=== PATIENT | female | born 1965 | race Hispanic/Latino ===

== ENCOUNTER 2020-01-23 04:39 | Emergency (ER) | payer OTHER ==
[~2020-01-23] VITALS: Ht 152.4 cm; Wt 68.0 kg
[2020-01-23] MEDS ORDERED: PANTOPRAZOLE 40 MG 10ML VIAL IV STA (04:44)
[2020-01-23] MEDS ORDERED: MORPHINE SULFATE 2 MG/ML SYR 1ML IV STA (04:44)
[2020-01-23] MEDS ORDERED: ONDANSETRON HCL INJ 2MG/ML 2ML 2 MG/ML VIAL IV STA (04:44)
[2020-01-23 04:54] LABS: BASOPHILS # (AUTO) 0.1 (0.0-0.1); BASOPHILS % 1.1 % (0.0-1.0); EOSINOPHILS # (AUTO) 0.4 (0.0-0.4); EOSINOPHILS % 6.3 % (0.0-6.0); HEMATOCRIT 40.6 % (34.2-44.1); HEMOGLOBIN 12.9 g/dL (12.0-16.0); LYMPHOCYTES # (AUTO) 3.1 (1.0-3.2); LYMPHOCYTES % 48.1 % (18.0-39.1); MEAN CORPUSCULAR HEMOGLOBIN 30.9 pg (28-32); MEAN CORPUSCULAR HGB CONC 31.8 g/dL (31-35); MEAN CORPUSCULAR VOLUME 97.1 fL (81-99); MONOCYTES # (AUTO) 0.3 (0.2-0.8); NEUTROPHILS # (AUTO) 2.5 (2.1-6.9); NEUTROPHILS % 39.3 % (38.7-80.0); PLATELET COUNT 191 x10e3/uL (140-360); RED BLOOD COUNT 4.18 x10e6/uL (3.6-5.1); RED CELL DISTRIBUTION WIDTH 13.3 % (11.7-14.4)
[2020-01-23 05:10] LABS: ALANINE AMINOTRANSFERASE 119 IU/L (0-55); ALBUMIN 3.7 g/dL (3.5-5.0); ALBUMIN/GLOBULIN RATIO 1.2 (0.8-2.0); ALKALINE PHOSPHATASE 79 IU/L (40-150); ANION GAP 11.8 mmol/L (8-16); BLOOD UREA NITROGEN 15 mg/dL (7-26); BUN/CREATININE RATIO 17 (6-25); CALCIUM 9.1 mg/dL (8.4-10.2); CARBON DIOXIDE 25 mmol/L (22-29); CHLORIDE 107 mmol/L (98-107); CREATINE KINASE 47 IU/L (29-168); CREATININE, SERUM 0.87 mg/dL (0.57-1.11); EST GLOMERULAR FILTRATION RATE > 60 ML/MIN (60-); GLUCOSE 145 mg/dL (74-118); POTASSIUM 3.8 mmol/L (3.5-5.1); SODIUM 140 mmol/L (136-145)
[2020-01-23 05:11] LABS: AMYLASE 104 U/L (25-125); LIPASE 88 U/L (8-78)
--- NOTE | 2020-01-23 05:15 | Emergency Department Note ---
History of Present Illnes History of Present Illness Chief Complaint: Abdominal Complaints History of Present Illness This is a 54 year old female for the past five months patient has been having abd pain and nausea, states tonight pain is worsening, abd pain is generalized, pain comes and goes, has h/o hiatal hernia . 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 Arrival Mode: [facility] Onset (how long ago): month(s) (5) Location: upper abd Quality: pain Radiation: Reports other (chest) Severity: severe Onset quality: gradual Duration (how long): month(s) (5) Timing of current episode: intermittent Progression: worsening Chronicity: recurrent Context: Denies recent illness, Denies recent surgery Relieving factors: none Exacerbating factors: eating Associated symptoms: Reports chest pain Treatments prior to arrival: none (DIEGO VARELA MD) Past Medical/Family History Physician Review I have reviewed the patient's past medical and family history. Any updates have been documented here. (DIEGO VARELA MD) Past Medical History Recent Fever: No Clinical Suspicion of Infectio: No New/Unexplained Change in Ment: No Other Medical History: HIGH CHOLESTEROL Other Surgery: C SECTION. (DIEGO VARELA MD) Social History Smoking Cessation: Never Smoker Alcohol Use: None Any Illegal Drug Use: No Physically hurt or threatened: No (DIEGO VARELA MD) Family History Family history of heart diseas: No Other family history htn (DIEGO VARELA MD) Review of Systems Review of Systems Constitutional: Reports no symptoms EENTM: Reports no symptoms Cardiovascular: Reports no symptoms Respiratory: Reports no symptoms Gastrointestinal: Reports as per HPI Genitourinary: Reports no symptoms Musculoskeletal: Reports no symptoms Integumentary: Reports no symptoms Neurological: Reports no symptoms Psychological: Reports no symptoms Endocrine: Reports no symptoms Hematological/Lymphatic: Reports no symptoms (DIEGO VARELA MD) Physical Exam Related Data Allergies: Coded Allergies: No Known Allergies (Unverified , 02/23/17) Triage Vital Signs Vital Signs Date Time Temp Pulse Resp B/P (MAP) Pulse Ox O2 Delivery O2 Flow Rate FiO2 01/23/20 04:43 97.6 69 20 129/79 98 Room Air Vital signs reviewed: Yes (DIEGO VARELA MD) Physical Exam CONSTITUTIONAL Constitutional: Present well-developed, Present well-nourished, Present dis tressed (mild) HENT HENT: Present normocephalic, Present atraumatic, Present oropharynx clear/moist, Present nose normal HENT L/R: Present left ext ear normal, Present right ext ear normal EYES Eyes: Reports PERRL, Reports conjunctivae normal NECK Neck: Present ROM normal PULMONARY Pulmonary: Present effort normal, Present breath sounds normal CARDIOVASCULAR Cardiovascular: Present regular rhythm, Present heart sounds normal, Present capillary refill normal, Present normal rate GASTROINTESTINAL Abdominal: Present soft, Present bowel sounds normal, Present tender (epigastric region) GENITOURINARY Genitourinary: Present exam deferred SKIN Skin: Present warm, Present dry MUSCULOSKELETAL Musculoskeletal: Present ROM normal NEUROLOGICAL Neurological: Present alert, Present oriented x 3, Present no gross motor or sensory deficits PSYCHOLOGICAL Psychological: Present mood/affect normal, Present judgement normal (DIEGO VARELA MD) Results Laboratory Result Diagram: 01/23/20 0445 Laboratory Laboratory Tests Test 01/23/20 05:25 01/23/20 04:45 Urine Color Yellow (YELLOW) Urine Clarity Hazy (CLEAR) Urine pH 5.5 (5 - 7) Urine Specific [place] >=1.030 (1.010-1.025) Urine Protein Negative (NEGATIVE) Urine Glucose (UA) Negative (NEGATIVE) Urine Ketones Negative (NEGATIVE) Urine Blood Negative (NEGATIVE) Urine Nitrite Negative (NEGATIVE) Urine Bilirubin Negative (NEGATIVE) Urine Urobilinogen 0.2 mg/dL (0.2 - 1) Urine Leukocyte Esterase Moderate (NEGATIVE) Urine RBC 0-5 /HPF (0-5) Urine WBC 11-20 /HPF (0-5) Urine Epithelial Cells Moderate /LPF (NONE) Urine Bacteria Many /HPF (NONE) White Blood Count 6.40 x10e3/uL (4.8-10.8) Red Blood Count 4.18 x10e6/uL (3.6-5.1) Hemoglobin 12.9 g/dL (12.0-16.0) Hematocrit 40.6 % (34.2-44.1) Mean Corpuscular Volume 97.1 fL (81-99) Mean Corpuscular Hemoglobin 30.9 pg (28-32) Mean Corpuscular Hemoglobin Concent 31.8 g/dL (31-35) Red Cell Distribution Width 13.3 % (11.7-14.4) Platelet Count 191 x10e3/uL (140-360) Neutrophils (%) (Auto) 39.3 % (38.7-80.0) Lymphocytes (%) (Auto) 48.1 % (18.0-39.1) Monocytes (%) (Auto) 5.0 % (4.4-11.3) Eosinophils (%) (Auto) 6.3 % (0.0-6.0) Basophils (%) (Auto) 1.1 % (0.0-1.0) Neutrophils # (Auto) 2.5 (2.1-6.9) Lymphocytes # (Auto) 3.1 (1.0-3.2) Monocytes # (Auto) 0.3 (0.2-0.8) Eosinophils # (Auto) 0.4 (0.0-0.4) Basophils # (Auto) 0.1 (0.0-0.1) Absolute Immature Granulocyte (auto 0.01 x10e3/uL (0-0.1) Sodium Level 140 mmol/L (136-145) Potassium Level 3.8 mmol/L (3.5-5.1) Chloride Level 107 mmol/L (98-107) Carbon Dioxide Level 25 mmol/L (22-29) Anion Gap 11.8 mmol/L (8-16) Blood Urea Nitrogen 15 mg/dL (7-26) Creatinine 0.87 mg/dL (0.57-1.11) Estimat Glomerular Filtration Rate > 60 ML/MIN (60-) BUN/Creatinine Ratio 17 (6-25) Glucose Level 145 mg/dL (74-118) Calcium Level 9.1 mg/dL (8.4-10.2) Total Bilirubin 0.4 mg/dL (0.2-1.2) Aspartate Amino Transf (AST/SGOT) 126 IU/L (5-34) Alanine Aminotransferase (ALT/SGPT) 119 IU/L (0-55) Alkaline Phosphatase 79 IU/L (40-150) Creatine Kinase 47 IU/L (29-168) Creatine Kinase MB 0.20 ng/mL (0-5.0) Troponin I < 0.001 ng/mL (0-0.300) Total Protein 6.9 g/dL (6.5-8.1) Albumin 3.7 g/dL (3.5-5.0) Globulin 3.2 g/dL (2.3-3.5) Albumin/Globulin Ratio 1.2 (0.8-2.0) Amylase Level 104 U/L (25-125) Lipase 88 U/L (8-78) Laboratory Tests Test 01/23/20 04:45 White Blood Count 6.40 x10e3/uL (4.8-10.8) Red Blood Count 4.18 x10e6/uL (3.6-5.1) Hemoglobin 12.9 g/dL (12.0-16.0) Hematocrit 40.6 % (34.2-44.1) Mean Corpuscular Volume 97.1 fL (81-99) Mean Corpuscular Hemoglobin 30.9 pg (28-32) Mean Corpuscular Hemoglobin Concent 31.8 g/dL (31-35) Red Cell Distribution Width 13.3 % (11.7-14.4) Platelet Count 191 x10e3/uL (140-360) Neutrophils (%) (Auto) 39.3 % (38.7-80.0) Lymphocytes (%) (Auto) 48.1 % (18.0-39.1) Monocytes (%) (Auto) 5.0 % (4.4-11.3) Eosinophils (%) (Auto) 6.3 % (0.0-6.0) Basophils (%) (Auto) 1.1 % (0.0-1.0) Neutrophils # (Auto) 2.5 (2.1-6.9) Lymphocytes # (Auto) 3.1 (1.0-3.2) Monocytes # (Auto) 0.3 (0.2-0.8) Eosinophils # (Auto) 0.4 (0.0-0.4) Basophils # (Auto) 0.1 (0.0-0.1) Absolute Immature Granulocyte (auto 0.01 x10e3/uL (0-0.1) Lab results reviewed: Yes (DIEGO VARELA MD) Lab results reviewed: Yes (CHRISS GARCIA MD) Imaging Imaging results reviewed: Yes Impressions CT ABD/PELVIS NORMAL, NO ACUTE FINDINGS (CHRISS GARCIA MD) Procedures 12 Lead ECG Interpretation ECG Interpretation : ECG: ECG 1 P[employer]: Interpreted by ED physician Date: Jan 23, 2020 Time: 04:50 Rhythm: sinus rhythm Rate: normal BPM: 66 QRS axis: normal ST segments normal: Yes T waves normal: Yes Other findings: no other findings Clinical Impression: normal ECG (DIEGO VARELA MD) Assessment & Plan Medical Decision Making [facility] pt with upper abd pain radiating to chest cbc, cmp, ekg, cardiac enzyme, ct abd/pelvis, amylase, lipase ordered to eval for rule out myocardial infarction, pancreatitis, gallstones, incarcerated hiatal hernia, electrolyte abnormality, elevated lft's morphine 2mg iv ordered protonix 40 mg iv ordered zofran 4 mg iv ordered [address] GARCIA CT ABD/PELVIS PENDING (DIEGO VARELA MD) [facility] PT S&E, PAIN IMPROVED, NO ABD TENDERNESS, RESULTS OF LABS, UA, CT D/W PATIENT AND PLAN TO DC WITH BOOM JOHNSON, SHE UNDERSTANDS AND IS IN AGREEMENT, WILL F/U WITH PCP AND DR SANCHEZ HER GI MD (CHRISS GARCIA MD) Assessment & Plan Final Impression: (1) Abdominal pain (DIEGO VARELA MD) Final Impression: (1) Abdominal pain (2) Elevated LFTs (CHRISS GARCIA MD) Depart Disposition: HOME, SELF-CARE Last Vital Signs Date Time Temp Pulse Resp B/P (MAP) Pulse Ox O2 Delivery O2 Flow Rate FiO2 01/23/20 04:43 97.6 69 20 129/79 98 Room Air (DIEGO VARELA MD) Medications in the ED Morphine Sulfate 2 mg NOW STAT IV ; Start 01/23/20 at 04:44; Stop 01/23/20 at 04:45 Ondansetron HCl 4 mg NOW STAT IV ; Start 01/23/20 at 04:44; Stop 01/23/20 at 04:45 Pantoprazole Sodium 40 mg NOW STAT IV ; Start 01/23/20 at 04:44; Stop 01/23/20 at 04:45 (DIEGO VARELA MD) DIEGO VARELA MD Jan 23, 2020 05:15 CHRISS GARCIA MD Jan 23, 2020 09:15
[2020-01-23] MEDS ORDERED: BENZOCAINE/TETRACAINE/BUTAMBEN AERO SPRAY 56 GM CAN ONE (05:37)
[2020-01-23 05:38] LABS: BILIRUBIN,URINE NEGATIVE (NEGATIVE); CLARITY,URINE HAZY (CLEAR); COLOR,URINE YELLOW (YELLOW); KETONES,URINE NEGATIVE (NEGATIVE); LEUKOCYTE ESTERASE ,URINE MODERATE (NEGATIVE); NITRITE,URINE NEGATIVE (NEGATIVE); PROTEIN,URINE DIPSTICK NEGATIVE (NEGATIVE); URINE UROBILINOGEN 0.2 mg/dL (0.2 - 1)
[2020-01-23 05:42] LABS: BACTERIA,URINE MANY /HPF; EPITHELIAL CELLS,URINE MODERATE /LPF; RBC,URINE 0-5 /HPF (0-5)
--- OUTSIDE RECORDS SUMMARY | 2020-01-23 06:08 | XMS REPORT | Continuity of Care Document ---
Author Author [facility] t Organization [facility] Address 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 Name Role Phone Gorge GARCIA Attphys Unavailable Payers Payer Name Policy Type Policy Number Effective Date Expiration Date S ource Problems Condition Name Condition Details Condition Category Status Onset Date Resolution Date Last Treatment Date Treating Clinician Comments Source Mixed anxiety and depressive disorder Mixed Anxiety and Depr essive Disorder Problem Active 2019-12-24 00:00:00 [facility] Hiatal hernia Hiatal Hernia Problem Active 2019-12-20 00:00:00 [facility] Vitamin D deficiency Vitamin D Deficiency Problem Active 00:00:00 [facility] ice Mixed hyperlipidemia [facility] Pred[facility] Prediabetes Problem Active 2019-08-24 00:00:00 [facility] Major depressive disorder Major Depressive Disorder Problem Ac tive 2016-10-30 00:00:00 [facility] Gastroesophageal reflux disease Gastroesophageal Reflux Disease Pro blem Active 2016-10-30 00:00:00 [facility] Hypertensive disorder Hypertensive Disorder Problem Active 201 12-18-05 00:00:00 [facility] Allergies, Adverse Reactions, Alerts Allergy Name Allergy Type Status Severity Reaction(s) Onset Date Inacti ve Date Treating Clinician Comments Source No Known Allergies DA Active U 2019-09-17 00:00:00 [facility] No Known Allergies DA Active U 2013-11-17 00:00:00 [facility] House Dust Allergy to substance Active Mild Cough [facility] Social History Smoking Status Start Date Stop Date Source Never Smoker [facility] Medications Ordered Medication Name Filled Medication Name Start Date Stop Da te Current Medication? Ordering Clinician Indication Dosage Frequency Signature (SIG) Comments Components Source atorvastatin 20 mg tablet Take 1 tablet every day by o ral route for 90 days. atorvastatin 20 mg tablet Take 1 tablet every day by oral route for 90 days. No 1 Q1D atorvastatin 2 0 mg tablet Take 1 tablet every day by oral route for 90 days. [facility] ice baclofen 10 mg tablet Take 1 tablet twice a day by ora l route for 10 days. baclofen 10 mg tablet Take 1 tablet twice a day by oral route for 10 days. No baclofen 10 mg tablet Take 1 tablet twice a day by oral route for 10 days. [facility] ice loratadine 10 mg tablet Take 1 tablet every day by ora l route for 90 days. loratadine 10 mg tablet Take 1 tablet every day by oral route for 90 days. No 1 Q1D loratadine 10 m g tablet Take 1 tablet every day by oral route for 90 days. [facility] ice mometasone 50 mcg/actuation nasal spray Ryan 1 spray twice a day by intranasal route for 90 days. mometasone 50 mcg/actuation nasal spray Ryan 1 spray twice a day by intranasal route for 90 days. No mometasone 50 mcg/actuation nasal spray Ryan 1 spray twice a day by intranasal route for 90 days. [facility] montelukast 10 mg tablet Take 1 tablet e very day by oral route in the evening for 90 days. take after 4 pm daily montelukast 10 mg tablet Take 1 tablet e very day by oral route in the evening for 90 days. take after 4 pm daily No 1 Q1D montelukast 10 mg tablet Heri e 1 tablet every day by oral route in the evening for 90 days. take after 4 pm daily [facility] mupirocin 2 % topical ointment APPLY A S MALL AMOUNT TO THE AFFECTED AREA BY TOPICAL ROUTE 2 TIMES PER DAY x 7 days mupirocin 2 % topical ointment APPLY A SMALL AMOUNT TO THE AFFECTED AREA BY TOPICAL ROUTE 2 TIMES PER DAY x 7 days No mupirocin 2 % t opical ointment APPLY A SMALL AMOUNT TO THE AFFECTED AREA BY TOPICAL ROUTE 2 TIMES PER DAY x 7 days [facility] omeprazole 40 mg capsule,delayed release Take 1 capsule every day by oral route in the morning for 90 days. omeprazole 40 mg capsule,delayed release Take 1 capsule every day by oral route in the morning for 90 days. No omeprazole 40 mg capsule,delayed release Take 1 capsule every day by oral route in the morning for 90 days. [facility] ProAir HFA 90 mcg/actuation aerosol inha ler Inhale 2 puffs every 6-8 hours by inhalation route as needed for 10 days. ProAir HFA 90 mcg/actuation aerosol inhaler Inhale 2 puffs every 6-8 hours by inhalation route as needed for 10 days. No 2puff(s) Q7H ProAir HFA 90 m cg/actuation aerosol inhaler Inhale 2 puffs every 6-8 hours by inhalation route as needed for 10 days. [facility] sertraline 50 mg tablet Take 1 tablet ev mayda day by oral route as needed for 90 days. sertraline 50 mg tablet Take 1 tablet ev mayda day by oral route as needed for 90 days. No sertraline 50 mg tablet Take 1 tablet every day by oral route as needed for 90 days. [facility] Vitamin D3 50 mcg (2,000 unit) capsule T matt 1 capsule by oral route after meals for 90 days. Vitamin D3 50 mcg (2,000 unit) capsule T matt 1 capsule by oral route after meals for 90 days. No 1capsule(s) Vitamin D3 50 mcg (2,000 unit) capsule Take 1 capsule by oral route after meals for 90 days. [facility] Immunizations Ordered Immunization Name Filled Immunization Name Date Status Comments Source Tdap Tdap 2019-08-14 15:36:00 Completed [facility] zoster recombinant zoster recombinant 2019-08-14 15:36:00 Completed [facility] influenza, recombinant, quadrIvalent,injectable, prese rvative free influenza, recombinant, quadrIvalent,injectable, preservative free 2019-06-22 16:36:00 Completed [facility] influenza, unspecified formulation influenza, unspecified fo rmulation 2015-04-27 00:00:00 Completed [facility] ice influenza, unspecified formulation influenza, unspecified fo rmulation 2014-03-10 00:00:00 Completed [facility] ice Vital Signs Vital Name Observation Time Observation Value Comments Source BP Diastolic 2020-01-11 00:00:00 74 mm[Hg] [facility] Height 2020-01-11 00:00:00 61 [in_i] [facility] BMI (Body Mass Index) 2020-01-11 00:00:00 24.6 kg/m2 [facility] BP Systolic 2020-01-11 00:00:00 122 mm[Hg] [facility] Body Weight 2020-01-11 00:00:00 130.2 [lb_av] [facility] Height 2020-01-06 00:00:00 61 [in_i] [facility] BP Diastolic 2019-12-24 00:00:00 74 mm[Hg] [facility] Height 2019-12-24 00:00:00 61 [in_i] [facility] BMI (Body Mass Index) 2019-12-24 00:00:00 24.6 kg/m2 [facility] BP Systolic 2019-12-24 00:00:00 106 mm[Hg] [facility] Body Weight 2019-12-24 00:00:00 130.2 [lb_av] [facility] BP Diastolic 2019-11-18 00:00:00 82 mm[Hg] [facility] Height 2019-11-18 00:00:00 61 [in_i] [facility] BMI (Body Mass Index) 2019-11-18 00:00:00 26 kg/m2 [facility] BP Systolic 2019-11-18 00:00:00 114 mm[Hg] [facility] Body Weight 2019-11-18 00:00:00 137.8 [lb_av] [facility] Height 2019-10-26 00:00:00 61 [in_i] [facility] Height 2019-09-14 00:00:00 61 [in_i] [facility] BMI (Body Mass Index) 2019-09-14 00:00:00 30 kg/m2 [facility] Body Weight 2019-09-14 00:00:00 159 [lb_av] [facility] BP Diastolic 2019-09-11 00:00:00 84 mm[Hg] [facility] Height 2019-09-11 00:00:00 61 [in_i] [facility] BMI (Body Mass Index) 2019-09-11 00:00:00 30.2 kg/m2 [facility] BP Systolic 2019-09-11 00:00:00 144 mm[Hg] [facility] Body Weight 2019-09-11 00:00:00 160 [lb_av] [facility] BP Diastolic 2019-08-24 00:00:00 84 mm[Hg] [facility] Height 2019-08-24 00:00:00 61 [in_i] [facility] BMI (Body Mass Index) 2019-08-24 00:00:00 31.2 kg/m2 [facility] BP Systolic 2019-08-24 00:00:00 130 mm[Hg] [facility] Body Weight 2019-08-24 00:00:00 165 [lb_av] [facility] BP Diastolic 2019-08-14 00:00:00 82 mm[Hg] [facility] Height 2019-08-14 00:00:00 61 [in_i] [facility] BMI (Body Mass Index) 2019-08-14 00:00:00 31 kg/m2 [facility] BP Systolic 2019-08-14 00:00:00 114 mm[Hg] [facility] Body Weight 2019-08-14 00:00:00 164 [lb_av] [facility] BP Diastolic 2019-07-22 00:00:00 80 mm[Hg] [facility] Height 2019-07-22 00:00:00 61 [in_i] [facility] BMI (Body Mass Index) 2019-07-22 00:00:00 31.4 kg/m2 [facility] BP Systolic 2019-07-22 00:00:00 128 mm[Hg] [facility] Body Weight 2019-07-22 00:00:00 166 [lb_av] [facility] BP Diastolic 2019-06-22 00:00:00 86 mm[Hg] [facility] Height 2019-06-22 00:00:00 61 [in_i] [facility] BMI (Body Mass Index) 2019-06-22 00:00:00 31 kg/m2 [facility] BP Systolic 2019-06-22 00:00:00 130 mm[Hg] [facility] Body Weight 2019-06-22 00:00:00 164 [lb_av] [facility] BP Diastolic 2019-01-28 00:00:00 84 mm[Hg] [facility] Height 2019-01-28 00:00:00 61 [in_i] [facility] BMI (Body Mass Index) 2019-01-28 00:00:00 30.1 kg/m2 [facility] BP Systolic 2019-01-28 00:00:00 124 mm[Hg] [facility] Body Weight 2019-01-28 00:00:00 159.4 [lb_av] [facility] BP Diastolic 2019-01-09 00:00:00 86 mm[Hg] [facility] Height 2019-01-09 00:00:00 61 [in_i] [facility] BMI (Body Mass Index) 2019-01-09 00:00:00 30.3 kg/m2 [facility] BP Systolic 2019-01-09 00:00:00 130 mm[Hg] [facility] Body Weight 2019-01-09 00:00:00 160.4 [lb_av] [facility] BP Diastolic 2018-12-17 00:00:00 88 mm[Hg] [facility] Height 2018-12-17 00:00:00 61 [in_i] [facility] BMI (Body Mass Index) 2018-12-17 00:00:00 30.2 kg/m2 [facility] BP Systolic 2018-12-17 00:00:00 126 mm[Hg] [facility] Body Weight 2018-12-17 00:00:00 160 [lb_av] [facility] Procedures Procedure Date / Time Performed Performing Clinician Sourc e Egd 2019-11-13 00:00:00 [facility] electrocardiogram 2019-09-11 [facility], bilateral 2019-07-22 00:00:00 [facility] Colonoscopy 2016-10-17 00:00:00 [facility] Other 1999-06-17 00:00:00 [facility] Delivery 1999-06-17 00:00:00 [facility] Planned Activity Planned Date Details Comments Source Future Appointment 2020-04-13 00:00:00 Eugenio Rosas, [address]; [address], [place] [address] [facility] Encounters Start Date/Time End Date/Time Encounter Type Admission Type Attendi [facility] Care Department Encounter ID Source 2020-01-11 00:00:00 2020-01-11 00:00:00 Eugenio reddy MD: [address], [address], [place] [address], Ph. [facility] [id number] [facility] 2020-01-06 00:00:00 2020-01-06 00:00:00 Eugenio reddy MD: [address], [address], [place] [address], Ph. [facility] [id number] [facility] 2019-12-24 00:00:00 2019-12-24 00:00:00 Eugenio reddy MD: [address], [address], [place] [address], Ph. [facility] [id number] [facility] 2019-11-18 00:00:00 2019-11-18 00:00:00 Eugenio reddy MD: [address], [address], [place] [address], Ph. [facility] [id number] [facility] 2019-10-26 00:00:00 2019-10-26 00:00:00 Eugenio reddy MD: [address], [address], [place] [address], Ph. [facility] [id number] [facility] 2019-09-29 00:00:00 2019-09-29 00:00:00 Eugenio reddy MD: [address], [address], [place] [address], Ph. [facility] - [facility] [id number] [facility] 2019-09-22 00:00:00 2019-09-22 00:00:00 Eugenio reddy MD: [address], [address], [place] [address], Ph. [facility] [id number] [facility] 2019-09-14 00:00:00 2019-09-14 00:00:00 Eugenio reddy MD: [address], [address], [place] [address], Ph. [facility] [id number] [facility] 2019-09-11 00:00:00 2019-09-11 00:00:00 Eugenio reddy MD: [address], [address], [place] [address], Ph. [facility] [id number] [facility] 2019-08-24 00:00:00 2019-08-24 00:00:00 Eugenio rdedy MD: [address], [address], [place] [address], Ph. [facility] [id number] [facility] 2019-08-14 00:00:00 2019-08-14 00:00:00 Eugenio reddy MD: [address], [address], [place] [address], Ph. [facility] [id number] [facility] 2019-07-22 00:00:00 2019-07-22 00:00:00 Eugenio reddy MD: [address], [address], [place] [address], Ph. [facility] [id number] [facility] 2019-06-22 00:00:00 2019-06-22 00:00:00 Eugenio reddy MD: [address] [facility], [place] [address], Ph. [facility] - [facility]Zee [id number] [facility] 2019-01-28 00:00:00 2019-01-28 00:00:00 Joseph martin MD: [address] [place] [address], Ph. [facility] [id number] [facility] 2019-01-09 00:00:00 2019-01-09 00:00:00 Joseph martin MD: [address] [place] [address], Ph. [facility] [id number] [facility] 2018-12-17 00:00:00 2018-12-17 00:00:00 Joseph martin MD: [address] [place] [address], Ph. [facility] [id number] [facility] Results Test Description Test Time Test Comments Results Result Comments Source BASIC METABOLIC PANEL 2019-12-04 23:16:00 Test Item SODIUM (test code = NA) 141 mmol/L 136-145 N POTASSIUM (test code = K) 4.0 mmol/L 3.5-5.1 N CHLORIDE (test code = CL) 107.0 mmol/L 98-107 N CARBON DIOXIDE (test code = CO2) 26.0 mmol/L 21-32 N ANION GAP (test code = GAP) 12.0 10-20 N GLUCOSE (test code = GLU) 93 mg/dL 74-106 N BLOOD UREA NITROGEN (test code = BUN) 9 mg/dL 7-18 N GLOMERULAR FILTRATION RATE (test code = GFR) > 60 mL/min >=60 Estimated GFR by using Modified MDRD formula.Chronic kidney disease is defined as either kidney damageor GFR <60 mL/min/1.73 m2 for >3 months. CREATININE (test code = CREAT) 0.70 mg/dL 0.55-1.02 N Note change in reference range due to change in reagent. BUN/CREATININE RATIO (test code = BUN/CREA) 13.7 10-20 N CALCIUM (test code = CA) 9.3 mg/dL 8.5-10.1 N [id number] 23:16:00* Test Item Value Reference Range Interpretation Comments TROPONIN-I (test code = TROPI) <0.015 ng/mL 0-0.045 N BASIC METABOLIC [id number] 23:09:00* Test Item Value Reference Range Interpretation Comments SODIUM (test code = NA) 141 mmol/L 136-145 N POTASSIUM (test code = K) 4.0 mmol/L 3.5-5.1 N CHLORIDE (test code = CL) 107.0 mmol/L 98-107 N CARBON DIOXIDE (test code = CO2) mmol/L 21-32 ANION GAP (test code = GAP) 10-20 GLUCOSE (test code = GLU) mg/dL 74-106 BLOOD UREA NITROGEN (test code = BUN) mg/dL 7-18 GLOMERULAR FILTRATION RATE (test code = GFR) mL/min >=60 CREATININE (test code = CREAT) mg/dL 0.55-1.02 BUN/CREATININE RATIO (test code = BUN/CREA) 10-20 CALCIUM (test code = CA) 9.3 mg/dL 8.5-10.1 N [id number] 23:09:00* Test Item Value Reference Range Interpretation Comments TROPONIN-I (test code = TROPI) ng/mL 0-0.045 BASIC METABOLIC [id number] 23:06:00* Test Item Value Reference Range Interpretation Comments SODIUM (test code = NA) 141 mmol/L 136-145 N POTASSIUM (test code = K) 4.0 mmol/L 3.5-5.1 N CHLORIDE (test code = CL) 107.0 mmol/L 98-107 N CARBON DIOXIDE (test code = CO2) mmol/L 21-32 ANION GAP (test code = GAP) 10-20 GLUCOSE (test code = GLU) mg/dL 74-106 BLOOD UREA NITROGEN (test code = BUN) mg/dL 7-18 GLOMERULAR FILTRATION RATE (test code = GFR) mL/min >=60 CREATININE (test code = CREAT) mg/dL 0.55-1.02 BUN/CREATININE RATIO (test code = BUN/CREA) 10-20 CALCIUM (test code = CA) mg/dL 8.5-10.1 [id number] 23:06:00* Test Item Value Reference Range Interpretation Comments TROPONIN-I (test code = TROPI) ng/mL 0-0.045 CBC W/O [id number] 22:59:00* Test Item Value Reference Range Interpretation Comments WHITE BLOOD CELL (test code = WBC) K/mm3 4.5-12.5 RED BLOOD CELL (test code = RBC) mill/mm3 3.7-5.2 HEMOGLOBIN (test code = HGB) 13.9 gram/dL 11.5-15.5 N HEMATOCRIT (test code = HCT) 42.1 % 36.0-46.0 N MEAN CELL VOLUME (test code = MCV) fL 80-98 MEAN CELL HGB (test code = MCH) picogram 27.0-33.0 MEAN CELL HGB CONCETRATION (test code = MCHC) gram/dL 33.0-36. 0 RED CELL DISTRIBUTION WIDTH (test code = RDW) % 11.6-16. 2 PLATELET COUNT (test code = PLT) K/mm3 150-450 MEAN PLATELET VOLUME (test code = MPV) fL 6.7-11.0 CBC W/O [id number] 22:59:00* Test Item Value Reference Range Interpretation Comments WHITE BLOOD CELL (test code = WBC) 6.5 K/mm3 4.5-12.5 N RED BLOOD CELL (test code = RBC) 4.38 mill/mm3 3.7-5.2 N HEMOGLOBIN (test code = HGB) 13.9 gram/dL 11.5-15.5 N HEMATOCRIT (test code = HCT) 42.1 % 36.0-46.0 N MEAN CELL VOLUME (test code = MCV) 96.1 fL 80-98 N MEAN CELL HGB (test code = MCH) 31.7 picogram 27.0-33.0 N MEAN CELL HGB CONCETRATION (test code = MCHC) 33.0 gram/dL 33.0-36. 0 N RED CELL DISTRIBUTION WIDTH (test code = RDW) 13.6 % 11.6-16. 2 N PLATELET COUNT (test code = PLT) 208 K/mm3 150-450 N MEAN PLATELET VOLUME (test code = MPV) 11.7 fL 6.7-11.0 H - XR CHEST 1 [id number] 21:28:00 FAX: Skip Hidalgo MD [phone] [place]: St: REG Name: MARYLU GOMES [facility] : [birth year] 62 Age/S: 54/F [address] [facility] Unit #: [id number] Loc: [place] [address] Phys: Skip Hidalgo MD Acct: [id number] Dis Date: Status: REG ER PHONE #: [phone] Exam Date: 12/04/20192111 FAX #: [phone] Reason: CHEST PAIN EXAMS: CPT CODE: [id number] XR CHEST 1 V 23444 EXAM: Chest x-ray, one view; INFORMATION: Chest pain and sore throat; IMPRESSION: 1. No evidence of active cardiopulmonary disease. 2. No change c ompared with previous studies from September 17, 2019 and October 22, 2018; 4 mm c alcified granuloma in the right lung base. Location code: [facility] at 2127 Reported and signed by: Kenn Maurer M.D. CC: Danica Hidalgo MD Technologist: DUARTE FARIAS Trnscrd Date/Time/By: 12/04/2019 (2127) : By: Tien Orig Print D/T: S: 12/04/2019 (2131) PAGE 1 Signed Report Urinalysis complete [facility] Culture panel - [id number] 00:00:00* Test Item Value Reference Range Interpretation Comments color (test code = color) yellow yellow appearance (test code = appearance) turbid clear A specific gravity (test code = specific gravity) 1.028 1.001- 1.035 pH (test code = pH) < or = 5.0 5.0-8.0 glucose (test code = glucose) negative negative bilirubin (test code = bilirubin) negative negative ketones (test code = ketones) negative negative occult blood (test code = occult blood) trace negative A protein (test code = protein) 1+ negative A nitrite (test code = nitrite) negative negative leukocyte esterase (test code = leukocyte esterase) 2+ ne gative A WBC (test code = WBC) 10-20 < or = 5 A RBC (test code = RBC) 0-2 < or = 2 squamous epithelial cells (test code = squamous epithelial c ells) > or = 60 < or = 5 A bacteria (test code = bacteria) moderate none seen A calcium oxalate crystals (test code = calcium oxalate crystals) few none or few hyaline cast (test code = hyaline cast) 0-1 none seen A note (test code = note) reflexive urine culture (test code = reflexive urine c ulture) culture indicated - results to follow [facility] U[facility] by [id number] 00:00:00* Test Item Value Reference Range Interpretation Comments culture, urine, routine (test code = culture, urine, routine) see katie schaeffer [facility] Culture panel - Urine 2019-11-20 00:00:00* Test Item Value Reference Range Interpretation Comments color (test code = color) yellow yellow appearance (test code = appearance) turbid clear A specific gravity (test code = specific gravity) 1.028 1.001- 1.035 pH (test code = pH) < or = 5.0 5.0-8.0 glucose (test code = glucose) negative negative bilirubin (test code = bilirubin) negative negative ketones (test code = ketones) negative negative occult blood (test code = occult blood) trace negative A protein (test code = protein) 1+ negative A nitrite (test code = nitrite) negative negative leukocyte esterase (test code = leukocyte esterase) 2+ ne gative A WBC (test code = WBC) 10-20 < or = 5 A RBC (test code = RBC) 0-2 < or = 2 squamous epithelial cells (test code = squamous epithelial c ells) > or = 60 < or = 5 A bacteria (test code = bacteria) moderate none seen A calcium oxalate crystals (test code = calcium oxalate crystals) few none or few hyaline cast (test code = hyaline cast) 0-1 none seen A note (test code = note) reflexive urine culture (test code = reflexive urine c ulture) culture indicated - results to follow [facility] Urine by [id number] 00:00:00* Test Item Value Reference Range Interpretation Comments culture, urine, routine (test code = culture, urine, routine) see n ote [facility] Culture panel - Urine 2019-11-20 00:00:00* Test Item Value Reference Range Interpretation Comments color (test code = color) yellow yellow appearance (test code = appearance) turbid clear A specific gravity (test code = specific gravity) 1.028 1.001- 1.035 pH (test code = pH) < or = 5.0 5.0-8.0 glucose (test code = glucose) negative negative bilirubin (test code = bilirubin) negative negative ketones (test code = ketones) negative negative occult blood (test code = occult blood) trace negative A protein (test code = protein) 1+ negative A nitrite (test code = nitrite) negative negative leukocyte esterase (test code = leukocyte esterase) 2+ ne gative A WBC (test code = WBC) 10-20 < or = 5 A RBC (test code = RBC) 0-2 < or = 2 squamous epithelial cells (test code = squamous epithelial c ells) > or = 60 < or = 5 A bacteria (test code = bacteria) moderate none seen A calcium oxalate crystals (test code = calcium oxalate crystals) few none or few hyaline cast (test code = hyaline cast) 0-1 none seen A note (test code = note) reflexive urine culture (test code = reflexive urine c ulture) culture indicated - results to follow [facility] Urine by [id number] 00:00:00* Test Item Value Reference Range Interpretation Comments culture, urine, routine (test code = culture, urine, routine) see n e [facility] [Units/volume] in Serum or [id number] 00:00:00* Test Item Value Reference Range Interpretation Comments TSH (test code = TSH) 4.379 uIU/mL 0.350-4.940 [facility] [Units/volume] in Serum or [id number] 00:00:00* Test Item Value Reference Range Interpretation Comments TSH (test code = TSH) 4.379 uIU/mL 0.350-4.940 [facility] [Units/volume] in Serum or [id number] 00:00:00* Test Item Value Reference Range Interpretation Comments TSH (test code = TSH) 4.379 uIU/mL 0.350-4.940 [facility] - [id number] 00:00:00 * Test Item Value Reference Range Interpretation Comments WBC (test code = WBC) 4.71 x10*3/?L 3.98-10.04 RBC (test code = RBC) 4.74 10*12/L 3.93-5.22 hemoglobin (test code = hemoglobin) 14.70 g/dL 11.20-15.70 hematocrit (test code = hematocrit) 45.3 % 34.1-44.9 H MCV (test code = MCV) 95.6 fL 80.0-100.0 MCH (test code = MCH) 31.0 pg 25.6-32.2 MCHC (test code = MCHC) 32.5 g/dL 32.2-35.5 RDW-SD (test code = RDW-SD) 47.5 fL 36.4-46.3 H platelet count (test code = platelet count) 213.0 k/uL 182.0-369. 0 MPV (test code = MPV) 12.7 fL 7.5-11.5 H neut% (test code = neut%) 48.0 % 34.0-71.1 lymph% (test code = lymph%) 38.2 % 19.3-51.7 mon% (test code = mon%) 6.8 % 4.7-12.5 eos% (test code = eos%) 5.9 % 0.7-5.8 H baso% (test code = baso%) 1.1 % 0.1-1.2 neut# (test code = neut#) 2.3 x10*3/?L 1.6-6.1 lymph# (test code = lymph#) 1.8 x10*3/?L 1.2-3.7 mon# (test code = mon#) 0.3 x10*3/?L 0.2-0.9 eos# (test code = eos#) 0.28 x10*3/?L 0.04-0.36 baso# (test code = baso#) 0.05 x10*3/?L 0.01-0.08 [facility] 1999 [facility] - Serum or Plasma 2019-11-18 00:00:00* Test Item Value Reference Range Interpretation Comments ALT (test code = ALT) 41 U/L 0-55 AST (test code = AST) 20 U/L 5-34 BUN (test code = BUN) 14.9 mg/dL 9.8-25.0 alk phos (test code = alk phos) 71 unit/L 40-150 glucose (test code = glucose) 87 mg/dL 70-99 albumin (test code = albumin) 4.2 g/dL 3.4-5.1 creatinine (test code = creatinine) 0.81 mg/dL 0.57-1.11 eGFR non- (test code = eGFR non-) > 60 total bilirubin (test code = total bilirubin) 0.5 mg/dL 0.2-1.2 eGFR - (test code = eGFR - ) >60 sodium (test code = sodium) 140 mEq/L 135-145 potassium (test code = potassium) 4.4 mEq/L 3.5-5.3 chloride (test code = chloride) 105 mmol/L 98-110 total protein (test code = total protein) 7.3 g/dL 6.1-8.2 calcium (test code = calcium) 9.7 mg/dL 8.6-10.4 CO2 (test code = CO2) 25.2 mmol/L 20.0-32.0 anion gap (test code = anion gap) 10 calc [facility] 1995 panel - Serum or [id number] 00:00:00* Test Item Value Reference Range Interpretation Comments HDL (test code = HDL) 50 mg/dL triglyceride (test code = triglyceride) 115 mg/dL <150 VLDL (calculated) (test code = VLDL (calculated)) 23 mg/dL cholesterol/HDL ratio (test code = cholesterol/HDL ratio) 4.3 mg/dL non-HDL cholesterol (calculated) (test code = non-HDL cholesterol (calculated)) 167 mg/dL <160 H cholesterol (test code = cholesterol) 217 mg/dL <200 H Cholesterol in LDL [Mass/volume] in Serum or Plasma (t est code = 2089-1) 144 mg/dL <130 H [facility] HospitalHemoglobin A1c/Hemoglobin.total in [id number] 00:00:00* Test Item Value Reference Range Interpretation Comments Hemoglobin A1c/Hemoglobin.total in Blood (test code = 4548-4) 6.1 % 1.0-5.7 H average blood glucose (calculated) (test code = average blood glucose (calculated)) 128 mg/dL [facility] Auto Differential panel - [id number] 00:00:00 * Test Item Value Reference Range Interpretation Comments WBC (test code = WBC) 4.71 x10*3/?L 3.98-10.04 RBC (test code = RBC) 4.74 10*12/L 3.93-5.22 hemoglobin (test code = hemoglobin) 14.70 g/dL 11.20-15.70 hematocrit (test code = hematocrit) 45.3 % 34.1-44.9 H MCV (test code = MCV) 95.6 fL 80.0-100.0 MCH (test code = MCH) 31.0 pg 25.6-32.2 MCHC (test code = MCHC) 32.5 g/dL 32.2-35.5 RDW-SD (test code = RDW-SD) 47.5 fL 36.4-46.3 H platelet count (test code = platelet count) 213.0 k/uL 182.0-369. 0 MPV (test code = MPV) 12.7 fL 7.5-11.5 H neut% (test code = neut%) 48.0 % 34.0-71.1 lymph% (test code = lymph%) 38.2 % 19.3-51.7 mon% (test code = mon%) 6.8 % 4.7-12.5 eos% (test code = eos%) 5.9 % 0.7-5.8 H baso% (test code = baso%) 1.1 % 0.1-1.2 neut# (test code = neut#) 2.3 x10*3/?L 1.6-6.1 lymph# (test code = lymph#) 1.8 x10*3/?L 1.2-3.7 mon# (test code = mon#) 0.3 x10*3/?L 0.2-0.9 eos# (test code = eos#) 0.28 x10*3/?L 0.04-0.36 baso# (test code = baso#) 0.05 x10*3/?L 0.01-0.08 [facility] 2000 [facility] - Serum or Plasma 2019-11-18 00:00:00* Test Item Value Reference Range Interpretation Comments ALT (test code = ALT) 41 U/L 0-55 AST (test code = AST) 20 U/L 5-34 BUN (test code = BUN) 14.9 mg/dL 9.8-25.0 alk phos (test code = alk phos) 71 unit/L 40-150 glucose (test code = glucose) 87 mg/dL 70-99 albumin (test code = albumin) 4.2 g/dL 3.4-5.1 creatinine (test code = creatinine) 0.81 mg/dL 0.57-1.11 eGFR non- (test code = eGFR non-) > 60 total bilirubin (test code = total bilirubin) 0.5 mg/dL 0.2-1.2 eGFR - (test code = eGFR - ) >60 sodium (test code = sodium) 140 mEq/L 135-145 potassium (test code = potassium) 4.4 mEq/L 3.5-5.3 chloride (test code = chloride) 105 mmol/L 98-110 total protein (test code = total protein) 7.3 g/dL 6.1-8.2 calcium (test code = calcium) 9.7 mg/dL 8.6-10.4 CO2 (test code = CO2) 25.2 mmol/L 20.0-32.0 anion gap (test code = anion gap) 10 calc [facility]Lip[facility] 1996 panel - Serum or [id number] 00:00:00* Test Item Value Reference Range Interpretation Comments HDL (test code = HDL) 50 mg/dL triglyceride (test code = triglyceride) 115 mg/dL <150 VLDL (calculated) (test code = VLDL (calculated)) 23 mg/dL cholesterol/HDL ratio (test code = cholesterol/HDL ratio) 4.3 mg/dL non-HDL cholesterol (calculated) (test code = non-HDL cholesterol (calculated)) 167 mg/dL <160 H cholesterol (test code = cholesterol) 217 mg/dL <200 H Cholesterol in LDL [Mass/volume] in Serum or Plasma (t est code = 2089-1) 144 mg/dL <130 H [facility] HospitalHemoglobin A1c/Hemoglobin.total in [id number] 00:00:00* Test Item Value Reference Range Interpretation Comments Hemoglobin A1c/Hemoglobin.total in Blood (test code = 4548-4) 6.1 % 1.0-5.7 H average blood glucose (calculated) (test code = average blood glucose (calculated)) 128 mg/dL [facility] W Auto Differential panel - [id number] 00:00:00 * Test Item Value Reference Range Interpretation Comments WBC (test code = WBC) 4.71 x10*3/?L 3.98-10.04 RBC (test code = RBC) 4.74 10*12/L 3.93-5.22 hemoglobin (test code = hemoglobin) 14.70 g/dL 11.20-15.70 hematocrit (test code = hematocrit) 45.3 % 34.1-44.9 H MCV (test code = MCV) 95.6 fL 80.0-100.0 MCH (test code = MCH) 31.0 pg 25.6-32.2 MCHC (test code = MCHC) 32.5 g/dL 32.2-35.5 RDW-SD (test code = RDW-SD) 47.5 fL 36.4-46.3 H platelet count (test code = platelet count) 213.0 k/uL 182.0-369. 0 MPV (test code = MPV) 12.7 fL 7.5-11.5 H neut% (test code = neut%) 48.0 % 34.0-71.1 lymph% (test code = lymph%) 38.2 % 19.3-51.7 mon% (test code = mon%) 6.8 % 4.7-12.5 eos% (test code = eos%) 5.9 % 0.7-5.8 H baso% (test code = baso%) 1.1 % 0.1-1.2 neut# (test code = neut#) 2.3 x10*3/?L 1.6-6.1 lymph# (test code = lymph#) 1.8 x10*3/?L 1.2-3.7 mon# (test code = mon#) 0.3 x10*3/?L 0.2-0.9 eos# (test code = eos#) 0.28 x10*3/?L 0.04-0.36 baso# (test code = baso#) 0.05 x10*3/?L 0.01-0.08 [facility] 2000 [facility] - Serum or Plasma 2019-11-18 00:00:00* Test Item Value Reference Range Interpretation Comments ALT (test code = ALT) 41 U/L 0-55 AST (test code = AST) 20 U/L 5-34 BUN (test code = BUN) 14.9 mg/dL 9.8-25.0 alk phos (test code = alk phos) 71 unit/L 40-150 glucose (test code = glucose) 87 mg/dL 70-99 albumin (test code = albumin) 4.2 g/dL 3.4-5.1 creatinine (test code = creatinine) 0.81 mg/dL 0.57-1.11 eGFR non- (test code = eGFR non-) > 60 total bilirubin (test code = total bilirubin) 0.5 mg/dL 0.2-1.2 eGFR - (test code = eGFR - ) >60 sodium (test code = sodium) 140 mEq/L 135-145 potassium (test code = potassium) 4.4 mEq/L 3.5-5.3 chloride (test code = chloride) 105 mmol/L 98-110 total protein (test code = total protein) 7.3 g/dL 6.1-8.2 calcium (test code = calcium) 9.7 mg/dL 8.6-10.4 CO2 (test code = CO2) 25.2 mmol/L 20.0-32.0 anion gap (test code = anion gap) 10 calc [facility]Lip[facility] 1996 panel - Serum or [id number] 00:00:00* Test Item Value Reference Range Interpretation Comments HDL (test code = HDL) 50 mg/dL triglyceride (test code = triglyceride) 115 mg/dL <150 VLDL (calculated) (test code = VLDL (calculated)) 23 mg/dL cholesterol/HDL ratio (test code = cholesterol/HDL ratio) 4.3 mg/dL non-HDL cholesterol (calculated) (test code = non-HDL cholesterol (calculated)) 167 mg/dL <160 H cholesterol (test code = cholesterol) 217 mg/dL <200 H Cholesterol in LDL [Mass/volume] in Serum or Plasma (t est code = 2089-1) 144 mg/dL <130 H [facility] HospitalHemoglobin A1c/Hemoglobin.total in [id number] 00:00:00* Test Item Value Reference Range Interpretation Comments Hemoglobin A1c/Hemoglobin.total in Blood (test code = 4548-4) 6.1 % 1.0-5.7 H average blood glucose (calculated) (test code = average blood glucose (calculated)) 128 mg/dL [facility] [id number] 00:55:00* Test Item Value Reference Range Interpretation Comments STREPTOCOCCUS DYSGALACTIAE (test code = STREPGC) NEGATIVE FOR G/C N EGATIVE STREPA MOLECULAR (test code = STREPAMOL) NEGATIVE FOR GRP A NEGATIV E [id number] 18:17:00* Test Item Value Reference Range Interpretation Comments D-DIMER (test code = DDIMER) 483.00 ng/mLFEU 0-500 N Clinical Cut-off value for D-Dimer is 500 ng/mL FEU. Comment: The [employer] D-Dimer assay is intended for use asan aid in the diagnosis of venous thromboembolism (VTE)[deep vein thrombosis (DVT) or pulmonary embolism (PE)].The measurement of D-Dimer should not be used as an aid inthe diagnosis of VTE, in patient with: -Therapeutic dose anticoagulant therapy for >24 hours -Fibrinolytic therapy within previous 7 days -Trauma or surgery within previous 4 weeks -Disseminated malignancies -Aortic aneurysm -Sepsis, severe infections, pneumonia, severe skin infections -Liver cirrhosis - FIRST SPECIMEN WAS CLOTTED.V.LAB.GA 09/17/19 1641B-TYPE NATRIURETIC PEPTIDE 2019-09-17 17:32:00* Test Item Value Reference Range Interpretation Comments B-TYPE NATRIURETIC PEPTIDE (test code = BNP) 2.37 pgram/mL 0-100 N BASIC METABOLIC [id number] 16:58:00* Test Item Value Reference Range Interpretation Comments SODIUM (test code = NA) 139 mmol/L 136-145 N POTASSIUM (test code = K) 3.5 mmol/L 3.5-5.1 N CHLORIDE (test code = CL) 107.0 mmol/L 98-107 N CARBON DIOXIDE (test code = CO2) 24.0 mmol/L 21-32 N ANION GAP (test code = GAP) 11.5 10-20 N GLUCOSE (test code = GLU) 108 mg/dL 74-106 H BLOOD UREA NITROGEN (test code = BUN) 16 mg/dL 7-18 N GLOMERULAR FILTRATION RATE (test code = GFR) > 60 mL/min >=60 Estimated GFR by using Modified MDRD formula.Chronic kidney disease is defined as either kidney damageor GFR <60 mL/min/1.73 m2 for >3 months. CREATININE (test code = CREAT) 0.90 mg/dL 0.55-1.02 N Note change in reference range due to change in reagent. BUN/CREATININE RATIO (test code = BUN/CREA) 17.8 10-20 N CALCIUM (test code = CA) 8.8 mg/dL 8.5-10.1 N [id number] 16:58:00* Test Item Value Reference Range Interpretation Comments TROPONIN-I (test code = TROPI) <0.015 ng/mL 0-0.045 N BASIC METABOLIC [id number] 16:49:00* Test Item Value Reference Range Interpretation Comments SODIUM (test code = NA) 139 mmol/L 136-145 N POTASSIUM (test code = K) 3.5 mmol/L 3.5-5.1 N CHLORIDE (test code = CL) 107.0 mmol/L 98-107 N CARBON DIOXIDE (test code = CO2) mmol/L 21-32 ANION GAP (test code = GAP) 10-20 GLUCOSE (test code = GLU) mg/dL 74-106 BLOOD UREA NITROGEN (test code = BUN) mg/dL 7-18 GLOMERULAR FILTRATION RATE (test code = GFR) mL/min >=60 CREATININE (test code = CREAT) mg/dL 0.55-1.02 BUN/CREATININE RATIO (test code = BUN/CREA) 10-20 CALCIUM (test code = CA) mg/dL 8.5-10.1 [id number] 16:49:00* Test Item Value Reference Range Interpretation Comments TROPONIN-I (test code = TROPI) ng/mL 0-0.045 CBC W/O [id number] 16:44:00* Test Item Value Reference Range Interpretation Comments WHITE BLOOD CELL (test code = WBC) 9.0 K/mm3 4.5-12.5 N RED BLOOD CELL (test code = RBC) 4.76 mill/mm3 3.7-5.2 N HEMOGLOBIN (test code = HGB) 14.9 gram/dL 11.5-15.5 N HEMATOCRIT (test code = HCT) 44.7 % 36.0-46.0 N MEAN CELL VOLUME (test code = MCV) 93.9 fL 80-98 N MEAN CELL HGB (test code = MCH) 31.3 picogram 27.0-33.0 N MEAN CELL HGB CONCETRATION (test code = MCHC) 33.3 gram/dL 33.0-36. 0 N RED CELL DISTRIBUTION WIDTH (test code = RDW) 12.2 % 11.6-16. 2 N PLATELET COUNT (test code = PLT) 209 K/mm3 150-450 N MEAN PLATELET VOLUME (test code = MPV) 11.4 fL 6.7-11.0 H - XR CHEST 1 [id number] 16:01:00 FAX: Rogelio Mckeon MD [phone] [place]: [address]: PRE Name: MARYLU GOMES [facility] : [birth year] 62 Age/S: 54/F Mirna Millard Unit #: [id number] Loc: [place] [address] Phys: Rogelio Mckeon MD Acct: [id number] Dis Date: Status: PRE ER PHONE #: [phone] Exam Date: 09/17/2019 1545 FAX #: [phone] Reason: Shortness of Breath EXAMS: CPT CODE: [id number] XR CHEST 1 V 78431 REASON FOR EXAM: Shortness of Breath Exam Order Date: 09/17/2019 3:33 PM Ordering M.D.: Rogelio Mckeon MD PROCEDURE: - XR CHEST 1 V COMPARISON: Chest x-ray October 22, 2018 FINDINGS: The lungs ar e clear other than a calcified granuloma in the right lung base. There is no pleural effusion or pneumothorax. Pulmonary vascularity is within norm al limits. Cardiomediastinal silhouette is normal in size for tech nique. The mediastinal contours are within normal limits. Mu sculoskeletal structures are within normal limits. The visualized upper abdomen is within normal limits. IMPRESSION: No acute cardiopulmonary process. Location: [facility] at 1601 Reported and signed by: Julius Blas MD CC: Rogelio Mckeon MD Technologist: SOTERO FERNANDO, RT(R); DUARTE FARIAS Trnhird Date/Time/By: 09/17/2019 (2867) : By: Bri.RR 31 Orig Print D/T: S: 09/17/2019 (4014) PAGE 1 Signed Report EKG study 2019-09-11 22:34:00Rate & RhythmQrsPR IntervalQRS DurationQT IntervalVillage Family PracticeEKG [id number] 22:34:00Rate & RhythmQrsPR IntervalQRS DurationQT IntervalVillage Family PracticeEKG [id number] 22:34:00Rate & RhythmQrsPR IntervalQRS DurationQT IntervalVillage Family PracticeThyrotropin [Units/volume] in Serum or [id number] 00:00:00* Test Item Value Reference Range Interpretation Comments TSH (test code = TSH) 3.95 mIU/L [facility] HospitalPpreidbm44-Tyvsvskmzaehho D [Mass/volume] in Serum or Plasma 2019-08-18 00:00:00* Test Item Value Reference Range Interpretation Comments vitamin D,25-oh,total,ia (test code = vitamin D,25-oh,total,ia) 16 NG/mL 30-100 L [facility] HospitalThyrotropin [Units/volume] in Serum or [id number] 00:00:00* Test Item Value Reference Range Interpretation Comments TSH (test code = TSH) 3.95 mIU/L [facility] HospitalXivgztmx22-Astdedbeftmqoi D [Mass/volume] in Serum or Plasma 2019-08-18 00:00:00* Test Item Value Reference Range Interpretation Comments vitamin D,25-oh,total,ia (test code = vitamin D,25-oh,total,ia) 16 NG/mL 30-100 L [facility]Comprehensive [facility] 2000 panel - Serum or Plasma 2019-08-17 00:00:00* Test Item Value Reference Range Interpretation Comments ALT (test code = ALT) 41 U/L 0-55 AST (test code = AST) 23 U/L 5-34 BUN (test code = BUN) 15.9 mg/dL 9.8-25.0 alk phos (test code = alk phos) 75 unit/L 40-150 glucose (test code = glucose) 91 mg/dL 70-99 albumin (test code = albumin) 4.0 g/dL 3.4-5.1 creatinine (test code = creatinine) 0.84 mg/dL 0.57-1.11 eGFR non- (test code = eGFR non-) > 60 total bilirubin (test code = total bilirubin) 0.3 mg/dL 0.2-1.2 eGFR - (test code = eGFR - ) >60 sodium (test code = sodium) 139 mEq/L 135-145 potassium (test code = potassium) 4.6 mEq/L 3.5-5.3 chloride (test code = chloride) 108 mmol/L 98-110 total protein (test code = total protein) 7.3 g/dL 6.1-8.2 calcium (test code = calcium) 9.0 mg/dL 8.6-10.4 CO2 (test code = CO2) 24.9 mmol/L 20.0-32.0 anion gap (test code = anion gap) 6 calc [facility] HospitalLipid 1995 panel - Serum or [id number] 00:00:00* Test Item Value Reference Range Interpretation Comments HDL (test code = HDL) 50 mg/dL triglyceride (test code = triglyceride) 159 mg/dL <150 H VLDL (calculated) (test code = VLDL (calculated)) 32 mg/dL cholesterol/HDL ratio (test code = cholesterol/HDL ratio) 4.3 mg/dL non-HDL cholesterol (calculated) (test code = non-HDL cholesterol (calculated)) 166 mg/dL <160 H cholesterol (test code = cholesterol) 216 mg/dL <200 H Cholesterol in LDL [Mass/volume] in Serum or Plasma (t est code = 2089-1) 134 mg/dL <130 H [facility] HospitalHemoglobin A1c/Hemoglobin.total in [id number] 00:00:00* Test Item Value Reference Range Interpretation Comments Hemoglobin A1c/Hemoglobin.total in Blood (test code = 4548-4) 6.2 % 1.0-5.7 H average blood glucose (calculated) (test code = average blood glucose (calculated)) 131 mg/dL [facility]Com[facility] 2000 panel - Serum or Plasma 2019-08-17 00:00:00* Test Item Value Reference Range Interpretation Comments ALT (test code = ALT) 41 U/L 0-55 AST (test code = AST) 23 U/L 5-34 BUN (test code = BUN) 15.9 mg/dL 9.8-25.0 alk phos (test code = alk phos) 75 unit/L 40-150 glucose (test code = glucose) 91 mg/dL 70-99 albumin (test code = albumin) 4.0 g/dL 3.4-5.1 creatinine (test code = creatinine) 0.84 mg/dL 0.57-1.11 eGFR non- (test code = eGFR non-) > 60 total bilirubin (test code = total bilirubin) 0.3 mg/dL 0.2-1.2 eGFR - (test code = eGFR - ) >60 sodium (test code = sodium) 139 mEq/L 135-145 potassium (test code = potassium) 4.6 mEq/L 3.5-5.3 chloride (test code = chloride) 108 mmol/L 98-110 total protein (test code = total protein) 7.3 g/dL 6.1-8.2 calcium (test code = calcium) 9.0 mg/dL 8.6-10.4 CO2 (test code = CO2) 24.9 mmol/L 20.0-32.0 anion gap (test code = anion gap) 6 calc [facility] HospitalLip[facility] 1996 panel - Serum or [id number] 00:00:00* Test Item Value Reference Range Interpretation Comments HDL (test code = HDL) 50 mg/dL triglyceride (test code = triglyceride) 159 mg/dL <150 H VLDL (calculated) (test code = VLDL (calculated)) 32 mg/dL cholesterol/HDL ratio (test code = cholesterol/HDL ratio) 4.3 mg/dL non-HDL cholesterol (calculated) (test code = non-HDL cholesterol (calculated)) 166 mg/dL <160 H cholesterol (test code = cholesterol) 216 mg/dL <200 H Cholesterol in LDL [Mass/volume] in Serum or Plasma (t est code = 2089-1) 134 mg/dL <130 H [facility] HospitalHemoglobin A1c/Hemoglobin.total in [id number] 00:00:00* Test Item Value Reference Range Interpretation Comments Hemoglobin A1c/Hemoglobin.total in Blood (test code = 4548-4) 6.2 % 1.0-5.7 H average blood glucose (calculated) (test code = average blood glucose (calculated)) 131 mg/dL [facility] HospitalHepatitis C virus RNA [Units/volume] (viral load) in Serum or Plasma by Probe and target amplification [id number] 00:00:00* Test Item Value Reference Range Interpretation Comments hepatitis C antibody (test code = hepatitis C antibody) non- reactive non-reactive signal to cut-off (test code = signal to cut-off) 0.01 <1.0 0 [facility] W Auto Differential panel - [id number] 00:00:00 * Test Item Value Reference Range Interpretation Comments white blood cell count (test code = white blood cell count) 7.2 thousand/uL 3.8-10.8 red blood cell count (test code = red blood cell count) 4.60 million/uL 3.80-5.10 hemoglobin (test code = hemoglobin) 14.7 g/dL 11.7-15.5 hematocrit (test code = hematocrit) 41.8 % 35.0-45.0 MCV (test code = MCV) 90.9 fL 80.0-100.0 MCH (test code = MCH) 32.0 pg 27.0-33.0 MCHC (test code = MCHC) 35.2 g/dL 32.0-36.0 RDW (test code = RDW) 12.4 % 11.0-15.0 platelet count (test code = platelet count) 229 thousand/uL 140-400 MPV (test code = MPV) 11.7 fL 7.5-12.5 absolute neutrophils (test code = absolute neutrophils) 3665 kimber ls/uL 8739-7455 absolute lymphocytes (test code = absolute lymphocytes) 2434 kimber ls/uL 850-3900 absolute monocytes (test code = absolute monocytes) 554 cells/uL 20 0-950 absolute eosinophils (test code = absolute eosinophils) 454 cells/u L 15-500 absolute basophils (test code = absolute basophils) 94 cells/uL 0- 200 neutrophils (test code = neutrophils) 50.9 % lymphocytes (test code = lymphocytes) 33.8 % monocytes (test code = monocytes) 7.7 % eosinophils (test code = eosinophils) 6.3 % basophils (test code = basophils) 1.3 % [facility] HospitalHepatitis C virus RNA [Units/volume] (viral load) in Serum or Plasma by Probe and target amplification [id number] 00:00:00* Test Item Value Reference Range Interpretation Comments hepatitis C antibody (test code = hepatitis C antibody) non- reactive non-reactive signal to cut-off (test code = signal to cut-off) 0.01 <1.0 0 [facility] W Auto Differential panel - [id number] 00:00:00 * Test Item Value Reference Range Interpretation Comments white blood cell count (test code = white blood cell count) 7.2 thousand/uL 3.8-10.8 red blood cell count (test code = red blood cell count) 4.60 million/uL 3.80-5.10 hemoglobin (test code = hemoglobin) 14.7 g/dL 11.7-15.5 hematocrit (test code = hematocrit) 41.8 % 35.0-45.0 MCV (test code = MCV) 90.9 fL 80.0-100.0 MCH (test code = MCH) 32.0 pg 27.0-33.0 MCHC (test code = MCHC) 35.2 g/dL 32.0-36.0 RDW (test code = RDW) 12.4 % 11.0-15.0 platelet count (test code = platelet count) 229 thousand/uL 140-400 MPV (test code = MPV) 11.7 fL 7.5-12.5 absolute neutrophils (test code = absolute neutrophils) 3665 kimber ls/uL 1439-9987 absolute lymphocytes (test code = absolute lymphocytes) 2434 kimber ls/uL 850-3900 absolute monocytes (test code = absolute monocytes) 554 cells/uL 20 0-950 absolute eosinophils (test code = absolute eosinophils) 454 cells/u L 15-500 absolute basophils (test code = absolute basophils) 94 cells/uL 0- 200 neutrophils (test code = neutrophils) 50.9 % lymphocytes (test code = lymphocytes) 33.8 % monocytes (test code = monocytes) 7.7 % eosinophils (test code = eosinophils) 6.3 % basophils (test code = basophils) 1.3 % [facility] HospitalBacteria identified in Urine by [id number] 04:21:00* Test Item Value Reference Range Interpretation Comments culture, urine, routine (test code = culture, urine, routine) see n luis miguele A [facility] HospitalB-TYPE NATRIURETIC [id number] 19:18:00* Test Item Value Reference Range Interpretation Comments B-TYPE NATRIURETIC PEPTIDE (test code = BNP) 12.64 pgram/mL 0-100 N BASIC METABOLIC [id number] 18:26:00* Test Item Value Reference Range Interpretation Comments SODIUM (test code = NA) 138 mmol/L 136-145 N POTASSIUM (test code = K) 3.9 mmol/L 3.5-5.1 N CHLORIDE (test code = CL) 106.0 mmol/L 98-107 N CARBON DIOXIDE (test code = CO2) 26.0 mmol/L 21-32 N ANION GAP (test code = GAP) 9.9 10-20 L GLUCOSE (test code = GLU) 105 mg/dL 74-106 N BLOOD UREA NITROGEN (test code = BUN) 19 mg/dL 7-18 H GLOMERULAR FILTRATION RATE (test code = GFR) > 60 mL/min >=60 Estimated GFR by using Modified MDRD formula.Chronic kidney disease is defined as either kidney damageor GFR <60 mL/min/1.73 m2 for >3 months. CREATININE (test code = CREAT) 0.80 mg/dL 0.55-1.02 N Note change in reference range due to change in reagent. BUN/CREATININE RATIO (test code = BUN/CREA) 23.8 10-20 H CALCIUM (test code = CA) 8.4 mg/dL 8.5-10.1 L [id number] 18:26:00* Test Item Value Reference Range Interpretation Comments TROPONIN-I (test code = TROPI) <0.015 ng/mL 0-0.045 N BASIC METABOLIC [id number] 18:13:00* Test Item Value Reference Range Interpretation Comments SODIUM (test code = NA) 138 mmol/L 136-145 N POTASSIUM (test code = K) 3.9 mmol/L 3.5-5.1 N CHLORIDE (test code = CL) 106.0 mmol/L 98-107 N CARBON DIOXIDE (test code = CO2) mmol/L 21-32 ANION GAP (test code = GAP) 10-20 GLUCOSE (test code = GLU) mg/dL 74-106 BLOOD UREA NITROGEN (test code = BUN) mg/dL 7-18 GLOMERULAR FILTRATION RATE (test code = GFR) mL/min >=60 CREATININE (test code = CREAT) mg/dL 0.55-1.02 BUN/CREATININE RATIO (test code = BUN/CREA) 10-20 CALCIUM (test code = CA) mg/dL 8.5-10.1 [id number] 18:13:00* Test Item Value Reference Range Interpretation Comments TROPONIN-I (test code = TROPI) ng/mL 0-0.045 TROPONIN I [id number] 18:05:00* Test Item Value Reference Range Interpretation Comments TROPONIN I RAPID (test code = TROPIRAP) 0.05 ng/mL <0.08 Please Note New Reference Range 0.00-0.079 ng/mL - Negative>or= 0.08 ng/mL - Positive The use of serial sampling and testing protocol is arecommended practice.An elevated troponin level alone is often not sufficient fordiagnosis of myocardial infarction. Troponin results obtained by different assays may vary.Evaluation of the extent of myocardial damage based onincrease of troponin would be valid only if similarmethodology is used. CBC W/O [id number] 18:03:00* Test Item Value Reference Range Interpretation Comments WHITE BLOOD CELL (test code = WBC) 6.0 K/mm3 4.5-12.5 N RED BLOOD CELL (test code = RBC) 4.42 mill/mm3 3.7-5.2 N HEMOGLOBIN (test code = HGB) 13.7 gram/dL 11.5-15.5 N HEMATOCRIT (test code = HCT) 42.6 % 36.0-46.0 N MEAN CELL VOLUME (test code = MCV) 96.4 fL 80-98 N MEAN CELL HGB (test code = MCH) 31.0 picogram 27.0-33.0 N MEAN CELL HGB CONCETRATION (test code = MCHC) 32.2 gram/dL 33.0-36. 0 L RED CELL DISTRIBUTION WIDTH (test code = RDW) 12.1 % 11.6-16. 2 N PLATELET COUNT (test code = PLT) 194 K/mm3 150-450 N MEAN PLATELET VOLUME (test code = MPV) 10.8 fL 6.7-11.0 N CBC W/O [id number] 17:58:00* Test Item Value Reference Range Interpretation Comments WHITE BLOOD CELL (test code = WBC) K/mm3 4.5-12.5 RED BLOOD CELL (test code = RBC) mill/mm3 3.7-5.2 HEMOGLOBIN (test code = HGB) 13.7 gram/dL 11.5-15.5 N HEMATOCRIT (test code = HCT) 42.6 % 36.0-46.0 N MEAN CELL VOLUME (test code = MCV) fL 80-98 MEAN CELL HGB (test code = MCH) picogram 27.0-33.0 MEAN CELL HGB CONCETRATION (test code = MCHC) gram/dL 33.0-36. 0 RED CELL DISTRIBUTION WIDTH (test code = RDW) % 11.6-16. 2 PLATELET COUNT (test code = PLT) K/mm3 150-450 MEAN PLATELET VOLUME (test code = MPV) fL 6.7-11.0 - XR CHEST 1 [id number] 17:18:00 FAX: Rogelio Mckeon MD [phone] [place]: St: REG Name: MARYLU GOMES [facility] : 08/15/18 62 Age/S: 53/F [address] [facility] Unit #: [id number] Loc: [place] [address] Phys: Rogelio Mckeon MD Acct: [id number] Dis Date: Status: REG ER PHONE #: [phone] Exam Date: 10/22/2018 1713 FAX #: [phone] Reason: CHEST PAIN EXAMS: CPT CODE: [id number] XR CHEST 1 V [id number] REASON FOR EXAM: CHEST NATHEN N EXAM ORDER DATE: 10/22/2018 4:56 PM Ordering M.Leanne: Imer Mckeon MD PROCEDURE: - XR CHEST 1 V COMPARIS ON: 11/17/2013 FINDINGS: Portable AP frontal view of the chest obta ined at 5:12 PM shows stable appearance of a small calcified granuloma in the right base. There is no evidence of effusion. The heart size is minima lly enlarged. Pulmonary vasculatures are unremarkable. IM PRESSION: No active disease. Electronically Signed by Nino Head 10/22/2018 at 4412 Reported and signed by: Tiff Howell CC: Rogelio Mckeon MD Technologist: Phillip DUKES(R) Trnkipr sammie Date/Time/By: 10/22/2018 (6965) : By: NiloL Orig Print D/T: S: 0 10/22/2018 (2244) PAGE 1 Signed Re port FEMUR 2 VIEWS MINIMUM LEFT [facility] [address] [place] [address] Patient Name: MARYLU PAIZ MR #: [id number] : 1965 Age/Sex: 51/F Req #: [id number] [facility] Physician: Ordered by: EFREN SMITH Report #: [id number] Location: ER Room/Bed: Procedure: [id number] DX/FEMUR 2 VIEWS MINIMUM LE FT Exam Date: Exam Time: REPORT STATUS: Sign ed FEMUR 2 VIEWS MINIMUM LEFT HISTORY: Thigh pain COMPARISON: None FINDINGS: Bones: No displaced fracture. Osseous alignment is within normal limits. Joints: The joint spaces are well-maintained. Soft tissues: The soft tissues appear unremarkable. IMPRESSION: No acute radiographic abnormality. Signed by: Dr. Marlo Wilson M.D. on 7 7:55 PM Dictated By: MARLO ALLEN MD 52 Transcribed By: MYAH on 02/23/17 1 955 COPY TO: EFREN SMITH
--- OUTSIDE RECORDS SUMMARY | 2020-01-23 06:09 | XMS REPORT | Encounter Summary ---
Author Organization Unknown Address [address] [place] [address] Phone [phone] Care Team Providers Care Nuclear Design Engineer Name Role Phone Dr. Eugenio Rosas 3 [phone] Sae Hassan MD 107 [phone] Reason for Visit lab follow-up Instructions 1. Prediabetes Glucophage XR 500 mg tablet,extended r elease 2. Vitamin D deficiency Vitamin D2 1,250 mcg (50,000 unit) cap stephanie 3. Major depressive disorder 4. Gastroesophageal reflux disease 5. Mixed hyperlipidemia colesterol alto: instrucciones de cuid ado - [high cholesterol: care instructions] atorvastatin 20 mg tablet Discussion Note Reviewed all labs with pt. Copy of labs given to pt . D/w pt treatment plan, meds, how they work & side effects. Answered all questions to pt's satisfaction. F/U IN 3 MTHS Plan of Care Reminders Provider Appointments Est Patient 11/18/2019 8:30AM Eugenio Rosas MD Lab None recorded. Referral None recorded. Procedures None recorded. Surgeries None recorded. Imaging None recorded. Medications Name Start Date atorvastatin 20 mg tablet Take 1 tablet every day by oral route for 90 days. Glucophage XR 500 mg tablet,extended rel ease Take 1 tablet every day by oral route for 90 days. loratadine 10 mg tablet Take 1 tablet every day by oral route for 90 days. montelukast 10 mg tablet Take 1 tablet every day by oral route in the evening for 90 days. omeprazole 40 mg capsule,delayed release Take 1 capsule every day by oral route in the morning for 90 days. sertraline 50 mg tablet Take 1 tablet every day by oral route as needed for 90 days. Vitamin D2 1,250 mcg (50,000 unit) capsu le Take 1 capsule twice a day by oral route for 90 days. Medications Administered None recorded. Vitals Height Weight BMI Blood Pressure 5 ft 1 in 165 lbs 31.2 kg/m2 130/84 mm[Hg] Results Lab Results Date Name Specimen Result Interpretation Description Value Range Status Address 08/14/2019 Hepatitis C Virus RNA, Quant, PCR, Serum or Plasma Normal Hepatitis C Antibody non-reactive non-reactive Final [facility] dical - Laboratory: [address] [facility] [place] Normal Signal to Cut-off 0.01 <1.00 Mery l [facility] Medical - Laboratory: [address] Rashid [place] 08/14/2019 CBC W/ Auto Diff Normal White Blood Cell Co unt 7.2 thousand/uL 3.8-10.8 thousand/uL Final [facility] - Laboratory : [address] [place] [address] [place] [address] Normal Red Blood Cell Count 4.60 mill ion/uL 3.80-5.10 million/uL Final [facility] - Laboratory: [address] [place] [address] [place] [address] Normal Hemoglobin 14.7 g/dL 11.7-15.5 g/dL Final [facility] - Laboratory: [address] [place] [address] [place] [address] Normal Hematocrit 41.8 % 35.0-45.0 % Final [facility] - Laboratory: [address] [place] [address] [place] [address] Normal Mcv 90.9 fL 80.0-100.0 fL Final [facility] - Laboratory: [address] [facility] [facility] Mch 32.0 pg 27.0-33.0 pg Final [facility] Medical - Laboratory: [address] [facility] [facility] Normal Mchc 35.2 g/dL 32.0-36.0 g/dL Final [facility] - Laboratory: [address] [place] [address] [place] [address] Normal Rdw 12.4 % 11.0-15.0 % Final [facility] - Laboratory: [address] [facility] Normal Platelet Count 229 thousand/uL 140-4 00 thousand/uL Final [facility] - Laboratory: [address] [facility] Normal Mpv 11.7 fL 7.5-12.5 fL Final [facility] Medical - Laboratory: [address] [facility] Normal Absolute Neutrophils 3665 cells/uL 1 500-7800 cells/uL Final [facility] - Laboratory: [address] [facility] Normal Absolute Lymphocytes 2434 cells/uL 8 50-3900 cells/uL Final [facility] - Laboratory: [address] [facility] [place] Normal Absolute Monocytes 554 cells/uL 200- 950 cells/uL Final [facility] - Laboratory: [address] [facility] [place] Normal Absolute Eosinophils 454 cells/uL 15 -500 cells/uL [facility] - Laboratory: [address] [place] [address], [place] Normal Absolute Basophils 94 cells/uL 0-200 cells/uL Final [facility] - Laboratory: [address] [facility] [place] Normal Neutrophils 50.9 % Final [facility] - Laboratory: [address] [place] [address], [place] Normal Lymphocytes 33.8 % Final [facility] - Laboratory: [address] [facility] [place] Normal Monocytes 7.7 % Final [facility] - Laboratory: [address] [facility] [place] Normal Eosinophils 6.3 % Final [facility] - Laboratory: [address] [facility] [place] Normal Basophils 1.3 % Final [facility] - Laboratory: [address] [place] [address] 08/14/2019 CMP, Serum or Plasma Alt 41 U/L 0-55 U /L [facility] - Laboratory: [address] Ast 23 U/L 5-34 U/L [facility] - Laboratory: [address] [place] [address] Bun 15.9 mg/dL 9.8-25.0 mg/dL [facility] - Laboratory: [address] Alk Phos 75 unit/L 40-150 unit/L Fin [facility] Medical - Laboratory: [address] [place] [address] Glucose 91 mg/dL 70-99 mg/dL [facility] - Laboratory: [address] Albumin 4.0 g/dL 3.4-5.1 g/dL [facility] - Laboratory: [address] [place] [address] Creatinine 0.84 mg/dL 0.57-1.11 mg/d L [facility] - Laboratory: [address] [place] [address] eGFR Non- >60 mL/mi n/1.73m2 Final [facility] - Laboratory: [address] [place] [address] Total Bilirubin 0.3 mg/dL 0.2-1.2 mg /dL Final [facility] - Laboratory: [address], [place] eGFR - >60 mL/min/1 .73m2 [facility] - Laboratory: [address] Rashid, [place] Sodium 139 mEq/L 135-145 mEq/L [facility] - Laboratory: [address], [place] Potassium 4.6 mEq/L 3.5-5.3 mEq/L [facility] Medical - Laboratory: [address], [place] Chloride 108 mmol/L 98-110 mmol/L [facility] - Laboratory: [address] Rashid, [place] Total Protein 7.3 g/dL 6.1-8.2 g/dL [facility] - Laboratory: [address] Rashid, [place] Calcium 9.0 mg/dL 8.6-10.4 mg/dL [facility] - Laboratory: [address] Rashid, [place] Co2 24.9 mmol/L 20.0-32.0 mmol/L [facility] - Laboratory: [address] Rash[address], [place] Anion Gap 6 calc [facility] - Laboratory: [address] Rash[address], [place] 08/14/2019 Lipid Panel, Serum Hdl 50 mg/dL Final [facility] - Laboratory: [address] [place] High Triglyceride 159 mg/dL <150 mg/dL [facility] - Laboratory: [address] Rashid, [place] VLDL (Calculated) 32 mg/dL [facility] - Laboratory: [address], [place] cholesterol/HDL Ratio 4.3 mg/dL [facility] - Laboratory: [address], [place] High non-HDL Cholesterol (Calculated) 166 mg/dL <160 mg/dL [facility] - Laboratory: [address], [place] High Cholesterol 216 mg/dL <200 mg/dL [facility] - Laboratory: [address] Rashid, [place] High LDL (Calculated) 134 mg/dL <130 mg/d L [facility] - Laboratory: [address], [place] 08/14/2019 HbA1C (Hemoglobin a1C), Blood High A1C W/ eag 6.2 % 1.0-5.7 % Final [facility] - Laboratory: [address] Average Blood Glucose (Calculated) 1 31 mg/dL Final [facility] - Laboratory: [address] [place] [address], [place] 08/14/2019 TSH, Serum or Plasma Normal Tsh 3.95 mIU/L Final [facility] - Laboratory: [address] [place] [address], [place] 08/14/2019 Vitamin D, 25-Hydroxy, Total, Serum Low Vitamin D,25-Oh,total,ia 16 NG/mL 30-100 NG/mL Final [facility] - Laboratory: [address] Allergies Code Code System Name Reaction Severity Status Onset 703371 RxNorm House Dust Cough Mild Active NKDA Problems Name Status Onset Date Source Hyperlipidemia Active 09/20/2016 Hypertensive Disorder Active 09/20/2016 Major Depressive Disorder Active 10/30/2016 Gastroesophageal Reflux Disease Active 10/30/2016 Vitamin D Deficiency Active 08/24/2019 Mixed Hyperlipidemia Active 08/24/2019 Prediabetes Active 08/24/2019 Procedures Date Name Performed by 06/17/1999 Delivery Information not avai lable Colonoscopy Information not avai lable Vaccine List Vaccine Type influenza, recombinant, quadrIvalent,inj ectable, preservative free 06/22/20190.5 mL influenza, unspecified formulation 03/10/2014 04/27/2015 Tdap 08/14/20190.5 mL zoster recombinant 08/14/20190.5 mL Social History Tobacco Smoking Status Never Smoker Past Encounters 08/24/2019 Prediabetes; Vitamin D Deficiency; Major Depressive Disorder; Gastroesophageal Reflux Disease; Mixed Hyperlipidemia Eugenio Rosas MD: [address], [address], [place] [address], Ph. 08/14/2019 Body Mass Index 30+ - Obesity; Obesity; Vertigo; Gastroesophageal Reflux Disease; Major Depressive Disorder; Immunization; Screening for Malignant Neoplasm of Cervix; Gastritis; Malaise and Fatigue; Mixed Hyperlipidemia; Impaired Fasting Glycaemia; Screening for Disorder; Vitamin D Deficiency; Seasonal Allergic Rhinitis Eugenoi Rosas MD: [address], [address], [place] [address], Ph. History of Present Illness Note:<div>A 54-year-old female presents for an office visit to followup on her labs. This is a [place]bourgish-speaking patient. Accompanied by son, who acts as an embroidery operator during the visit.
</div><div>
</div><div>Prediabetes:
</div ><div>HbA1c is 6.2%.
</div><div>
</div><div>Vitamin D deficiency:
< /div><div>Vitamin D is 16 ng/mL.
</div><div>
</div><div>Major depressive disorder:
</div><div>Takes medication. Mentions she takes it when needed. The reason for her depression is her friend bullying her at work.after d/w son & amp; pt - pt currently taking sertraline 50 mg daily & doing well.
</div> <div>
</div><div>Gastroesophageal reflux disease:
</div><div>On medications.
</div><div>
</div><div>Mixed hyperlipidemia:
</div><div> HDL decreased from 54 mg/dL to 50 mg/dL. Triglycerides increased from 140 mg/dL to 159 mg/dL. LDL is 134 mg/dL.
</div><div>States she eats tortilla, sometimes rice, pasta once in two weeks (spaghetti). Every day in the morning she eats four corn tortillas, corn flakes. Inquires if she can eat fried fish. Mentions she eats two eggs for lunch. She drinks juice too.
</div><div>
< /div><div>Additional comments:
</div><div>Last blood work was done on August 14, 2019.
</div><div>H/h- 14.7/41. Past hemoglobin was 14.8%.
< /div><div>Liver enzymes- ALT is 41 units/litre. It was 31 units/litre in the past. AST is 23 units/litre. It was 20 units/litre in the past.
</div><div> Kidney function - Creatinine is 0.84 mg/dL.
</div><div>TSH level is 3.9 florentin-international unit/litre.
</div><div>
</div><div>Up-to-date with mammogram and the results are normal. </div><div>No chest pain , no shortness of breath, no palpitations ,no dizziness , no diaphoresis , no weakness or numbness in arms or legs , no visual loss .</div> Review of Systems:ROS as noted in the HPI Review of Systems None recorded. Physical Exam General Adult Exam (Female) Reported By: Patient Constitutional: General Appearance: well-dev eloped, obese. Level of Distress: NAD; Patient is looking alert and cheerful. Ambulation: ambulating normally Psychiatric: Insight: good judgement. Men guy Status: active and alert. Orientation: to time, to place, to person. Memory: recent memory normal, remote memory normal Head: Head: normocephalic, atrauma tic Eyes: Lids and Conjunctivae: non-i njected, no discharge, no pallor. EOM: EOMI. Sclerae: non-icteric ENMT: Ears: no lesions on external ear. Hearing: no hearing loss. Nose: no lesions on external nose Lungs: Respiratory effort: no dyspn ea Cardiovascular: Heart Auscultation: RRR, nor mal S1, normal S2, no murmurs Abdomen: Inspection and Palpation: so ft, non-distended, no tenderness; obese Neurologic: Gait and Station: normal gai t, normal station. Cranial Nerves: grossly intact. Coordination and Cerebellum: no tremor Skin: Inspection and palpation: no rash, no lesions, no jaundice Notes: alert , oriented x 3 , neatl y dressed , good eye contact, answers q's appropriately , no monotonous tone .<div></div>
--- OUTSIDE RECORDS SUMMARY | 2020-01-23 06:09 | XMS REPORT | Encounter Summary ---
Author Organization Unknown Address [address] [place] [address] Phone [phone] Care Team Providers Care Conveyor Belt Repairer Name Role Phone Dr. Eugenio Rosas 3 [phone] Sae Hassan MD 107 [phone] Reason for Visit weight loss; other - see typed reason; T elemedicine Visit; cough Instructions 1. Hypertensive disorder CBC w/ auto diff 2. Mixed hyperlipidemia lipid panel, serum CMP, serum or plasma 3. Gastroesophageal reflux disease 4. Dysphagia 5. Mixed anxiety and depressive disorder 6. Thoracic back pain Discussion Note Wants letter to be faxed to [phone] Encouraged to eat different soft foods as tolerated. f/u with GI for EGD on October F/u in 1 month Patient educational handouts: No information available. Plan of Care Reminders Provider Appointments Est Patient 11/18/2019 8:30AM Eugenio Rosas MD Lab Lipid Panel, Serum 10/26/2019 [facility] Medic al - Laboratory CMP, Serum or Plasma 10/26/2019 [facility] Med ical - Laboratory CBC W/ Auto Diff 10/26/2019 [facility] Medical - Laboratory Referral None recorded. Procedures None recorded. Surgeries None recorded. Imaging None recorded. Medications Name Start Date albuterol sulfate HFA 90 mcg/actuation aerosol inhaler atorvastatin 20 mg tablet Take 1 tablet every day by oral route for 90 days. loratadine 10 mg tablet Take 1 tablet every day by oral route for 90 days. meloxicam 15 mg tablet Take 1 tablet every day by oral route after meals for 30 days. metformin ER 500 mg tablet,extended rele ase 24 hr Take 1 tablet every day by oral route for 90 days. mometasone 50 mcg/actuation nasal spray [place] 1 spray twice a day by intranasal route for 90 days. montelukast 10 mg tablet Take 1 tablet every day by oral route in the evening for 90 days. omeprazole 40 mg capsule,delayed release Take 1 capsule every day by oral route in the morning for 90 days. 09/14/2019 sertraline 50 mg tablet Take 1 tablet every day by oral route as needed for 90 days. sucralfate 100 mg/mL oral suspension take 10 ML 15 MINutes Before LUNCH and 15 MINutes BEfore dinner Medications Administered None recorded. Vitals Height 5 ft 1 in Results Lab Results None recorded. Allergies Code Code System Name Reaction Severity Status Onset [id number] RxNorm House Dust Cough Mild Active NKDA Problems Name Status Onset Date Source Hypertensive Disorder Active 09/20/2016 Major Depressive Disorder Active 10/30/2016 Gastroesophageal Reflux Disease Active 10/30/2016 Vitamin D Deficiency Active 08/24/2019 Mixed Hyperlipidemia Active 08/24/2019 Prediabetes Active 08/24/2019 Procedures Date Name Performed by 06/17/1999 Delivery Information not avai lable Colonoscopy & Polypectomy Information no t available Colonoscopy Information not avai lable Vaccine List Vaccine Type influenza, recombinant, quadrIvalent,inj ectable, preservative free 06/22/20190.5 mL influenza, unspecified formulation 03/10/2014 04/27/2015 Tdap 08/14/20190.5 mL zoster recombinant 08/14/20190.5 mL Social History Tobacco Smoking Status Never Smoker Past Encounters 10/26/2019 Hypertensive Disorder; Mixed Hyperlipidemia; Gastroesophageal Reflux Disease; Dysphagia; Mixed Anxiety and Depressive Disorder; Thoracic Back Pain Eugenio Rosas MD: [address] [facility] [address], [place] [address], Ph. 09/29/2019 Hypertensive Disorder; Mixed Hyperlipidemia; Gastroesophageal Reflux Disease; Dysphagia; Mixed Anxiety and Depressive Disorder; Thoracic Back Pain Eugenio Rosas MD: [address] [facility] [address], [place] [address], Ph. History of Present Illness Note:I confirm that I received verbal consent from the patient for the virtual visit.
This telemedicine encounter was performed using live {{video and audio at 4.20 pm #|video and audio|audio only}}.
<b>(for audio only)</b> Total time spent with patient: {{ }} minutes.<div>C/o something is tuck in her throat x 2 mth s, loosing weight - approximately 19 lbs in 5.5 weeks, Saw GI & has been scheduled a EGD for October, Went to a near by Clinic on October was tested for tsh & Covid 19 - per pt was told results are normal, </div><div> Taking Omeprazole in am * Sucralfate at noon & Before dinner in pm .</div>< div>Wants a note to work a\\saying she is not doing well.Difficulty swallowing hard foods ,</div><div>No chest pain , no shortness of breath, no palpitations ,no dizziness , no diaphoresis , no weakness or numbness in arms or legs , no visual loss .no muscle aches , no muscle weakness</div><div>Son helping in translation as pt speaking Mostly Hungarian .</div><div> bp - 139/96 , wt -140 lbs ( 19 lb wt loss in 1.5 mths) </div> Review of Systems:ROS as noted in the HPI Review of Systems None recorded. Physical Exam Telemedicine/Virtual Visit Reported By: Patient Constitutional: General Appearance: overweig ht. Level of Distress: mild distress. Ambulation: ambulating normally Psychiatric: Insight: poor insight. Menta l Status: active and alert, normal mood, normal affect. Orientation: to time, to place, to person. Memory: recent memory normal Head: Head: normocephalic, atrauma tic Eyes: Lids and Conjunctivae: non-i njected, no discharge. EOM: EOMI. Sclerae: non-icteric ENMT: Ears: no lesions on external ear. Hearing: grossly normal. Nose: no lesions on external nose. Lips, Teeth, and Gums: no mouth or lip ulcers. Oropharynx: moist mucous membranes Neck: Neck: supple, FROM Lungs: Respiratory effort: no dyspn ea Neurologic: Coordination and Cerebellum: no tremor Skin: Inspection and palpation: no rash. Nails: normal Notes: Alert, oriented , answers q' s appropriately , neatly dressed , comfortable , looking well , moving all 4 extremities well , looks like she lost weight
Affect appropriate , no conversational dyspnea"
--- OUTSIDE RECORDS SUMMARY | 2020-01-23 06:09 | XMS REPORT | Encounter Summary ---
Author Organization Unknown Address [address] [place] [address] Phone [phone] Care Team Providers Care Design Maker Name Role Phone Dr. Eugenio Rosas 3 [phone] Sae Hassan MD 107 [phone] Reason for Visit other - see typed reason; Telemedicine V isit; cough Instructions 1. Gastroesophageal reflux disease 2. Hypertensive disorder 3. Mixed hyperlipidemia 4. Prediabetes 5. Seasonal allergic rhinitis Nasonex 50 mcg/actuation [place] Discussion Note Lost 6 lbs in 3 days, started to eat tod ay . Call in 1-2 weeks as to how she is doing on Seasonal allergies & Gerd / gastritis . If not doing well needs to see GI . Patient educational handouts: No information available. Plan [...] day by oral route for 90 days. metformin ER 500 mg tablet,extended rele ase 24 hr Take 1 tablet every day by oral route for 90 days. montelukast 10 mg tablet Take 1 tablet every day by oral route in the evening for 90 days. Nasonex 50 mcg/actuation [place]ia [place] 1 spray twice a day by intranasal route for 90 days. omeprazole 40 mg capsule,delayed release Take 1 capsule every day by oral route in the morning for 90 days. 09/14/2019 sertraline 50 mg tablet Take 1 tablet every day by oral route as needed for 90 days. Medications Administered None recorded. Vitals Height Weight BMI 5 ft 1 in 159 lbs 30 kg/m2 Results Lab Results Date Name Specimen Result Interpretation Description Value Range Status Address 09/11/2019 Electrocardiogram Rate & Rhythm [facility]: [address], [place] [facility]: [address] [address], [place] Interval [facility]: [address] [address], [place] [facility]: [address] [address], [place] [facility] - [place]: [address] [facility] , [place] Allergies Code Code System Name Reaction Severity Status Onset 046619 RxNorm House Dust Cough Mild Active NKDA Problems Name Status Onset Date Source Hypertensive Disorder Active 09/20/2016 Major Depressive Disorder Active 10/30/2016 Gastroesophageal Reflux Disease Active 10/30/2016 Vitamin D Deficiency Active 08/24/2019 Mixed Hyperlipidemia Active 08/24/2019 Prediabetes Active 08/24/2019 Procedures Date Name Performed by 06/17/1999 Delivery Information not avai lable Colonoscopy Information not avai lable 09/11/2019 Electrocardiogram [facility] - [facility] [address] [address] (Work [address]) Vaccine List Vaccine Type influenza, recombinant, quadrIvalent,inj ectable, preservative free 06/22/20190.5 mL influenza, unspecified formulation 03/10/2014 04/27/2015 Tdap 08/14/20190.5 mL zoster recombinant 08/14/20190.5 mL Social History Tobacco Smoking Status Never Smoker Past Encounters 09/14/2019 Gastroesophageal Reflux Disease; Hypertensive Disorder; Mixed Hyperlipidemia; Prediabetes; Seasonal Allergic Rhinitis Eugenio Rosas MD: [address], [facility] [address] [address], Ph. 09/11/2019 Palpitations; Hypertensive Disorder; Mixed Hyperlipidemia; Prediabetes; Gastroesophageal Reflux Disease; Difficulty Swallowing; Seasonal Allergic Rhinitis Eugenio Rosas MD: [address], [facility] [address], [place] [address], Ph. 08/24/2019 Prediabetes; Vitamin D Deficiency; Major Depressive Disorder; Gastroesophageal Reflux Disease; Mixed Hyperlipidemia Eugenio Rosas MD: [address], [facility] [address], [place] [address], Ph. History of Present Illness Note:I confirm that I received verbal consent from the patient for the virtual visit.<div>Pt gave permission to treat her via Ph/Portal/ Telemed.</div><div> Patient is being seen using Telemedicine <div>Contact initiated at 10.31 am___ via {{text message*|email}}.<div>Patient was advised patient that this medical visit was being done through secure video connection. Patient gave verbal consent to telemedicine visit.<div>

Patient complains of: F/u on difficulty swallowing , Did not go to ER on . Feels its her GERD causing her to fell that way , Able to eat & drink without difficulty. called faculty i on call medical assistant doctor on night & was told to take it bid .</div></div></div></div ><div>Ate oatmeal today & did well , did not get luciano nasal spray as ins did not cover it & it was too expensive.</div><div>Started taking Loratidine 10 mg today , Flonase too expensive & ins did not cover ,so so will send in Nasonex.</div> Review of Systems:ROS as noted in the HPI Review of Systems None recorded. Physical Exam Notes: Alert , oriented , looking c omfortable , answers q's comfortable moving all 4 extremities well , occasional sniffel"
--- OUTSIDE RECORDS SUMMARY | 2020-01-23 06:09 | XMS REPORT | Encounter Summary ---
Author Organization Unknown Address [address] [place] [address] Phone [phone] Care Team Providers Care Dope Heater Name Role Phone Eugenio Rosas MD 3 [phone] Gumaro Ferrer MD 104 [phone] [place] [address] [phone] Reason for Visit Hiatal hernia; Prediabetes Instructions 1. Mixed anxiety and depressive disorder 2. Gastroesophageal reflux disease 3. Prediabetes 4. Hiatal hernia 5. Abnormal weight loss 6. Pain of right shoulder joint Discussion Note If RT shoulder pain not better - call - will refer to see Orthopedics.\ F/u with GI & ENT Encouraged to get the Flu vaccine in Mar 2020 ( Reason why to get it in Mar 2020 also given / explained ) F/u in 3 mths Patient educational handouts: No information available. Plan of Care Reminders Provider Appointments Telemedicine 15 on or around 03/30/2020 Eugenio Rosas MD Lab None recorded. Referral None recorded. Procedures None recorded. Surgeries None recorded. Imaging None recorded. Medications Name Start Date albuterol sulfate HFA 90 mcg/actuation aerosol inhaler atorvastatin 20 mg tablet Take 1 tablet every day by oral route for 90 days. cimetidine 400 mg tablet Take 2 tablets every day by oral route at bedtime for 90 days. loratadine 10 mg tablet Take 1 tablet every day by oral route for 90 days. mometasone 50 mcg/actuation nasal spray [place] 1 spray twice a day by intranasal [...] BMI Blood Pressure 5 ft 1 in 130.2 lbs 24.6 kg/m2 106/74 mm[Hg] Results Lab Results None recorded. Allergies Code Code System Name Reaction Severity Status Onset 997666 RxNorm House Dust Cough Mild Active NKDA Problems Name Status Onset Date Source Hypertensive Disorder Active 09/20/2016 Major Depressive Disorder Active 10/30/2016 Gastroesophageal Reflux Disease Active 10/30/2016 Vitamin D Deficiency Active 08/24/2019 Mixed Hyperlipidemia Active 08/24/2019 Prediabetes Active 08/24/2019 Hiatal Hernia Active 12/20/2019 Mixed Anxiety and Depressive Disorder Active 12/24/2019 Procedures Date Name Performed by 11/13/2019 Egd Information not avai lable 06/17/1999 Delivery Information not avai lable Colonoscopy & Polypectomy Information no t available Colonoscopy Information not avai lable Vaccine List Vaccine Type influenza, recombinant, quadrIvalent,inj ectable, preservative free 06/22/20190.5 mL influenza, unspecified formulation 03/10/2014 04/27/2015 Tdap 08/14/20190.5 mL zoster recombinant 08/14/20190.5 mL Social History Tobacco Smoking Status Never Smoker Past Encounters 12/24/2019 Mixed Anxiety and Depressive Disorder; Gastroesophageal Reflux Disease; Prediabetes; Hiatal Hernia; Abnormal Weight Loss; Pain of Right Shoulder Joint Eugenio Rosas MD: [address] [facility] [place], [address], [place] [address], Ph. History of Present Illness Note:Blood sugar was low , yesterday felt weak so checked & it was 75 ,ate honey 1 tbsp & felt good in 20 mins . Stopped metformin yesterday. C/o gerd - Pain in Rt shoulder going down & moving into rt abd ,lasts - 10 mins & resolved, occurs at night only X 1 month <div>Cemetidine helps with heart burn ,</div> Review of Systems:ROS as noted in the HPI Review of Systems None recorded. Physical Exam None recorded.
--- OUTSIDE RECORDS SUMMARY | 2020-01-23 06:09 | XMS REPORT | Encounter Summary ---
Author Organization Unknown Address [address] [place] [address] Phone [phone] Care Team Providers Care Fabric Separator Operator Name Role Phone Dr. Eugenio Rosas 3 [phone] Sae Hassan MD 107 [phone] Reason for Visit Hypertensive disorder; Major depressive disorder; Mixed hyperlipidemia; Gastroesophageal reflux disease; Annual physical - female Instructions 1. Adult health examination CBC w/ auto diff CMP, serum or plasma lipid panel, serum TSH, serum or plasma HbA1c (hemoglobin A1c), blood urinalysis complete, reflex culture 2. Depression screening positive learning about depression learning about mood disorders 3. Mixed anxiety and depressive disorder 4. Gynecologic examination gynecology referral - Please call p atient to schedule 5. Gastroesophageal reflux disease 6. Dysphagia 7. Body mass index 25-29 - overweight learning about healthy weight learning about healthy weight 8. Overweight 9. Abnormal weight loss Discussion Note Lost 22 lbs in 2 mths, Pl f/u with GI to review results & cause of Throat discomfort - possibly due to GERD If you do not hear from us in 1 week after the labs are done ,pl call us for results f/u in 3 mths Plan of Care Reminders Provider Appointments Est Patient on or around 02/18/2020 Eugenio Rosas MD Lab CBC W/ Auto Diff 11/18/2019 [facility] - Laboratory CMP, Serum or Plasma 11/18/2019 [facility] ical - Laboratory Lipid Panel, Serum 11/18/2019 [facility] - Laboratory TSH, Serum or Plasma 11/18/2019 [facility] - Laboratory HbA1C (Hemoglobin a1C), Blood 11/18/2019 [facility] Urinalysis Complete, Reflex Culture 11/18/2019 [facility] - Laboratory Referral Gynecology Referral 11/18/2019 Magdiel wallace MD Procedures None recorded. Surgeries None recorded. Imaging None recorded. Medications Name Start Date albuterol sulfate HFA 90 mcg/actuation aerosol inhaler atorvastatin 40 mg tablet Take 1 tablet every day by oral route for 90 days. didcnzwefwblsaz-vhsosioxwtpdmjt-RV 2 mg-30 mg-10 mg/5 mL oral syrup dicyclomine 20 mg tablet loratadine 10 mg tablet Take 1 tablet every day by oral route for 90 days. meloxicam 15 mg tablet Take 1 tablet every day by oral route after meals for 30 days. metformin ER 500 mg tablet,extended rele ase 24 hr Take 1 tablet every day by oral route for 90 days. mometasone 50 mcg/actuation nasal spray [place] 1 spray twice a day by intranasal [...] route as needed for 90 days. sucralfate 1 gram tablet sucralfate 100 mg/mL oral suspension take 10 ML 15 MINutes Before LUNCH and 15 MINutes BEfore dinner sulfamethoxazole 800 mg-trimethoprim 160 mg tablet Take 1 tablet every 12 hours by oral route after meals for 5 days. Medications Administered None recorded. Vitals Height Weight BMI Blood Pressure 5 ft 1 in 137.8 lbs 26 kg/m2 114/82 mm[Hg] Results Lab Results Date Name Specimen Result Interpretation Description Value Range Status Address 11/18/2019 CBC W/ Auto Diff Wbc 4.71 x10*3/L 3.9 8-10.04 x10*3/L Final [facility] - Laboratory: [address] Any[address] Oswald [address] Rbc 4.74 10*12/L 3.93-5.22 10*12/L Final [facility] - Laboratory: [address] Anya Oswald [address] Hemoglobin 14.70 g/dL 11.20-15.70 g/ dL Final [facility] - Laboratory: [address] An[address] Osw[address] High Hematocrit 45.3 % 34.1-44.9 % Final [facility] - Laboratory: [address] An[address] Osw[address] Mcv 95.6 fL 80.0-100.0 fL Final [facility] - Laboratory: [address] Osw[address] Mch 31.0 pg 25.6-32.2 pg Final [facility] - Laboratory: [address] Adrian Vieira Mchc 32.5 g/dL 32.2-35.5 g/dL Final [facility] - Laboratory: [address] [facility] RDW-SD 47.5 fL 36.4-46.3 fL Final [facility] Medical - Laboratory: [address] Anya Rashid [place] Platelet Count 213.0 k/uL 182.0-369. 0 k/uL Final [facility] - Laboratory: [address] [facility] Mpv 12.7 fL 7.5-11.5 fL Final [facility] - Laboratory: 9055 Anya Rashid [place] Neut% 48.0 % 34.0-71.1 % Final [facility] Medical - Laboratory: 9055 Anya Rashid [place] Lymph% 38.2 % 19.3-51.7 % Final [facility] Medical - Laboratory: 9055 Anya Rashid [place] Mon% 6.8 % 4.7-12.5 % Final [facility] Medical - Laboratory: 9055 Anya Rashid [facility] Eos% 5.9 % 0.7-5.8 % Final [facility] - Laboratory: 9055 Anya Rashid [place] Baso% 1.1 % 0.1-1.2 % Final [facility] Medical - Laboratory: 9055 Anya Rashid [place] Neut# 2.3 x10*3/L 1.6-6.1 x10*3/L Final [facility] - Laboratory: 9055 Anya Rashid [place] Lymph# 1.8 x10*3/L 1.2-3.7 x10*3/L Final [facility] - Laboratory: [address] Anya Rashid [place] Mon# 0.3 x10*3/L 0.2-0.9 x10*3/L F [facility] Medical - Laboratory: 9055 Anya Rashid [place] Eos# 0.28 x10*3/L 0.04-0.36 x10*3/ L Final [facility] - Laboratory: 9055 Anya Rashid [place] Baso# 0.05 x10*3/L 0.01-0.08 x10*3/ L Final [facility] - Laboratory: 9055 Anya Rashid [place] 11/18/2019 CMP, Serum or Plasma Alt 41 U/L 0-55 U /L Final [facility] - Laboratory: [address] Anya Oswald [place] [address], [place] Ast 20 U/L 5-34 U/L [facility] Medical - Laboratory: [address] Raymondj[address]arthak [address] Bun 14.9 mg/dL 9.8-25.0 mg/dL Final [facility] - Laboratory: [address] Anya Raymondjordansarthak [place] [address], [place] Alk Phos 71 unit/L 40-150 unit/L [facility] Medical - Laboratory: 9055 Anya Raymondjordansarthak [place] [address] [place] [address] Glucose 87 mg/dL 70-99 mg/dL Final [facility] - Laboratory: [address] Anya Raymondjordansarthak [address] Albumin 4.2 g/dL 3.4-5.1 g/dL [facility] - Laboratory: [address] Creatinine 0.81 mg/dL 0.57-1.11 mg/d L [facility] - Laboratory: [address] An[address] Raymondjord[address]arthak [address] eGFR Non- >60 mL/mi n/1.73m2 Final [facility] - Laboratory: 9055 Anya Raymondjordansarthak [place] [address] [place] [address] Total Bilirubin 0.5 mg/dL 0.2-1.2 mg /dL [facility] - Laboratory: [address] An[address] Raymondj[address]arthak [address] eGFR - >60 mL/min/1 .73m2 Final [facility] - Laboratory: [address] Margret [address] Sodium 140 mEq/L 135-145 mEq/L [facility] - Laboratory: [address] Raymond[address]arthak [address] Potassium 4.4 mEq/L 3.5-5.3 mEq/L [facility] Medical - Laboratory: [address] Chloride 105 mmol/L 98-110 mmol/L [facility] Medical - Laboratory: 9055 Anya Raymondjordansarthak [place] [address], [place] Total Protein 7.3 g/dL 6.1-8.2 g/dL [facility] - Laboratory: [address] Anya Oswald [address] Calcium 9.7 mg/dL 8.6-10.4 mg/dL [facility] Medical - Laboratory: 9055 Anya Briscoe [facility], [place] Co2 25.2 mmol/L 20.0-32.0 mmol/L [facility] Medical - Laboratory: 9055 Anya Briscoe [facility], [place] Anion Gap 10 calc Final [facility] Medical - Laboratory: 9055 Anya Rashid, [place] 11/18/2019 Lipid Panel, Serum Hdl 50 mg/dL Final [facility] - Laboratory: 9055 Anya Briscoe [facility], [place] Triglyceride 115 mg/dL <150 mg/dL [facility] Medical - Laboratory: 9055 Anya Briscoe [facility] [place] VLDL (Calculated) 23 mg/dL [facility] Medical - Laboratory: 9055 Anya Briscoe [facility] [place] cholesterol/HDL Ratio 4.3 mg/dL Final [facility] - Laboratory: 9055 Anya Briscoe [facility] [place] High non-HDL Cholesterol (Calculated) 167 mg/dL <160 mg/dL Final [facility] - Laboratory: [address] Anya Briscoe [facility] [place] High Cholesterol 217 mg/dL <200 mg/dL [facility] Medical - Laboratory: 9055 Anya Briscoe [facility] [place] High LDL (Calculated) 144 mg/dL <130 mg/d L Final [facility] - Laboratory: [address] Anya Briscoe [address] [place] [address] 11/18/2019 TSH, Serum or Plasma Tsh 4.379 uI U/mL 0.350-4.940 uIU/mL [facility] Medical - Laboratory: 90 Anya Oswald [place] [address], [place] 11/18/2019 HbA1C (Hemoglobin a1C), Blood High A1C W/ eag 6.1 % 1.0-5.7 % Final [facility] - Laboratory: [facility] Anya Oswald [address] Average Blood Glucose (Calculated) 1 28 mg/dL Final [facility] - Laboratory: 9055 Anya Briscoe [facility] [place] 11/18/2019 Urinalysis Complete, Reflex Culture Normal Color yellow yellow Final [facility] - Laboratory: 9055 Anya Briscoe [facility] [place] ABNORMAL Appearance turbid clear Final [facility] - Laboratory: 90 Anya Briscoe [facility] [place] Normal Specific Tumtum 1.028 1.001-1.035 [facility] - Laboratory: [facility] Anya Oswald [place] [address] [place] Normal Ph < or = 5.0 5.0-8.0 Final [facility] Medical - Laboratory: 9094 Anya Briscoe [facility] [place] Normal Glucose negative negative Final [facility] Medical - Laboratory: 9055 Anya Rashid, [place] Normal Bilirubin negative negative Final [facility] Medical - Laboratory: 9055 Anya Rsahid, [place] Normal Ketones negative negative Final [facility] Medical - Laboratory: 9003 Anya Briscoe [facility] [place] ABNORMAL Occult Blood trace negative Final [facility] - Laboratory: [address] Anya Briscoe [address] [place] [address] ABNORMAL Protein 1+ negative Final [facility] Medical - Laboratory: 9007 Anya Rashid [place] Normal Nitrite negative negative Final [facility]: [facility]055 [facility] Leukocyte Esterase 2+ negative Final [facility] - Laboratory: [address] Anya Briscoe [address] [place] [address] ABNORMAL Wbc 10-20 /hpf < or = 5 /hpf [facility] Medical - Laboratory: 9040 Anya Briscoe [address] [place] [address] Normal Rbc 0-2 /hpf < or = 2 /hpf Final [facility] Medical - Laboratory: [address] Anya Briscoe [address] [place] [address] ABNORMAL Squamous Epithelial Cells > or = 6 0 /hpf < or = 5 /hpf Final [facility] - Laboratory: [address]078 Anya Briscoe [address] [place] [address] ABNORMAL Bacteria moderate /hpf none seen / hpf Final [facility] - Laboratory: [address] Anya Briscoe [address] [place] [address] Normal Calcium Oxalate Crystals few /hpf no ne or few /hpf Final [facility] - Laboratory: [address] Anya Briscoe [address] [place] [address] ABNORMAL Hyaline Cast 0-1 /lpf none seen /l pf Final [facility] - Laboratory: [address]097 Anya Briscoe [address] [place] [address] Note Final [facility] dical - Laboratory: [address] Anya Briscoe [address] [place] [address] Reflexive Urine Culture cultur e indicated - results to follow Final [facility] - Laboratory: 9004 Anya Rashid [place] 11/18/2019 Culture, Urine Culture, Urine, Routine see note Final [facility]: [facility]048 [facility] Allergies Code Code System Name Reaction Severity Status Onset 841742 RxNorm House Dust Cough Mild Active NKDA Problems Name Status Onset Date Source Hypertensive Disorder Active 09/20/2016 Major Depressive Disorder Active 10/30/2016 Gastroesophageal Reflux Disease Active 10/30/2016 Vitamin D Deficiency Active 08/24/2019 Mixed Hyperlipidemia Active 08/24/2019 Prediabetes Active 08/24/2019 Procedures Date Name Performed by 06/17/1999 Delivery Information not avai lable Egd Information not avai lable Colonoscopy & Polypectomy Information no t available Colonoscopy Information not avai lable Vaccine List Vaccine Type influenza, recombinant, quadrIvalent,inj ectable, preservative free 06/22/20190.5 mL influenza, unspecified formulation 03/10/2014 04/27/2015 Tdap 08/14/20190.5 mL zoster recombinant 08/14/20190.5 mL Social History Tobacco Smoking Status Never Smoker Past Encounters 11/18/2019 Adult Health Examination; Depression Screening Positive; Mixed Anxiety and Depressive Disorder; Gynecologic Examination; Gastroesophageal Reflux Disease; Dysphagia; Body Mass Index 25-29 - Overweight; Overweight; Abnormal Weight Loss Eugenio Rosas MD: [address] [facility], [address], [place] [address], Ph. 10/26/2019 Hypertensive Disorder; Mixed Hyperlipidemia; Gastroesophageal Reflux Disease; Dysphagia; Mixed Anxiety and Depressive Disorder; Thoracic Back Pain Eugenio Rosas MD: [address] [facility], [address], [place] [address], Ph. History of Present Illness Note:Here for a physical<div>Wt loss 22lbs in 3 weeks , still has a feeling of something in back of her throat , so eating mostly pureed foods.. No chest pain , no shortness of breath, no palpitations ,no dizziness , no diaphoresis , no weakness or numbness in arms or legs , no visual loss .no muscle aches , no muscle weakness, Depression Stable.No suicidal thoughts or ideation , no thoughts to hurt self or any one else.</div> Review of Systems:ROS as noted in the HPI Review of Systems None recorded. Physical Exam General Adult Exam (Female) Reported By: Patient Constitutional: General Appearance: healthy- appearing, well-nourished, well- developed; 10 lb wt loss in 2 mths. Level of Distress: mild distress. Ambulation: ambulating normally Psychiatric: Insight: good judgement. Men guy Status: active and alert, normal mood, normal affect. Orientation: to time, to place, to person Head: Head: normocephalic, atrauma tic Eyes: Lids and Conjunctivae: non-i njected, no discharge, no pallor. Pupils: PERRLA. Corneas: grossly intact. EOM: EOMI. Lens: clear. Sclerae: non-icteric ENMT: Ears: no lesions on external ear, EACs clear, TMs clear. Hearing: no hearing loss. Nose: no lesions on external nose, nares patent, no septal deviation, nasal passages clear, no sinus tenderness, no nasal discharge. Lips, Teeth, and Gums: no mouth or lip ulcers, no bleeding gums, normal dentition. Oropharynx: moist mucous membranes, no erythema, no exudates, tonsils not enlarged Neck: Neck: supple, trachea midlin e, no masses, FROM. Lymph Nodes: no cervical LAD, no supraclavicular LAD, no axillary LAD. Thyroid: no enlargement, non- tender, no nodules Lungs: Respiratory effort: no dyspn ea. Auscultation: breath sounds normal, good air movement, CTA except as noted, no wheezing, no rales/crackles, no rhonchi Cardiovascular: Heart Auscultation: RRR, nor mal S1, normal S2, no murmurs, no rubs, no gallops Abdomen: Bowel Sounds: normal. Inspec tion and Palpation: soft, no guarding, no rebound tenderness, no masses, no CVA tenderness, epigastric tenderness. Liver: non-tender, no hepatomegaly Musculoskeletal:: Motor Strength and Tone: nor mal motor strength, normal tone. Joints, Bones, and Muscles: normal movement of all extremities, no bony abnormalities, no contractures, no malalignment, no tenderness. Extremities: no cyanosis, no edema, no varicosities Neurologic: Gait and Station: normal gai t, normal station. Cranial Nerves: grossly intact. Sensation: grossly intact Skin: Inspection and palpation: no rash, no lesions, no abnormal nevi, good turgor, no jaundice. Nails: normal Back: Thoracolumbar Appearance: no rmal curvature Notes: Alert, oriented x 3 , crania l nerves 2-12 intact , DTR's 2+ in all 4 extremities, gait normal , speech -normal, visual barbosa intact , strength 5/5 in all 4 extremities , sensations intact in all 4 extremities, cerebellar signs intact-Straight line walking test & Finger nose test - Normal , rhomberg - negative
--- OUTSIDE RECORDS SUMMARY | 2020-01-23 06:09 | XMS REPORT | Encounter Summary ---
Author Organization Unknown Address [address] [place] [address] Phone [phone] Care Team Providers Care Qa Developer Name Role Phone Dr. Eugenio Rosas 3 [phone] Sae Hassan MD 107 [phone] Reason for Visit Hypertensive disorder; Major depressive [...] 25-29 - overweight learning about healthy weight 8. Overweight 9. [...] MD Lab CBC W/ Auto Diff 11/18/2019 [facility] - Laboratory CMP, Serum or Plasma 11/18/2019 [facility] - Laboratory Lipid Panel, Serum 11/18/2019 [facility] - Laboratory TSH, Serum or Plasma 11/18/2019 [facility] - Laboratory HbA1C (Hemoglobin a1C), Blood [facility] Urinalysis Complete, Reflex Culture 11/18/2019 [facility] - Laboratory Referral Gynecology Referral 11/18/2019 Magdiel wallace MD Procedures None recorded. Surgeries None recorded. Imaging None recorded. Medications Name Start Date albuterol sulfate HFA 90 mcg/actuation aerosol inhaler atorvastatin 40 mg tablet Take 1 tablet every day by oral route for 90 days. Bactrim DS 800 mg-160 mg tablet Take 1 tablet every 12 hours by oral route after meals for 5 days. loratadine 10 mg tablet Take 1 tablet every day by oral route for 90 days. meloxicam 15 mg tablet Take 1 tablet every day by oral route after meals for 30 days. metformin ER 500 mg tablet,extended rele ase 24 hr Take 1 tablet every day by oral route for 90 days. mometasone 50 mcg/actuation nasal spray [place] 1 spray twice a day by intranasal [...] dinner Medications Administered None recorded. Vitals Height Weight BMI Blood Pressure 5 ft 1 in 137.8 lbs 26 kg/m2 114/82 mm[Hg] Results Lab Results Date Name Specimen Result Interpretation Description Value Range Status Address 11/18/2019 CBC W/ Auto Diff Wbc 4.71 x10*3/L 3.9 8-10.04 x10*3/L Final [facility] - Laboratory: [address] An[address] Margret [address] Rbc 4.74 10*12/L 3.93-5.22 10*12/L Final [facility] - Laboratory: 9055 Anyasarthak Oswald [address] Hemoglobin 14.70 g/dL 11.20-15.70 g/ dL Final [facility] - Laboratory: [address] Anya Oswald [address] High Hematocrit 45.3 % 34.1-44.9 % Final [facility] - Laboratory: 9055 Anya Oswald [address] Mcv 95.6 fL 80.0-100.0 fL Final [facility] - Laboratory: [address] An[address] Oswald [address] Mch 31.0 pg 25.6-32.2 pg Final [facility] - Laboratory: [address] An[address] Oswald [address] Mchc 32.5 g/dL 32.2-35.5 g/dL Final [facility] - Laboratory: 9055 Adrian Vieira [facility] RDW-SD 47.5 fL 36.4-46.3 fL Final [facility] Medical - Laboratory: 9[address] Anya Rashid [place] Platelet Count 213.0 k/uL 182.0-369. 0 k/uL Final [facility] - Laboratory: 9055 Anya Rashid [facility] Mpv 12.7 fL 7.5-11.5 fL Final [facility] - Laboratory: 9055 Anya Rashid [place] Neut% 48.0 % 34.0-71.1 % Final [facility] - Laboratory: 9055 Anya Rashid [place] Lymph% 38.2 % 19.3-51.7 % Final [facility] - Laboratory: 9055 Anya Rashid [place] Mon% 6.8 % 4.7-12.5 % Final [facility] - Laboratory: 9055 Anya Rashid [facility] Eos% 5.9 % 0.7-5.8 % Final [facility] - Laboratory: 9055 Anya Rashid [place] Baso% 1.1 % 0.1-1.2 % Final [facility] - Laboratory: 9055 Anya Rashid [place] Neut# 2.3 x10*3/L 1.6-6.1 x10*3/L Final [facility] - Laboratory: 9055 Anya Rashid [place] Lymph# 1.8 x10*3/L 1.2-3.7 x10*3/L Final [facility] - Laboratory: 9[address] Anya Rashid [place] Mon# 0.3 x10*3/L 0.2-0.9 x10*3/L F [facility] Medical - Laboratory: 9055 Anya Rashid [place] Eos# 0.28 x10*3/L 0.04-0.36 x10*3/ L Final [facility] - Laboratory: 9055 Anya Rashid, [place] Baso# 0.05 x10*3/L 0.01-0.08 x10*3/ L Final [facility] - Laboratory: 9055 Anya Rashid [place] 11/18/2019 CMP, Serum or Plasma Alt 41 U/L 0-55 U /L Final [facility] - Laboratory: 9[address] Anya Oswald [place] [address], [place] Ast 20 U/L 5-34 U/L Final [facility] - Laboratory: 9055 Anya Rashid, [place] Bun 14.9 mg/dL 9.8-25.0 mg/dL [facility] Medical - Laboratory: 9055 Anya Raymondjordansarthak Briscoe [facility], [place] Alk Phos 71 unit/L 40-150 unit/L [facility] Medical - Laboratory: 9055 Anya Raymondjordansarthak Rashid, [place] Glucose 87 mg/dL 70-99 mg/dL Final [facility] - Laboratory: 9055 Anya Raymondjordansarthak Briscoe [facility], [place] Albumin 4.2 g/dL 3.4-5.1 g/dL Final [facility] - Laboratory: 9055 Anya Raymondjordansarthak Briscoe [facility], [place] Creatinine 0.81 mg/dL 0.57-1.11 mg/d L Final [facility] - Laboratory: 9055 Anya Raymondalla Luis Felipe [facility], [place] eGFR Non- >60 mL/mi n/1.73m2 Final [facility] - Laboratory: 9055 Anya Raymondjordansarthak Briscoe [facility], [place] Total Bilirubin 0.5 mg/dL 0.2-1.2 mg /dL [facility] - Laboratory: 9055 Anya Raymondjordansarthak Briscoe [facility], [place] eGFR - >60 mL/min/1 .73m2 Final [facility] - Laboratory: 9055 Anya Raymondjordansarthak Rashid, [place] Sodium 140 mEq/L 135-145 mEq/L Final [facility] - Laboratory: 9055 Anya Margret Luis Felipe [facility], [place] Potassium 4.4 mEq/L 3.5-5.3 mEq/L [facility] Medical - Laboratory: 9055 Anya Raymondjordansarthak Rashid, [place] Chloride 105 mmol/L 98-110 mmol/L [facility] Medical - Laboratory: 9055 Anya Raymondjordansarthak Rashid, [place] Total Protein 7.3 g/dL 6.1-8.2 g/dL Final [facility] - Laboratory: 9055 Anya Raymondjordansarthak Rashid, [place] Calcium 9.7 mg/dL 8.6-10.4 mg/dL [facility] Medical - Laboratory: 9055 Anya Oswald Luis Felipe [place], [place] Co2 25.2 mmol/L 20.0-32.0 mmol/L [facility] Medical - Laboratory: 9055 Anya Briscoe [facility], [place] Anion Gap 10 calc Final [facility] - Laboratory: 9055 Anya Rashid, [place] 11/18/2019 Lipid Panel, Serum Hdl 50 mg/dL Final [facility] - Laboratory: 9055 Anya Rashid, [place] Triglyceride 115 mg/dL <150 mg/dL [facility] - Laboratory: 9055 Anya Rashid, [place] VLDL (Calculated) 23 mg/dL [facility] - Laboratory: 9055 Anya Briscoe [facility], [place] cholesterol/HDL Ratio 4.3 mg/dL Final [facility] - Laboratory: 9055 Anya Rashid, [place] High non-HDL Cholesterol (Calculated) 167 mg/dL <160 mg/dL [facility] Medical - Laboratory: 9055 Anya Rashid, [place] High Cholesterol 217 mg/dL <200 mg/dL Fin [facility] Medical - Laboratory: 9055 Anya Rashid [place] High LDL (Calculated) 144 mg/dL <130 mg/d L [facility] - Laboratory: 9055 Anya Rashid, [place] 11/18/2019 TSH, Serum or Plasma Tsh 4.379 uI U/mL 0.350-4.940 uIU/mL [facility] - Laboratory: 9055 Anya Rashid, [place] 11/18/2019 HbA1C (Hemoglobin a1C), Blood High A1C W/ eag 6.1 % 1.0-5.7 % Final [facility] - Laboratory: 9055 Anya Briscoe [facility] [place] Average Blood Glucose (Calculated) 1 28 mg/dL [facility] - Laboratory: 9055 Anya Rashid, [place] 11/18/2019 Urinalysis Complete, Reflex Culture Normal Color yellow yellow Final [facility] - Laboratory: 9[address] Anya Rashid [place] ABNORMAL Appearance turbid clear Final [facility]: 9055 Anya Rashid, [place] Normal Specific [place] 1.028 1.001-1.035 Final [facility] - Laboratory: 9055 Anya Rashid, [place] Normal Ph < or = 5.0 5.0-8.0 Final [facility] Medical - Laboratory: 9055 Anya Rashid [place] Normal Glucose negative negative Final [facility] - Laboratory: 9055 Anya Rashid, [place] Normal Bilirubin negative negative Final [facility] Medical - Laboratory: 9[address] Anya Briscoe [address] [place] [address] Normal Ketones negative negative Final [facility]: [facility] Occult Blood trace negative Final [facility] - Laboratory: 9031 Anya Rashid [place] ABNORMAL Protein 1+ negative Final [facility] - Laboratory: 9024 Anya Rashid [place] Normal Nitrite negative negative Final [facility] - Laboratory: [address] Anya Briscoe [address] [place] [address] ABNORMAL Leukocyte Esterase 2+ negative Final [facility] - Laboratory: [address] Anya Briscoe [address] [place] [address] ABNORMAL Wbc 10-20 /hpf < or = 5 /hpf [facility] Medical - Laboratory: 9056 Anya Briscoe [address] [place] [address] Normal Rbc 0-2 /hpf < or = 2 /hpf Final [facility] Medical - Laboratory: [address] Anya Briscoe [address] [place] [address] ABNORMAL Squamous Epithelial Cells > or = 6 0 /hpf < or = 5 /hpf Final [facility] - Laboratory: [address] Anya Briscoe [address] [place] [address] ABNORMAL Bacteria moderate /hpf none seen / hpf Final [facility] - Laboratory: 9094 Anya Briscoe [address] [place] [address] Normal Calcium Oxalate Crystals few /hpf no ne or few /hpf Final [facility]: 9003 [facility] Hyaline Cast 0-1 /lpf none seen /l pf Final [facility] Laboratory: 9066 [facility] Note Final [facility] dical - Laboratory: 9024 Anya Briscoe [address] [place] [address] Reflexive Urine Culture cultur e indicated - results to follow Final [facility] Laboratory: 9074 [facility] 11/18/2019 Culture, Urine Culture, Urine, Routine see note Final [facility]: 9061 [facility] Allergies Code Code System Name Reaction Severity Status Onset 297310 RxNorm House Dust Cough Mild Active NKDA [...] 03/10/2014 04/27/2015 Tdap 08/14/20190.5 mL zoster recombinant .5 mL Social History Tobacco Smoking Status Never Smoker Past Encounters 11/18/2019 Adult Health Examination; Depression Screening Positive; Mixed Anxiety and Depressive Disorder; Gynecologic Examination; Gastroesophageal Reflux Disease; Dysphagia; Body Mass Index 25-29 - Overweight; Overweight; Abnormal Weight Loss Eugenio Rosas MD: [address], [place] [address], Ph. 10/26/2019 Hypertensive Disorder; Mixed Hyperlipidemia; Gastroesophageal Reflux Disease; Dysphagia; Mixed Anxiety and Depressive Disorder; Thoracic Back Pain Eugenio Rosas MD: [address], [address], [place] [address], Ph. History of Present Illness Note:Here for a physical<div>Wt loss 22lbs in 3 weeks , still has a feeling of somethinh in back of her throat . No chest pain , no shortness of breath, no palpitations ,no dizziness , no diaphoresis , no weakness or numbness in arms or legs , no visual loss .no muscle aches , no muscle weakness</div> Review of Systems:ROS as noted in the [...]
--- OUTSIDE RECORDS SUMMARY | 2020-01-23 06:09 | XMS REPORT | Encounter Summary ---
Author Organization Unknown Address [address] [place] [address] Phone [phone] Care Team Providers Care Chemistry Research Assistant Name Role Phone Dr. Joseph Solano 3 [phone] Sae Hassan MD 107 [phone] Reason for Visit headaches Instructions 1. Episodic paroxysmal hemicrania indomethacin 50 mg capsule pantoprazole 40 mg tablet,delayed rele ase 2. Obesity starting a weight loss plan: care inst ructions dash diet: care instructions body mass index: care instructions start aerobic exercise 3. Body mass index 30+ - obesity aprenda acerca del peso saludable - [l earning about healthy weight] ndice de masa corporal: instruccione s de cuidado - [body mass index: care instructions] Discussion Note: None recorded. Plan of Care Reminders Provider Appointments Est Patient 01/28/2019 10:15AM Joseph Riojas MD Lab None recorded. Referral None recorded. Procedures None recorded. Surgeries None recorded. Imaging None recorded. Medications Name Start Date indomethacin 50 mg capsule Take 1 capsule 3 times a day by oral route as directed for 30 days. pantoprazole 40 mg tablet,delayed releas e Take 1 tablet every day by oral route as directed for 30 days. Medications Administered None recorded. Vitals Height Weight BMI Blood Pressure 5 ft 1 in 160.4 lbs 30.3 kg/m2 130/86 mm[Hg] Lab Results Date Name Specimen Result Interpretation Description Value Range Status Address 12/17/2018 Culture, Urine ABNORMAL Culture, Urine, Rout ine see note Final [facility] Laboratory: 9[address] An[address] [facility] Luis Felipe [facility] [place] Urinalysis, Dipstick Color Color yellow [facility] ([facility] [place]: [address] [place] Color Appearance clear [facility] ([facility]) [place]: [address] [place] Color Glucose negative [facility] ([facility]) [place]: [address] [place] Color Bilirubin negative [facility] [place]: [address] [place] Color Ketones trace [facility] [place]: [address] [place] Color Specific [place] [address] [facility] ([facility]) [place]: [address] [place] Color Blood negative [facility] [place]: [address] [place] Color PH 6.5 [facility] ([facility] [place] [address] [place] Color Protein negative [facility] ([facility]) [place]: [address] [place] Color Urobilinogen 0.2 [facility] ([facility]) [place]: [address] [place] Color Nitrites negative [facility] [place]: [address] [place] Color Leukocytes negative [facility] ([facility]) [place]: [address] [place] Allergies Code Code System Name Reaction Severity Status Onset 166150 RxNorm House Dust Cough Mild Active NKDA Problems Name Status Onset Date Source Hyperlipidemia Active 09/20/2016 Hypertensive Disorder Active 09/20/2016 Major Depressive Disorder Active 10/30/2016 Gastroesophageal Reflux Disease Active 10/30/2016 Procedures Date Name Performed by 06/17/1999 Other Information not avai lable 06/17/1999 Delivery Information not avai lable Colonoscopy Information not avai lable Vaccine List Vaccine Type influenza, unspecified formulation 03/10/2014 04/27/2015 Social History Tobacco Smoking Status Never Smoker Past Encounters 01/09/2019 Episodic Paroxysmal Hemicrania; Obesity; Body Mass Index 30+ - Obesity Joseph Riojas MD: [address] [place] [address], Ph. 12/17/2018 Episodic Paroxysmal Hemicrania; Dysuria; Body Mass Index 30+ - Obesity Joseph Riojas MD: [address] [place] [address], Ph. History of Present Illness Note:F/u on episodic paroxysmal hemicrania. Headache gets better with indomethacin, decreases from 9/10 to 3/10 after 1 hour of taking it. Now, she is having 2 headaches per week, but has been constant since yesterday. (R side of the forehead, R parietotemporal area and R side of the neck, sharp type) Concomitantly, redness and foreign body sensation in the R eye). Intensity today 5/10. Last time she took indomethacin was 7 hrs ago. She hasn't been taking the indomethacin every 8 hrs consistently. Appointment with the neurologist still pending. Review of Systems:ROS as noted in the HPI Review of Systems None recorded. Physical Exam General Adult Exam (male) Reported By: Patient Constitutional: General Appearance: healthy- appearing, obese. Level of Distress: NAD. Ambulation: ambulating normally Psychiatric: Insight: good judgement. Men guy Status: active and alert, normal mood, normal affect. Orientation: to time, to place, to person. Memory: recent memory normal, remote memory normal Head: Head: normocephalic, atrauma tic Eyes: Lids and Conjunctivae: non-i njected, no discharge. EOM: EOMI ENMT: Ears: TMs clear. Nose: no si nus tenderness. Lips, Teeth, and Gums: no mouth or lip ulcers. Oropharynx: moist mucous membranes Neck: Neck: supple, trachea midlin e Lungs: Auscultation: breath sounds normal Cardiovascular: Heart Auscultation: RRR, nor mal S1, normal S2, no murmurs. Neck vessels: no carotid bruits Musculoskeletal:: Motor Strength and Tone: nor mal, normal tone. Joints, Bones, and Muscles: normal movement of all extremities, no contractures, no bony abnormalities, no malalignment, no tenderness. Extremities: no edema Neurologic: Gait and Station: normal gai t. Cranial Nerves: grossly intact. Sensation: grossly intact. Reflexes: DTRs 2+ bilaterally throughout. Coordination and Cerebellum: [id number] intact, no tremor
--- OUTSIDE RECORDS SUMMARY | 2020-01-23 06:09 | XMS REPORT | Encounter Summary ---
Author Organization Unknown Address [address] [place] [address] Phone [phone] Care Team Providers Care Software Sales Name Role Phone Dr. Eugenio Rosas 3 [phone] Sae Hassan MD 107 [phone] Reason for Visit fatigue; dizziness; headaches Instructions 1. Body mass index 30+ - obesity aprenda acerca del peso saludable - [l earning about healthy weight] ndice de masa corporal: instruccione s de cuidado - [body mass index: care instructions] 2. Obesity 3. Vertigo vertigo: care instructions 4. Gastroesophageal reflux disease 5. Major depressive disorder sertraline 50 mg tablet 6. Immunization Shingrix Adjuvant Component (PF) intra muscular suspension Adacel (Tdap Adolesn/Adult)(PF)2 Lf-(2 .5-5-3-5)-5 Lf/0.5 mL IM syringe 7. Screening for malignant neoplasm of c ervix gynecology referral 8. Gastritis gastroenterology referral 9. Malaise and fatigue CBC w/ auto diff TSH, serum or plasma 10. Mixed hyperlipidemia lipid panel, serum CMP, serum or plasma 11. Impaired fasting glycaemia HbA1c (hemoglobin A1c), blood 12. Screening for disorder hepatitis C virus RNA, quant, PCR, ser um or plasma 13. Vitamin D deficiency vitamin D, 25-hydroxy, total, serum 14. Seasonal allergic rhinitis loratadine 10 mg tablet montelukast 10 mg tablet Discussion Note If you do not hear from us in 1 week aft er the labs are done ,pl call us for results f/u in 1 month Plan of Care Reminders Provider Appointments None recorded. Lab CBC W/ Auto Diff 08/14/2019 [facility] - Laboratory HbA1C (Hemoglobin a1C), Blood 08/14/2019 [facility] Lipid Panel, Serum 08/14/2019 [facility] - Laboratory TSH, Serum or Plasma 08/14/2019 [facility] - Laboratory CMP, Serum or Plasma 08/14/2019 [facility] - Laboratory Hepatitis C Virus RNA, Quant, PCR, Serum or Plas ma 08/14/2019 [facility] Laboratory Vitamin D, 25-Hydroxy, Total, Serum 08/14/2019 [facility] Laboratory Referral Gynecology Referral 08/14/2019 Gastroenterology Referral 08/14/2019 [place] Procedures None recorded. Surgeries None recorded. Imaging None recorded. Medications Name Start Date loratadine 10 mg tablet Take 1 tablet [...] BMI Blood Pressure 5 ft 1 in 164 lbs 31 kg/m2 114/82 mm[Hg] Results Lab Results None recorded. Allergies Code Code System Name Reaction Severity Status Onset 144055 RxNorm House Dust Cough Mild Active NKDA Problems Name Status Onset Date Source Hyperlipidemia Active 09/20/2016 Hypertensive Disorder Active 09/20/2016 Major Depressive Disorder Active 10/30/2016 Gastroesophageal Reflux Disease Active 10/30/2016 Procedures Date Name Performed by 06/17/1999 Delivery Information not avai lable Colonoscopy Information not avai lable 07/22/2019 MAMMO, Screening, Digital, Bilateral Mem [facility] [address] [place] [address] (Work Place) Vaccine List Vaccine Type influenza, recombinant, quadrIvalent,inj ectable, preservative free 06/22/20190.5 mL influenza, unspecified formulation 03/10/2014 04/27/2015 Tdap 08/14/20190.5 mL zoster recombinant 08/14/20190.5 mL Social History Tobacco Smoking Status Never Smoker Past Encounters 08/14/2019 Body Mass Index 30+ - Obesity; Obesity; Vertigo; Gastroesophageal Reflux Disease; Major Depressive Disorder; Immunization; Screening for Malignant Neoplasm of Cervix; Gastritis; Malaise and Fatigue; Mixed Hyperlipidemia; Impaired Fasting Glycaemia; Screening for Disorder; Vitamin D Deficiency; Seasonal Allergic Rhinitis Eugenio Rosas MD: [address], [address], [place] [address], Ph. 07/22/2019 Gastroesophageal Reflux Disease; Hyperlipidemia; Major Depressive Disorder; Screening for Malignant Neoplasm of Breast; Noncompliance with Treatment Eugenio Rosas MD: [address], [address], [place] [address], Ph. History of Present Illness Dizziness Reported By: Patient Fatigue Reported By: Patient Note:Here with as she headache<div>
</div><div>A 53-year-old female presents for follow up on the office visit.
</div><div>
</div><div> Seasonal allergic rhinitis:
</div><div>Complains of headaches in the back of the right eye right side since yesterday. It affects her vision. On pain scale it is 5/10. She took two tablets of Aleve this morning with benefits and her pain reduced from 10 to 5 on the pain scale of 10. She has seasonal allergies. Reports cough at night when she lays down. No rhinorrhea, stuffy nose, sneezing or nasal congestion.
</div><div>
</div><div>GERD:
< /div><div>Reports occasional pain in the right abdominal area. She is taking Omeprazole 40 mg once daily in the morning with water and she waits for 30 minutes before eating or drinking and has been on it for at least two months. Needs refill for Omeprazole. She does not drink coffee, tea or carbonated drinks.
</div><div>
</div><div>Major depressive disorder:
</div><div> She visited me twice in the past as her young friend , and she was very dist urbed. She wanted to go to a psychiatrist. Currently she is coping well with the depression and does not want to see any psycologist currently.
</div><div>< br></div><div>Mixed hyperlipidemia:
</div><div>Her cholesterol levels were elevated.
</div><div>
</div><div>Impaired fasting glucose:
</div><div> Her glucose levels were elevated.</div><div>
</div> Review of Systems:ROS as noted in the HPI Review of Systems Comprehensive General Adult ROS Reported By: Patient Eyes: Eyes: ; Vision affected due to headache Respiratory: Respiratory: cough Gastrointestinal: Gastrointestinal: abdominal pain Psychiatric: Psych: depression Allergic/Immunologic: Allergy/Immunologic: no runn y nose, no frequent sneezing; no nasal congestion. Headache, seasonal allergy Physical Exam General Adult Exam (Female) Reported By: Patient Constitutional: General Appearance: well-dev eloped, obese. Level of Distress: mild distress. Ambulation: ambulating normally Psychiatric: Mental Status: active and al ert, normal mood, normal affect Eyes: Lids and Conjunctivae: non-i njected, no discharge, no pallor. Pupils: PERRLA. Sclerae: non-icteric ENMT: Ears: ; Mild fullness in galo ateral TMs, no erythema of the TMs. Nose: no lesions on external nose, nares patent, no septal deviation, no sinus tenderness, no nasal discharge; No sinus discomfort to percussion. Lips, Teeth, and Gums: no mouth or lip ulcers; Moist mucous membranes. Oropharynx: ; Pharynx mildly crowded, cobblestone pattern in the posterior pharyngeal wall is also mild Neck: Neck: supple, trachea midlin e, no masses, FROM. Lymph Nodes: no cervical LAD, no supraclavicular LAD. Thyroid: no enlargement Lungs: Respiratory effort: no dyspn ea. Auscultation: breath sounds normal; Lungs are clear to auscultation.Lungs are clear to auscultation Cardiovascular: Heart Auscultation: RRR, no murmurs, no rubs, no gallops; No edema Abdomen: Bowel Sounds: normal. Inspec tion and Palpation: non-distended; obese , epigastric discomfort to palpation. Liver: no hepatomegaly. Spleen: no splenomegaly Musculoskeletal:: Motor Strength and Tone: nor mal motor strength, normal tone. Joints, Bones, and Muscles: normal movement of all extremities, no bony abnormalities, no tenderness. Extremities: no edema Neurologic: Gait and Station: normal gai t, normal station; No tenderness on taping the forehead. Cranial Nerves: grossly intact Skin: Inspection and palpation: no rash, no lesions
--- OUTSIDE RECORDS SUMMARY | 2020-01-23 06:09 | XMS REPORT | Encounter Summary ---
Author Organization Unknown Address [address] [place] [address] Phone [phone] Care Team Providers Care [employer]ork Truck Driver Name Role Phone Dr. Eugenio Rosas 3 [phone] Gumaro Ferrer MD 104 [phone] [place] 107 [phone] Reason for Visit fatigue; other - see typed reason Instructions 1. Seasonal allergic rhinitis loratadine 10 mg tablet montelukast 10 mg tablet 2. Gastroesophageal reflux disease 3. Mixed anxiety and depressive disorder 4. Prediabetes 5. Vitamin D deficiency Vitamin D3 50 mcg (2,000 unit) capsule 6. Pruritus of skin mupirocin 2 % topical ointment 7. Acute bronchitis ProAir HFA 90 mcg/actuation aerosol in haler Discussion Note Reviewed all labs with pt. D/w pt treatment plan, meds, how they work & side effects. Answered all questions to pt's satisfaction. Encouraged to get the Flu vaccine in Mar 2020 ( Reason why to get it in Mar 2020 also given / explained ) Patient educational handouts: No information available. Plan of Care Reminders Provider Appointments Telemedicine 15 on or around 04/13/2020 Eugenio Rosas MD Lab None recorded. Referral None recorded. Procedures None recorded. Surgeries None recorded. Imaging None recorded. Medications Name Start Date atorvastatin 20 mg tablet Take 1 tablet every day by oral route for 90 days. baclofen 10 mg tablet Take 1 tablet twice a day by oral route for 10 days. loratadine 10 mg tablet Take 1 tablet every day by oral route for 90 days. mometasone 50 mcg/actuation nasal spray Baxter 1 spray twice a day by intranasal route for 90 days. montelukast 10 mg tablet Take 1 tablet every day by oral route in the evening for 90 days. take after 4 pm daily mupirocin 2 % topical ointment APPLY A SMALL AMOUNT TO THE AFFECTED AREA BY TOPICAL ROUTE 2 TIMES PER DAY x 7 days omeprazole 40 mg capsule,delayed release Take 1 capsule every day by oral route in the morning for 90 days. ProAir HFA 90 mcg/actuation aerosol inha ler Inhale 2 puffs every 6-8 hours by inhalation route as needed for 10 days. sertraline 50 mg tablet Take 1 tablet every day by oral route as needed for 90 days. Vitamin D3 50 mcg (2,000 unit) capsule Take 1 capsule by oral route after meals for 90 days. Medications Administered None recorded. Vitals Height Weight BMI Blood Pressure 5 ft 1 in 130.2 lbs 24.6 kg/m2 122/74 mm[Hg] Results Lab Results None recorded. Allergies Code Code System Name Reaction Severity Status Onset 493434 RxNorm House Dust Cough Mild Active NKDA [...] Tobacco Smoking Status Never Smoker Past Encounters 01/11/2020 Seasonal Allergic Rhinitis; Gastroesophageal Reflux Disease; Mixed Anxiety and Depressive Disorder; Prediabetes; Vitamin D Deficiency; Pruritus of Skin; Acute Bronchitis Eugenio Rosas MD: [address], [address], [place] [address], Ph. 01/06/2020 Pain of Right Shoulder Joint; Gastroesophageal Reflux Disease; Mixed Anxiety and Depressive Disorder; Prediabetes; Hiatal Hernia; Abnormal Weight Loss; Spasm of Back Muscles Eugenio Rosas MD: [address], [address], [place] [address], Ph. 12/24/2019 Mixed Anxiety and Depressive Disorder; Gastroesophageal Reflux Disease; Prediabetes; Hiatal Hernia; Abnormal Weight Loss; Pain of Right Shoulder Joint Eugenio Rosas MD: [address] [facility], [place] [address], Ph. History of Present Illness Note:C/o Fatigue all the time , Also c/o upper lip itchy , no runny nose. Had RT frontal headache 1 week ago & went to urgent care & was told its allergies. pT using Loratidine & Flonase daily, denies any depression ,not loosing any more weight , BACk pain has resolved . pt has done luciano COVID 19 TEST done - 4 th time & its negative. Review of Systems:ROS as noted in the HPI Review of Systems None recorded. Physical Exam General Adult Exam (Female) Reported By: Patient Constitutional: General Appearance: well-nou rished, well-developed; BMI - 24.6. Level of Distress: NAD. Ambulation: ambulating normally [...] Sounds: normal. Inspec tion and Palpation: soft, non-distended, no tenderness, no guarding, no rebound tenderness, no masses, no CVA tenderness. Liver: non-tender, no hepatomegaly Musculoskeletal:: Motor [...] Nails: normal Back: Thoracolumbar Appearance: no rmal curvature; NO MUSCLE SPASM IN HER BACK DURING EXAM
--- OUTSIDE RECORDS SUMMARY | 2020-01-23 06:09 | XMS REPORT | Encounter Summary ---
Author Organization Unknown Address [address] [place] [address] Phone [phone] Care Team Providers Care Director Of Student Life Name Role Phone Dr. Joseph Solano 3 [phone] Sae Hassan MD 107 [phone] Reason for Visit Hypertensive disorder; Hyperlipidemia; G astroesophageal reflux disease; swelling/edema Instructions 1. Gastroesophageal reflux disease omeprazole 40 mg capsule,delayed relea se 2. Hyperlipidemia colesterol alto: instrucciones de cuid ado - [high cholesterol: care instructions] 3. Major depressive disorder psychology referral - needs a iraqi speaking Psycologist 4. Screening for malignant neoplasm of b reast MAMMO, screening, digital, bilateral - *Please call the patient and schedule* 5. Noncompliance with treatment Discussion Note Reviewed all diagnosis & treatment with pt in Estonian & answered all her questions f/u in 2 weeks to see how Omeprazole is working F/u in 2 week for a physical & labs Plan of Care Reminders Provider Appointments Est Patient 08/05/2019 10:00AM Eugenio Rosas MD Lab None recorded. Referral Psychology Referral 07/22/2019 [facility] Procedures None recorded. Surgeries None recorded. Imaging MAMMO, Screening, Digital, Bilateral 07/22/2019 [facility] Medications Name Start Date omeprazole 40 mg capsule,delayed release Take 1 capsule every day by oral route in the morning for 90 days. sertraline 50 mg tablet Take 1 tablet every day by oral route for 30 days. Medications Administered None recorded. Vitals Height Weight BMI Blood Pressure 5 ft 1 in 166 lbs 31.4 kg/m2 128/80 mm[Hg] Results Lab Results None recorded. Allergies Code Code System Name Reaction Severity Status Onset 432244 RxNorm House Dust Cough Mild Active NKDA Problems Name Status Onset Date Source Hyperlipidemia Active 09/20/2016 Hypertensive Disorder Active 09/20/2016 Major Depressive Disorder Active 10/30/2016 Gastroesophageal Reflux Disease Active 10/30/2016 Procedures Date Name Performed by 06/17/1999 Other Information not avai lable 06/17/1999 Delivery Information not avai lable Colonoscopy Information not avai lable 07/22/2019 MAMMO, Screening, Digital, Bilateral [facility] [address] [place] [address] (Work Place) Vaccine List Vaccine Type influenza, recombinant, quadrIvalent,inj ectable, preservative free 06/22/20190.5 mL influenza, unspecified formulation 03/10/2014 04/27/2015 Social History Tobacco Smoking Status Never Smoker Past Encounters 07/22/2019 Gastroesophageal Reflux Disease; Hyperlipidemia; Major Depressive Disorder; Screening for Malignant Neoplasm of Breast; Noncompliance with Treatment Eugenio Rosas MD: [address], [address], [place] [address], Ph. 06/22/2019 Spasm of Back Muscles; Reactive Depression (Situational); Influenza Vaccination; Mixed Hyperlipidemia; Impaired Fasting Glycaemia Eugenio Rosas MD: [address], [address], [place] [address], Ph. History of Present Illness Note:C/o epigastric pain since - 2 weeks , per pt taking ? zoloft x1 day & caused abd pain & so stopped it ? taking Indomethacin - ? causing pain , At the end of luciano visit pt mentioned she is not taking ameds prescribd to her !. Depression Stable.No suicidal thoughts or ideation , no thoughts to hurt self or any one else. Has not taken her meds, wants to see a therapist who speaks Estonian Review of Systems:ROS as noted in the HPI Review of Systems None recorded. Physical Exam General Adult Exam (Female) Reported By: Patient Constitutional: General Appearance: well-nou rished, well-developed; BMI- 31.4 ( 2 lb Wt gain in 1 month). Level of Distress: mild distress. Ambulation: ambulating normally Psychiatric: Insight: ; mildly sad facies . Mental Status: active and alert, normal mood, normal [...] tenderness, no masses, no CVA tenderness, epigastric tenderness; obese. Liver: non-tender, no hepatomegaly Musculoskeletal:: Motor Strength [...]
--- OUTSIDE RECORDS SUMMARY | 2020-01-23 06:09 | XMS REPORT | Encounter Summary ---
Author Organization Unknown Address [address] [place] [address] Phone [phone] Care Team Providers Care Adjunct Communications Faculty Member Name Role Phone Dr. Eugenio Rosas 3 [phone] Sae Hassan MD 107 [phone] Reason for Visit other - see typed reason; Telemedicine V isit Instructions 1. Gastroesophageal reflux disease 2. Dysphagia 3. Hypertensive disorder 4. Mixed hyperlipidemia 5. Prediabetes 6. Seasonal allergic rhinitis Discussion Note Reviewed ER visit notes Neg for streo & GC , perpt they tested her for COVID 19 & she was Negative Record weights on SAT & Sat , Check bp in am & pm with pulse Call in 2 weeks with the readings If difficulty breathing , Food getting stuck in throat - pl go to ER. Son was helping to translate all as pt speaking in Mongolian mostly and some Surinamese - could not have My MA with me to translate as we are maintaining 6 feet distance & we are all masked & in different rooms due to the pandemic. Call in 2 weeks with BP & Pulse & weight. Patient educational handouts: No information available. Plan [...] 90 days. mometasone 50 mcg/actuation nasal spray Perry 1 spray twice a day by intranasal [...] BEfore dinner Medications Administered None recorded. Vitals None recorded. Results Lab Results Date Name Specimen Result Interpretation Description Value Range Status Address 09/11/2019 Electrocardiogram Rate & Rhythm [facility]: [address] [address], [place] Qrs [facility] by: [address] [address], [place] Interval [facility]_ [facility]: [address] [address], [place] Duration Vm _[facility]: [address] [facility] [address], [place] Interval Vm_ hou_[facility]: [address] [address], [place] Allergies Code Code System Name Reaction Severity Status Onset 493008 RxNorm House Dust Cough Mild Active NKDA Problems Name Status Onset Date Source Hypertensive Disorder Active 09/20/2016 Major Depressive Disorder Active 10/30/2016 Gastroesophageal Reflux Disease Active 10/30/2016 Vitamin D Deficiency Active 08/24/2019 Mixed Hyperlipidemia Active 08/24/2019 Prediabetes Active 08/24/2019 Procedures Date Name Performed by 06/17/1999 Delivery Information not avai lable Colonoscopy Information not avai lable 09/11/2019 Electrocardiogram [facility] [address] [facility] [address] [place] [id number] (Work Place) Vaccine List Vaccine Type influenza, recombinant, quadrIvalent,inj ectable, preservative free 06/22/20190.5 mL influenza, unspecified formulation 03/10/2014 04/27/2015 Tdap 08/14/20190.5 mL zoster recombinant 08/14/20190.5 mL Social History Tobacco Smoking Status Never Smoker Past Encounters 09/22/2019 Gastroesophageal Reflux Disease; Dysphagia; Hypertensive Disorder; Mixed Hyperlipidemia; Prediabetes; Seasonal Allergic Rhinitis Eugenio Rosas MD: [address] [facility] [address], [place] [address], Ph. 09/14/2019 Gastroesophageal Reflux Disease; Hypertensive Disorder; Mixed Hyperlipidemia; Prediabetes; Seasonal Allergic Rhinitis Eugenio Rosas MD: [address], [address], [place] [address], Ph. 09/11/2019 Palpitations; Hypertensive Disorder; Mixed Hyperlipidemia; Prediabetes; Gastroesophageal Reflux Disease; Difficulty Swallowing; Seasonal Allergic Rhinitis Eugenio Rosas MD: [address], [address], [place] [address], Ph. 08/24/2019 Prediabetes; Vitamin D Deficiency; Major Depressive Disorder; Gastroesophageal Reflux Disease; Mixed Hyperlipidemia Eugenio Rosas MD: [address], [address], [place] [address], Ph. History of Present Illness Note:I confirm that I received verbal consent from the patient for the virtual visit.<div>Attempted to use video capabilities to interact with patient, but unable either due to patient lacking an appropriate device or technical difficulties. Interaction was via audio phone only.</div><div>F/u on er visit on September, </div><div>In ER she was given Prednisone - 3 pills each day x 5 days & they are done now, since yesterday she has been able to eat a bit more than liquids, STill feels some thing is stuck in throat , Per pt had called the GI & Appt was cancelled ( referal was done then for Gastritis ) , Suggested she call them again & tell them she has trouble swallowing adriana at the throat. </div><div>Gastritis is doing well since she started taking luciano Omeprazole x 1 week , Mid abd [pain has resolved .</div><div>C/o BP is high adriana when she is anxious after having difficult swallowing , so checks when she is anxious. Wants to know what to do about the elevated BP !! BP - 119/768 - normally at home.& 130 - 140/90 when anxious .</div><div>Son served as peripatologist as pt speaks Mongolian & Surinamese </div><div>No cough ,no burping *& amp; no sour or bitter taste in mouth .</div> Review of Systems:ROS as noted in the HPI Review of Systems None recorded. Physical Exam Telemedicine/Virtual Visit Reported By: Patient Notes: Alert, oriented , answers q' s appropriately , high pitched voice as usual , no distress , able to speak long sentences in Mongolian without a break .
Cheerful, no conversational dyspnea
--- OUTSIDE RECORDS SUMMARY | 2020-01-23 06:09 | XMS REPORT | Encounter Summary ---
Author Organization Unknown Address [address] [place] [address] Phone [phone] Care Team Providers Care Tug Boat Engineer Name Role Phone Dr. Eugenio Rosas 3 [phone] Sae Hassan MD 107 [phone] Reason for Visit UTI; Telemedicine Visit Instructions 1. Hypertensive disorder 2. Mixed hyperlipidemia 3. Gastroesophageal reflux disease 4. Dysphagia 5. Mixed anxiety and depressive disorder 6. Thoracic back pain meloxicam 15 mg tablet Discussion Note Pt made an appt stating she has kidney i nfection , Also wants to be tested for Covid [address] [facility] staff wa s[facility] chart , C/o dysphagia when talking to me , pt all over the place , Went over allher meds - initially say no to some & wabting refills on some , later digging into her bag & other places in home & found them all when i told her she has 90 day supply of all those meds & she cannot run out of them so soon. ? Anxiety - per pt she is taking sertraline & omeprazole , seeing GI tomorrow via telemed -. possible COVID 19 / staying home is makingher anxious & making her call for minor problems. f/u in 3 weeks to f/u on htn & anxiety & back pain . Patient educational handouts: No information available. [...] 90 days. mometasone 50 mcg/actuation nasal spray [place] 1 spray twice a day by intranasal [...] 09/11/2019 Electrocardiogram Rate & Rhythm Vm_hou_hobby: [address] [facility] [address], [place] Qrs Vm_hou_hob by: [address] [facility] [address], [place] Interval Vm_ hou[facility]hobby: [address] [facility] [address] [place] QRS Duration Vm _[facility]: [address] [facility] [address] [place] QT Interval Vm_ hou_hobby: [address], [place] Allergies Code Code System Name Reaction Severity Status Onset 832762 RxNorm House Dust Cough Mild Active NKDA Problems Name Status Onset Date Source Hypertensive Disorder Active 09/20/2016 Major Depressive Disorder Active 10/30/2016 Gastroesophageal Reflux Disease Active 10/30/2016 Vitamin D Deficiency Active 08/24/2019 Mixed Hyperlipidemia Active 08/24/2019 Prediabetes Active 08/24/2019 Procedures Date Name Performed by 06/17/1999 Delivery Information not avai lable Colonoscopy Information not avai lable 09/11/2019 Electrocardiogram [facility] [address] [place] [address] (Work Place) Vaccine List Vaccine Type influenza, recombinant, quadrIvalent,inj ectable, preservative free 06/22/20190.5 mL influenza, unspecified formulation 03/10/2014 04/27/2015 Tdap 08/14/20190.5 mL zoster recombinant 08/14/20190.5 mL Social History Tobacco Smoking Status Never Smoker Past Encounters 09/29/2019 Hypertensive Disorder; Mixed Hyperlipidemia; Gastroesophageal Reflux Disease; Dysphagia; Mixed Anxiety and Depressive Disorder; Thoracic Back Pain Eugenio Rosas MD: [address], [address], [place] [address], Ph. 09/22/2019 Gastroesophageal Reflux Disease; Dysphagia; Hypertensive Disorder; Mixed Hyperlipidemia; Prediabetes; Seasonal Allergic Rhinitis Eugenio Rosas MD: [address], [address], [place] [address], Ph. 09/14/2019 Gastroesophageal Reflux Disease; Hypertensive Disorder; Mixed Hyperlipidemia; Prediabetes; Seasonal Allergic Rhinitis Eugenio Rosas MD: [address], [address], [place] [address], Ph. 09/11/2019 Palpitations; Hypertensive Disorder; Mixed Hyperlipidemia; Prediabetes; Gastroesophageal Reflux Disease; Difficulty Swallowing; Seasonal Allergic Rhinitis Eugenio Rosas MD: [address], [address], [place] [address], Ph. History of Present Illness Note:I confirm that I received verbal consent from the patient for the virtual visit.<div>Able to eat soft foods , Son helping pt , Pt c/o difficulty swallowing still present despite me treating her ,After asking her is that the reason we are on telemed today , pt c/o having low back pain x 5 days , denies nay trauma , no fever ,no chill s, no nausea , no vomiting , pain 5/10 took tylenol 7 pain resolves & comes back after a few hrs. no pain when voiding, no visible blood in urine , no dysuria , no increased frequency of voiding , </div><div>BP - did not check , pulse - did not check , Temp - did not check , </div><div>no fever , no chills , no nausea , no vomiting , no suprapubic pain .</div> Review of Systems:ROS as noted in the HPI Review of Systems None recorded. Physical Exam Telemedicine/Virtual Visit Reported By: Patient Constitutional: General Appearance: obese. L evel of Distress: mild distress. Ambulation: ambulating normally [...] Lungs: Respiratory effort: no dyspn ea Neurologic: Gait and Station: normal gai t, normal station. Cranial Nerves: grossly intact. Coordination and Cerebellum: no tremor Skin: Inspection and palpation: no rash. Nails: normal Notes: Alert, oriented , answers q' s appropriately , neatly dressed , comfortable , looking well , moving all 4 extremities well , discomfort in lower rib border & below that in lower thoracic area galo. no cva discomfort galo , affect appropriate ,Cheerful, no conversational dyspnea
--- OUTSIDE RECORDS SUMMARY | 2020-01-23 06:09 | XMS REPORT | Encounter Summary ---
Author Organization Unknown Address [address] [place] [address] Phone [phone] Care Team Providers Care Fish Conservationist Name Role Phone Dr. Joseph Solano 3 [phone] Sae Hassan MD 107 [phone] Reason for Visit Bilateral neck pain; headaches Instructions 1. Spasm of back muscles meloxicam 15 mg tablet baclofen 10 mg tablet 2. Reactive depression (situational) Zoloft 50 mg tablet lorazepam 0.5 mg tablet psychology referral - *Please call the patient and make an appointment* 3. Influenza vaccination Flublok Quad [id number] (PF) 180 mcg (4 5 mcg x 4)/0.5 mL IM syringe 4. Mixed hyperlipidemia 5. Impaired fasting glycaemia Discussion Note F/u in 25- 28 days .will do labs & eval Reactive depression Patient educational handouts: No information available. Plan of Care Reminders Provider Appointments Est Patient 07/22/2019 10:15AM Eugenio Rosas MD Lab None recorded. Referral Psychology Referral 06/22/2019 Alex Ortiz Procedures None recorded. Surgeries None recorded. Imaging None recorded. Medications Name Start Date baclofen 10 mg tablet Take 1 tablet twice a day by oral route for 10 days. No alcohol or driving when on this medicine indomethacin 50 mg capsule Take 1 capsule 3 times a day by oral route as directed for 30 days. lorazepam 0.5 mg tablet Take 1 tablet every day by oral route as needed for 10 days. No alcohol or driving when on this medicine meloxicam 15 mg tablet Take 1 tablet every day by oral route after meals for 30 days. Zoloft 50 mg tablet Take 1 tablet every day by oral route for 30 days. Medications Administered None recorded. Vitals Height Weight BMI Blood Pressure 5 ft 1 in 164 lbs 31 kg/m2 130/86 mm[Hg] Results Lab Results None recorded. Allergies Code Code System Name Reaction Severity Status Onset 293562 RxNorm House Dust Cough Mild Active NKDA [...] Tobacco Smoking Status Never Smoker Past Encounters 06/22/2019 Spasm of Back Muscles; Reactive Depression (Situational); Influenza Vaccination; Mixed Hyperlipidemia; Impaired Fasting Glycaemia Eugenio Rosas MD: [address] [facility], [address], [place] [address], Ph. History of Present Illness Note:Here with son because she has bad headache & upper back ache & galo shoulder pain since x 8 days after Her best friend 8 days ago , Was an unexpected , from Stroke , complications of DM2. crying ++., not sleeping , afraid she may come & pull on her legs , Stays with son , Who is going for college to [place] . 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 [employer] close by. Depression No suicidal thoughts or ideation , no thoughts to hurt self or any one else but did thik about it a while ago & will not act upon it Review of Systems:ROS as noted in the HPI Review of Systems None recorded. Physical Exam General Adult Exam (Female), Musculoskeletal and Joint Exam Reported By: Patient Constitutional: General Appearance: well-dev eloped, obese. Level of Distress: mild distress. Ambulation: ambulating normally Psychiatric: Insight: good judgement; sad facies. Mental Status: active and alert, normal mood, [...] normal. Inspec tion and Palpation: soft, no tenderness, no guarding, no rebound tenderness, no masses, no CVA tenderness; obese. Liver: non-tender, no hepatomegaly Musculoskeletal:: [...]
--- OUTSIDE RECORDS SUMMARY | 2020-01-23 06:09 | XMS REPORT | Encounter Summary ---
Author Organization Unknown Address [address] [place] [address] Phone [phone] Care Team Providers Care Horticultural Worker Name Role Phone Dr. Eugenio Rosas 3 [phone] Eugenio Rosas MD 3 [phone] Gumaro Ferrer MD 104 [phone] [place] 107 [phone] Reason for Visit other - see typed reason; Telemedicine V isit Instructions 1. Pain of right shoulder joint 2. Gastroesophageal reflux disease 3. Mixed anxiety and depressive disorder 4. Prediabetes 5. Hiatal hernia 6. Abnormal weight loss 7. Spasm of back muscles baclofen 10 mg tablet Discussion Note Encouraged pt & son to get the Flu vacci ne in Mar 2020 ( Reason why to get it in Mar 2020 also given / explained ) f/u in 3 mths Patient educational handouts: No information available. Plan of Care Reminders Provider Appointments AGENCY DEVELOPMENT MANAGER/EST [facility] 01/11/2020 9:30AM Eugenio Rosas MD Lab None recorded. Referral None recorded. Procedures None recorded. Surgeries None recorded. Imaging None recorded. Medications Name Start Date albuterol sulfate HFA 90 mcg/actuation aerosol inhaler atorvastatin 20 mg tablet Take 1 tablet every day by oral route for 90 days. baclofen 10 mg tablet Take 1 tablet twice a day by oral route for 10 days. cimetidine 400 mg tablet Take 2 tablets every day by oral route at bedtime for 90 days. loratadine 10 mg tablet Take 1 tablet every day by oral route for 90 days. mometasone 50 mcg/actuation nasal spray [place] 1 spray twice a day by intranasal [...] days. Medications Administered None recorded. Vitals Height 5 ft 1 in Results Lab Results None recorded. Allergies Code Code System Name Reaction Severity Status Onset 840879 RxNorm House Dust Cough Mild Active NKDA [...] Tobacco Smoking Status Never Smoker Past Encounters 01/06/2020 Pain of Right Shoulder Joint; Gastroesophageal Reflux Disease; Mixed Anxiety and Depressive Disorder; Prediabetes; Hiatal Hernia; Abnormal Weight Loss; Spasm of Back Muscles Eugenio Rosas MD: [address] [facility] [address], [place] [address], Ph. 12/24/2019 Mixed Anxiety and Depressive Disorder; Gastroesophageal Reflux Disease; Prediabetes; Hiatal Hernia; Abnormal Weight Loss; Pain of Right Shoulder Joint Eugenio Rosas MD: [address], [place] [address], Ph. History of Present Illness Shoulder pain Reported By: Patient Note:I confirm that I received verbal consent from the patient for the virtual visit.
This telemedicine encounter was performed using live {{video and audio 10.40 am #|video and audio|audio only because either patient did not have technology or unable to connect due to technical problems}}.
<strong>(for audio only)</strong> Total time spent with patient: {{ }} minutes.<div>Her son helping her with telemed , C/o back hurting since 4 mths & its above Rt shoulder blade & below the rT shoulder blade. pain worse when she lays on her back . temp - 97.9, no weakness or numbness in arms .no shooting pain . < /div> Review of Systems:ROS as noted in the HPI Review of Systems None recorded. Physical Exam Telemedicine/Virtual Visit Reported By: Patient Constitutional: General Appearance: ; BMI - 24.6. Level of Distress: mild distress. Ambulation: ambulating [...] ea Neurologic: Gait and Station: normal gai t. Coordination and Cerebellum: no tremor Skin: Inspection and palpation: no rash; possible spasm of muscle suprascapular area & interscapular are on the Rt side Notes: Alert, oriented , answers q' s appropriately , affect appropriate , neatly dressed , comfortable , looking well , moving all extremities well
no conversational dyspnea"
--- OUTSIDE RECORDS SUMMARY | 2020-01-23 06:09 | XMS REPORT | Encounter Summary ---
Author Organization Unknown Address [address] [place] [address] Phone [phone] Care Team Providers Care Mounting Inspector Name Role Phone Dr. Eugenio Rosas 3 [phone] Sae Hassan MD 107 [phone] Reason for Visit Gastroesophageal reflux disease; palpita tions Instructions 1. Palpitations electrocardiogram 2. Hypertensive disorder 3. Mixed hyperlipidemia 4. Prediabetes 5. Gastroesophageal reflux disease 6. Difficulty swallowing diphenhydramine 50 mg/mL injection vika ution dexamethasone sodium phosphate 4 mg/mL injection solution triamcinolone acetonide 40 mg/mL suspe nsion for injection 7. Seasonal allergic rhinitis fluticasone propionate 50 mcg/actuatio n nasal spray,suspension Discussion Note Informed pt she will feel sleepy as we h ave given her the benadryl inj today in office. Her son in aiting room bought her in & he will drive her back home. Wt loss 5 lbs in almost 3 weeks F/u in 1 month with BP readings Patient educational handouts: No information available. Plan of Care Reminders Provider Appointments Est Patient 11/18/2019 8:30AM Eugenio oRsas MD Lab None recorded. Referral None recorded. Procedures None recorded. Surgeries None recorded. Imaging Electrocardiogram 09/11/2019 Counts include 234 beds at the [facility] Medications Name Start Date atorvastatin 20 mg tablet Take 1 tablet every day by oral route for 90 days. dexamethasone sodium phosphate 4 mg/mL i njection solution Inject 1 mL every day by intramuscular route for 1 day. diphenhydramine 50 mg/mL injection solut ion Take 1 mL by injection route for 1 day. fluticasone propionate 50 mcg/actuation nasal spray,suspension [place] 1 spray twice a day by intranasal route as directed for 90 days. loratadine 10 mg tablet [...] oral route as needed for 90 days. triamcinolone acetonide 40 mg/mL suspens ion for injection Take 40 mg every day by injection route for 1 day. Vitamin D2 1,250 mcg (50,000 unit) capsu le Take 1 capsule twice a day by oral route for 90 days. Medications Administered Name Date diphenhydramine 50 mg/mL injection solut ion Take 1 mL by injection route for 1 day. [id number]:16:00 dexamethasone sodium phosphate 4 mg/mL i njection solution Inject 1 mL every day by intramuscular route for 1 day. [id number]:18:00 triamcinolone acetonide 40 mg/mL suspens ion for injection Take 40 mg every day by injection route for 1 day. [id number]:20:00 Vitals Height Weight BMI Blood Pressure 5 ft 1 in 160 lbs 30.2 kg/m2 (1) 144/84 mm[H g] (2) 142/88 mm[Hg] Results Lab Results Date Name Specimen Result Interpretation Description Value Range Status Address 08/14/2019 Hepatitis C Virus RNA, Quant, PCR, Serum or Plasma Normal Hepatitis C Antibody non-reactive non-reactive [facility] dical - Laboratory: 90 Anya Oswald [address] Normal Signal to Cut-off 0.01 <1.00 Mery january [facility] - Laboratory: [address] Anya Rashid [place] 08/14/2019 CBC W/ Auto Diff Normal White Blood Cell Co unt 7.2 thousand/uL 3.8-10.8 thousand/uL [facility] Medical - Laboratory : [address] Anya Osw[address] Normal Red Blood Cell Count 4.60 mill ion/uL 3.80-5.10 million/uL [facility] Medical - Laboratory: [address] Anya Osw[address] Normal Hemoglobin 14.7 g/dL 11.7-15.5 g/dL [facility] Medical - Laboratory: [address] An[address] Osw[address] Normal Hematocrit 41.8 % 35.0-45.0 % Final [facility] - Laboratory: [address] Anya Rashid [place] Normal Mcv 90.9 fL 80.0-100.0 fL Final [facility] Medical - Laboratory: 9055 Anya Rashid, [place] Normal Mch 32.0 pg 27.0-33.0 pg Final [facility] - Laboratory: 9055 Anya Rashid [place] Normal Mchc 35.2 g/dL 32.0-36.0 g/dL Final [facility] - Laboratory: 9[address] Anya Rashid [place] Normal Rdw 12.4 % 11.0-15.0 % Final [facility] Medical - Laboratory: 9[address] Anya Rashid [place] Normal Platelet Count 229 thousand/uL 140-4 00 thousand/uL Final [facility] - Laboratory: 9[address] Anya Rashid [place] Normal Mpv 11.7 fL 7.5-12.5 fL Final [facility] Medical - Laboratory: 9[address] Anya Rashid [place] Normal Absolute Neutrophils 3665 cells/uL 1 500-7800 cells/uL Final [facility] - Laboratory: [address] Anya Rashid [place] Normal Absolute Lymphocytes 2434 cells/uL 8 50-3900 cells/uL Final [facility] - Laboratory: [address] An[address] Rashid [place] Normal Absolute Monocytes 554 cells/uL 200- 950 cells/uL Final [facility] - Laboratory: [address] An[address] Rashid [place] Normal Absolute Eosinophils 454 cells/uL 15 -500 cells/uL Final [facility] - Laboratory: [address] An[address] Rash[address] [place] Normal Absolute Basophils 94 cells/uL 0-200 cells/uL Final [facility] - Laboratory: [address] Anya Rashdi [place] Normal Neutrophils 50.9 % Final [facility] - Laboratory: [address] An[address] Rash[address] [place] Normal Lymphocytes 33.8 % Final [facility] - Laboratory: [address] Anya Rashid [place] Normal Monocytes 7.7 % Final [facility] Medical - Laboratory: 9[address] Anya Rashid [place] Normal Eosinophils 6.3 % Final [facility] Medical - Laboratory: [address] An[address] Raymondjord[address]arthak Rashid [place] Normal Basophils 1.3 % Final [facility] Medical - Laboratory: [address] Anya Rashid [place] 08/14/2019 CMP, Serum or Plasma Alt 41 U/L 0-55 U /L Final [facility] - Laboratory: [address] Anya Osw[address] [place] [address], [place] Ast 23 U/L 5-34 U/L Final [facility] - Laboratory: [address] Anya Oswald [place] [address], [place] Bun 15.9 mg/dL 9.8-25.0 mg/dL Final [facility] - Laboratory: [address] An[address] Raymondjord[address]arthak [place] [address], [place] Alk Phos 75 unit/L 40-150 unit/L [facility] Medical - Laboratory: [address] [place] [address], [place] Glucose 91 mg/dL 70-99 mg/dL Final [facility] - Laboratory: [address] Albumin 4.0 g/dL 3.4-5.1 g/dL Final [facility] - Laboratory: [address] Creatinine 0.84 mg/dL 0.57-1.11 mg/d L Final [facility] - Laboratory: [address] eGFR Non- >60 mL/mi n/1.73m2 Final [facility] - Laboratory: [address] Anya Raymondjord[address]arthak [place] [address] [place] [address] Total Bilirubin 0.3 mg/dL 0.2-1.2 mg /dL Final [facility] - Laboratory: [address] eGFR - >60 mL/min/1 .73m2 Final [facility] - Laboratory: [address] An[address] Raymond[address]arthak [place] [address] [place] [address] Sodium 139 mEq/L 135-145 mEq/L Final [facility] - Laboratory: [address] Potassium 4.6 mEq/L 3.5-5.3 mEq/L [facility] Medical - Laboratory: [address] Chloride 108 mmol/L 98-110 mmol/L [facility] Medical - Laboratory: [address] Fr[address]ak [place] [address], [place] Total Protein 7.3 g/dL 6.1-8.2 g/dL Final [facility] - Laboratory: [address] An[address] Frjord[address]ak [place] [address] [place] [address] Calcium 9.0 mg/dL 8.6-10.4 mg/dL [facility] Medical - Laboratory: [address] Frjord[address]ak [place] [facility], [place] Co2 24.9 mmol/L 20.0-32.0 mmol/L [facility] Medical - Laboratory: 9[address] Anya [place]e [facility], [place] Anion Gap 6 calc Final [facility] Medical - Laboratory: [address] An[address] Osw[address] [place] [address], [place] 08/14/2019 Lipid Panel, Serum Hdl 50 mg/dL [facility] Medical - Laboratory: [address] Anya [place] [facility], [place] High Triglyceride 159 mg/dL <150 mg/dL [facility] Medical - Laboratory: [address] An[address] [place] [facility] [place] VLDL (Calculated) 32 mg/dL [facility] Medical - Laboratory: [address] Anya [place]e [facility], [place] cholesterol/HDL Ratio 4.3 mg/dL [facility] Medical - Laboratory: [address] Anya [place] [facility], [place] High non-HDL Cholesterol (Calculated) 166 mg/dL <160 mg/dL [facility] Medical - Laboratory: [address] Anya [place] [facility] [place] High Cholesterol 216 mg/dL <200 mg/dL [facility] Medical - Laboratory: [address] [place] [place] [address] High LDL (Calculated) 134 mg/dL <130 mg/d L [facility] Medical - Laboratory: [address] An[address] Osw[address] [place] [address], [place] 08/14/2019 HbA1C (Hemoglobin a1C), Blood High A1C W/ eag 6.2 % 1.0-5.7 % [facility] Medical - Laboratory: [address] An[address] Oswald [place] [address], [place] Average Blood Glucose (Calculated) 1 31 mg/dL [facility] Medical - Laboratory: [address] An[address] Osw[address] [place] [address], [place] 08/14/2019 TSH, Serum or Plasma Normal Tsh 3.95 mIU/L Final [facility] - Laboratory: [address] An[address] Osw[address] [place] [address], [place] 08/14/2019 Vitamin D, 25-Hydroxy, Total, Serum Low Vitamin D,25-Oh,total,ia 16 NG/mL 30-100 NG/mL Final [facility] - Laboratory: [address] Allergies Code Code System Name Reaction Severity Status Onset 239540 RxNorm House Dust Cough Mild Active NKDA Problems Name Status Onset Date Source Hypertensive Disorder Active 09/20/2016 Major Depressive Disorder Active 10/30/2016 Gastroesophageal Reflux Disease Active 10/30/2016 Vitamin D Deficiency Active 08/24/2019 Mixed Hyperlipidemia Active 08/24/2019 Prediabetes Active 08/24/2019 Procedures Date Name Performed by 06/17/1999 Delivery Information not avai lable Colonoscopy Information not avai lable 09/11/2019 Electrocardiogram [facility] [address] [address] (Work [address]) Vaccine List Vaccine Type influenza, recombinant, quadrIvalent,inj ectable, preservative free 06/22/20190.5 mL influenza, unspecified formulation 03/10/2014 04/27/2015 Tdap 08/14/20190.5 mL zoster recombinant 08/14/20190.5 mL Social History Tobacco Smoking Status Never Smoker Past Encounters 09/11/2019 Palpitations; Hypertensive Disorder; Mixed Hyperlipidemia; Prediabetes; Gastroesophageal Reflux Disease; Difficulty Swallowing; Seasonal Allergic Rhinitis Eugenio Rosas MD: [address], [facility] [address], [place] [address], Ph. 08/24/2019 Prediabetes; Vitamin D Deficiency; Major Depressive Disorder; Gastroesophageal Reflux Disease; Mixed Hyperlipidemia Eugenio Rosas MD: [address], [facility] [address], [place] [address], Ph. 08/14/2019 Body Mass Index 30+ - Obesity; Obesity; Vertigo; Gastroesophageal Reflux Disease; Major Depressive Disorder; Immunization; Screening for Malignant Neoplasm of Cervix; Gastritis; Malaise and Fatigue; Mixed Hyperlipidemia; Impaired Fasting Glycaemia; Screening for Disorder; Vitamin D Deficiency; Seasonal Allergic Rhinitis Eugenio Rosas MD: [address], [facility], [place] [address], Ph. History of Present Illness Note:Here because she has difficulty swallowing since 4 days, Has not drunk or eaten any thing today since am, No fever or chills , no weakness or numbness in arms or legs , no fever or chills , no cough or wheezing , never had this happen in the past .Lost 5 lbs in almost 3 weeks by eating only 1 tortilla instead of 4 & more veggies in diet . Also c/o runny nose & stuffy nose , taking loratidine & montelukast daily . no sour or bitter taste in mouth , Started the PPI only yesterday . Review of Systems:ROS as noted in the HPI Review of Systems None recorded. Physical Exam General Adult Exam (Female) Reported By: Patient Constitutional: General Appearance: well-dev eloped, obese. Level of Distress: mild distress. Ambulation: ambulating normally Psychiatric: Insight: good judgement. Men guy Status: active and alert, anxious; comfortable after able to swallow easily in 30 mins . Orientation: to time, to place, to person Head: Head: normocephalic, atrauma tic Eyes: Lids and Conjunctivae: non-i njected, no discharge, no pallor; mild allergic shiners under both eyes. Pupils: PERRLA. Corneas: grossly intact. EOM: EOMI. Lens: clear. Sclerae: non-icteric ENMT: Ears: no lesions on external ear, EACs clear, TMs clear. Hearing: no hearing loss. Nose: no lesions on external nose, nares patent, no septal deviation, nasal passages clear, no sinus tenderness, nasal discharge, nasal discharge--rhinorrhea, post nasal drip. Lips, Teeth, and Gums: no mouth or lip ulcers, no bleeding gums, normal dentition. Oropharynx: moist mucous membranes, no erythema, no exudates, tonsils not enlarged; cobblestone pattern in posterior pharyngeal wall Neck: Neck: supple, trachea midlin e, no [...] Inspec tion and Palpation: soft, non-distended, no guarding, no rebound tenderness, no masses, no CVA tenderness, epigastric tenderness; epigastric discomfort ++. Liver: non-tender, no hepatomegaly Musculoskeletal:: Motor Strength [...] Back: Thoracolumbar Appearance: no rmal curvature Notes: Pt talking on ph non stop ex cept during the Physical exam
--- OUTSIDE RECORDS SUMMARY | 2020-01-23 06:09 | XMS REPORT | Encounter Summary ---
Author Organization Unknown Address [address] [place] [address] Phone [phone] Care Team Providers Care Fireworks Display Specialist Name Role Phone Dr. Joseph Solano 3 [phone] Sae Hassan MD 107 [phone] Reason for Visit headaches Instructions 1. Episodic paroxysmal hemicrania 2. Gastroesophageal reflux disease 3. Dysphagia gastroenterology referral - *Please ca ll the patient and make an appointment* PLEASE SEND BACK CONSULT NOTES TO [phone] Discussion Note: None recorded. Patient educational handouts: No information available. Plan of Care Reminders Provider Appointments Return to Office on or around 03/31/2019 Joseph Riojas MD Lab None recorded. Referral Gastroenterology Referral 01/28/2019 [place] Procedures None recorded. Surgeries None recorded. Imaging None recorded. Medications Name Start Date indomethacin 50 mg capsule Take 1 capsule 3 times a day by oral route as directed for 30 days. Medications Administered None recorded. Vitals Height Weight BMI Blood Pressure 5 ft 1 in 159.4 lbs 30.1 kg/m2 124/84 mm[Hg] Lab Results None recorded. Allergies Code Code System Name Reaction Severity Status Onset 585783 RxNorm House Dust Cough Mild Active NKDA [...] Tobacco Smoking Status Never Smoker Past Encounters 01/28/2019 Episodic Paroxysmal Hemicrania; Gastroesophageal Reflux Disease; Dysphagia Joseph Riojas MD: [address] [place] [address], Ph. 01/09/2019 Episodic Paroxysmal Hemicrania; Obesity; Body Mass Index 30+ - Obesity Josephantony Riojas MD: [address] [place] [address], Ph. History of Present Illness Note:Hx of paroxysmal hemicrania coming for a follow up. Pt is now taking the indomethacin consistently every 8 hrs and denies any headaches since last visit. Denies redness in the eyes or foreign body sensation. Side effects with indomethacin: occasional burning sensation in the abdomen. Denies melena. Review of Systems Comprehensive General Adult ROS Reported By: Patient Constitutional: Constitutional: no fever Eyes: Eyes: no vision change ENMT: Ears: no ear pain. Nose: no sinus problems. Mouth/Throat: no sore throat Cardiovascular: Cardiovascular: no chest todd n, no palpitations, no lightheadedness Respiratory: Respiratory: no cough, no wh eezing, no shortness of breath Gastrointestinal: Gastrointestinal: no nausea, no vomiting, no constipation, no diarrhea, dyspepsia Musculoskeletal: Musculoskeletal: no muscle a ches, no swelling in the extremities Neurologic: Neurologic: no loss of consc iousness Psychiatric: Psych: no depression, no alc ohol abuse, no anxiety, no suicidal thoughts Physical Exam General Adult Exam (male) Reported [...] Inspection and Palpation: so ft, non-distended, no tenderness, no guarding, no rebound tenderness, no masses. Liver: non-tender, no hepatomegaly. Spleen: non-tender, no splenomegaly Musculoskeletal:: Motor Strength and Tone: nor mal, normal tone. Joints, Bones, and Muscles: normal movement of all extremities, no contractures, no bony abnormalities, no malalignment, no tenderness. Extremities: no edema Neurologic: Gait and Station: normal gai t. Cranial Nerves: grossly intact. Sensation: grossly intact. Reflexes: DTRs 2+ bilaterally throughout. Coordination and Cerebellum: [id number] intact, no tremor
--- OUTSIDE RECORDS SUMMARY | 2020-01-23 06:09 | XMS REPORT | Encounter Summary ---
Author Organization Unknown Address [address] [place] [address] Phone [phone] Care Team Providers Care Cafe Aide Name Role Phone Dr. Joseph Solano 3 [phone] Reason for Visit other - see typed reason Instructions 1. Episodic paroxysmal hemicrania indomethacin 50 mg capsule neurology referral - *Please call the patient and make an appointment* 2. Dysuria urinalysis, dipstick Macrobid 100 mg capsule culture, urine 3. Body mass index 30+ - obesity aprenda acerca del peso saludable - [l earning about healthy weight] ndice de masa corporal: instruccione s de cuidado - [body mass index: care instructions] Discussion Note: None recorded. Plan of Care Reminders Provider Appointments New Patient 12/24/2018 3:00PM Joseph Riojas MD Return to Office on or around 12/31/2018 Joseph Riojas MD Lab Urinalysis, Dipstick 12/17/2018 [facility] Culture, Urine 12/17/2018 [facility] Laboratory Referral Neurology Referral 12/17/2018 Brian alvares MD Procedures None recorded. Surgeries None recorded. Imaging None recorded. Medications Name Start Date indomethacin 50 mg capsule Take 1 capsule 3 times a day by oral route as needed for 14 days. Macrobid 100 mg capsule Take 1 capsule every 12 hours by oral route as directed for 10 days. Medications Administered None recorded. Vitals Height Weight BMI Blood Pressure 5 ft 1 in 160 lbs 30.2 kg/m2 126/88 mm[Hg] Lab Results Date Name Specimen Result Interpretation Description Value Range Status Address Urinalysis, Dipstick Color Color yellow [facility] ([facility] [place]: [address] [facility], [place] Color Appearance clear [facility] ([facility]) [place]: [address] [place] Color Glucose negative [facility] ([facility]) [place]: [address] [place] Color Bilirubin negative [facility] ([facility]) [place]: [address] [place] Color Ketones trace [facility] ([facility]) [place]: [address] [place] Color Specific [place] 1.025 [facility] ([facility]) [place]: [address] [place] Color Blood negative [facility] [place]: [address] [place] Color PH 6.5 [facility] [place]: [address] [place] Color Protein negative [facility] ([facility]) [place]: [address] [place] Color Urobilinogen 0.2 [facility] ([facility]) [place]: [address] [place] Color Nitrites negative [facility] ([facility]) [place]: [address] [place] Color Leukocytes negative [facility] ([facility]) [place]: [address] [place] Allergies Code Code System Name Reaction Severity Status Onset 610744 RxNorm House Dust Cough Mild Active NKDA Problems Name Status Onset Date Source Hyperlipidemia Active 09/20/2016 Hypertensive Disorder Active 09/20/2016 Major Depressive Disorder Active 10/30/2016 Gastroesophageal Reflux Disease Active 10/30/2016 Procedures Date Name Performed by 10/17/2016 Colonoscopy Information not avai lable 06/17/1999 Other Information not avai lable 06/17/1999 Delivery Information not avai lable Vaccine List Vaccine Type influenza, unspecified formulation 03/10/2014 04/27/2015 Social History Smoking Status Never Smoker Past Encounters 12/17/2018 Episodic Paroxysmal Hemicrania; Dysuria; Body Mass Index 30+ - Obesity Joseph Smooth Riojas MD: [address] [place] [address], Ph. History of Present Illness Note:Pain located in the R side of the forehead, parietotemporal area and R side of the neck since 2 weeks ago, comes and goes (3 episodes per week). Sharp type, very intense 10/10. Pain lasts 10-15 minutes and goes away by itself. Concomitantly, redness and foreign body sensation in the R eye. Denies runny nose, nasal congestion, numbness or tingling. <div>Dysuria and urinary frequency since a few weeks ago. Denies hematuria or fever.</div> Review of Systems Comprehensive General Adult ROS Reported By: Patient Constitutional: Constitutional: no fever Eyes: Eyes: no vision change ENMT: Ears: no ear pain. Nose: no sinus problems. Mouth/Throat: no sore throat Cardiovascular: Cardiovascular: no chest todd n, no palpitations, no lightheadedness Respiratory: Respiratory: no cough, no wh eezing, no shortness of breath Gastrointestinal: Gastrointestinal: no abdomin al pain, no nausea, no vomiting, no constipation, no diarrhea Musculoskeletal: Musculoskeletal: no muscle a ches, no [...] no murmurs. Neck vessels: no carotid bruits Abdomen: Inspection and Palpation: so ft, non-distended, no tenderness, no guarding Musculoskeletal:: Motor Strength and Tone: nor mal, normal tone. Joints, Bones, and Muscles: normal movement of all extremities, no contractures, no bony abnormalities, no malalignment, no tenderness. Extremities: no edema Neurologic: Gait and Station: normal gai t. Cranial Nerves: grossly intact. Sensation: grossly intact. Reflexes: DTRs 2+ bilaterally throughout. Coordination and Cerebellum: [id number] intact, no tremor Skin: Inspection and palpation: no rash, no lesions
--- OUTSIDE RECORDS SUMMARY | 2020-01-23 06:09 | XMS REPORT | Encounter Summary ---
Author Organization Unknown Address [address] [place] [address] Phone [phone] Care Team Providers Care Director Veterinary Name Role Phone Dr. Eugenio Rosas 3 [phone] Sae Hassan MD 107 [phone] Reason for Visit Hypertensive disorder; Major depressive [...] MD Lab CBC W/ Auto Diff 11/18/2019 [facility] - Laboratory CMP, Serum or Plasma 11/18/2019 [facility] ical - Laboratory Lipid Panel, Serum 11/18/2019 [facility] - Laboratory TSH, Serum or Plasma 11/18/2019 [facility] ical - Laboratory HbA1C (Hemoglobin a1C), Blood 11[facility]18[facility] Urinalysis Complete, Reflex Culture 11/18/2019 [facility] - Laboratory Referral Gynecology Referral 11/18/2019 [...] 90 days. mometasone 50 mcg/actuation nasal spray [place] 1 spray twice a day by intranasal [...] Wbc 4.71 x10*3/L 3.9 8-10.04 x10*3/L Final [facility] - Laboratory: 9[address] Anya Margret [address] Rbc 4.74 10*12/L 3.93-5.22 10*12/L Final [facility] - Laboratory: 9055 Anyasarthak Oswald [address] Hemoglobin 14.70 g/dL 11.20-15.70 g/ dL Final [facility] - Laboratory: 9055 Anya Oswald [address] High Hematocrit 45.3 % 34.1-44.9 % Final [facility] - Laboratory: 9055 Anya Oswald [address] Mcv 95.6 fL 80.0-100.0 fL Final [facility] Medical - Laboratory: 9055 Anya Oswald [address] Mch 31.0 pg 25.6-32.2 pg Final [facility] Medical - Laboratory: 9055 Anya Oswald [address] Mchc 32.5 g/dL 32.2-35.5 g/dL Final [facility] - Laboratory: 9055 Adrian Vieira [facility] RDW-SD 47.5 fL 36.4-46.3 fL Final [facility] - Laboratory: 9055 Anya Rashid [place] Platelet Count 213.0 k/uL 182.0-369. 0 k/uL Final [facility] - Laboratory: 9055 Anya Rashid [facility] Mpv 12.7 fL 7.5-11.[address] [facility] Medical - Laboratory: 9055 Anya Rashid [place] Neut% 48.0 % 34.0-71.1 % Final [facility] Medical - Laboratory: 9055 Anya Rashid [place] Lymph% 38.2 % 19.3-51.7 % Final [facility] Medical - Laboratory: 9055 Anya Rashid [place] Mon% 6.8 % 4.7-12.5 % Final [facility] - Laboratory: 9055 Anya Rashid [facility] Eos% 5.9 % 0.7-5.8 % Final [facility] - Laboratory: 9055 Anya Rashid [place] Baso% 1.1 % 0.1-1.2 % Final [facility] Medical - Laboratory: 9055 Anya Rashid [place] Neut# 2.3 x10*3/L 1.6-6.1 x10*3/L Final [facility] - Laboratory: 9055 Anya Rashid [place] Lymph# 1.8 x10*3/L 1.2-3.7 x10*3/L Final [facility] - Laboratory: 9055 Anya Rashid [place] Mon# 0.3 x10*3/L 0.2-0.9 x10*3/L [facility] Medical - Laboratory: 9055 Anya Rashid [place] Eos# 0.28 x10*3/L 0.04-0.36 x10*3/ L Final [facility] - Laboratory: 9055 Anya Rashid, [place] Baso# 0.05 x10*3/L 0.01-0.08 x10*3/ L Final [facility] - Laboratory: 9055 Anya Rashid [place] 11/18/2019 CMP, Serum or Plasma Alt 41 U/L 0-55 U /L Final [facility] - Laboratory: 9055 Anya Oswald [place] [address], [place] Ast 20 U/L 5-34 U/L Final [facility] - Laboratory: 9055 Anya Rashid, [place] Bun 14.9 mg/dL 9.8-25.0 mg/dL [facility] Medical - Laboratory: 9055 Anya Raymondjordansarthak Briscoe [facility], [place] Alk Phos 71 unit/L 40-150 unit/L [facility] Medical - Laboratory: 9055 Anya Raymondjordansarthak Rashid, [place] Glucose 87 mg/dL 70-99 mg/dL Final [facility] - Laboratory: 9055 Anya Raymondjordansarthak Briscoe [facility] [place] Albumin 4.2 g/dL 3.4-5.1 g/dL Final [facility] - Laboratory: 9055 Anya Raymondjordansarthak Briscoe [facility] [place] Creatinine 0.81 mg/dL 0.57-1.11 mg/d L Final [facility] - Laboratory: 9055 Anya Raymondalla Luis Felipe [facility] [place] eGFR Non- >60 mL/mi n/1.73m2 Final [facility] - Laboratory: 9055 Anya Raymondjordansarthak Briscoe [facility] [place] Total Bilirubin 0.5 mg/dL 0.2-1.2 mg /dL [facility] Medical - Laboratory: 9055 Anya Raymondjordansarthak Briscoe [facility] [place] eGFR - >60 mL/min/1 .73m2 Final [facility] - Laboratory: 9055 Anya Raymondjordansarthak Rashid, [place] Sodium 140 mEq/L 135-145 mEq/L Final [facility] - Laboratory: 9055 Anya Margret Luis Felipe [facility] [place] Potassium 4.4 mEq/L 3.5-5.3 mEq/L [facility] Medical - Laboratory: 9055 Anya Raymondjordansarthak Rashid, [place] Chloride 105 mmol/L 98-110 mmol/L [facility] Medical - Laboratory: 9055 Anya Raymondjordansarthak Rashid, [place] Total Protein 7.3 g/dL 6.1-8.2 g/dL Final [facility] - Laboratory: 9055 Anya Raymondjordansarthak Rashid, [place] Calcium 9.7 mg/dL 8.6-10.4 mg/dL [facility] Medical - Laboratory: 9055 Anya Oswald Luis Felipe Gu[place], [place] Co2 25.2 mmol/L 20.0-32.0 mmol/L [facility] Medical - Laboratory: 9055 Anya Briscoe [facility] [place] Anion Gap [address] [facility] Medical - Laboratory: 9055 Anya Rashid, [place] 11/18/2019 Lipid Panel, Serum Hdl 50 mg/dL Final [facility] - Laboratory: 9055 Anya Rashid, [place] Triglyceride 115 mg/dL <150 mg/dL [facility] Medical - Laboratory: 9055 Anya Rashid, [place] VLDL (Calculated) 23 mg/dL [facility] Medical - Laboratory: 9055 Anya Briscoe [facility] [place] cholesterol/HDL Ratio 4.3 mg/dL Final [facility] - Laboratory: 9055 Anya Rashid, [place] High non-HDL Cholesterol (Calculated) 167 mg/dL <160 mg/dL [facility] Medical - Laboratory: 9055 Anya Rashid, [place] High Cholesterol 217 mg/dL <200 mg/dL [facility] Medical - Laboratory: 9055 Anya Rashid [place] High LDL (Calculated) 144 mg/dL <130 mg/d L [facility] Medical - Laboratory: 9055 Anya Rashid, [place] 11/18/2019 TSH, Serum or Plasma Tsh 4.379 uI U/mL 0.350-4.940 uIU/mL [facility] Medical - Laboratory: 9055 Anya Rashid, [place] 11/18/2019 HbA1C (Hemoglobin a1C), Blood High A1C W/ eag 6.1 % 1.0-5.7 % Final [facility] - Laboratory: 9055 Anya Briscoe [facility] [place] Average Blood Glucose (Calculated) 1 28 mg/dL [facility] Medical - Laboratory: 9055 Anya Rashid, [place] 11/18/2019 Urinalysis Complete, Reflex Culture Normal Color yellow yellow Final [facility] - Laboratory: 9055 Anya Rashid [place] ABNORMAL Appearance turbid clear Final [facility] - Laboratory: 9055 Anya Rashid, [place] Normal Specific [place] 1.028 1.001-1.035 Final [facility] - Laboratory: 9055 Anya Rashid, [place] Normal Ph < or = 5.0 5.0-8.[address] [facility] Medical - Laboratory: 9055 Anya Rashid [place] Normal Glucose negative negative Final [facility] Medical - Laboratory: 9055 Anya Rashid, [place] Normal Bilirubin negative negative Final [facility] Medical - Laboratory: 9044 Anya Briscoe [address] [place] [address] Normal Ketones negative negative Final [facility] Medical - Laboratory: 9056 Anya RashidReplaced By [facility] ABNORMAL Occult Blood trace negative Final [facility] - Laboratory: 9081 Anya Rashid [place] ABNORMAL Protein 1+ negative Final [facility] Medical - Laboratory: 9024 Anya Rashid [place] Normal Nitrite negative negative Final [facility] Medical - Laboratory: 9003 Anya Briscoe [address] [place] [address] ABNORMAL Leukocyte Esterase 2+ negative Final [facility] - Laboratory: 9012 Anya Briscoe [address] [place] [address] ABNORMAL Wbc 10-20 /hpf < or = 5 /hpf Mery [facility] Medical - Laboratory: 9064 Anya Briscoe [address] [place] [address] Normal Rbc 0-2 /hpf < or = 2 /hpf Final [facility] Medical - Laboratory: 9003 Anya Briscoe [address] [place] [address] ABNORMAL Squamous Epithelial Cells > or = 6 0 /hpf < or = 5 /hpf Final [facility] - Laboratory: 9024 Anya Briscoe [address] [place] [address] ABNORMAL Bacteria moderate /hpf none seen / hpf Final [facility] - Laboratory: 9067 Anya Briscoe [address] [place] [address] Normal Calcium Oxalate Crystals few /hpf no ne or few /hpf Final [facility] - Laboratory: 9081 Anya RashidReplaced By [facility] ABNORMAL Hyaline Cast 0-1 /lpf none seen /l pf Final [facility] - Laboratory: 9079 Anya RashidReplaced By [facility] Note Final [facility] dical - Laboratory: 9099 Anya Briscoe [address] [place] [address] Reflexive Urine Culture cultur e indicated - results to follow Final [facility] - Laboratory: 9079 Anya RashidReplaced By [facility] 11/18/2019 Culture, Urine Culture, Urine, Routine see note Final [facility] - Laboratory: 9020 Anya RashidReplaced By [facility] Allergies Code Code System Name Reaction Severity Status Onset 418881 RxNorm House Dust Cough Mild Active NKDA [...] Abnormal Weight Loss Eugenio Rosas MD: [address], [place] [address], Ph. 10/26/2019 Hypertensive Disorder; Mixed Hyperlipidemia; Gastroesophageal Reflux Disease; Dysphagia; Mixed Anxiety and Depressive Disorder; Thoracic Back Pain Eugenio Rosas MD: [address], [place] [address], Ph. History of Present Illness Note:Here for [...]
[2020-01-23] MEDS ORDERED: IOPAMIDOL 370 MG/ML 200 ML INFUS..BTL INJ ONE (06:42)
[2020-01-23] MEDS ORDERED: SODIUM CHLORIDE 0.9% 50ML 50 ML ONE (06:42)
--- NOTE | 2020-01-23 07:08 | NUR ---
Dereck rocha in [facility] - 01/23/20 at 0709 by KAREN report given to philly simpson
--- NOTE | 2020-01-23 08:38 | Diagnostic Imaging Report ---
EXAM: CT Abdomen and Pelvis WITH contrast INDICATION: ABD PAIN COMPARISON: None. TECHNIQUE: Abdomen and pelvis were scanned utilizing a multidetector helical scanner from the lung base to the pubic symphysis after administration of IV contrast. Coronal and sagittal reformations were obtained. Routine protocol was performed. Scan was performed when during portal venous phase. IV CONTRAST: 100 mL of Isovue 370 ORAL CONTRAST: None COMPLICATIONS: None RADIATION DOSE: Total DLP: 251.06 mGy*cm Estimated effective dose: (DLP x 0.015 x size factor) mSv CTDIvol has been reviewed. It is below the limits set by the Radiation Protocol Committee (RPC). Dose modulation, iterative reconstruction, and/or weight based adjustment of the mA/kV was utilized to reduce the radiation dose to as low as reasonably achievable. FINDINGS: LINES and TUBES: None. LOWER THORAX: Mild dependent atelectasis. Calcific granuloma in the right lower lobe. HEPATOBILIARY: No focal hepatic lesions. No biliary ductal dilation. GALLBLADDER: No radio-opaque stones or sludge. No wall thickening. SPLEEN: No splenomegaly. PANCREAS: No focal masses or ductal dilatation. ADRENALS: No adrenal nodules KIDNEYS/URETERS: Kidneys enhance symmetrically. No hydronephrosis. No cystic or solid mass lesions. No stones. GI TRACT: No abnormal distention, wall thickening, or evidence of bowel obstruction. Appendix is normal. PELVIC ORGANS/BLADDER: Unremarkable. LYMPH NODES: No lymphadenopathy. VESSELS: Unremarkable. PERITONEUM / RETROPERITONEUM: No free air or fluid. BONES: Unremarkable. SOFT TISSUES: Unremarkable. IMPRESSION: No acute abdominopelvic process. Signed by: Arpit Hernandez MD on 01/23/2020 8:34 AM
[2020-01-23 09:33] VITALS: BP 124/74
== END 2020-01-23 09:35 | disposition home or self-care (01) ==
LOC: ER 04:44
DX: R10.84 Generalized abdominal pain (principal); R11.0 Nausea; R94.5 Abnormal results of liver function studies; E78.00 Pure hypercholesterolemia, unspecified
CPT/HCPCS: 36415; 74177; 80053; 81001; 82150; 82550; 82553; 83690; 84484; 85025; 93005; 99284; C9113; J2270; J2405; Q9967

== ENCOUNTER 2020-03-15 00:02 | Inpatient (IN) | payer OTHER ==
[~2020-03-15] VITALS: Ht 152.4 cm; Wt 67.8 kg
[2020-03-15] MEDS ORDERED: PANTOPRAZOLE 40 MG 10ML VIAL IV STA (00:31)
[2020-03-15 00:42] LABS: BASOPHILS # (AUTO) 0.1 (0.0-0.1); BASOPHILS % 0.8 % (0.0-1.0); EOSINOPHILS # (AUTO) 0.1 (0.0-0.4); EOSINOPHILS % 1.7 % (0.0-6.0); HEMATOCRIT 40.5 % (34.2-44.1); HEMOGLOBIN 13.3 g/dL (12.0-16.0); LYMPHOCYTES # (AUTO) 1.7 (1.0-3.2); LYMPHOCYTES % 21.6 % (18.0-39.1); MEAN CORPUSCULAR HGB CONC 32.8 g/dL (31-35); MEAN CORPUSCULAR VOLUME 97.6 fL (81-99); MONOCYTES # (AUTO) 0.4 (0.2-0.8); MONOCYTES % 5.1 % (4.4-11.3); NEUTROPHILS # (AUTO) 5.5 (2.1-6.9); NEUTROPHILS % 70.5 % (38.7-80.0); PLATELET COUNT 174 x10e3/uL (140-360); RED BLOOD COUNT 4.15 x10e6/uL (3.6-5.1); RED CELL DISTRIBUTION WIDTH 12.7 % (11.7-14.4)
[2020-03-15] MEDS ORDERED: LIDOCAINE VISC 2% SOLN 15 ML UDC PO ONE (00:45)
[2020-03-15] MEDS ORDERED: MAGNESIUM/ALUMINUM/SIMETHICONE 30 ML UDC PO ONE (00:45)
[2020-03-15] MEDS ORDERED: BELLADONNA ALK/PHENOBARBITAL 5 ML UDC PO ONE (00:45)
[2020-03-15 01:03] LABS: ALANINE AMINOTRANSFERASE 408 IU/L (0-55); ALBUMIN 4.1 g/dL (3.5-5.0); ALBUMIN/GLOBULIN RATIO 1.4 (0.8-2.0); ALKALINE PHOSPHATASE 108 IU/L (40-150); ANION GAP 12.7 mmol/L (8-16); BLOOD UREA NITROGEN 27 mg/dL (7-26); BUN/CREATININE RATIO 31 (6-25); CALCIUM 8.9 mg/dL (8.4-10.2); CARBON DIOXIDE 22 mmol/L (22-29); CHLORIDE 108 mmol/L (98-107); CREATININE, SERUM 0.88 mg/dL (0.57-1.11); EST GLOMERULAR FILTRATION RATE > 60 ML/MIN (60-); GLUCOSE 122 mg/dL (74-118); POTASSIUM 4.7 mmol/L (3.5-5.1); SODIUM 138 mmol/L (136-145)
--- NOTE | 2020-03-15 01:05 | Emergency Department Note ---
History of Present Illnes History of Present Illness Chief Complaint: Abdominal Complaints History of Present Illness This is a 54 year old female REPORTS ABDOMINAL PAIN X6 MONTHS, WORSE TONIGHT WITH DIARRHEA X3 EPISODES TODAY; PT HAD PROCEDURE ON 11/13/2019 AND WAS DX'D WITH A HERNIA; V/S/S; RESP RATE AND EFFORT ARE WNL, O2 SAT RA 100%; SKIN WARM, DRY, SLIGHTLY PALE/JAUNDICE; . 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 Any updates have been documented here. Past Medical History Recent Fever: No Clinical Suspicion of Infectio: No New/Unexplained Change in Ment: No Past Medical History: Hyperlipedemia Other Medical History: HIATAL HERNIA HEPATITIS B Other Surgery: C SECTION Social History Smoking Cessation: Never Smoker Counseling Performed: No Alcohol Use: None Any Illegal Drug Use: No Other Any Pre-Existing Lines (PICC,: No Review of Systems Review of Systems Constitutional: Reports no symptoms EENTM: Reports no symptoms Cardiovascular: Reports no symptoms Respiratory: Reports no symptoms Gastrointestinal: Reports as per HPI Genitourinary: Reports no symptoms Musculoskeletal: Reports no symptoms Integumentary: Reports no symptoms Neurological: Reports no symptoms Psychological: Reports no symptoms Endocrine: Reports no symptoms Hematological/Lymphatic: Reports no symptoms Physical Exam Related Data Allergies: Coded Allergies: No Known Allergies (Unverified , 02/23/17) Triage Vital Signs Vital Signs Date Time Temp Pulse Resp B/P (MAP) Pulse Ox O2 Delivery O2 Flow Rate FiO2 03/15/20 00:28 98.2 67 17 122/75 100 Room Air Vital signs reviewed: Yes Physical Exam CONSTITUTIONAL Constitutional: Present well-developed, Present well-nourished; Absent distressed HENT HENT: Present normocephalic, Present atraumatic, Present oropharynx clear/moist, Present nose normal HENT L/R: Present left ext ear normal, Present right ext ear normal EYES Eyes: Reports PERRL, Reports conjunctivae normal NECK Neck: Present ROM normal PULMONARY Pulmonary: Present effort normal, Present breath sounds normal CARDIOVASCULAR Cardiovascular: Present regular rhythm, Present heart sounds normal, Present ca pillary refill normal, Present normal rate GASTROINTESTINAL Abdominal: Present soft, Present bowel sounds normal, Present tender (EPIGASTRIC AND RUQ) GENITOURINARY Genitourinary: Present exam deferred SKIN Skin: Present warm, Present dry, Present other (SLIGHT JAUNDICE) MUSCULOSKELETAL Musculoskeletal: Present ROM normal NEUROLOGICAL Neurological: Present alert, Present oriented x 3, Present no gross motor or sensory deficits PSYCHOLOGICAL Psychological: Present mood/affect normal, Present judgement normal Results Laboratory Result Diagram: 03/15/20 0035 Laboratory Laboratory Tests Test 03/15/20 00:35 White Blood Count 7.81 x10e3/uL (4.8-10.8) Red Blood Count 4.15 x10e6/uL (3.6-5.1) Hemoglobin 13.3 g/dL (12.0-16.0) Hematocrit 40.5 % (34.2-44.1) Mean Corpuscular Volume 97.6 fL (81-99) Mean Corpuscular Hemoglobin 32.0 pg (28-32) Mean Corpuscular Hemoglobin Concent 32.8 g/dL (31-35) Red Cell Distribution Width 12.7 % (11.7-14.4) Platelet Count 174 x10e3/uL (140-360) Neutrophils (%) (Auto) 70.5 % (38.7-80.0) Lymphocytes (%) (Auto) 21.6 % (18.0-39.1) Monocytes (%) (Auto) 5.1 % (4.4-11.3) Eosinophils (%) (Auto) 1.7 % (0.0-6.0) Basophils (%) (Auto) 0.8 % (0.0-1.0) Neutrophils # (Auto) 5.5 (2.1-6.9) Lymphocytes # (Auto) 1.7 (1.0-3.2) Monocytes # (Auto) 0.4 (0.2-0.8) Eosinophils # (Auto) 0.1 (0.0-0.4) Basophils # (Auto) 0.1 (0.0-0.1) Absolute Immature Granulocyte (auto 0.02 x10e3/uL (0-0.1) Assessment & Plan Medical Decision Making MDM PT WITH CHRONIC UPPER ABD PAIN CBC, CMP, AMYLASE, LIPASE, GALL BLADDER US ORDERED TO EVAL FOR PANCREATITIS, ELECTROLYTE ABNORMALITY, GALLSTONES PROTONIX 40MG IV ORDERED GI COCKTAIL PO ORDERED PT WITH IMPACTED GALLSTONES IN GALLBLADDER NECK I SPOKE WITH DR PRESLEY, LEFT A MESSAGE FOR LAURA AND I SPOKE WITH DR LANCASTER Assessment & Plan Final Impression: (1) Gallstone (impacted) (2) Abdominal pain (3) Elevated LFTs (4) Chronic cholecystitis Depart Disposition: ADMITTED Last Vital Signs Date Time Temp Pulse Resp B/P (MAP) Pulse Ox O2 Delivery O2 Flow Rate FiO2 03/15/20 00:28 98.2 67 17 122/75 100 Room Air Medications in the ED Pantoprazole Sodium 40 mg NOW STAT IV ; Start 03/15/20 at 00:31; Stop 03/15/20 at 00:35; Status DC Magnesium Aluminum Silicate 30 ml ONCE ONCE PO ; Start 03/15/20 at 00:45; Stop 03/15/20 at 00:46; Status DC Lidocaine HCl 20 ml ONCE ONCE PO ; Start 03/15/20 at 00:45; Stop 03/15/20 at 00:46; Status DC Belladonna Alkaloids/ Phenobarbital 10 ml ONCE ONCE PO ; Start 03/15/20 at 00:45; Stop 03/15/20 at 00:46; Status DC DIEGO VARELA MD Mar 15, 2020 01:05
[2020-03-15 01:09] LABS: AMYLASE 102 U/L (25-125); LIPASE 71 U/L (8-78)
--- OUTSIDE RECORDS SUMMARY | 2020-03-15 02:55 | XMS REPORT | Continuity of Care Document ---
Author Author [facility] t Organization [facility] Address 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 hyperlipidemia Mixed Hyperlipidemia Problem Active [facility] Prediabetes Prediabetes Problem Active 2019-08-24 00:00:00 [facility] Major depressive disorder Major Depressive Disorder Problem Ac tive 2016-10-30 00:00:00 [facility] Gastroesophageal reflux disease Gastroesophageal Reflux Disease Pro blem Active 2016-10-30 00:00:00 [facility] Hypertensive disorder Hypertensive Disorder Problem Active 201 12-18-05 00:00:00 [facility] clif Abdominal pain Problem Active C [facility] Elevated liver function tests Problem Active [facility] Allergies, Adverse Reactions, Alerts Allergy Name Allergy Type Status Severity Reaction(s) Onset Date Inacti ve Date Treating Clinician Comments Source No Known Allergies DA Active U 2019-09-17 00:00:00 [facility] No Known Allergies DA Active U 2013-11-17 00:00:00 [facility] House Dust Allergy to substance Active Mild Cough [facility] Social History Social Habit Start Date Stop Date Quantity Comments Source Sex Ass[birth year] At 1965 00:00:00 1965 00:00:00 Female [facility] Smoking Status Start Date Stop Date Source Never Smoker [facility] Medications Ordered Medication Name Filled Medication Name Start Date Stop Da te Current Medication? Ordering Clinician Indication Dosage Frequency Signature (SIG) Comments Components Source albuterol sulfate HFA 90 mcg/actuation a erosol inhaler INHALE 2 PUFFS BY MOUTH EVERY 6 TO 8 HOURS FOR 10 DAYS NEEDED albuterol sulfate HFA 90 mcg/actuation aerosol inhaler INHALE 2 PUFFS BY MOUTH EVERY 6 TO 8 HOURS FOR 10 DAYS NEEDED No albuterol sulfat e HFA 90 mcg/actuation aerosol inhaler INHALE 2 PUFFS BY MOUTH EVERY 6 TO 8 HOURS FOR 10 DAYS NEEDED [facility] cimetidine 400 mg tablet cimetidine 400 mg tablet No cimetidine 400 mg tablet [facility] ice loratadine 10 mg tablet Take 1 tablet every day by ora l route for 90 days. loratadine 10 mg tablet Take 1 tablet every day by oral route for 90 days. No 1 Q1D loratadine 10 m g tablet Take 1 tablet every day by oral route for 90 days. [facility] ice mometasone 50 mcg/actuation nasal spray [place] 1 spray twice a day by intranasal route for 90 days. mometasone 50 mcg/actuation nasal spray [place] 1 spray twice a day by intranasal route for 90 days. No mometasone 50 mcg/actuation nasal spray [place] 1 spray twice a day by intranasal route for 90 days. [facility] montelukast 10 mg tablet Take 1 tablet e very day by oral route in the evening for 90 days. montelukast 10 mg tablet Take 1 tablet e very day by oral route in the evening for 90 days. No montelukast 10 mg tablet Take 1 tablet every day by oral route in the evening for 90 days. [facility] pantoprazole 40 mg tablet,delayed release pantoprazole 40 mg tablet,delayed release No pantoprazole 40 mg tablet,chava yed release [facility] sertraline 50 mg tablet Take 1 tablet ev mayda day by oral route as needed for 90 days. sertraline 50 mg tablet Take 1 tablet ev mayda day by oral route as needed for 90 days. No sertraline 50 mg tablet Take 1 tablet every day by oral route as needed for 90 days. [facility] Vitamin D3 50 mcg (2,000 unit) capsule T matt 1 capsule by oral route after meals for 90 days. Vitamin D3 50 mcg (2,000 unit) capsule T matt 1 capsule by oral route after meals for 90 days. No 1capsule(s) Vitamin D3 50 mcg (2,000 unit) capsule Take 1 capsule by oral route after meals for 90 days. [facility] Immunizations Ordered Immunization Name Filled Immunization Name Date Status Comments Source Tdap Tdap 2019-08-14 15:36:00 Completed [facility] zoster recombinant zoster recombinant 2019-08-14 15:36:00 Completed [facility] influenza, recombinant, quadrIvalent,injectable, prese rvative free influenza, recombinant, quadrIvalent,injectable, preservative free 2019-06-22 16:36:00 Completed [facility] influenza, unspecified formulation influenza, unspecified fo rmulation 2015-04-27 00:00:00 Completed [facility] ice influenza, unspecified formulation influenza, unspecified fo rmulation 2014-03-10 00:00:00 [facility]pleted [facility] Vital Signs Vital Name Observation Time Observation Value Comments Source BP Diastolic 2020-03-14 00:00:00 70 mm[Hg] [facility] Height 2020-03-14 00:00:00 61 [in_i] [facility] BMI (Body Mass Index) 2020-03-14 00:00:00 23.8 kg/m2 [facility] BP Systolic 2020-03-14 00:00:00 126 mm[Hg] [facility] Body Weight 2020-03-14 00:00:00 125.8 [lb_av] [facility] BP Diastolic 2020-01-11 00:00:00 74 mm[Hg] [facility] Height 2020-01-11 00:00:00 61 [in_i] [facility] BMI (Body Mass Index) 2020-01-11 00:00:00 24.6 kg/m2 [facility] BP Systolic 2020-01-11 00:00:00 122 mm[Hg] [facility] Body Weight 2020-01-11 00:00:00 130.2 [lb_av] [facility] Height 2020-01-06 00:00:00 61 [in_i] [facility] BP Diastolic 2019-12-24 00:00:00 74 mm[Hg] [facility] Height 2019-12-24 00:00:00 61 [in_i] [facility] BMI (Body Mass Index) 2019-12-24 00:00:00 24.6 kg/m2 [facility] BP Systolic 2019-12-24 00:00:00 106 mm[Hg] [facility] Body Weight 2019-12-24 00:00:00 130.2 [lb_av] [facility] BP Diastolic 2019-11-18 00:00:00 82 mm[Hg] [facility] Height 2019-11-18 00:00:00 61 [in_i] [facility] BMI (Body Mass Index) 2019-11-18 00:00:00 26 kg/m2 [facility] BP Systolic 2019-11-18 00:00:00 114 mm[Hg] [facility] Body Weight 2019-11-18 00:00:00 137.8 [lb_av] [facility] Height 2019-10-26 00:00:00 61 [in_i] [facility] Height 2019-09-14 00:00:00 61 [in_i] [facility] BMI (Body Mass Index) 2019-09-14 00:00:00 30 kg/m2 [facility] Body Weight 2019-09-14 00:00:00 159 [lb_av] [facility] BP Diastolic 2019-09-11 00:00:00 84 [...] (Body Mass Index) 2019-08-14 00:00:00 31 kg/m2 [facility] BP Systolic 2019-08-14 00:00:00 114 [...] (Body Mass Index) 2019-06-22 00:00:00 31 kg/m2 [facility] BP Systolic 2019-06-22 00:00:00 130 mm[Hg] [facility] Body Weight 2019-06-22 00:00:00 164 [lb_av] [facility] BP Diastolic 2019-01-28 00:00:00 84 mm[Hg] [facility] Height 2019-01-28 00:00:00 61 [in_i] [facility] BMI (Body Mass Index) 2019-01-28 00:00:00 30.1 kg/m2 [facility] BP Systolic 2019-01-28 00:00:00 124 mm[Hg] [facility] Body Weight 2019-01-28 00:00:00 159.4 [lb_av] [facility] BP Diastolic 2019-01-09 00:00:00 86 mm[Hg] [facility] Height 2019-01-09 00:00:00 61 [in_i] [facility] BMI (Body Mass Index) 2019-01-09 00:00:00 30.3 kg/m2 [facility] BP Systolic 2019-01-09 00:00:00 130 mm[Hg] [facility] Body Weight 2019-01-09 00:00:00 160.4 [lb_av] [facility] BP Diastolic 2018-12-17 00:00:00 88 mm[Hg] [facility] Height 2018-12-17 00:00:00 61 [in_i] [facility] BMI (Body Mass Index) 2018-12-17 00:00:00 30.2 kg/m2 [facility] BP Systolic 2018-12-17 00:00:00 126 mm[Hg] [facility] Body Weight 2018-12-17 00:00:00 160 [lb_av] [facility] Body Temperature 2020-01-23 09:33:00 98.0 [degF] [facility] Weight 2020-01-23 04:43:00 150 [lb_av] [facility] BMI (Body Mass Index) 2020-01-23 04:43:00 29.3 kg/m2 [facility] Procedures Procedure Date / Time Performed Performing Clinician [facility] e Computed tomography of abdomen and pelvis with contrast 00:00:00 [facility] Egd 2019-11-13 00:00:00 [facility] electrocardiogram 2019-09-11 00:00:00 [facility] MAMMO, screening, digital, bilateral 2019-07-22 00:00:00 [facility] Colonoscopy 2016-10-17 00:00:00 [facility] Practice Other 1999-06-17 00:00:00 [facility] Delivery 1999-06-17 00:00:00 [facility] Colonoscopy & Polypectomy [facility] Plan of Care Planned Activity Planned Date Details Comments Source Diagnostic Test Pending 2020-03-14 00:00:00 HbA1c (hemoglobi n A1c), blood [code = HbA1c (hemoglobin A1c), blood] [facility] P[facility] 2020-03-14 00:00:00 vitamin D, 25-hy droxy, total, serum [code = vitamin D, 25-hydroxy, total, serum] [facility] Diagnostic Test Pending 2020-03-14 00:00:00 lipid panel, ser um [code = lipid panel, serum] [facility] Diagnostic Test Pending 2020-03-14 00:00:00 CMP, serum or pl asma [code = CMP, serum or plasma] [facility] Diagnostic Test Pending 2020-03-14 00:00:00 CBC w/ auto diff [code = CBC w/ auto diff] [facility] Diagnostic Test Pending 2020-03-14 00:00:00 TSH, serum or pl asma [code = TSH, serum or plasma] [facility] Diagnostic Test Pending 2020-03-14 00:00:00 urinalysis, dips tick [code = urinalysis, dipstick] [facility] Future Appointment 2020-06-13 00:00:00 Eugenio Rosas, [address]; [address], [place] [address] [facility] Encounters Start Date/Time End Date/Time Encounter Type Admission Type [facility] Facility Care Department Encounter ID Source 2020-03-14 00:00:00 2020-03-14 00:00:00 Eugenio reddy MD: [address], [place] [address], Ph. [facility] [id number] [facility] 2020-01-23 04:44:00 2020-01-23 09:35:00 Departed Emergency Room 1 CHRISS GARCIA [facility] [id number] [facility] 2020-01-11 00:00:00 2020-01-11 00:00:00 Eugenio reddy MD: [address], [address], [place] [address], Ph. [facility] [id number] [facility] 2020-01-06 00:00:00 2020-01-06 00:00:00 Eugenio reddy MD: [address], [address], [place] [address], Ph. [facility] [id number] [facility] 2019-12-24 00:00:00 2019-12-24 00:00:00 Eugenio reddy MD: [address], [address], [place] [address], Ph. [facility] [id number] [facility] 2019-11-18 00:00:00 2019-11-18 00:00:00 Eugenio reddy MD: [address], [address], [place] [address], Ph. [facility] [id number] [facility] 2019-10-26 00:00:00 2019-10-26 00:00:00 Eugenio reddy MD: [address], [address], [place] [address], Ph. [facility] [id number] [facility] 2019-09-29 00:00:00 2019-09-29 00:00:00 Eugenio reddy MD: [address], [address], [place] [address], Ph. [facility] [id number] [facility] 2019-09-22 00:00:00 2019-09-22 00:00:00 Eugenio reddy MD: [address], [address], [place] [address], Ph. [facility] [id number] [facility] 2019-09-14 00:00:00 2019-09-14 00:00:00 Eugenio reddy MD: [address], [address], [place] [address], Ph. [facility] [id number] [facility] 2019-09-11 00:00:00 2019-09-11 00:00:00 Eugenio reddy MD: [address], [address], [place] [address], Ph. [facility] [id number] [facility] 2019-08-24 00:00:00 2019-08-24 00:00:00 Eugenio reddy MD: [address], [address], [place] [address], Ph. [facility] [id number] [facility] 2019-08-14 00:00:00 2019-08-14 00:00:00 Eugenio reddy MD: [address], [address], [place] [address], Ph. [facility] [id number] [facility] 2019-07-22 00:00:2019-07-22 00:00:00 Eugenio reddy MD: [address], [place] [address], Ph. [facility] [id number] [facility] 2019-06-22 00:00:00 2019-06-22 00:00:00 Eugenio reddy MD: [address], [address], [place] [address], Ph. [facility] [id number] [facility] 2019-01-28 00:00:00 2019-01-28 00:00:00 Joseph martin MD: [facility] [place] [address], Ph. [facility] [id number] [facility] 2019-01-09 00:00:00 2019-01-09 00:00:00 Joseph martin MD: [address] [place] [address], Ph. [facility] [id number] [facility] 2018-12-17 00:00:00 2018-12-17 00:00:00 Joseph martin MD: [facility] [place] [address], Ph. [facility] [id number] [facility] Results Test Description Test Time Test Comments Results Result Comments Source CT ABDOMEN/PELVIS W 2020-01-23 08:27:00 [place] [address] Patient Name: MARYLU PIAZ MR #: [id number] : 1965 Age/Sex: 54/F Req #: [id number] Adm Physician: Ordered by: DIEGO VARELA MD Report #: [id number] Location: Room/Bed: Procedure: [id number] CT/CT ABDOMEN/PELVIS W Exam Date: 01/23/20 Exam Time: 636 REPORT STATUS: Signed EXAM: CT Abdomen and Pelvis WITH contrast INDICATION: ABD PAIN COMPARISON: None. TECHNIQUE: Abdomen and pelvis were scanned utilizing a multidetector helical scanner from the lung base to the pubic symphysis after administration of IV contrast. Coronal and sagittal reformations were obtained. Routine protocol was performed. Scan was performed when during portal venous phase. IV CONTRAST: 100 mL of Isovue 370 ORAL CONTRAST: None COMPLICATIONS: None RADIATION DOSE: Total DLP: 251.06 mGy*cm Estimated effective dose: (DLP x 0.015 x size factor) mSv CTDIvol has been reviewed. It is below the limits set by the Radiation Protocol Committee (RPC). Dose modulation, iterative reconstruction, and/or weight based adjustment of the mA/kV was utilized to reduce the radiation dose to as low as reasonably achievable. FINDINGS: LINES and TUBES: None. LOWER THORAX: Mild dependent atelectasis. Calcific granuloma in the right lower lobe. HEPATOBILIARY: No focal hepatic lesions. No biliary ductal dilation. GALLBLADDER: No radio-opaque stones or sludge. No wall thickening. SPLEEN: No splenomegaly. PANCREAS: No focal masses or ductal dilatation. ADRENALS: No adrenal nodules KIDNEYS/URETERS: Kidneys enhance symmetrically. No hydronephrosis. No cystic or solid mass lesions. No stones. GI TRACT: No abnormal distention, wall thickening, or evidence of bowel obstruction. Appendix is normal. PELVIC ORGANS/BLADDER: Unremarkable. LYMPH NODES: No lymphadenopathy. VESSELS: Unremarkable. PERITONEUM / RETROPERITONEUM: No free air or fluid. BONES: Unremarkable. SOFT TISSUES: Unremarkable. IMPRESSION: No acute abdominopelvic process. Signed by: Flakito Hernandez MD on 01/23/2020 8:34 AM Dictated By: FLAKITO HERNANDEZ MD 3 Transcribed By: MYAH on 01/23/20833 COPY TO: DIEGO VARELA MD Urine color determination 2020-01-23 05:25:00 Test Item Urine Color (test code = 5778-6) YELLOW YELLOW [facility] [id number] 05:25:00* Test Item Value Reference Range Interpretation Comments Urine Clarity (test code = 12742-7) HAZY CLEAR [facility] Urine by Test strip 2020-01-23 05:25:00* Test Item Value Reference Range Interpretation Comments Urine Specific [place] (test code = 5811-5) >=1.030 1.010-1.02 5 [facility] pH measurement by automated test [id number] 05:25:00* Test Item Value Reference Range Interpretation Comments Urine pH (test code = 06701-0) 5.5 5-7 [facility] leukocyte esterase detection by [id number] 05:25:00* Test Item Value Reference Range Interpretation Comments Urine Leukocyte Esterase (test code = 5799-2) MODERATE NEGATIVE [facility] nitrite [id number] 05:25:00* Test Item Value Reference Range Interpretation Comments Urine Nitrite (test code = 76777-2) NEGATIVE NEGATIVE [facility] protein measurement by test strip (mass/volume)2020-01-23 05:25:00* Test Item Value Reference Range Interpretation Comments Urine Protein (test code = 5804-0) NEGATIVE NEGATIVE [facility] glucose [id number] 05:25:00* Test Item Value Reference Range Interpretation Comments Urine Glucose (UA) (test code = 2349-9) NEGATIVE NEGATIVE [facility] ketones detection by automated test [id number] 05:25:00* Test Item Value Reference Range Interpretation Comments Urine Ketones (test code = 00195-1) NEGATIVE NEGATIVE [facility] urobilinogen measurement by test strip (mass/volume)2020-01-23 05:25:00* Test Item Value Reference Range Interpretation Comments Urine Urobilinogen (test code = 73826-2) 0.2 0.2-1 [facility] total bilirubin measurement (mass/volume)2020-01-23 05:25:00* Test Item Value Reference Range Interpretation Comments Urine Bilirubin (test code = 1978-6) NEGATIVE NEGATIVE [facility] erythrocytes [id number] 05:25:00* Test Item Value Reference Range Interpretation Comments Urine Blood (test code = 13576-1) NEGATIVE NEGATIVE [facility] StationAutom[facility] urine sediment leukocyte count by microscopy (number/high power field)2020-01-23 05:25:00* Test Item Value Reference Range Interpretation Comments Urine WBC (test code = 5821-4) 11-20 0-5 [facility] StationErythrocytes detection in urine sediment by light [id number] 05:25:00* Test Item Value Reference Range Interpretation Comments Urine RBC (test code = 70232-6) 0-5 0-5 [facility] Station[facility]acteria detection in urine sediment by light [id number] 05:25:00* Test Item Value Reference Range Interpretation Comments Urine Bacteria (test code = 54805-6) MANY NONE [facility] StationEpithelial cells detection in urine sediment by light [id number] 05:25:00* Test Item Value Reference Range Interpretation Comments Urine Epithelial Cells (test code = 23918-8) MODERATE NONE [facility] Station[facility] leukocytes automated count (number/volume)2020-01-23 04:45:00* Test Item Value Reference Range Interpretation Comments White Blood Count (test code = 6690-2) 6.40 4.8-10.8 [facility] erythrocytes automated count (number/volume)2020-01-23 04:45:00* Test Item Value Reference Range Interpretation Comments Red Blood Count (test code = 789-8) 4.18 3.6-5.1 [facility] hemoglobin measurement (moles/volume)2020-01-23 04:45:00* Test Item Value Reference Range Interpretation Comments Hemoglobin (test code = 85281-5) 12.9 12.0-16.0 [facility] Station[facility] blood hematocrit (volume fraction)2020-01-23 04:45:00* Test Item Value Reference Range Interpretation Comments Hematocrit (test code = 4544-3) 40.6 34.2-44.1 [facility] StationAutom[facility] erythrocyte mean corpuscular [id number] 04:45:00* Test Item Value Reference Range Interpretation Comments Mean Corpuscular Volume (test code = 787-2) 97.1 81-99 [facility] Station[facility] erythrocyte mean corpuscular hemoglobin (mass per erythrocyte)2020-01-23 04:45:00* Test Item Value Reference Range Interpretation Comments Mean Corpuscular Hemoglobin (test code = 785-6) 30.9 28-32 [facility] StationAutom[facility] erythrocyte mean corpuscular hemoglobin concentration measurement (mass/volume)2020-01-23 04:45:00* Test Item Value Reference Range Interpretation Comments Mean Corpuscular Hemoglobin Concent (test code = 786-4) 31.8 31-35 [facility] StationRDW [id number]-[id number] 04:45:00* Test Item Value Reference Range Interpretation Comments Red Cell Distribution Width (test code = 83961-3) 13.3 11.7 -14.4 [facility] StationAutom[facility] blood platelet count (count/volume)2020-01-23 04:45:00* Test Item Value Reference Range Interpretation Comments Platelet Count (test code = 777-3) 191 140-360 [facility] StationAutom[facility] blood segmented neutrophil count as percentage of total [id number] 04:45:00* Test Item Value Reference Range Interpretation Comments Neutrophils (%) (Auto) (test code = 68391-9) 39.3 38.7-80.0 [facility] StationAutom[facility] blood lymphocyte count as percentage ot total [id number] 04:45:00* Test Item Value Reference Range Interpretation Comments Lymphocytes (%) (Auto) (test code = 736-9) 48.1 18.0-39.1 [facility] StationAutom[facility] blood monocyte count as percentage of total [id number] 04:45:00* Test Item Value Reference Range Interpretation Comments Monocytes (%) (Auto) (test code = 5905-5) 5.0 4.4-11.3 [facility] StationAutom[facility] blood eosinophil count as percentage of total [id number] 04:45:00* Test Item Value Reference Range Interpretation Comments Eosinophils (%) (Auto) (test code = 713-8) 6.3 0.0-6.0 [facility] StationAutom[facility] blood basophil count as percentage of total pbapvrqlcx2545-10-41 04:45:00* Test Item Value Reference Range Interpretation Comments Basophils (%) (Auto) (test code = 706-2) 1.1 0.0-1.0 [facility] StationFluoroscopic procedure less than one hour fbpebewn1610-78-32 04:45:00* Test Item Value Reference Range Interpretation Comments IM GRANULOCYTES % (test code = IM GRANULOCYTES %) 0.2 0.0- 1.0 [facility] StationAutomated blood neutrophil count 2020-01-23 04:45:00* Test Item Value Reference Range Interpretation Comments Neutrophils # (Auto) (test code = 751-8) 2.5 2.1-6.9 [facility] StationBlood lymphocytes count (number/volume) 2020-01-23 04:45:00* Test Item Value Reference Range Interpretation Comments Lymphocytes # (Auto) (test code = 28725-9) 3.1 1.0-3.2 [facility] StationBlood monocytes automated count (number/volume)2020-01-23 04:45:00* Test Item Value Reference Range Interpretation Comments Monocytes # (Auto) (test code = 742-7) 0.3 0.2-0.8 [facility] StationAutomated blood eosinophil count 2020-01-23 04:45:00* Test Item Value Reference Range Interpretation Comments Eosinophils # (Auto) (test code = 711-2) 0.4 0.0-0.4 [facility] StationAutomated blood basophil count (count/volume)2020-01-23 04:45:00* Test Item Value Reference Range Interpretation Comments Basophils # (Auto) (test code = 704-7) 0.1 0.0-0.1 [facility] StationFluoroscopic procedure less than one hour nvgieoga5048-21-23 04:45:00* Test Item Value Reference Range Interpretation Comments Absolute Immature Granulocyte (auto (zack t code = Absolute Immature Granulocyte (auto) 0.01 0-0.1 [facility]ererum or plasma sodium measurement (moles/volume)2020-01-23 04:45:00* Test Item Value Reference Range Interpretation Comments Sodium Level (test code = 2951-2) 140 136-145 [facility]ererum or plasma potassium measurement (moles/volume)2020-01-23 04:45:00* Test Item Value Reference Range Interpretation Comments Potassium Level (test code = 2823-3) 3.8 3.5-5.1 [facility]ererum or plasma chloride measurement (moles/volume)2020-01-23 04:45:00* Test Item Value Reference Range Interpretation Comments Chloride Level (test code = 2075-0) 107 98-107 [facility]ererum or plasma carbon dioxide, total measurement (moles/volume)2020-01-23 04:45:00* Test Item Value Reference Range Interpretation Comments Carbon Dioxide Level (test code = 2028-9) 25 22-29 [facility]ererum or plasma anion rli7919-45-52 04:45:00* Test Item Value Reference Range Interpretation Comments Anion Gap (test code = 41029-3) 11.8 8-16 [facility]ererum or plasma urea nitrogen measurement (mass/volume)2020-01-23 04:45:00* Test Item Value Reference Range Interpretation Comments Blood Urea Nitrogen (test code = 3094-0) 15 7-26 [facility]ererum or plasma creatinine measurement (mass/volume)2020-01-23 04:45:00* Test Item Value Reference Range Interpretation Comments Creatinine (test code = 2160-0) 0.87 0.57-1.11 [facility] Centererum or plasma urea nitrogen/creatinine mass zwkwd5849-42-05 04:45:00* Test Item Value Reference Range Interpretation Comments BUN/Creatinine Ratio (test code = 3097-3) 17 6-25 [facility] StationEstimated glomerular filtration rate (GFR) sqqblidgftcgn0618-84-39 04:45:00* Test Item Value Reference Range Interpretation Comments Estimat Glomerular Filtration Rate (test code = 252390123) > 60 >60 Ranges were taken from the National Kidney Disease Education Program and the [facility] Kidney Foundation literature.Reference ranges:60 or greater: Ofwlpd35-90 ( for 3 consecutive months): Chronic kidney disease 15 or less: Kidney failureB[facility] StationGlucose idhnabrbsha5274-41-06 04:45:00* Test Item Value Reference Range Interpretation Comments Glucose Level (test code = PKY3716) 145 74-118 [facility]ererum or plasma calcium measurement (mass/volume)2020-01-23 04:45:00* Test Item Value Reference Range Interpretation Comments Calcium Level (test code = 56834-1) 9.1 8.4-10.2 [facility] Centererum or plasma total bilirubin measurement (mass/volume)2020-01-23 04:45:00* Test Item Value Reference Range Interpretation Comments Total Bilirubin (test code = 1975-2) 0.4 0.2-1.2 [facility] StationFluoroscopic procedure less than one hour wxunlxue4701-02-56 04:45:00* Test Item Value Reference Range Interpretation Comments Aspartate Amino Transf (AST/SGOT) (test code = Aspartate Amino Transf (AST/SGOT)) 126 5-34 [facility] Centererum or plasma alanine aminotransferase measurement (enzymatic activity/volume)2020-01-23 04:45:00* Test Item Value Reference Range Interpretation Comments Alanine Aminotransferase (ALT/SGPT) (test code = 1742-6) 119 0-55 [facility] Centererum or plasma protein measurement (mass/volume)2020-01-23 04:45:00* Test Item Value Reference Range Interpretation Comments Total Protein (test code = 2885-2) 6.9 6.5-8.1 [facility] Centererum or plasma albumin measurement (mass/volume)2020-01-23 04:45:00* Test Item Value Reference Range Interpretation Comments Albumin (test code = 1751-7) 3.7 3.5-5.0 [facility] StationPlasma globulin measurement (mass/volume) 2020-01-23 04:45:00* Test Item Value Reference Range Interpretation Comments Globulin (test code = 91903-4) 3.2 2.3-3.5 [facility] Centererum or plasma albumin/globulin mass oejqx8974-76-01 04:45:00* Test Item Value Reference Range Interpretation Comments Albumin/Globulin Ratio (test code = 1759-0) 1.2 0.8-2.0 [facility] Centererum or plasma alkaline phosphatase measurement (enzymatic activity/volume)2020-01-23 04:45:00* Test Item Value Reference Range Interpretation Comments Alkaline Phosphatase (test code = 6768-6) 79 40-150 [facility] Centererum or plasma creatine kinase measurement (enzymatic activity/volume)2020-01-23 04:45:00* Test Item Value Reference Range Interpretation Comments Creatine Kinase (test code = 2157-6) 47 29-168 [facility] Centererum or plasma creatine kinase MB measurement (mass/volume)2020-01-23 04:45:00* Test Item Value Reference Range Interpretation Comments Creatine Kinase MB (test code = 22634-6) 0.20 0-5.0 [facility] StationTroponin I measurement by highly sensitive enzyme tueosspmqvf4644-98-85 04:45:00* Test Item Value Reference Range Interpretation Comments Troponin I (test code = 48027-9) < 0.001 0-0.300 [facility]ererum or plasma amylase measurement (enzymatic activity/volume)2020-01-23 04:45:00* Test Item Value Reference Range Interpretation Comments Amylase Level (test code = 1798-8) 104 25-125 [facility] Centererum or plasma lipase measurement (enzymatic activity/volume)2020-01-23 04:45:00* Test Item Value Reference Range Interpretation Comments Lipase (test code = 3040-3) 88 8-78 [facility] StationB[facility] [id number] 23:16:00 * Test Item Value Reference Range Interpretation [...] code = CA) 9.3 mg/dL 8.5-10.1 N [id number]-[id number] 23:16:00* Test Item Value Reference Range Interpretation Comments TROPONIN-I (test code = TROPI) <0.015 ng/mL 0-0.045 N BASIC METABOLIC [id number] 23:09:00* Test Item Value Reference Range Interpretation [...] code = CA) 9.3 mg/dL 8.5-10.1 N [id number]-[id number] 23:09:00* Test Item Value Reference Range Interpretation Comments TROPONIN-I (test code = TROPI) ng/mL 0-0.045 BASIC METABOLIC [id number] 23:06:00* Test Item Value Reference Range Interpretation [...] CALCIUM (test code = CA) mg/dL 8.5-10.1 [id number]-Q7034-83-19 23:06:00* Test Item Value Reference Range Interpretation Comments TROPONIN-I (test code = TROPI) ng/mL 0-0.045 CBC W/O [id number] 22:59:00* Test Item Value Reference Range Interpretation [...] code = MPV) fL 6.7-11.0 CBC W/O [id number] 22:59:00* Test Item Value Reference Range Interpretation [...] fL 6.7-11.0 H - XR CHEST 1 [id number] 21:28:00 FAX: Skip Hidalgo MD [phone] Anthony: B St: REG Name: MARYLU GOMES [facility] : [birth year] Age/S: 54/F [address] [facility] Unit #: [id number] Loc: [place] [address] Phys: Skip Hidalgo MD Acct: [id number] Dis Date: Status: REG ER PHONE #: [phone] Exam Date: 12/04/20192111 FAX #: [phone] Reason: CHEST PAIN EXAMS: CPT CODE: [id number] XR CHEST 1 V 23355 EXAM: Chest x-ray, one view; INFORMATION: Chest [...] FARIAS Trnscrd Date/Time/By: 12/04/2019 (2127) : By: CarlosGRW Orig Print D/T: S: 12/04/2019 (2131) PAGE 1 Signed Report Urinalysis complete W Reflex Culture panel - [id number] 00:00:00* Test Item Value Reference Range Interpretation [...] ulture) culture indicated - results to follow [facility] CenterBacteria identified in Urine by Uryfuqc9347-73-01 00:00:00* Test Item Value Reference Range Interpretation Comments culture, urine, routine (test code = culture, urine, routine) see n ote [facility] PracticeUrinalysis complete W Reflex Culture panel - Urine [...] ulture) culture indicated - results to follow [facility] CenterBacteria identified in Urine by Dxxabvv4958-59-94 00:00:00* Test Item Value Reference Range Interpretation Comments culture, urine, routine (test code = culture, urine, routine) see n [facility] CenterUrinalysis complete W Reflex Culture panel - Urine [...] ulture) culture indicated - results to follow [facility] CenterBacteria identified in Urine by Jpxczlr9408-43-12 00:00:00* Test Item Value Reference Range Interpretation Comments culture, urine, routine (test code = culture, urine, routine) see n luis miguele [facility] CenterThyrotropin [Units/volume] in Serum or Tspipu6284-26-95 00:00:00* Test Item Value Reference Range Interpretation Comments TSH (test code = TSH) 4.379 uIU/mL 0.350-4.940 [facility] CenterThyrotropin [Units/volume] in Serum or Lelmvb8989-96-26 00:00:00* Test Item Value Reference Range Interpretation Comments TSH (test code = TSH) 4.379 uIU/mL 0.350-4.940 [facility] CenterThyrotropin [Units/volume] in Serum or Fstvbu0320-08-90 00:00:00* Test Item Value Reference Range Interpretation Comments TSH (test code = TSH) 4.379 uIU/mL 0.350-4.940 [facility] CenterCBC W Auto Differential panel - Fhxbk4310-36-54 00:00:00 * Test Item Value Reference Range [...] (test code = baso#) 0.05 x10*3/?L 0.01-0.08 [facility] CenterComprehensive metabolic 2000 panel - Serum or Plasma [...] (test code = anion gap) 10 calc [facility] CenterLipid 1996 panel - Serum or Mdzfar6491-30-37 00:00:00* Test Item Value Reference Range Interpretation [...] code = 2089-1) 144 mg/dL <130 H [facility] CenterHemoglobin A1c/Hemoglobin.total in Rjuzr5388-12-40 00:00:00* Test Item Value Reference Range Interpretation Comments Hemoglobin A1c/Hemoglobin.total in Blood (test code = 4548-4) 6.1 % 1.0-5.7 H average blood glucose (calculated) (test code = average blood glucose (calculated)) 128 mg/dL [facility] CenterCBC W Auto Differential panel - Avvdf9556-94-93 00:00:00 * Test Item Value Reference Range [...] (test code = baso#) 0.05 x10*3/?L 0.01-0.08 [facility] CenterComprehensive metabolic 2000 panel - Serum or Plasma [...] (test code = anion gap) 10 calc [facility] CenterLipid 1996 panel - Serum or Mjwlpc8849-27-74 00:00:00* Test Item Value Reference Range Interpretation [...] code = 2089-1) 144 mg/dL <130 H [facility] CenterHemoglobin A1c/Hemoglobin.total in Bllii5739-23-98 00:00:00* Test Item Value Reference Range Interpretation Comments Hemoglobin A1c/Hemoglobin.total in Blood (test code = 4548-4) 6.1 % 1.0-5.7 H average blood glucose (calculated) (test code = average blood glucose (calculated)) 128 mg/dL [facility] CenterCB W Auto Differential panel - Jbcqx9771-09-79 00:00:00 * Test Item Value Reference Range [...] (test code = baso#) 0.05 x10*3/?L 0.01-0.08 [facility] PracticeComprehensive metabolic 2000 panel - Serum or Plasma [...] (test code = anion gap) 10 calc [facility] CenterLipid 1996 panel - Serum or Pfcffq2197-10-43 00:00:00* Test Item Value Reference Range Interpretation [...] code = 2089-1) 144 mg/dL <130 H [facility] CenterHemoglobin A1c/Hemoglobin.total in Eipjx5665-97-49 00:00:00* Test Item Value Reference Range Interpretation Comments Hemoglobin A1c/Hemoglobin.total in Blood (test code = 4548-4) 6.1 % 1.0-5.7 H average blood glucose (calculated) (test code = average blood glucose (calculated)) 128 mg/dL [facility] CenterTREPTOCOCCUS PCR VTENHI6826-10-52 00:55:00* Test Item Value Reference Range Interpretation Comments STREPTOCOCCUS DYSGALACTIAE (test code = STREPGC) NEGATIVE FOR G/C N EGATIVE STREPA MOLECULAR (test code = STREPAMOL) NEGATIVE FOR GRP A NEGATIV E [id number] 18:17:00* Test Item Value Reference Range Interpretation [...] BNP) 2.37 pgram/mL 0-100 N BASIC METABOLIC [id number] 16:58:00* Test Item Value Reference Range Interpretation [...] code = CA) 8.8 mg/dL 8.5-10.1 N [id number]-[id number] 16:58:00* Test Item Value Reference Range Interpretation Comments TROPONIN-I (test code = TROPI) <0.015 ng/mL 0-0.045 N BASIC METABOLIC [id number] 16:49:00* Test Item Value Reference Range Interpretation [...] CALCIUM (test code = CA) mg/dL 8.5-10.1 [id number]-[id number] 16:49:00* Test Item Value Reference Range Interpretation Comments TROPONIN-I (test code = TROPI) ng/mL 0-0.045 CBC W/O [id number] 16:44:00* Test Item Value Reference Range Interpretation [...] fL 6.7-11.0 H - XR CHEST 1 [id number] 16:01:00 FAX: Rogelio Mckeon MD [phone] Anthony: St: PRE Name: MARYLU GOMES [facility] : [birth year] Age/S: 54/F [address] [facility] Unit #: [id number] Loc: [place] [address] Phys: Rogelio Mckeon MD Acct: [id number] Dis Date: Status: PRE ER PHONE #: [phone] Exam Date: 09/17/2019 1545 FAX #: [phone] Reason: Shortness of Breath EXAMS: CPT CODE: [id number] XR CHEST 1 V 70859 REASON FOR EXAM: Shortness of Breath Exam [...] limits. IMPRESSION: No acute cardiopulmonary process. Location: [facility] at 1601 Reported and signed by: Julius Blas MD CC: Rogelio Mckeon MD Technologist: SOTERO FERNANDO, RT(R); DUARTE FARIAS Trnscrd Date/Time/By: 09/17/2019 (2170) : By: [email or web address] Orig Print D/T: S: 09/17/2019 (2562) PAGE 1 Signed Report EKG study 2019-09-11 22:34:00Rate & RhythmQrsPR IntervalQRS DurationQT IntervalViage [facility] HospitalEK wotdp3055-55-00 22:34:00Rate & RhythmQrsPR IntervalQRS DurationQT IntervalViage [facility] HospitalEK cjhqz8037-54-55 22:34:00Rate & RhythmQrsPR IntervalQRS DurationQT IntervalOakdale Community Hospital PracticeThyrotropin [Units/volume] in Serum or Jxqnbt9723-92-05 00:00:00* Test Item Value Reference Range Interpretation Comments TSH (test code = TSH) 3.95 mIU/L [facility] CenterDkwmenrs63-Gqafbibufkrkkp D [Mass/volume] in Serum or Plasma 2019-08-18 00:00:00* Test Item Value Reference Range Interpretation Comments vitamin D,25-oh,total,ia (test code = vitamin D,25-oh,total,ia) 16 NG/mL 30-100 L [facility] CenterThyrotropin [Units/volume] in Serum or Lilega7590-51-16 00:00:00* Test Item Value Reference Range Interpretation Comments TSH (test code = TSH) 3.95 mIU/L [facility] CenterUwxohrde68-Qwtszewgurblej D [Mass/volume] in Serum or Plasma 2019-08-18 00:00:00* Test Item Value Reference Range Interpretation Comments vitamin D,25-oh,total,ia (test code = vitamin D,25-oh,total,ia) 16 NG/mL 30-100 L [facility] CenterComprehensive metabolic 2000 panel - Serum or Plasma [...] (test code = anion gap) 6 calc [facility] CenterLipid 1995 panel - Serum or Irltjj0069-84-93 00:00:00* Test Item Value Reference Range Interpretation [...] code = 2089-1) 134 mg/dL <130 H [facility] CenterHemoglobin A1c/Hemoglobin.total in Kfgkx1074-91-39 00:00:00* Test Item Value Reference Range Interpretation Comments Hemoglobin A1c/Hemoglobin.total in Blood (test code = 4548-4) 6.2 % 1.0-5.7 H average blood glucose (calculated) (test code = average blood glucose (calculated)) 131 mg/dL [facility] CenterComprehensive metabolic 1999 panel - Serum or Plasma 2019-08-17 00:00:00* [...] (test code = anion gap) 6 calc [facility] CenterLipid 1996 panel - Serum or Bntkjk4750-74-02 00:00:00* Test Item Value Reference Range Interpretation [...] code = 2089-1) 134 mg/dL <130 H [facility] CenterHemoglobin A1c/Hemoglobin.total in Pwaqd3167-61-60 00:00:00* Test Item Value Reference Range Interpretation Comments Hemoglobin A1c/Hemoglobin.total in Blood (test code = 4548-4) 6.2 % 1.0-5.7 H average blood glucose (calculated) (test code = average blood glucose (calculated)) 131 mg/dL [facility] CenterHepatitis C virus RNA [Units/volume] (viral load) in Serum or Plasma by Probe and target amplification [id number] 00:00:00* Test Item Value Reference Range Interpretation Comments hepatitis C antibody (test code = hepatitis C antibody) non- reactive non-reactive signal to cut-off (test code = signal to cut-off) 0.01 <1.0 0 [facility] CenterCB W Auto Differential panel - Bdeqd2868-55-14 00:00:00 * Test Item Value Reference Range [...] code = absolute neutrophils) 3665 kimber ls/uL 2993-7809 absolute lymphocytes (test code = absolute lymphocytes) [...] basophils (test code = basophils) 1.3 % [facility] CenterHepatitis C virus RNA [Units/volume] (viral load) in Serum or Plasma by Probe and target amplification etsjgl5028-89-48 00:00:00* Test Item Value Reference Range Interpretation Comments hepatitis C antibody (test code = hepatitis C antibody) non- reactive non-reactive signal to cut-off (test code = signal to cut-off) 0.01 <1.0 0 [facility] CenterCB W Auto Differential panel - Asnla1103-44-17 00:00:00 * Test Item Value Reference Range [...] code = absolute neutrophils) 3665 kimber ls/uL 7375-8212 absolute lymphocytes (test code = absolute lymphocytes) [...] basophils (test code = basophils) 1.3 % [facility] CenterBacteria identified in Urine by Grbjexm8085-49-52 04:21:00* Test Item Value Reference Range Interpretation Comments culture, urine, routine (test code = culture, urine, routine) see n ote A [facility] CenterB-TYPE NATRIURETIC [id number] 19:18:00* Test Item Value Reference Range Interpretation Comments B-TYPE NATRIURETIC PEPTIDE (test code = BNP) 12.64 pgram/mL 0-100 N BASIC METABOLIC [id number] 18:26:00* Test Item Value Reference Range Interpretation [...] code = CA) 8.4 mg/dL 8.5-10.1 L [id number]-[id number] 18:26:00* Test Item Value Reference Range Interpretation Comments TROPONIN-I (test code = TROPI) <0.015 ng/mL 0-0.045 N BASIC METABOLIC [id number] 18:13:00* Test Item Value Reference Range Interpretation [...] CALCIUM (test code = CA) mg/dL 8.5-10.1 MFVVWYJQ-[id number] 18:13:00* Test Item Value Reference Range Interpretation Comments TROPONIN-I (test code = TROPI) ng/mL 0-0.045 TROPONIN I [id number] 18:05:00* Test Item Value Reference Range Interpretation [...] only if similarmethodology is used. CBC W/O [id number] 18:03:00* Test Item Value Reference Range Interpretation [...] MPV) 10.8 fL 6.7-11.0 N CBC W/O [id number] 17:58:00* Test Item Value Reference Range Interpretation [...] MPV) fL 6.7-11.0 - XR CHEST 1 [id number] 17:18:00 FAX: Rogelio Mckeon MD [phone] Anthony: B St: REG Name: MARYLU GOMES [facility] : [birth year] 62 Age/S: 53/F [address] [facility] Unit #: [id number] Loc: [place] [address] Phys: Rogelio Mckeon MD Acct: [id number] Dis Date: Status: REG ER PHONE #: [phone] Exam Date: 10/22/2018 1714 FAX #: [phone] Reason: CHEST PAIN EXAMS: CPT CODE: [id number] XR CHEST 1 V 15383 REASON FOR EXAM: CHEST NATHEN N EXAM ORDER DATE: 10/22/2018 4:56 PM Ordering M.DJessie: Imer Mckeon MD PROCEDURE: - XR CHEST [...] Electronically Signed by Nino Head 10/22/2018 at 5905 Reported and signed by: Tiff Howell CC: Rogelio Mckeon MD Technologist: Phillip DUKES(R) Trnscr d Date/Time/By: 10/22/2018 (2370) : By: NiloL Orig Print D/T: S: 0 10/22/2018 (6574) PAGE 1 Signed Re port FEMUR 2 VIEWS MINIMUM LEFT [place] [address] Patient Name: MARYLU PAIZ MR #: [id number] : 1965 Age/Sex: 51/F Req #: [id number] Adm Physician: Ordered by: EFREN SMITH Report #: [id number] Location: ER Room/Bed: Procedure: [id number] DX/FEMUR 2 VIEWS MINIMUM LE FT Exam [...]
[2020-03-15] MEDS ORDERED: PIPER-TAZ 3.375 GM / NS 50ML IV SCH (03:00)
[2020-03-15] MEDS ORDERED: ONDANSETRON HCL INJ 2MG/ML 2ML 2 MG/ML VIAL IV PRN (03:00)
--- OUTSIDE RECORDS SUMMARY | 2020-03-15 03:05 | XMS REPORT | Continuity of Care Document ---
Author Author [facility] t Organization [facility] Address 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 Active 2020-02-22 00:00:00 [facility] Deviated nasal septum Deviated Nasal Septum Problem Active 00:00:00 [facility] letice Laryngopharyngeal reflux Laryngopharyngeal Reflux Problem Acti ve 2020-02-06 00:00:00 [facility] Mixed anxiety and depressive disorder Mixed Anxiety and Depr essive Disorder Problem Active 2019-12-24 00:00:00 [facility] Hiatal hernia Hiatal Hernia Problem Active 2019-12-20 00:00:00 [facility] Vitamin D deficiency Vitamin D Deficiency Problem Active 00:00:00 [facility] Mixed hyperlipidemia Mixed Hyperlipidemia Problem Active 00:00:00 [facility] Prediabetes Prediabetes Problem Active 2019-08-24 00:00:00 [facility] Major depressive disorder Major Depressive Disorder Problem Ac tive 2016-10-30 00:00:00 [facility] Gastroesophageal reflux disease Gastroesophageal Reflux Disease Pro blem Active 2016-10-30 00:00:00 [facility] Hypertensive disorder Hypertensive Disorder Problem Active 201 12-18-05 00:00:00 [facility] clif Abdominal pain Problem Active C [facility] Elevated liver function tests Problem Active [facility] Allergies, Adverse Reactions, Alerts Allergy Name Allergy Type Status Severity Reaction(s) Onset Date Inacti ve Date Treating Clinician Comments Source No Known Allergies DA Active U 2019-09-17 00:00:00 [facility] No Known Allergies DA Active U 2013-11-17 00:00:00 [facility] House Dust Allergy to substance Active Mild Cough [facility] Social History Social Habit Start Date Stop Date Quantity Comments Source Sex Ass[birth year] At 1965 00:00:00 1965 00:00:00 Female [facility] Smoking Status Start Date Stop Date Source Never Smoker [facility] menezes Medications Ordered Medication Name [...] TO 8 HOURS FOR 10 DAYS NEEDED [facility] cimetidine 400 mg tablet cimetidine 400 mg tablet No cimetidine 400 mg tablet [facility] ice loratadine 10 mg tablet Take 1 tablet every day by ora l route for 90 days. loratadine 10 mg tablet Take 1 tablet every day by oral route for 90 days. No 1 Q1D loratadine 10 m g tablet Take 1 tablet every day by oral route for 90 days. [facility] ice mometasone 50 mcg/actuation nasal spray [place] 1 spray twice a day by intranasal route for 90 days. mometasone 50 mcg/actuation nasal spray [place] 1 spray twice a day by intranasal route for 90 days. No mometasone 50 mcg/actuation nasal spray [place] 1 spray twice a day by intranasal route for 90 days. [facility] montelukast 10 mg tablet Take 1 tablet e very day by oral route in the evening for 90 days. montelukast 10 mg tablet Take 1 tablet e very day by oral route in the evening for 90 days. No montelukast 10 mg tablet Take 1 tablet every day by oral route in the evening for 90 days. [facility] pantoprazole 40 mg tablet,delayed release pantoprazole 40 mg tablet,delayed release No pantoprazole 40 mg tablet,chava yed release [facility] sertraline 50 mg tablet Take 1 tablet ev mayda day by oral route as needed for 90 days. sertraline 50 mg tablet Take 1 tablet ev mayda day by oral route as needed for 90 days. No sertraline 50 mg tablet Take 1 tablet every day by oral route as needed for 90 days. [facility] Vitamin D3 50 mcg (2,000 unit) capsule T matt 1 capsule by oral route after meals for 90 days. Vitamin D3 50 mcg (2,000 unit) capsule T matt 1 capsule by oral route after meals for 90 days. No 1capsule(s) Vitamin D3 50 mcg (2,000 unit) capsule Take 1 capsule by oral route after meals for 90 days. [facility] Immunizations Ordered Immunization Name Filled Immunization Name Date Status Comments Source Tdap Tdap 2019-08-14 15:36:00 Completed [facility] zoster recombinant zoster recombinant 2019-08-14 15:36:00 Completed [facility] influenza, recombinant, quadrIvalent,injectable, prese rvative free influenza, recombinant, quadrIvalent,injectable, preservative free 2019-06-22 16:36:00 Completed [facility] influenza, unspecified formulation influenza, unspecified fo rmulation 2015-04-27 00:00:00 Completed [facility] ice influenza, unspecified formulation influenza, unspecified fo rmulation 2014-03-10 00:00:00 Completed [facility] Vital Signs Vital Name Observation Time Observation Value Comments Source BP Diastolic 2020-03-14 00:00:00 70 mm[Hg] [facility] Height 2020-03-14 00:00:00 61 [in_i] [facility] BMI (Body Mass Index) 2020-03-14 00:00:00 23.8 kg/m2 [facility] BP Systolic 2020-03-14 00:00:00 126 mm[Hg] [facility] Body Weight 2020-03-14 00:00:00 125.8 [lb_av] [facility] BP Diastolic 2020-01-11 00:00:00 74 mm[Hg] [facility] Height 2020-01-11 00:00:00 61 [in_i] [facility] BMI (Body Mass Index) 2020-01-11 00:00:00 24.6 kg/m2 [facility] BP Systolic 2020-01-11 00:00:00 122 mm[Hg] [facility] Body Weight 2020-01-11 00:00:00 130.2 [lb_av] [facility] Height 2020-01-06 00:00:00 61 [in_i] [facility] BP Diastolic 2019-12-24 00:00:00 74 mm[Hg] [facility] Height 2019-12-24 00:00:00 61 [in_i] [facility] BMI (Body Mass Index) 2019-12-24 00:00:00 24.6 kg/m2 [facility] BP Systolic 2019-12-24 00:00:00 106 mm[Hg] [facility] Body Weight 2019-12-24 00:00:00 130.2 [lb_av] [facility] BP Diastolic 2019-11-18 00:00:00 82 mm[Hg] [facility] Height 2019-11-18 00:00:00 61 [in_i] [facility] BMI (Body Mass Index) 2019-11-18 00:00:00 26 kg/m2 [facility] BP Systolic 2019-11-18 00:00:00 114 mm[Hg] [facility] Body Weight 2019-11-18 00:00:00 137.8 [lb_av] [facility] Height 2019-10-26 00:00:00 61 [...] (Body Mass Index) 2019-08-14 00:00:00 31 kg/m2 [facility] BP Systolic 2019-08-14 00:00:00 114 [...] (Body Mass Index) 2019-06-22 00:00:00 31 kg/m2 [facility] BP Systolic 2019-06-22 00:00:00 130 mm[Hg] [facility] Body Weight 2019-06-22 00:00:00 164 [lb_av] [facility] BP Diastolic 2019-01-28 00:00:00 84 mm[Hg] [facility] Height 2019-01-28 00:00:00 61 [in_i] [facility] BMI (Body Mass Index) 2019-01-28 00:00:00 30.1 kg/m2 [facility] BP Systolic 2019-01-28 00:00:00 124 mm[Hg] [facility] Body Weight 2019-01-28 00:00:00 159.4 [lb_av] [facility] BP Diastolic 2019-01-09 00:00:00 86 mm[Hg] [facility] Height 2019-01-09 00:00:00 61 [in_i] [facility] BMI (Body Mass Index) 2019-01-09 00:00:00 30.3 kg/m2 [facility] BP Systolic 2019-01-09 00:00:00 130 mm[Hg] [facility] Body Weight 2019-01-09 00:00:00 160.4 [lb_av] [facility] BP Diastolic 2018-12-17 00:00:00 88 mm[Hg] [facility] Height 2018-12-17 00:00:00 61 [in_i] [facility] BMI (Body Mass Index) 2018-12-17 00:00:00 30.2 kg/m2 [facility] BP Systolic 2018-12-17 00:00:00 126 mm[Hg] [facility] Body Weight 2018-12-17 00:00:00 160 [lb_av] [facility] Body Temperature 2020-01-23 09:33:00 98.0 [degF] [facility] Weight 2020-01-23 04:43:00 150 [lb_av] [facility] BMI (Body Mass Index) 2020-01-23 04:43:00 29.3 kg/m2 [facility] Procedures Procedure Date / Time Performed Performing Clinician [facility] e Computed tomography of abdomen and pelvis with contrast 00:00:00 [facility] Egd 2019-11-13 00:00:00 [facility] electrocardiogram 2019-09-11 00:00:00 [facility] MAMMO, screening, digital, bilateral 2019-07-22 00:00:00 [facility] Colonoscopy 2016-10-17 00:00:00 [facility] Other 1999-06-17 00:00:00 [facility] Delivery 1999-06-17 00:00:00 [facility] Colonoscopy & Polypectomy [facility] Plan of Care Planned Activity Planned Date Details Comments Source Diagnostic Test Pending 2020-03-14 00:00:00 HbA1c (hemoglobi n A1c), blood [code = HbA1c (hemoglobin A1c), blood] [facility] Diagnostic Test Pending 2020-03-14 00:00:00 vitamin D, 25-hy droxy, total, serum [code = vitamin D, 25-hydroxy, total, serum] [facility] Diagnostic Test Pending 2020-03-14 00:00:00 lipid panel, ser um [code = lipid panel, serum] [facility] Diagnostic Test Pending 2020-03-14 00:00:00 CMP, serum or pl asma [code = CMP, serum or plasma] [facility] Diagnostic Test Pending 2020-03-14 00:00:00 CBC w/ auto diff [code = CBC w/ auto diff] [facility] Diagnostic Test Pending 2020-03-14 00:00:00 TSH, serum or pl asma [code = TSH, serum or plasma] [facility] Diagnostic Test Pending 2020-03-14 00:00:00 urinalysis, dips tick [code = urinalysis, dipstick] [facility] Future Appointment 2020-06-13 00:00:00 Eugenio Rosas, [address]; [address], [place] [address] [facility] Encounters Start Date/Time End Date/Time Encounter Type Admission Type Attendi [facility] Care Department Encounter ID Source 2020-03-14 00:00:00 2020-03-14 00:00:00 Eugenio reddy MD: [address], [address], [place] [address], Ph. [facility] [id number] [facility] 2020-01-23 04:44:00 2020-01-23 09:35:00 Departed Emergency Room 1 CHRISS GARCIA [facility] [id number] [facility] 2020-01-11 00:00:00 2020-01-11 00:00:00 Eugenio reddy MD: [address], [address], [place] [address], Ph. [facility] [id number] [facility] 2020-01-06 00:00:00 2020-01-06 00:00:00 Eugenio reddy MD: [address], [address], [place] [address], Ph. [facility] [id number] [facility] 2019-12-24 00:00:00 2019-12-24 00:00:00 Eugenio reddy MD: [address], [address], [place] [address], Ph. [facility] [id number] [facility] 2019-11-18 00:00:00 2019-11-18 00:00:00 Eugenio reddy MD: [address], [address], [place] [address], Ph. [facility] [id number] [facility] 2019-10-26 00:00:00 2019-10-26 00:00:00 Eugenio reddy MD: [address], [address], [place] [address], Ph. [facility] [id number] [facility] 2019-09-29 00:00:00 2019-09-29 00:00:00 Eugenio reddy MD: [address], [address], [place] [address], Ph. [facility] [id number] [facility] 2019-09-22 00:00:00 2019-09-22 00:00:00 Eugenio reddy MD: [address], [address], [place] [address], Ph. [facility] [id number] [facility] 2019-09-14 00:00:00 2019-09-14 00:00:00 Eugenio reddy MD: [address], [address], [place] [address], Ph. [facility] [id number] [facility] 2019-09-11 00:00:00 2019-09-11 00:00:00 Eugenio reddy MD: [address], [address], [place] [address], Ph. [facility] [id number] [facility] 2019-08-24 00:00:00 2019-08-24 00:00:00 Eugenio reddy MD: [address], [address], [place] [address], Ph. [facility] [id number] [facility] 2019-08-14 00:00:00 2019-08-14 00:00:00 Eugenio reddy MD: [address], [address], [place] [address], Ph. [facility] [id number] [facility] 2019-07-22 00:00:2019-07-22 00:00:00 Eugenio reddy MD: [address], [address], [place] [address], Ph. [facility] [id number] [facility] 2019-06-22 00:00:00 2019-06-22 00:00:00 Eugenio reddy MD: [address], [address], [place] [address], Ph. [facility] [id number] [facility] 2019-01-28 00:00:00 2019-01-28 00:00:00 Joseph martin MD: [facility] [place] [address], Ph. [facility] [id number] [facility] 2019-01-09 00:00:00 2019-01-09 00:00:00 Joseph martin MD: [address] [place] [address], Ph. [facility] [id number] [facility] 2018-12-17 00:00:00 2018-12-17 00:00:00 Joseph martin MD: [facility] [place] [address], Ph. [facility] [id number] [facility] Results Test Description Test Time Test Comments Results Result Comments Source CT ABDOMEN/PELVIS W 2020-01-23 08:27:00 [place] [address] Patient Name: MARYLU PAIZ MR #: [id number] : 1965 Age/Sex: 54/F Req #: [id number] Adm Physician: Ordered by: DIEGO VARELA MD Report #: [id number] Location: Room/Bed: Procedure: [id number] CT/CT ABDOMEN/PELVIS W Exam Date: 01/23/20 Exam [...] Color (test code = 5778-6) YELLOW YELLOW [facility] [id number] 05:25:00* Test Item Value Reference Range Interpretation Comments Urine Clarity (test code = 63916-7) HAZY CLEAR [facility] by Test strip 2020-01-23 05:25:00* Test Item Value Reference Range Interpretation Comments Urine Specific [place] (test code = 5811-5) >=1.030 1.010-1.02 5 [facility] pH measurement by automated test [id number] 05:25:00* Test Item Value Reference Range Interpretation Comments Urine pH (test code = 67784-3) 5.5 5-7 [facility] leukocyte esterase detection by [id number] 05:25:00* Test Item Value Reference Range Interpretation Comments Urine Leukocyte Esterase (test code = 5799-2) MODERATE NEGATIVE [facility] nitrite [id number] 05:25:00* Test Item Value Reference Range Interpretation Comments Urine Nitrite (test code = 52737-1) NEGATIVE NEGATIVE [facility] protein measurement by test strip (mass/volume)2020-01-23 05:25:00* Test Item Value Reference Range Interpretation Comments Urine Protein (test code = 5804-0) NEGATIVE NEGATIVE [facility] glucose [id number] 05:25:00* Test Item Value Reference Range Interpretation Comments Urine Glucose (UA) (test code = 2349-9) NEGATIVE NEGATIVE [facility] ketones detection by automated test [id number] 05:25:00* Test Item Value Reference Range Interpretation Comments Urine Ketones (test code = 65487-4) NEGATIVE NEGATIVE [facility]rine urobilinogen measurement by test strip (mass/volume)2020-01-23 05:25:00* Test Item Value Reference Range Interpretation Comments Urine Urobilinogen (test code = 91204-1) 0.2 0.2-1 [facility] total bilirubin measurement (mass/volume)2020-01-23 05:25:00* Test Item Value Reference Range Interpretation Comments Urine Bilirubin (test code = 1978-6) NEGATIVE NEGATIVE [facility] erythrocytes [id number] 05:25:00* Test Item Value Reference Range Interpretation Comments Urine Blood (test code = 41506-6) NEGATIVE NEGATIVE [facility] CampusAutomated urine sediment leukocyte count by microscopy (number/high power field)2020-01-23 05:25:00* Test Item Value Reference Range Interpretation Comments Urine WBC (test code = 5821-4) 11-20 0-5 [facility] CampusErythrocytes detection in urine sediment by light [id number] 05:25:00* Test Item Value Reference Range Interpretation Comments Urine RBC (test code = 91401-9) 0-5 0-5 [facility] CampusBacteria detection in urine sediment by light [id number] 05:25:00* Test Item Value Reference Range Interpretation Comments Urine Bacteria (test code = 53026-4) MANY NONE [facility] CampusEpithelial cells detection in urine sediment by light [id number] 05:25:00* Test Item Value Reference Range Interpretation Comments Urine Epithelial Cells (test code = 76862-9) MODERATE NONE [facility]Blood leukocytes automated count (number/volume)2020-01-23 04:45:00* Test Item Value Reference Range Interpretation Comments White Blood Count (test code = 6690-2) 6.40 4.8-10.8 [facility] erythrocytes automated count (number/volume)2020-01-23 04:45:00* Test Item Value Reference Range Interpretation Comments Red Blood Count (test code = 789-8) 4.18 3.6-5.1 [facility] hemoglobin measurement (moles/volume)2020-01-23 04:45:00* Test Item Value Reference Range Interpretation Comments Hemoglobin (test code = 01892-5) 12.9 12.0-16.0 [facility] CampusAutomated blood hematocrit (volume fraction)2020-01-23 04:45:00* Test Item Value Reference Range Interpretation Comments Hematocrit (test code = 4544-3) 40.6 34.2-44.1 [facility] CampusAutomated erythrocyte mean corpuscular [id number] 04:45:00* Test Item Value Reference Range Interpretation Comments Mean Corpuscular Volume (test code = 787-2) 97.1 81-99 [facility] CampusAutomated erythrocyte mean corpuscular hemoglobin (mass per erythrocyte)2020-01-23 04:45:00* Test Item Value Reference Range Interpretation Comments Mean Corpuscular Hemoglobin (test code = 785-6) 30.9 28-32 [facility] CampusAutomated erythrocyte mean corpuscular hemoglobin concentration measurement (mass/volume)2020-01-23 04:45:00* Test Item Value Reference Range Interpretation Comments Mean Corpuscular Hemoglobin Concent (test code = 786-4) 31.8 31-35 [facility] CampusRDW [id number] 04:45:00* Test Item Value Reference Range Interpretation Comments Red Cell Distribution Width (test code = 51835-9) 13.3 11.7 -14.4 [facility] CampusAutomated blood platelet count (count/volume)2020-01-23 04:45:00* Test Item Value Reference Range Interpretation Comments Platelet Count (test code = 777-3) 191 140-360 [facility] CampusAutomated blood segmented neutrophil count as percentage of total [id number] 04:45:00* Test Item Value Reference Range Interpretation Comments Neutrophils (%) (Auto) (test code = 33264-7) 39.3 38.7-80.0 [facility] CampusAutomated blood lymphocyte count as percentage ot total [id number] 04:45:00* Test Item Value Reference Range Interpretation Comments Lymphocytes (%) (Auto) (test code = 736-9) 48.1 18.0-39.1 [facility] CampusAutomated blood monocyte count as percentage of total tpalzwymvr0952-77-99 04:45:00* Test Item Value Reference Range Interpretation Comments Monocytes (%) (Auto) (test code = 5905-5) 5.0 4.4-11.3 [facility] CampusAutomated blood eosinophil count as percentage of total [id number] 04:45:00* Test Item Value Reference Range Interpretation Comments Eosinophils (%) (Auto) (test code = 713-8) 6.3 0.0-6.0 [facility] CampusAutomated blood basophil count as percentage of total mlwswpktni3571-27-03 04:45:00* Test Item Value Reference Range Interpretation Comments Basophils (%) (Auto) (test code = 706-2) 1.1 0.0-1.0 [facility] CampusFluoroscopic procedure less than one hour [id number] 04:45:00* Test Item Value Reference Range Interpretation Comments IM GRANULOCYTES % (test code = IM GRANULOCYTES %) 0.2 0.0- 1.0 [facility] CampusAutomated blood neutrophil count 2020-01-23 04:45:00* Test Item Value Reference Range Interpretation Comments Neutrophils # (Auto) (test code = 751-8) 2.5 2.1-6.9 [facility] CampusBlood lymphocytes count (number/volume) 2020-01-23 04:45:00* Test Item Value Reference Range Interpretation Comments Lymphocytes # (Auto) (test code = 49141-3) 3.1 1.0-3.2 [facility] CampusBlood monocytes automated count (number/volume)2020-01-23 04:45:00* Test Item Value Reference Range Interpretation Comments Monocytes # (Auto) (test code = 742-7) 0.3 0.2-0.8 [facility] CampusAutomated blood eosinophil count 2020-01-23 04:45:00* Test Item Value Reference Range Interpretation Comments Eosinophils # (Auto) (test code = 711-2) 0.4 0.0-0.4 [facility] CampusAutomated blood basophil count (count/volume)2020-01-23 04:45:00* Test Item Value Reference Range Interpretation Comments Basophils # (Auto) (test code = 704-7) 0.1 0.0-0.1 [facility] CampusFluoroscopic procedure less than one hour [id number] 04:45:00* Test Item Value Reference Range Interpretation Comments Absolute Immature Granulocyte (auto (zack t code = Absolute Immature Granulocyte (auto) 0.01 0-0.1 [facility] plasma sodium measurement (moles/volume)2020-01-23 04:45:00* Test Item Value Reference Range Interpretation Comments Sodium Level (test code = 2951-2) 140 136-145 [facility]ererum or plasma potassium measurement (moles/volume)2020-01-23 04:45:00* Test Item Value Reference Range Interpretation Comments Potassium Level (test code = 2823-3) 3.8 3.5-5.1 [facility]ere[facility] or plasma chloride measurement (moles/volume)2020-01-23 04:45:00* Test Item Value Reference Range Interpretation Comments Chloride Level (test code = 2075-0) 107 98-107 [facility]ererum or plasma carbon dioxide, total measurement (moles/volume)2020-01-23 04:45:00* Test Item Value Reference Range Interpretation Comments Carbon Dioxide Level (test code = 2028-9) 25 22-29 [facility]ererum or plasma anion rul5783-04-14 04:45:00* Test Item Value Reference Range Interpretation Comments Anion Gap (test code = 97468-9) 11.8 8-16 [facility] or plasma urea nitrogen measurement (mass/volume)2020-01-23 04:45:00* Test Item Value Reference Range Interpretation Comments Blood Urea Nitrogen (test code = 3094-0) 15 7-26 [facility]ere[facility] or plasma creatinine measurement (mass/volume)2020-01-23 04:45:00* Test Item Value Reference Range Interpretation Comments Creatinine (test code = 2160-0) 0.87 0.57-1.11 [facility]ererum or plasma urea nitrogen/creatinine mass laovy4662-70-18 04:45:00* Test Item Value Reference Range Interpretation Comments BUN/Creatinine Ratio (test code = 3097-3) 17 6-25 [facility] CampusEstimated glomerular filtration rate (GFR) dbglwynzrorri4200-53-39 04:45:00* Test Item Value Reference Range Interpretation Comments Estimat Glomerular Filtration Rate (test code = 864657725) > 60 >60 Ranges were taken from the National Kidney Disease Education Program and the [facility] literature.Reference ranges:60 or greater: Meifwu15-31 ( for 3 consecutive months): Chronic kidney disease 15 or less: Kidney failureNorth [facility] CampusGlucose awovzvyocrg6411-49-87 04:45:00* Test Item Value Reference Range Interpretation Comments Glucose Level (test code = LIV0041) 145 74-118 [facility]ere[facility] or plasma calcium measurement (mass/volume)2020-01-23 04:45:00* Test Item Value Reference Range Interpretation Comments Calcium Level (test code = 12977-3) 9.1 8.4-10.2 [facility]ere[facility] or plasma total bilirubin measurement (mass/volume)2020-01-23 04:45:00* Test Item Value Reference Range Interpretation Comments Total Bilirubin (test code = 1975-2) 0.4 0.2-1.2 [facility] CampusFluoroscopic procedure less than one hour vcdjwqyz2314-45-43 04:45:00* Test Item Value Reference Range Interpretation Comments Aspartate Amino Transf (AST/SGOT) (test code = Aspartate Amino Transf (AST/SGOT)) 126 5-34 [facility]ererum or plasma alanine aminotransferase measurement (enzymatic activity/volume)2020-01-23 04:45:00* Test Item Value Reference Range Interpretation Comments Alanine Aminotransferase (ALT/SGPT) (test code = 1742-6) 119 0-55 [facility]ererum or plasma protein measurement (mass/volume)2020-01-23 04:45:00* Test Item Value Reference Range Interpretation Comments Total Protein (test code = 2885-2) 6.9 6.5-8.1 [facility]ererum or plasma albumin measurement (mass/volume)2020-01-23 04:45:00* Test Item Value Reference Range Interpretation Comments Albumin (test code = 1751-7) 3.7 3.5-5.0 [facility] CampusPlasma globulin measurement (mass/volume) 2020-01-23 04:45:00* Test Item Value Reference Range Interpretation Comments Globulin (test code = 06273-7) 3.2 2.3-3.5 [facility]ererum or plasma albumin/globulin mass xhkrs3676-45-99 04:45:00* Test Item Value Reference Range Interpretation Comments Albumin/Globulin Ratio (test code = 1759-0) 1.2 0.8-2.0 [facility]ererum or plasma alkaline phosphatase measurement (enzymatic activity/volume)2020-01-23 04:45:00* Test Item Value Reference Range Interpretation Comments Alkaline Phosphatase (test code = 6768-6) 79 40-150 [facility]ererum or plasma creatine kinase measurement (enzymatic activity/volume)2020-01-23 04:45:00* Test Item Value Reference Range Interpretation Comments Creatine Kinase (test code = 2157-6) 47 29-168 [facility]ererum or plasma creatine kinase MB measurement (mass/volume)2020-01-23 04:45:00* Test Item Value Reference Range Interpretation Comments Creatine Kinase MB (test code = 89013-5) 0.20 0-5.0 [facility] CampusTroponin I measurement by highly sensitive enzyme xbumyjfiuen3047-25-12 04:45:00* Test Item Value Reference Range Interpretation Comments Troponin I (test code = 93184-0) < 0.001 0-0.300 [facility]ererum or plasma amylase measurement (enzymatic activity/volume)2020-01-23 04:45:00* Test Item Value Reference Range Interpretation Comments Amylase Level (test code = 1798-8) 104 25-125 [facility]ererum or plasma lipase measurement (enzymatic activity/volume)2020-01-23 04:45:00* Test Item Value Reference Range Interpretation Comments Lipase (test code = 3040-3) 88 8-78 [facility] CampusBAUOFL [facility] METABOLIC OWQIP2027-03-06 23:16:00 * Test Item Value Reference Range [...] code = CA) 9.3 mg/dL 8.5-10.1 N [id number] 23:16:00* Test Item Value Reference Range Interpretation Comments TROPONIN-I (test code = TROPI) <0.015 ng/mL 0-0.045 N BASIC METABOLIC [id number] 23:09:00* Test Item Value Reference Range Interpretation [...] code = CA) 9.3 mg/dL 8.5-10.1 N [id number]-[id number] 23:09:00* Test Item Value Reference Range Interpretation Comments TROPONIN-I (test code = TROPI) ng/mL 0-0.045 BASIC METABOLIC [id number] 23:06:00* Test Item Value Reference Range Interpretation [...] CALCIUM (test code = CA) mg/dL 8.5-10.1 [id number]-E7551-11-19 23:06:00* Test Item Value Reference Range Interpretation Comments TROPONIN-I (test code = TROPI) ng/mL 0-0.045 CBC W/O [id number] 22:59:00* Test Item Value Reference Range Interpretation [...] code = MPV) fL 6.7-11.0 CBC W/O [id number] 22:59:00* Test Item Value Reference Range Interpretation [...] fL 6.7-11.0 H - XR CHEST 1 [id number] 21:28:00 FAX: Skip Hidalgo MD [phone] [place]: B St: REG Name: MARYLU GOMES [facility] : [birth year] 62 Age/S: 54/F [address] [facility] Unit #: [id number] Loc: [place] [address] Phys: Skip Hidalgo MD Acct: [id number] Dis Date: Status: REG ER PHONE #: [phone] Exam Date: 12/04/20192111 FAX #: [phone] Reason: CHEST PAIN EXAMS: CPT CODE: [id number] XR CHEST 1 V 82831 EXAM: Chest x-ray, one view; INFORMATION: Chest [...] Urinalysis complete W Reflex Culture panel - [id number] 00:00:00* Test Item Value Reference Range Interpretation [...] ulture) culture indicated - results to follow [facility] CenterBacteria identified in Urine by Keaawfr0549-18-31 00:00:00* Test Item Value Reference Range Interpretation Comments culture, urine, routine (test code = culture, urine, routine) see n ote [facility] PracticeUrinalysis complete W Reflex Culture panel - [...] ulture) culture indicated - results to follow [facility] CenterBacteria identified in Urine by Cxxypmr4746-06-95 00:00:00* Test Item Value Reference Range Interpretation Comments culture, urine, routine (test code = culture, urine, routine) see n [facility] CenterUrinalysis complete W Reflex Culture panel [...] ulture) culture indicated - results to follow [facility] CenterBacteria identified in Urine by Wonohoo5211-94-97 00:00:00* Test Item Value Reference Range Interpretation Comments culture, urine, routine (test code = culture, urine, routine) see n luis miguele [facility] CenterThyrotropin [Units/volume] in Serum or Tludhr6539-63-96 00:00:00* Test Item Value Reference Range Interpretation Comments TSH (test code = TSH) 4.379 uIU/mL 0.350-4.940 [facility] CenterThyrotropin [Units/volume] in Serum or Bhoyoq4663-55-75 00:00:00* Test Item Value Reference Range Interpretation Comments TSH (test code = TSH) 4.379 uIU/mL 0.350-4.940 [facility] CenterThyrotropin [Units/volume] in Serum or Gkifpl1147-06-31 00:00:00* Test Item Value Reference Range Interpretation Comments TSH (test code = TSH) 4.379 uIU/mL 0.350-4.940 [facility] CenterCBC W Auto Differential panel - Nkbrw6961-05-78 00:00:00 * Test Item Value Reference Range [...] (test code = baso#) 0.05 x10*3/?L 0.01-0.08 [facility] CenterComprehensive metabolic 2000 panel - Serum or [...] (test code = anion gap) 10 calc [facility] CenterLipid 1996 panel - Serum or Ysrajx5944-16-15 00:00:00* Test Item Value Reference Range Interpretation [...] code = 2089-1) 144 mg/dL <130 H [facility] CenterHemoglobin A1c/Hemoglobin.total in Tvsyl1059-35-75 00:00:00* Test Item Value Reference Range Interpretation Comments Hemoglobin A1c/Hemoglobin.total in Blood (test code = 4548-4) 6.1 % 1.0-5.7 H average blood glucose (calculated) (test code = average blood glucose (calculated)) 128 mg/dL [facility] CenterCBC W Auto Differential panel - Reszf8796-49-84 00:00:00 * Test Item Value Reference Range [...] (test code = baso#) 0.05 x10*3/?L 0.01-0.08 [facility] CenterComprehensive metabolic 2000 panel - Serum or [...] (test code = anion gap) 10 calc [facility] CenterLipid 1996 panel - Serum or Trhqlr1392-18-92 00:00:00* Test Item Value Reference Range Interpretation [...] code = 2089-1) 144 mg/dL <130 H [facility] CenterHemoglobin A1c/Hemoglobin.total in Jpmpo9677-26-56 00:00:00* Test Item Value Reference Range Interpretation Comments Hemoglobin A1c/Hemoglobin.total in Blood (test code = 4548-4) 6.1 % 1.0-5.7 H average blood glucose (calculated) (test code = average blood glucose (calculated)) 128 mg/dL [facility] CenterCB W Auto Differential panel - Pytph1278-81-72 00:00:00 * Test Item Value Reference Range [...] (test code = baso#) 0.05 x10*3/?L 0.01-0.08 [facility] PracticeComprehensive metabolic 2000 panel - Serum or [...] (test code = anion gap) 10 calc [facility] CenterLipid 1996 panel - Serum or Wkfkrz7309-17-25 00:00:00* Test Item Value Reference Range Interpretation [...] code = 2089-1) 144 mg/dL <130 H [facility] CenterHemoglobin A1c/Hemoglobin.total in Wxahd5792-56-11 00:00:00* Test Item Value Reference Range Interpretation Comments Hemoglobin A1c/Hemoglobin.total in Blood (test code = 4548-4) 6.1 % 1.0-5.7 H average blood glucose (calculated) (test code = average blood glucose (calculated)) 128 mg/dL [facility] CenterTREPTOCOCCUS PCR [id number] 00:55:00* Test Item Value Reference Range Interpretation Comments STREPTOCOCCUS DYSGALACTIAE (test code = STREPGC) NEGATIVE FOR G/C N EGATIVE STREPA MOLECULAR (test code = STREPAMOL) NEGATIVE FOR GRP A NEGATIV E [id number] 18:17:00* Test Item Value Reference Range Interpretation [...] BNP) 2.37 pgram/mL 0-100 N BASIC METABOLIC [id number] 16:58:00* Test Item Value Reference Range Interpretation [...] code = CA) 8.8 mg/dL 8.5-10.1 N [id number]-W4413-32-02 16:58:00* Test Item Value Reference Range Interpretation Comments TROPONIN-I (test code = TROPI) <0.015 ng/mL 0-0.045 N BASIC METABOLIC [id number] 16:49:00* Test Item Value Reference Range Interpretation [...] CALCIUM (test code = CA) mg/dL 8.5-10.1 [id number]-[id number] 16:49:00* Test Item Value Reference Range Interpretation Comments TROPONIN-I (test code = TROPI) ng/mL 0-0.045 CBC W/O [id number] 16:44:00* Test Item Value Reference Range Interpretation [...] fL 6.7-11.0 H - XR CHEST 1 [id number] 16:01:00 FAX: Rogelio Mckeon MD [phone] [place]: St: PRE Name: MARYLU GOMES [facility] : [birth year] 62 Age/S: 54/F [address] [facility] Unit #: [id number] Loc: [place] [address] Phys: Rogelio Mckeon MD Acct: [id number] Dis Date: Status: PRE ER PHONE #: [phone] Exam Date: 09/17/2019 1545 FAX #: [phone] Reason: Shortness of Breath EXAMS: CPT CODE: [id number] XR CHEST 1 V 41857 REASON FOR EXAM: Shortness of Breath Exam [...] limits. IMPRESSION: No acute cardiopulmonary process. Location: [facility] at 1601 Reported and signed by: Julius Blas MD CC: Rogelio Mckeon MD Technologist: SOTERO FERNANDO, RT(R); DUARTE FARIAS Trnscrd Date/Time/By: 09/17/2019 (3421) : By: [email or web address] 31 Orig Print D/T: S: 09/17/2019 (8291) PAGE 1 Signed Report EKG study 2019-09-11 22:34:00Rate & RhythmQrsPR IntervalQRS DurationQT IntervalViage [facility] CenterEK [id number] 22:34:00Rate & RhythmQrsPR IntervalQRS DurationQT IntervalViage [facility] CenterEK lousw4094-13-32 22:34:00Rate & RhythmQrsPR IntervalQRS DurationQT IntervalBaton Rouge General [facility] Center PracticeThyrotropin [Units/volume] in Serum or Wbmtrk5935-51-16 00:00:00* Test Item Value Reference Range Interpretation Comments TSH (test code = TSH) 3.95 mIU/L [facility] CenterNijsglxl84-Lahvzokshsfcrg D [Mass/volume] in Serum or Plasma 2019-08-18 00:00:00* Test Item Value Reference Range Interpretation Comments vitamin D,25-oh,total,ia (test code = vitamin D,25-oh,total,ia) 16 NG/mL 30-100 L [facility] CenterThyrotropin [Units/volume] in Serum or Wvnmom9986-28-84 00:00:00* Test Item Value Reference Range Interpretation Comments TSH (test code = TSH) 3.95 mIU/L [facility]ty CenterRklewbll66-Vndiumvrgyrmxr D [Mass/volume] in Serum or Plasma 2019-08-18 00:00:00* Test Item Value Reference Range Interpretation Comments vitamin D,25-oh,total,ia (test code = vitamin D,25-oh,total,ia) 16 NG/mL 30-100 L [facility] CenterComprehensive metabolic 2000 panel - Serum or [...] (test code = anion gap) 6 calc [facility] CenterLipid 1995 panel - Serum or Wzcqyg6102-27-75 00:00:00* Test Item Value Reference Range Interpretation [...] code = 2089-1) 134 mg/dL <130 H [facility] CenterHemoglobin A1c/Hemoglobin.total in Awbrq4867-91-58 00:00:00* Test Item Value Reference Range Interpretation Comments Hemoglobin A1c/Hemoglobin.total in Blood (test code = 4548-4) 6.2 % 1.0-5.7 H average blood glucose (calculated) (test code = average blood glucose (calculated)) 131 mg/dL [facility] CenterComprehensive metabolic 1999 panel - Serum or [...] (test code = anion gap) 6 calc [facility] CenterLipid 1996 panel - Serum or Mjtibs0785-77-36 00:00:00* Test Item Value Reference Range Interpretation [...] code = 2089-1) 134 mg/dL <130 H [facility] CenterHemoglobin A1c/Hemoglobin.total in Eycuw9294-27-29 00:00:00* Test Item Value Reference Range Interpretation Comments Hemoglobin A1c/Hemoglobin.total in Blood (test code = 4548-4) 6.2 % 1.0-5.7 H average blood glucose (calculated) (test code = average blood glucose (calculated)) 131 mg/dL [facility] CenterHepatitis C virus RNA [Units/volume] (viral load) in Serum or Plasma by Probe and target amplification [id number] 00:00:00* Test Item Value Reference Range Interpretation Comments hepatitis C antibody (test code = hepatitis C antibody) non- reactive non-reactive signal to cut-off (test code = signal to cut-off) 0.01 <1.0 0 [facility] CenterCB W Auto Differential panel - Qwkpr2597-27-09 00:00:00 * Test Item Value Reference Range [...] code = absolute neutrophils) 3665 kimber ls/uL 8669-6672 absolute lymphocytes (test code = absolute lymphocytes) [...] basophils (test code = basophils) 1.3 % [facility] CenterHepatitis C virus RNA [Units/volume] (viral load) in Serum or Plasma by Probe and target amplification [id number] 00:00:00* Test Item Value Reference Range Interpretation Comments hepatitis C antibody (test code = hepatitis C antibody) non- reactive non-reactive signal to cut-off (test code = signal to cut-off) 0.01 <1.0 0 [facility] CenterCB W Auto Differential panel - Npzom2737-60-40 00:00:00 * Test Item Value Reference Range [...] code = absolute neutrophils) 3665 kimber ls/uL 6628-7488 absolute lymphocytes (test code = absolute lymphocytes) [...] basophils (test code = basophils) 1.3 % [facility] CenterBacteria identified in Urine by Ztpbuvd3066-15-60 04:21:00* Test Item Value Reference Range Interpretation Comments culture, urine, routine (test code = culture, urine, routine) see n ote A [facility]ty CenterB-TYPE NATRIURETIC [id number] 19:18:00* Test Item Value Reference Range Interpretation Comments B-TYPE NATRIURETIC PEPTIDE (test code = BNP) 12.64 pgram/mL 0-100 N BASIC METABOLIC [id number] 18:26:00* Test Item Value Reference Range Interpretation [...] code = CA) 8.4 mg/dL 8.5-10.1 L [id number] 18:26:00* Test Item Value Reference Range Interpretation Comments TROPONIN-I (test code = TROPI) <0.015 ng/mL 0-0.045 N BASIC METABOLIC [id number] 18:13:00* Test Item Value Reference Range Interpretation [...] CALCIUM (test code = CA) mg/dL 8.5-10.1 [id number]-[id number] 18:13:00* Test Item Value Reference Range Interpretation Comments TROPONIN-I (test code = TROPI) ng/mL 0-0.045 TROPONIN I [id number] 18:05:00* Test Item Value Reference Range Interpretation [...] only if similarmethodology is used. CBC W/O [id number] 18:03:00* Test Item Value Reference Range Interpretation [...] MPV) 10.8 fL 6.7-11.0 N CBC W/O [id number] 17:58:00* Test Item Value Reference Range Interpretation [...] MPV) fL 6.7-11.0 - XR CHEST 1 [id number] 17:18:00 FAX: Rogelio Mckeon MD [phone] [place]: B St: REG Name: MARYLU GOMES [facility] : [birth year] 62 Age/S: 53/F [address] [facility] Unit #: [id number] Loc: [place] [address] Phys: Rogelio Mckeon MD Acct: [id number] Dis Date: Status: REG ER PHONE #: [phone] Exam Date: 10/22/2018 1719 FAX #: [phone] Reason: CHEST PAIN EXAMS: CPT CODE: [id number] XR CHEST 1 V 56945 REASON FOR EXAM: CHEST NATHEN N EXAM [...] Electronically Signed by Nino Head 10/22/2018 at 6180 Reported and signed by: Tiff Howell CC: Rogelio Mckeon MD Technologist: Phillip DUKES(R) Trnscr d Date/Time/By: 10/22/2018 (9802) : By: NiloL Orig Print D/T: S: 0 10/22/2018 (2746) PAGE 1 Signed Re port FEMUR 2 VIEWS MINIMUM LEFT [place] [address] Patient Name: MARYLU PAIZ MR #: [id number] : 1965 Age/Sex: 51/F Req #: [id number] Adm Physician: Ordered by: EFREN SMITH Report #: [id number] Location: ER Room/Bed: Procedure: [id number] DX/FEMUR 2 VIEWS MINIMUM LE FT Exam [...]
--- NOTE | 2020-03-15 03:21 | Diagnostic Imaging Report ---
EXAM: Right Upper Quadrant Ultrasound with Doppler INDICATION: ^RUQ PAIN ^Y COMPARISON: Abdominal CT 01/23/2020. TECHNIQUE: Transverse and longitudinal images of the right upper abdomen were obtained. FINDINGS: Liver: Size: 13.3 cm in the right midclavicular line, normal Appearance: Normal echogenicity, smooth contour Mass: No focal masses Gallbladder: Stones/Sludge: Gallstone at the gallbladder neck. Wall: Less than 3 mm. Appearance: No pericholecystic fluid or hydrops. Distended. Sonographic Mccormick's Sign: Negative Bile Ducts: Intrahepatic Ducts: No dilatation Extrahepatic Ducts: Common bile duct measures 0.49 cm, no dilatation Pancreas: Visualized portions of the pancreatic head, neck and proximal body are normal. Right Kidney: Size: 8.7 cm Echogenicity: Normal Parenchymal thickness: Normal Collecting system: No hydronephrosis Stones: None Cyst/Mass: None Vessels: Main Portal Vein: Diameter: 0.6 cm, normal. Normal flow direction. Aorta: Visualized portions are normal Inferior Vena Cava: Visualized portions are normal Free Fluid: No ascites or pleural effusion IMPRESSION: Gallstone at the gallbladder neck, but without wall changes to suggest acute cholecystitis. Signed by: Dominick Thompson DO on 03/15/2020 3:17 AM
[2020-03-15 03:24] LABS: BILIRUBIN,URINE NEGATIVE (NEGATIVE); CLARITY,URINE CLEAR (CLEAR); COLOR,URINE STRAW (YELLOW); KETONES,URINE NEGATIVE (NEGATIVE); LEUKOCYTE ESTERASE ,URINE SMALL (NEGATIVE); NITRITE,URINE NEGATIVE (NEGATIVE); PROTEIN,URINE DIPSTICK NEGATIVE (NEGATIVE); URINE UROBILINOGEN 0.2 mg/dL (0.2 - 1)
[2020-03-15 03:32] LABS: BACTERIA,URINE FEW /HPF; EPITHELIAL CELLS,URINE MODERATE /LPF; RBC,URINE 0-5 /HPF (0-5)
[2020-03-15] MEDS: SODIUM CHLORIDE 0.9% 1000ML 1,000 ML IV SCH ×3 (04:04→23:49)
--- NOTE | 2020-03-15 07:06 | NUR ---
WALKING ROUNDS WITH DORON MADDOX
--- NOTE | 2020-03-15 10:01 | Consultation ---
DATE OF CONSULTATION: 03/15/2020 CHIEF COMPLAINT: Abdominal pain. HISTORY OF PRESENT ILLNESS: The patient is a 54-year-old female with abdominal pain, epigastric region, radiating to the back with nausea and vomiting for few days. No fever or diarrhea. PAST MEDICAL HISTORY: Unremarkable. ALLERGIES: NO DRUG ALLERGIES. SOCIAL HABITS: She denies smoking or alcohol abuse. REVIEW OF SYSTEMS: No chest pain, shortness of breath, cough, or fevers. PHYSICAL EXAMINATION: VITAL SIGNS: Stable, afebrile. GENERAL: She is awake, alert, in moderate discomfort. HEENT: Sclerae anicteric. NECK: Supple. LUNGS: Clear. HEART: Regular rate and rhythm. ABDOMEN: Soft with guarding, tenderness in the right upper quadrant with no rebound. EXTREMITIES: No cyanosis, edema. LABORATORY DATA: White cell count 7.8, hemoglobin of 13, creatinine of 0.8. Liver function tests bilirubin of 0.2 with an AST of 299, lipase 71. Ultrasound of gallbladder shows stone at the neck of the gallbladder with mild dilation. ASSESSMENT: Cholelithiasis and possible cholecystitis. PLAN: Laparoscopic cholecystectomy. Attendant risks discussed. He Gage MD DNL/MODL /[id number]
--- NOTE | 2020-03-15 11:20 | Diagnostic Imaging Report ---
TECHNIQUE: MRI of the abdomen and MRCP WITHOUT intravenous contrast. 3-D volume reconstructions were obtained to evaluate the biliary ductal system. INDICATION: Abdominal pain. COMPARISON: CT from 01/23/2020. Ultrasound from 03/15/2020. FINDINGS: ABSENCE OF INTRAVENOUS CONTRAST DECREASES SENSITIVITY FOR DETECTION OF FOCAL LESIONS AND VASCULAR PATHOLOGY. LOWER THORAX: Unremarkable. LIVER: No hepatic signal abnormality. No focal hepatic lesions. BILIARY: Stones layering the gallbladder and measure up to 0.5 cm. No gallbladder distention or wall thickening. No biliary ductal dilation. No choledocholithiasis. SPLEEN: No splenomegaly. PANCREAS: No focal masses or ductal dilatation. ADRENALS: No adrenal nodules. KIDNEYS/URETERS: No hydronephrosis or solid mass lesions. Simple left renal cysts measure up to 0.3 cm and the left upper pole. No routine follow-up imaging is recommended. PERITONEUM/RETROPERITONEUM: No free fluid. LYMPH NODES: No lymphadenopathy. VESSELS: Unremarkable. GI TRACT: No distention or wall thickening. BONES AND SOFT TISSUES: Unremarkable. IMPRESSION: 1. No choledocholithiasis. 2. Cholelithiasis without acute cholecystitis. Signed by: Chidi Wallace JR, MD on 03/15/2020 11:17 AM
[2020-03-15] MEDS: ONDANSETRON HCL INJ 2MG/ML 2ML 2 MG/ML VIAL IV PRN (12:07)
[2020-03-15] MEDS: MORPHINE SULFATE INJ 4 MG/ML INJ 1ML IV PRN (12:07)
[2020-03-15] MEDS: PIPER-TAZ 3.375 GM 50 ML IV SCH ×2 (12:07→19:15)
[2020-03-15] MEDS: DOCUSATE SODIUM 100 MG CAP PO PRN (12:07)
[2020-03-15] MEDS ORDERED: MIDAZOLAM HCL 2 MG/2 ML VIAL ONE (13:27)
[2020-03-15] MEDS ORDERED: FENTANYL CITRATE/PF 100MCG/2 ML INJ ONE (13:27)
[2020-03-15] MEDS ORDERED: LIDOCAINE 2%/ EPINEPHRINE 20ML MDV ONE (14:23)
--- NOTE | 2020-03-15 14:50 | History and Physical ---
CHIEF COMPLAINT: Abdominal pain. HISTORY OF PRESENT ILLNESS: A 54-year-old female presented to the ED with complaints of abdominal pain that began yesterday afternoon. She reports she has been having some nausea, vomiting, and diarrhea for the last 3 days. She reports having an EGD back in October that was performed by GI, was told to have some gastritis and hiatal hernia, but no further workup was needed. The patient presents to the [facility] ER for further evaluation and management. The patient is seen and evaluated at bedside on the medical floor in the ER. She is currently doing well with no other issues at this time. REVIEW OF SYSTEMS: Pertinent positive: Abdominal pain, nausea, vomiting, decreased oral intake. The rest of 14-point review of systems are reviewed with the patient and are negative. ALLERGIES: NO KNOWN DRUG ALLERGIES. HOME MEDICATIONS: She does not take any home medications. PAST MEDICAL HISTORY: Gastritis, abdominal pain. PAST SURGICAL HISTORY: Had an EGD back in October of 2019, showed gastritis. PAST FAMILY HISTORY: Hypertension, diabetes. SOCIAL HISTORY: No drugs. No alcohol. Does not smoke. Good social support. PHYSICAL EXAMINATION: VITAL SIGNS: Temperature 98.2, pulse 67, respiratory rate 17, blood pressure 122/75, pulse ox is 100% on room air. GENERAL: No acute distress. Alert and oriented x3. Cooperative on examination. HEENT: Head; normocephalic and atraumatic. Eyes; pupils are equal, round, and reactive to light bilaterally. PULMONARY: Clear to auscultation bilaterally. No wheezing, rales, or rhonchi. No crackles appreciated. CARDIOVASCULAR: Positive S1 and S2. No murmurs, rubs, or gallops appreciated. ABDOMEN: Soft. She is tender to palpation in the upper quadrant. No rebound or guarding appreciated. Bowel sounds present. MUSCULOSKELETAL: Strength is 5/5 throughout. No evidence of muscle deficits on examination. SKIN: Intact, warm to touch. Good cap refill. PSYCHIATRIC: Normal affect and mood. EXTREMITIES: No edema. Good range of motion throughout. LABORATORY FINDINGS: Show white count 7.8, hemoglobin 13, hematocrit 40.5, platelets of 174. Chemistry; sodium 138, potassium 4.7, chloride 108, bicarb 22, anion gap of 12, BUN is 27, creatinine is 0.88, glucose is 122, calcium 8.9, total bilirubin 0.2, AST 299, ALT 4, alkaline phosphatase 108, total protein 7.1, albumin 4.1, lipase is 71, amylase is 102. Urinalysis seems to be negative. Coronavirus is pending. MICROBIOLOGY: None. IMAGING STUDIES: Ultrasound of the gallbladder shows gallstone in the gallbladder neck, but without wall changes to suggest acute cholecystitis. IMPRESSION: 1. Biliary colic with right upper quadrant abdominal pain. 2. Nausea/vomiting/dehydration. PLAN: At this time, imaging studies does not show any evidence of acute cholecystitis, but her LFTs are elevated and it does show a gallstone in the gallbladder neck, likely leading to her pain. General surgery has been consulted. She is scheduled to have a laparoscopic cholecystectomy later this afternoon. GI has been consulted. The patient denies any cardiac history in the past, has not seen a monomer recovery supervisor in the past. She reports she is doing well from that standpoint and currently does not have any complaints of any chest pain. At this time get morning labs. Continue with IV fluids, pain control, n.p.o. Hold anticoagulation for surgery. She is scheduled for a cholecystectomy, laparoscopically later this afternoon by Dr. Gage, General Surgery. I discussed plan of care with nursing staff. MD ORIANA Jonas/SEDRICK /[id number]
[2020-03-15] MEDS ORDERED: SUGAMMADEX SODIUM 200 MG/2 ML VIAL IV ONE (15:31)
[2020-03-15 16:50] VITALS: BP 132/66
--- NOTE | 2020-03-15 17:15 | NUR ---
PT TO THE FLOOR FROM PACU. VITALS WNL. PT DENIES NEEDS AT THIS TIME.
[2020-03-15 17:30] VITALS: BP 132/66
--- NOTE | 2020-03-15 19:30 | NUR ---
SBAR REPORT RECEIVED AT BEDSIDE, PATIENT SEEN AWAKE BUT DROWSY S/P LAP/MARIA EUGENIA BUT ABLE TO MAKE NEEDS, BENGALI SPEAKING, TOCHAR SITE INTACT, NO BLEEDING NOTED, PATIENT DENIES PAIN AT THIS TIME, CALL LIGHT WITHIN REACH, WILL CONTINUE TO MONITOR
[2020-03-15 20:00] VITALS: BP 120/66
--- NOTE | 2020-03-15 20:02 | Operative Report ---
DATE OF PROCEDURE: 03/15/2020 SURGEON: He Gage MD PREOPERATIVE DIAGNOSIS: Cholecystitis. POSTOPERATIVE DIAGNOSIS: Cholecystitis. OPERATIVE PROCEDURE: Laparoscopic cholecystectomy. ANESTHESIA: General. INDICATION: A 54-year-old female with 2-day history of pain in epigastrium with gallstones seen on ultrasound of the gallbladder. MRCP showed no bile duct stone. The patient consented for laparoscopic cholecystectomy. Attendant risks discussed. PROCEDURE FINDINGS: Chronic cholecystitis with cholelithiasis. DESCRIPTION OF PROCEDURE: The patient was brought to OR, intubated. The abdomen was prepped and draped in a sterile fashion. An infraumbilical incision was made. An 11 mm port inserted, insufflation began. Under direct vision, other port site placed in the midepigastric and right upper quadrant. Gallbladder distended. It was decompressed with a needle. Fundus retracted in cephalad direction. The neck of the gallbladder retracted laterally. With blunt dissection. The artery was isolated, triple clipped and divided. The cystic duct isolated and junction with common bile duct was noted before triple clipping the cystic duct and divided between clips. Gallbladder detached from the liver and taken out through the umbilical port site. Operative field irrigated. Hemostasis achieved. Ports removed under direct vision. Fascia was closed with 0 Vicryl. Skin was closed with subcuticular stitch. The patient was extubated and transported to recovery room. BLOOD LOSS: 5 mL. He Gage MD DNL/MODL /[id number]
--- NOTE | 2020-03-15 20:08 | Consultation ---
DATE OF CONSULTATION: 03/15/2020 HISTORY OF PRESENT ILLNESS: This is a 54-year-old lady who has no significant medical problem, presented to the hospital because of abdominal pain, mainly it is in the right upper quadrant area and radiating to the back. The patient had nausea and vomiting along with this problem. Her workup so far revealed that she has gallstones with elevation of liver function tests. She had an MRCP which showed gallstones, but no evidence of choledocholithiasis. PAST MEDICAL PROBLEMS: Otherwise unremarkable. ALLERGIES: NONE. SOCIAL HISTORY: Denies any alcohol use. FAMILY HISTORY: Noncontributory. REVIEW OF SYSTEMS: Denies any chest pain at this point. Denies any shortness of breath. Denies any dysphagia, odynophagia. Denies any dysuria, hematuria, or any kind of syncopal episode. PHYSICAL EXAMINATION: GENERAL: She is awake, alert, appears to be stable, not in acute distress at this point. VITAL SIGNS: Afebrile currently with stable vital signs. HEAD, EYES, EARS, NOSE, AND THROAT: Normocephalic. Sclera is anicteric. NECK: Supple. HEART: Regular. ABDOMEN: Soft. There is some tenderness in the upper quadrant area. There is no rebound or mass. EXTREMITIES: No clubbing. LABORATORY DATA: Significant for AST of 299, ALT of 408, bilirubin is 0.2. Amylase and lipase are normal. CBC is okay. The ultrasound shows evidence of gallstones in the neck of the gallbladder. An MRCP showed cholelithiasis without evidence of choledocholithiasis. IMPRESSION: 1. Abdominal pain, nausea, and vomiting, the patient has a gallstone. 2. The gallstone was then passed. MRCP is negative. RECOMMENDATIONS: 1. Continue current care. 2. Proceed with cholecystectomy and follow labs. MD MICHELLE Guzman/MODL /[id number] cc: Mili Mirza MD
--- NOTE | 2020-03-15 22:58 | Consultation ---
DATE OF CONSULTATION: 03/15/2020 GI Consult Note REASON FOR CONSULT: Biliary colic. HISTORY OF PRESENTING ILLNESS: A 54-year-old female, who got admitted with acute onset of epigastric and right upper quadrant pain x1 day. This was associated with nausea as well as vomiting. Pain intensity was 7 x 10 on pain scale. In the emergency room, she was noted to be afebrile. Blood work revealed abnormal liver enzymes with total bilirubin 0.2, AST 299, ALT 408, alkaline phosphatase 108. Lipase level was normal. She subsequently underwent MRCP that showed gallstones without any gallbladder wall thickening. No retained stone in the common bile duct. Subsequently, she underwent laparoscopic cholecystectomy by Dr. Gage today. GI has been consulted to ensure that the patient does not have any retained common bile duct stone for which she may need ERCP. REVIEW OF SYSTEMS: A 12-point system reviewed, symptomatology is limited to GI system. PAST MEDICAL HISTORY: Insignificant. PAST SURGICAL HISTORY: Upper endoscopy in 2019. FAMILY HISTORY: Negative for any GI or VIDEO PHOTOGRAPHER malignancies. SOCIAL HISTORY: No smoking, alcohol, or any illicit drug use. HOME MEDICATIONS: None. INPATIENT MEDICATIONS: Docusate, Zofran, piperacillin/tazobactam 3.375 mg IV q.8 hours, morphine, normal saline at 75 mL an hour. PHYSICAL EXAMINATION: VITAL SIGNS: Temperature 97.8, pulse 68, respirations 16, blood pressure 132/66, oxygen saturation 99% on 6 L of nasal cannula. GENERAL: Not in any apparent distress. Oral mucosa is moist. Anicteric sclerae. CVS: S1 and S2 regular. LUNGS: Bilaterally grossly clear. ABDOMEN: Soft. Trocar incisional tenderness in the right upper quadrant and epigastric area. Bowel sounds minimal. EXTREMITIES: Warm. No leg edema. LABORATORY DATA: Sodium 138, potassium 4.7, chloride 108, bicarb 22, BUN 27 and creatinine 0.88, glucose 122. WBC 7.81, hemoglobin 13.3, hematocrit 40.5, MCV 97.6, and platelet count 174. Urinalysis negative. MRCP; cholelithiasis, no choledocholithiasis. No radiographic evidence of cholecystitis. Ultrasound of the abdomen showed gallstone in the gallbladder neck, but without wall changes to suggest acute cholecystitis. IMPRESSION: Biliary colic. It is likely the patient might have passed the common bile duct stone, status post cholecystectomy. I am not sure if intraoperative cholangiogram was obtained. PLAN: Postop care as per Surgery. We will continue to trend the liver enzymes. If liver enzymes remains elevated, in that situation, the patient will end up getting ERCP. We will monitor her clinically. Sigifredo Lazar MD SA/SEDRICK /[id number]
[2020-03-16] VITALS (12 sets, daily range): BP systolic 98–124; BP diastolic 59–81
[2020-03-16] MEDS: MORPHINE SULFATE INJ 4 MG/ML INJ 1ML IV PRN ×3 (01:12→19:50)
[2020-03-16] MEDS: ONDANSETRON HCL INJ 2MG/ML 2ML 2 MG/ML VIAL IV PRN (01:12)
[2020-03-16] MEDS: DOCUSATE SODIUM 100 MG CAP PO PRN ×3 (01:13→19:56)
[2020-03-16] MEDS: PIPER-TAZ 3.375 GM 50 ML IV SCH ×3 (03:26→19:56)
--- NOTE | 2020-03-16 04:02 | NUR ---
HOURLY ROUNDING COMPLETED, NO DISTRESS NOTED, SKIN WARM DRY SEEN SLEEPING, IV FLUIDS CONTINUED, TOILETING OFFERED, CALL LIGHT WITHIN REACH
[2020-03-16 05:57] LABS: BASOPHILS % 0.5 % (0.0-1.0); EOSINOPHILS % 0.5 % (0.0-6.0); HEMATOCRIT 36.1 % (34.2-44.1); HEMOGLOBIN 11.8 g/dL (12.0-16.0); LYMPHOCYTES # (AUTO) 1.9 (1.0-3.2); LYMPHOCYTES % 21.9 % (18.0-39.1); MEAN CORPUSCULAR HEMOGLOBIN 32.6 pg (28-32); MEAN CORPUSCULAR HGB CONC 32.7 g/dL (31-35); MEAN CORPUSCULAR VOLUME 99.7 fL (81-99); MONOCYTES # (AUTO) 0.7 (0.2-0.8); MONOCYTES % 8.2 % (4.4-11.3); NEUTROPHILS # (AUTO) 5.9 (2.1-6.9); NEUTROPHILS % 68.5 % (38.7-80.0); PLATELET COUNT 162 x10e3/uL (140-360); RED BLOOD COUNT 3.62 x10e6/uL (3.6-5.1); RED CELL DISTRIBUTION WIDTH 12.8 % (11.7-14.4)
[2020-03-16 06:20] LABS: ALANINE AMINOTRANSFERASE 314 IU/L (0-55); ALBUMIN 3.4 g/dL (3.5-5.0); ALBUMIN/GLOBULIN RATIO 1.4 (0.8-2.0); ALKALINE PHOSPHATASE 92 IU/L (40-150); AMYLASE 100 U/L (25-125); ANION GAP 10.3 mmol/L (8-16); BLOOD UREA NITROGEN 7 mg/dL (7-26); BUN/CREATININE RATIO 10 (6-25); CALCIUM 8.4 mg/dL (8.4-10.2); CARBON DIOXIDE 25 mmol/L (22-29); CHLORIDE 109 mmol/L (98-107); EST GLOMERULAR FILTRATION RATE > 60 ML/MIN (60-); GLUCOSE 107 mg/dL (74-118); LIPASE 16 U/L (8-78); POTASSIUM 4.3 mmol/L (3.5-5.1); SODIUM 140 mmol/L (136-145)
[2020-03-16] MEDS: SODIUM CHLORIDE 0.9% 1000ML 1,000 ML IV SCH (14:42)
--- NOTE | 2020-03-16 19:00 | NUR ---
RECEIVED PATIENT IN BEDSIDE SHIFT REPORT. PATIENT RESTING IN BED AT THIS TIME. PAIN 09/24. NS @ 75ML/HR. NO S&S OF DISTRESS NOTED. BED LOCKED IN LOWEST POSITION, SIDE RAILS UPX2, CALL LIGHT IN REACH.
[2020-03-17] VITALS (8 sets, daily range): BP systolic 96–132; BP diastolic 64–82
[2020-03-17] MEDS: PIPER-TAZ 3.375 GM 50 ML IV SCH ×3 (04:02→20:56)
[2020-03-17] MEDS: SODIUM CHLORIDE 0.9% 1000ML 1,000 ML IV SCH (05:35)
[2020-03-17] MEDS: DOCUSATE SODIUM 100 MG CAP PO PRN (08:31)
[2020-03-17] MEDS: MORPHINE SULFATE INJ 4 MG/ML INJ 1ML IV PRN (08:31)
--- NOTE | 2020-03-17 09:00 | Progress Note ---
DATE: 03/16/2020 Medicine Progress Note This is a late entry note. SUBJECTIVE: The patient underwent laparoscopic cholecystectomy on 03/15/2020. The patient was doing well with no complaints. She was complaining of pain when I evaluated her. LABORATORY DATA: Labs reviewed and stable. LFTs were slightly elevated, but down trending. MICROBIOLOGY: None. IMAGING STUDIES: None. PHYSICAL EXAMINATION: VITAL SIGNS: Afebrile, normotensive. Respiratory rate is good. GENERAL: No acute distress, alert and oriented x3. Cooperative on examination. HEENT: Head; normocephalic, atraumatic. Eyes; pupils are equal, round, and reactive to light bilaterally. PULMONARY: Clear to auscultation bilaterally. No wheezing, rales, or rhonchi. No crackles appreciated. CARDIOVASCULAR: Positive S1 and S2. No murmurs, rubs, or gallops appreciated. ABDOMEN: Soft, nondistended, nontender to palpation. Bowel sounds present. MUSCULOSKELETAL: Strength is 5/5 throughout. No evidence of muscle deficits on examination. IMPRESSION: 1. Biliary colic with right upper quadrant abdominal pain, status post laparoscopic cholecystectomy performed by General Surgery on 03/16/2020. 2. Nausea, vomiting, and dehydration. 3. Elevated transaminases. PLAN: At this time, the patient has undergone status post laparoscopic cholecystectomy on 03/15/2020. She is currently doing well. She still has some minor pain. Advance diet as tolerated. Get a.m. labs. Pain control. Encourage ambulation. Once cleared by the consultants, we will discharge the patient. MD ORIANA Jonas/SEDRICK /[id number]
[2020-03-17 09:18] LABS: ALANINE AMINOTRANSFERASE 552 IU/L (0-55); ALBUMIN 3.6 g/dL (3.5-5.0); ALBUMIN/GLOBULIN RATIO 1.4 (0.8-2.0); ALKALINE PHOSPHATASE 128 IU/L (40-150); ANION GAP 9.5 mmol/L (8-16); BLOOD UREA NITROGEN 8 mg/dL (7-26); BUN/CREATININE RATIO 10 (6-25); CALCIUM 8.7 mg/dL (8.4-10.2); CARBON DIOXIDE 29 mmol/L (22-29); CHLORIDE 107 mmol/L (98-107); CREATININE, SERUM 0.77 mg/dL (0.57-1.11); EST GLOMERULAR FILTRATION RATE > 60 ML/MIN (60-); GLUCOSE 111 mg/dL (74-118); POTASSIUM 3.5 mmol/L (3.5-5.1); SODIUM 142 mmol/L (136-145)
[2020-03-17 09:42] LABS: HEMATOCRIT 36.8 % (34.2-44.1)
[2020-03-17] MEDS ORDERED: LIDOCAINE HCL 2% JELLY 5 ML TUBE ONE (12:31)
[2020-03-17] MEDS ORDERED: GLYCOPYRROLATE INJ 0.2 MG/ML VIAL ONE (12:31)
[2020-03-17] MEDS ORDERED: PROPOFOL IV EMULSION 10 MG/ML 20 ML VIAL ONE (12:31)
[2020-03-17] MEDS ORDERED: ONDANSETRON HCL INJ 2MG/ML 2ML 2 MG/ML VIAL ONE (12:31)
[2020-03-17] MEDS ORDERED: EPHEDRINE SULFATE INJ 50 MG/ML VIAL ONE (12:31)
[2020-03-17] MEDS ORDERED: DEXAMETHASONE SOD PHOS INJ 4 MG/ML VIAL ONE (12:31)
[2020-03-17] MEDS ORDERED: CEFAZOLIN SOD 1 GM VIAL ONE (12:31)
[2020-03-17] MEDS ORDERED: SEVOFLURANE INHAL SOLN 250 ML PEN BTL ONE (12:31)
[2020-03-17] MEDS ORDERED: ROCURONIUM BROMIDE 10 MG/ML 5ML VIAL IV ONE (12:31)
[2020-03-17] MEDS ORDERED: NEOSTIGMINE 1 MG/ML 10ML VIAL ONE (12:31)
[2020-03-17] MEDS ORDERED: LIDOCAINE HCL 2% LOCAL INJ 5 ML SDV VIAL INJ ONE (12:31)
[2020-03-17 16:11] LABS: ALANINE AMINOTRANSFERASE 581 IU/L (0-55); ALBUMIN 3.7 g/dL (3.5-5.0); ALBUMIN/GLOBULIN RATIO 1.4 (0.8-2.0); ALKALINE PHOSPHATASE 147 IU/L (40-150); BLOOD UREA NITROGEN 10 mg/dL (7-26); BUN/CREATININE RATIO 13 (6-25); CALCIUM 8.6 mg/dL (8.4-10.2); CARBON DIOXIDE 28 mmol/L (22-29); CHLORIDE 106 mmol/L (98-107); EST GLOMERULAR FILTRATION RATE > 60 ML/MIN (60-); GLUCOSE 107 mg/dL (74-118); SODIUM 141 mmol/L (136-145)
[2020-03-17] MEDS: PANTOPRAZOLE SOD 40 MG TABEC PO SCH (20:53)
--- NOTE | 2020-03-17 21:50 | NUR ---
CONSENT FOR ERCP SIGNED AT THIS TIME WITH USE OF CULTURALINK, WAFER FABRICATION OPERATOR ID [id number].
[2020-03-18] VITALS (7 sets, daily range): BP systolic 105–121; BP diastolic 64–78
[2020-03-18] MEDS: PIPER-TAZ 3.375 GM 50 ML IV SCH ×3 (04:19→21:00)
[2020-03-18] MEDS: ONDANSETRON HCL 4 MG ORAL DISINTEGRATING TAB PO PRN ×2 (04:20→10:04)
[2020-03-18 05:59] LABS: ALBUMIN 3.7 g/dL (3.5-5.0); BILIRUBIN,DIRECT 0.2 mg/dL (0.0-0.5)
[2020-03-18] MEDS: PANTOPRAZOLE SOD 40 MG TABEC PO SCH ×2 (09:00→17:39)
--- NOTE | 2020-03-18 13:11 | NUR ---
patient off the unit for procedure, Alert with no distress
[2020-03-18] MEDS ORDERED: LIDOCAINE HCL 2% LOCAL INJ 5 ML SDV VIAL INJ ONE (13:56)
[2020-03-18] MEDS ORDERED: PROPOFOL IV EMULSION 10 MG/ML 20 ML VIAL ONE (13:56)
[2020-03-18] MEDS ORDERED: IOPAMIDOL 300MG/ML 50ML INFUS..BTL IV ONE (14:05)
[2020-03-18] MEDS ORDERED: MIDAZOLAM HCL 2 MG/2 ML VIAL ONE (14:30)
[2020-03-18] MEDS ORDERED: METOCLOPRAMIDE HCL 10 MG/2ML VIAL ONE (14:47)
[2020-03-18] MEDS ORDERED: ONDANSETRON HCL INJ 2MG/ML 2ML 2 MG/ML VIAL ONE (14:47)
[2020-03-18] MEDS ORDERED: FENTANYL CITRATE/PF 100MCG/2 ML INJ ONE (14:57)
--- NOTE | 2020-03-18 15:16 | NUR ---
Recvd patient from PACU. AAOx3, Not in any distress, keep monitoring. Dr Mirza seen the patient
[2020-03-18] MEDS: SODIUM CHLORIDE 0.9% 1000ML 1,000 ML IV SCH (15:52)
[2020-03-18] MEDS: MORPHINE SULFATE INJ 4 MG/ML INJ 1ML IV PRN (17:27)
--- NOTE | 2020-03-18 17:48 | Progress Note ---
DATE: 03/17/2020 This is a late entry note. SUBJECTIVE: The patient was doing well with no complaints. She underwent laparoscopic cholecystectomy on 03/16/2020. She was tolerating diet well. LFTs are still elevated and scheduled for ERCP for 03/18/2020. OBJECTIVE: VITAL SIGNS: She is afebrile, normotensive, and respiratory rate is good. GENERAL: No acute distress, alert and oriented x3. Cooperative on examination. PULMONARY: Clear to auscultation bilaterally. No wheezing, rales, or rhonchi. No crackles appreciated. CARDIOVASCULAR: Positive S1, S2. No murmurs, rubs, or gallops. ABDOMEN: Soft, nontender to palpation. Bowel sounds present. MUSCULOSKELETAL: Strength is 5/5 throughout. No evidence of muscle deficits on examination. SKIN: Intact. Warm to touch. Good cap refill. LABORATORY DATA: CBC is stable. Chemistry showed an elevation of the LFTs. Microbiology none. IMAGING STUDIES: Nothing new. IMPRESSION: 1. Biliary colic with upper quadrant abdominal pain, status post laparoscopic cholecystectomy performed by General Surgeon on 03/16/2020. 2. Elevated transaminases, scheduled for ERCP on 03/18/2020. 3. Nausea, vomiting and dehydration. PLAN: At this time postoperatively she is doing well with no complaints. She is scheduled for ERCP for 03/18/2020. Get a.m. labs. Monitor very closely. AP abdomen. MD ORIANA Jonas/PAMELLAL /[id number]
--- NOTE | 2020-03-18 18:47 | NUR ---
RECEIVED BEDSIDE SHIFT REPORT FROM PREVIOUS NURSE. CALL LIGHT WITHIN REACH. PATIENT IN BED. PATIENT IN NO PAIN OR DISTRESS.
[2020-03-19] VITALS (8 sets, daily range): BP systolic 109–127; BP diastolic 67–86
--- NOTE | 2020-03-19 02:50 | Progress Note ---
DATE: 03/18/2020 Medicine Progress Note SUBJECTIVE: The patient underwent ERCP today. No gallstones were noted according to GI. The patient was seen postprocedurally. She was doing well. OBJECTIVE: VITAL SIGNS: Afebrile. Normotensive. Respiratory rate is good. GENERAL: No acute distress, alert and oriented x3. Cooperative on examination. PULMONARY: Clear to auscultation bilaterally. No wheezing, rales, or rhonchi. No crackles appreciated. CARDIOVASCULAR: Positive S1, S2. No murmurs, rubs, or gallops. ABDOMEN: Soft, nontender to palpation. Bowel sounds present. MUSCULOSKELETAL: Strength is 5/5 throughout. LABORATORY DATA: CBC is stable. Chemistry shows still elevation of the LFTs. MICROBIOLOGY: None. IMAGING STUDIES: Nothing new. IMPRESSION: 1. Biliary colic with status post laparoscopic cholecystectomy performed by General Surgery on 03/16/2020. 2. Elevated transaminases, status post ERCP performed on 03/18/2020. 3. Nausea, vomiting, and dehydration-resolved. PLAN: At this time, no further workup needed by General Surgery. As per GI, we would like to monitor the patient overnight and possibly over the next few days. Get a.m. labs. Regular diet. Continue same plan of care. MD ORIANA Jonas/SEDRICK /[id number]
[2020-03-19] MEDS: PIPER-TAZ 3.375 GM 50 ML IV SCH ×4 (04:13→19:38)
[2020-03-19 05:36] LABS: BASOPHILS # (AUTO) 0.1 (0.0-0.1); BASOPHILS % 1.2 % (0.0-1.0); EOSINOPHILS # (AUTO) 0.3 (0.0-0.4); EOSINOPHILS % 5.5 % (0.0-6.0); HEMATOCRIT 37.8 % (34.2-44.1); HEMOGLOBIN 12.2 g/dL (12.0-16.0); LYMPHOCYTES # (AUTO) 2.1 (1.0-3.2); LYMPHOCYTES % 35.3 % (18.0-39.1); MEAN CORPUSCULAR HEMOGLOBIN 32.6 pg (28-32); MEAN CORPUSCULAR HGB CONC 32.3 g/dL (31-35); MEAN CORPUSCULAR VOLUME 101.1 fL (81-99); MONOCYTES # (AUTO) 0.4 (0.2-0.8); MONOCYTES % 6.8 % (4.4-11.3); NEUTROPHILS # (AUTO) 3.1 (2.1-6.9); NEUTROPHILS % 50.9 % (38.7-80.0); PLATELET COUNT 167 x10e3/uL (140-360); RED BLOOD COUNT 3.74 x10e6/uL (3.6-5.1); RED CELL DISTRIBUTION WIDTH 12.7 % (11.7-14.4)
[2020-03-19 06:09] LABS: ALBUMIN 2.8 g/dL (3.5-5.0); BILIRUBIN,DIRECT 0.3 mg/dL (0.0-0.5)
[2020-03-19 06:12] LABS: ALANINE AMINOTRANSFERASE 382 IU/L (0-55); ALBUMIN 2.9 g/dL (3.5-5.0); ALKALINE PHOSPHATASE 169 IU/L (40-150); ANION GAP 9.9 mmol/L (8-16); BLOOD UREA NITROGEN 11 mg/dL (7-26); BUN/CREATININE RATIO 16 (6-25); CALCIUM 8.3 mg/dL (8.4-10.2); CARBON DIOXIDE 24 mmol/L (22-29); CHLORIDE 111 mmol/L (98-107); CREATININE, SERUM 0.69 mg/dL (0.57-1.11); EST GLOMERULAR FILTRATION RATE > 60 ML/MIN (60-); GLUCOSE 84 mg/dL (74-118); POTASSIUM 3.9 mmol/L (3.5-5.1); SODIUM 141 mmol/L (136-145)
[2020-03-19] MEDS: SODIUM CHLORIDE 0.9% 1000ML 1,000 ML IV SCH ×2 (06:25→18:10)
--- NOTE | 2020-03-19 07:03 | NUR ---
GAVE BEDSIDE SHIFT REPORT TO ONCOMING NURSE. PATIENT IN BED. CALL LIGHT WITHIN REACH. HOURLY ROUNDING PERFORMED.
[2020-03-19] MEDS: PANTOPRAZOLE SOD 40 MG TABEC PO SCH ×2 (09:04→17:16)
[2020-03-19] MEDS: MORPHINE SULFATE INJ 4 MG/ML INJ 1ML IV PRN (19:39)
[2020-03-19] MEDS: ONDANSETRON HCL 4 MG ORAL DISINTEGRATING TAB PO PRN (19:39)
[2020-03-20] VITALS (7 sets, daily range): BP systolic 94–128; BP diastolic 64–81
[2020-03-20] MEDS: PIPER-TAZ 3.375 GM 50 ML IV SCH ×2 (05:15→12:39)
[2020-03-20] MEDS: MORPHINE SULFATE INJ 4 MG/ML INJ 1ML IV PRN (05:16)
[2020-03-20] MEDS: PANTOPRAZOLE SOD 40 MG TABEC PO SCH (09:35)
[2020-03-20] MEDS: SODIUM CHLORIDE 0.9% 1000ML 1,000 ML IV SCH (09:36)
--- NOTE | 2020-03-20 11:15 | Progress Note ---
DATE: 03/19/2020 Medicine Progress Note SUBJECTIVE: The patient is doing well today with no complaints. Tolerating diet well with no other issues. PHYSICAL EXAMINATION: VITAL SIGNS: Afebrile, normotensive, and respiratory rate is good. GENERAL: Not in acute distress. Alert and oriented x3. Cooperative on examination. PULMONARY: Clear to auscultation bilaterally. No wheezing, no rales, no rhonchi, no crackles appreciated. CARDIOVASCULAR: Positive S1 and S2. No murmurs, rubs, or gallops appreciated. ABDOMEN: Soft, nondistended, and nontender to palpation. Bowel sounds present. MUSCULOSKELETAL: Strength is 5/5 throughout. LABORATORY DATA: CBC is stable. Chemistry shows downtrending LFTs. Rest of chemistries are stable. MICROBIOLOGY: None. IMAGING STUDIES: None. IMPRESSION: 1. Biliary colic, status post laparoscopic cholecystectomy performed on 03/16/2020. 2. Elevated transaminases, status post ERCP performed on 03/18/2020. 3. Nausea, vomiting, dehydration, and abdominal pain, all resolved. PLAN: At this time, doing well today. Get a.m. labs. Discharge home tomorrow. Plan of care discussed with the nursing staff and the patient. MD ORIANA Jonas/SEDRICK /[id number]
[2020-03-20 11:30] LABS: ALANINE AMINOTRANSFERASE 279 IU/L (0-55); ALBUMIN 3.2 g/dL (3.5-5.0); ALKALINE PHOSPHATASE 149 IU/L (40-150); ANION GAP 10.9 mmol/L (8-16); BLOOD UREA NITROGEN 10 mg/dL (7-26); BUN/CREATININE RATIO 13 (6-25); CALCIUM 8.8 mg/dL (8.4-10.2); CARBON DIOXIDE 27 mmol/L (22-29); CHLORIDE 107 mmol/L (98-107); CREATININE, SERUM 0.78 mg/dL (0.57-1.11); EST GLOMERULAR FILTRATION RATE > 60 ML/MIN (60-); GLUCOSE 101 mg/dL (74-118); POTASSIUM 3.9 mmol/L (3.5-5.1); SODIUM 141 mmol/L (136-145)
--- NOTE | 2020-03-20 11:33 | NUR ---
HANNAH LANCASTER FOR D/C HOME
--- NOTE | 2020-03-20 15:58 | NUR ---
Dion to d/c. F/U with me in two to three weeks Dr. Valle
[2020-03-20] MEDS ORDERED: CIPRO500 MG PO (16:33)
[2020-03-20] MEDS ORDERED: FLAGYL250 MG PO (16:37)
[2020-03-20] MEDS ORDERED: ULTRAM 50MG50 MG PO (16:38)
--- NOTE | 2020-03-20 16:57 | Discharge Summary ---
FINAL DISCHARGE DIAGNOSES: 1. Biliary colic, status post laparoscopic cholecystectomy performed on 03/16/2020. 2. Elevated transaminases, status post endoscopic retrograde cholangiopancreatography performed on 03/18/2020 with much improved LFTs. 3. Nausea, vomiting, dehydration and abdominal pain-all resolved. CONSULTANTS: General Surgery and GI. PHYSICAL EXAMINATION: VITAL SIGNS: Temperature is 98.2, pulse 62, respirations 16, blood pressure 125/72, pulse ox 99% on room air. LABORATORY FINDINGS: Show white count 6, hemoglobin 12, hematocrit 37, and platelets of 167. Chemistry; sodium 141, potassium 3.9, chloride 107, bicarb 27, anion gap of 10, BUN is 10, creatinine 0.78, glucose 101, calcium is 8.8, total bilirubin 0.3. LFTs actually there were downtrending currently. AST 57, ALT is 279, alkaline phosphatase 149, total protein 6.4, albumin 3.2. Her lipase level was 16, amylase level was 100. Urinalysis negative. Serology, coronavirus not detected. MICROBIOLOGY: None. IMAGING STUDIES: MRCP shows no choledocholithiasis. Cholelithiasis without any acute cholecystitis. Gallbladder ultrasound shows gallstones in the gallbladder neck without wall changes to suggest acute cholecystitis. HOSPITAL COURSE: A 54-year-old female, came into the ED with complaints of epigastric and right upper quadrant abdominal pain, prompting further imaging studies. MRCP and ultrasound of the gallbladder with results above. General Surgery was consulted. The patient underwent status post laparoscopic cholecystectomy on 03/16/2020. The patient underwent status post ERCP by GI on 03/18/2020. The patient's LFTs improved throughout the hospital course. She was tolerating diet well with no complaints. Her pain was well improved. The patient was evaluated by both consultants and cleared the patient for discharge to home. The patient was back to normal baseline prior to being discharged to home. She was tolerating diet well. On the day of discharge, vital signs were stable. Labs reviewed and stable. The patient is seen and evaluated, examined thoroughly on the day of discharge. No other complaints. The patient verbalized understanding and agrees to plan of care to follow up as outpatient with the primary care physician in 1 week, General Surgery in 1 week and GI in 2 weeks' time. MEDICATIONS: See med reconciliation form. DISPOSITION: Home. CONDITION: Stable. DIET: Heart healthy. In the event of any worsening symptoms, the patient was come back to the ED for further evaluation. Discharge summary took greater than 35 minutes. MD ORIANA Jonas/MODTung /[id number]
--- NOTE | 2020-03-24 09:33 | Diagnostic Imaging Report ---
Fluoroscopy, less than 1 hour Indication: ^[id number] ^[id number] Comparison: none Findings: Fluoroscopic assistance was provided during endoscopic retrograde cholangiopancreatography. Fluoroscopic images taken were interpreted by the referring clinician. Please see separate procedure note for full details. Endoscope is noted with wire across the common bile duct. Contrast injection is noted within the common bile duct without intraluminal filling defect in the opacified portion. Cholecystectomy changes are noted. Total Fluoroscopy time: 34 seconds Radiation dose: 14.82 mGy Impression: Fluoroscopy assistance as described above. See operative report for further details. Signed by: Sammy Arita MD on 03/24/2020 9:30 AM
== END 2020-03-20 16:43 | disposition home or self-care (01) | DRG 419 ==
LOC: ER 00:32 → INTOOBSV 03:01 → ERHOLD 03:01 → MED/SURG 16:13 → OBSVTOIN 03-17 20:01
PROVIDERS: ADMIT Internal Medicine; ATTEND Internal Medicine
PROC: 0FB44ZZ Excision of Gallbladder, Percutaneous Endoscopic Approach (ICD-10-PCS; principal; 2020-03-17)
PROC: 0F798ZZ Dilation of Common Bile Duct, Via Natural or Artificial Opening Endoscopic (ICD-10-PCS; 2020-03-17)
PROC: BF131ZZ Fluoroscopy of Gallbladder and Bile Ducts using Low Osmolar Contrast (ICD-10-PCS; 2020-03-17)
DX: K80.44 Calculus of bile duct with chronic cholecystitis without obstruction (principal); R74.01 Elevation of levels of liver transaminase levels; E86.0 Dehydration; Z11.59 Encounter for screening for other viral diseases
CPT/HCPCS: 36415; 43260; 74181; 74328; 76705; 80053; 80076; 81001; 82150; 83690; 85014; 85018; 85025; 88304; 99284; G0378; J0690; J1100; J2001; J2250; J2270; J2405; J2543; J2710; J2765; J3010; J7030; Q0162

== ENCOUNTER 2020-04-02 12:25 | Emergency (ER) | payer OTHER ==
[~2020-04-02] VITALS: Ht 152.4 cm; Wt 67.6 kg
[~2020-04-02 12:25] MED LIST: CIPRO500 MG PO; FLAGYL250 MG PO; ULTRAM 50MG50 MG PO
[2020-04-02] MEDS ORDERED: ONDANSETRON HCL INJ 2MG/ML 2ML 2 MG/ML VIAL IV ONE (12:42)
[2020-04-02] MEDS ORDERED: SODIUM CHLORIDE 0.9% 1000ML 1,000 ML IV STA (12:42)
[2020-04-02] MEDS ORDERED: PANTOPRAZOLE 40 MG 10ML VIAL IV ONE (12:42)
[2020-04-02 12:56] LABS: BILIRUBIN,URINE NEGATIVE (NEGATIVE); CLARITY,URINE HAZY (CLEAR); COLOR,URINE YELLOW (YELLOW); KETONES,URINE NEGATIVE (NEGATIVE); LEUKOCYTE ESTERASE ,URINE TRACE (NEGATIVE); NITRITE,URINE NEGATIVE (NEGATIVE); PROTEIN,URINE DIPSTICK NEGATIVE (NEGATIVE); URINE UROBILINOGEN 0.2 mg/dL (0.2 - 1)
[2020-04-02 13:07] LABS: BASOPHILS # (AUTO) 0.1 (0.0-0.1); BASOPHILS % 1.1 % (0.0-1.0); EOSINOPHILS # (AUTO) 0.3 (0.0-0.4); EOSINOPHILS % 5.7 % (0.0-6.0); HEMATOCRIT 40.3 % (34.2-44.1); HEMOGLOBIN 13.4 g/dL (12.0-16.0); LYMPHOCYTES # (AUTO) 1.5 (1.0-3.2); LYMPHOCYTES % 31.4 % (18.0-39.1); MEAN CORPUSCULAR HEMOGLOBIN 32.1 pg (28-32); MEAN CORPUSCULAR HGB CONC 33.3 g/dL (31-35); MEAN CORPUSCULAR VOLUME 96.4 fL (81-99); MONOCYTES # (AUTO) 0.3 (0.2-0.8); MONOCYTES % 5.7 % (4.4-11.3); NEUTROPHILS # (AUTO) 2.7 (2.1-6.9); NEUTROPHILS % 56.1 % (38.7-80.0); PLATELET COUNT 214 x10e3/uL (140-360); RED BLOOD COUNT 4.18 x10e6/uL (3.6-5.1); RED CELL DISTRIBUTION WIDTH 12.7 % (11.7-14.4)
[2020-04-02 13:13] LABS: BACTERIA,URINE MODERATE /HPF; EPITHELIAL CELLS,URINE FEW /LPF; RBC,URINE 0-5 /HPF (0-5); WBC,URINE (MAN) 0-5 /HPF (0-5)
[2020-04-02 13:14] LABS: MUCUS,URINE FEW (RARE)
--- OUTSIDE RECORDS SUMMARY | 2020-04-02 13:14 | XMS REPORT | Continuity of Care Document ---
Author Author [facility] t Organization [facility] Address [address] [place] [address] Phone Unavailable Care Team Providers Care Filing Clerk Name Role Phone NONSTAFF PCP Unavailable DAHU, S JIRIES Attphys Unavailable SWEET, A LAIRD Attphys Unavailable DAHU, S JIRIES Admphys Unavailable Payers Payer Name Policy Type Policy Number Effective Date Expiration Date Mara Tobin [facility] [id number] 2019 00:00:00 [facility] Excha [id number] 2016 00:0 0:00 [facility] Problems Condition Name Condition Details Condition Category Status Onset Date Resolution Date Last Treatment Date Treating Clinician Comments Source 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 Deviated nasal septum Deviated Nasal Septum Problem Active 00:00:00 [facility] Tigist menezes Laryngopharyngeal reflux Laryngopharyngeal Reflux Problem Acti ve 2020-02-06 00:00:00 [facility] Mixed anxiety and depressive disorder Mixed Anxiety and Depr essive Disorder Problem Active 2019-12-24 00:00:00 [facility] Hiatal hernia Hiatal Hernia Problem Active 2019-12-20 00:00:00 [facility] Vitamin D deficiency Vitamin D Deficiency Problem [facility] Mixed hyperlipidemia Mixed Hyperlipidemia Problem Active [facility]00 [facility] Prediabetes Prediabetes Problem Active 2019-08-24 00:00:00 [facility] Major depressive disorder Major Depressive Disorder Problem Ac tive 2016-10-30 00:00:00 [facility] Gastroesophageal reflux disease Gastroesophageal Reflux Disease Pro blem Active 2016-10-30 00:00:00 [facility] Hypertensive disorder Hypertensive Disorder Problem Active 12-18-05 00:00:00 [facility] ractice Abdominal pain Problem Active [facility] Elevated liver function tests Problem Active [facility] Gallstone (impacted) Problem Active [facility] Chronic cholecystitis Problem Active [facility] Allergies, Adverse Reactions, Alerts Allergy Name Allergy Type Status Severity Reaction(s) Onset Date Inacti ve Date Treating Clinician Comments Source No Known Allergies DA Active U 2019-09-17 00:00:00 [facility] No Known Allergies DA Active U 2013-11-17 00:00:00 [facility] House Dust Allergy to substance Active Mild Cough [facility] Social History Social Habit Start Date Stop Date Quantity Comments Source Sex Ass[birth year] At 1965 00:00:00 1965 00:00:00 Female [facility] Smoking Status Start Date Stop Date Source Never Smoker [facility] P racbrea Medications Ordered Medication Name Filled Medication Name Start Date Stop Da te Current Medication? Ordering Clinician Indication Dosage Frequency Signature (SIG) Comments Components Source Ciprofloxacin Hcl (Cipro) 500 Mg TABLET Ciprofloxacin Hcl (C ipro) 500 Mg TABLET Yes 500 Every 12 Hours [facility] Metronidazole (Flagyl) 250 Mg TABLET Metronidazole (Flagyl) 250 Mg TABLET Yes 500 Three Times A Day [facility] Tramadol Hcl (Ultram 50MG*) 50 Mg TAB Tramadol Hcl (Ultram 50MG*) 5 0 Mg TAB Yes 50 Every 6 Hours as needed for Abdominal Pa in [facility] albuterol sulfate HFA 90 mcg/actuation a erosol [...] TO 8 HOURS FOR 10 DAYS NEEDED [facility] Practice cimetidine 400 mg tablet cimetidine 400 mg tablet No cimetidine 400 mg tablet [facility] ciprofloxacin 500 mg tablet Take 1 tablet twice a day by oral route for 5 days. ciprofloxacin 500 mg tablet Take 1 tablet twice a day by oral route for 5 days. No 1 BID ciprofloxa enrique 500 mg tablet Take 1 tablet twice a day by oral route for [address] [facility] ice loratadine 10 mg tablet Take 1 tablet every day by ora l route for 90 days. loratadine 10 mg tablet Take 1 tablet every day by oral route for 90 days. No 1 Q1D loratadine 10 m g tablet Take 1 tablet every day by oral route for 90 days. [facility] ice metronidazole 500 mg tablet Take 1 table t 3 times a day by oral route for 5 days. metronidazole 500 mg tablet Take 1 table t 3 times a day by oral route for 5 days. No 1 TID metronidazole 50 0 mg tablet Take 1 tablet 3 times a day by oral route for [address] [facility] mometasone 50 mcg/actuation nasal spray [place] 1 spray twice a day by intranasal route for 90 days. mometasone 50 mcg/actuation nasal spray [place] 1 spray twice a day by intranasal route for 90 days. No mometasone 50 mcg/actuation nasal spray [place] 1 spray twice a day by intranasal route for [address] [facility] montelukast 10 mg tablet Take 1 tablet e very day by oral route in the evening for 90 days. montelukast 10 mg tablet Take 1 tablet e very day by oral route in the evening for 90 days. No montelukast 10 mg tablet Take 1 tablet every day by oral route in the evening for [address] [facility] pantoprazole 40 mg tablet,delayed release pantoprazole 40 mg tablet,delayed release No pantoprazole 40 mg tablet,chava yed release [facility] sertraline 50 mg tablet Take 1 tablet ev mayda day by oral route as needed for 90 days. sertraline 50 mg tablet Take 1 tablet ev mayda day by oral route as needed for 90 days. No sertraline 50 mg tablet Take 1 tablet every day by oral route as needed for 90 days. [facility] tramadol 50 mg tablet Take 1 tablet every 6 hours by o ral route for 3 days. tramadol 50 mg tablet Take 1 tablet every 6 hours by oral route for 3 days. No 1 Q6H tramadol 50 mg tablet Take 1 tablet every 6 hours by oral route for 3 days. [facility] Vitamin D3 50 mcg (2,000 unit) capsule T matt 1 capsule by oral route after meals for 90 days. Vitamin D3 50 mcg (2,000 unit) capsule T matt 1 capsule by oral route after meals for 90 days. No 1capsule(s) Vitamin D3 50 mcg (2,000 unit) capsule Take 1 capsule by oral route after meals for [address] [facility] Immunizations Ordered Immunization Name Filled Immunization Name Date Status Comments Source influenza, recombinant, quadrIvalent,injectable, prese rvative free influenza, recombinant, quadrIvalent,injectable, preservative free 2020-03-14 11:51:[address] [facility] Tdap Tdap 2019-08-14 15:36:00 Completed [facility] zoster recombinant zoster recombinant 2019-08-14 15:36:[address] [facility] influenza, recombinant, quadrIvalent,injectable, prese rvative free influenza, recombinant, quadrIvalent,injectable, preservative free 2019-06-22 16:36:[address] [facility] influenza, unspecified formulation influenza, unspecified fo rmulation 2015-04-27 00:00:00 Completed [facility] influenza, unspecified formulation influenza, unspecified fo rmulation 2014-03-10 00:00:00 Completed [facility] ice Vital Signs Vital Name Observation Time Observation Value Comments Source BP Diastolic 2020-03-25 00:00:00 64 mm[Hg] [facility] Height 2020-03-25 00:00:00 61 [in_i] [facility] BMI (Body Mass Index) 2020-03-25 00:00:00 22.8 kg/m2 [facility] BP Systolic 2020-03-25 00:00:00 120 mm[Hg] [facility] Body Weight 2020-03-25 00:00:00 120.6 [lb_av] [facility] BP Diastolic 2020-03-14 00:00:00 70 mm[Hg] [facility] Height 2020-03-14 00:00:00 61 [in_i] [facility] BMI (Body Mass Index) 2020-03-14 00:00:00 23.8 kg/m2 [facility] BP Systolic 2020-03-14 00:00:00 126 mm[Hg] [facility] Body Weight 2020-03-14 00:00:00 125.8 [lb_av] [facility] BP Diastolic 2020-01-11 00:00:00 74 mm[Hg] [facility] Height 2020-01-11 00:00:00 61 [in_i] [facility] BMI (Body Mass Index) 2020-01-11 00:00:00 24.6 kg/m2 [facility] BP Systolic 2020-01-11 00:00:00 122 mm[Hg] [facility] Body Weight 2020-01-11 00:00:00 130.2 [lb_av] [facility] Height 2020-01-06 00:00:00 61 [in_i] [facility] BP Diastolic 2019-12-24 00:00:00 74 mm[Hg] [facility] Height 2019-12-24 00:00:00 61 [in_i] [facility] BMI (Body Mass Index) 2019-12-24 00:00:00 24.6 kg/m2 [facility] BP Systolic 2019-12-24 00:00:00 106 mm[Hg] [facility] Body Weight 2019-12-24 00:00:00 130.2 [lb_av] [facility] BP Diastolic 2019-11-18 00:00:00 82 mm[Hg] [facility] Height 2019-11-18 00:00:00 61 [in_i] [facility] BMI (Body Mass Index) 2019-11-18 00:00:00 26 kg/m2 [facility] BP Systolic 2019-11-18 00:00:00 114 mm[Hg] [facility] Body Weight 2019-11-18 00:00:00 137.8 [lb_av] [facility] Height 2019-10-26 00:00:00 61 [in_i] [...] [facility] Practice Height 2019-06-22 00:00:00 61 [in_i] [facility] BMI (Body Mass Index) 2019-06-22 00:00:00 31 kg/m2 [facility] BP Systolic 2019-06-22 00:00:00 130 mm[Hg] [facility] Body Weight 2019-06-22 00:00:00 164 [lb_av] [facility] BP Diastolic 2019-01-28 00:00:00 84 mm[Hg] [facility] Height 2019-01-28 00:00:00 61 [in_i] [facility] BMI (Body Mass Index) 2019-01-28 00:00:00 30.1 kg/m2 [facility] BP Systolic 2019-01-28 00:00:00 124 mm[Hg] [facility] Body Weight 2019-01-28 00:00:00 159.4 [lb_av] [facility] BP Diastolic 2019-01-09 00:00:00 86 mm[Hg] [facility] Height 2019-01-09 00:00:00 61 [in_i] [facility] BMI (Body Mass Index) 2019-01-09 00:00:00 30.3 kg/m2 [facility] BP Systolic 2019-01-09 00:00:00 130 mm[Hg] [facility] Body Weight 2019-01-09 00:00:00 160.4 [lb_av] [facility] BP Diastolic 2018-12-17 00:00:00 88 mm[Hg] [facility] Height 2018-12-17 00:00:00 61 [in_i] [facility] BMI (Body Mass Index) 2018-12-17 00:00:00 30.2 kg/m2 [facility] BP Systolic 2018-12-17 00:00:00 126 mm[Hg] [facility] Body Weight 2018-12-17 00:00:00 160 [lb_av] [facility] Body Temperature 2020-03-20 16:42:00 97.0 [degF] [facility] Weight 2020-03-15 17:15:00 149.38 [lb_av] [facility] BMI (Body Mass Index) 2020-03-15 17:15:00 29.2 kg/m2 [facility] Body Temperature 2020-01-23 09:33:00 98.0 [degF] [facility] Weight 2020-01-23 04:43:00 150 [lb_av] [facility] BMI (Body Mass Index) 2020-01-23 04:43:00 29.3 kg/m2 [facility] Procedures Procedure Date / Time Performed Performing Clinician Hakeem e Endoscopic Incision of Sphincter of Oddi 2020-03-18 00:00:00 [facility] US Gallbladder 2020-03-15 00:00:00 [facility] Magnetic resonance cholangiopancreatography (MRCP) wit hout contrast 2020-03-15 00:00:00 [facility] Laparoscopic Cholecystectomy 2020-03-15 00:00:00 [facility] Computed tomography of abdomen and pelvis with contrast 00:00:00 [facility] Egd 2019-11-13 00:00:00 [facility] electrocardiogram 2019-09-11 00:00:00 [facility] MAMMO, screening, digital, bilateral 2019-07-22 00:00:00 [facility] Colonoscopy 2016-10-17 00:00:00 [facility] Other 1999-06-17 00:00:00 [facility] Delivery 1999-06-17 00:00:00 [facility] Planned Activity Planned Date Details Comments Source Future Appointment 2020-06-24 09:15:00 Eugenio Rosas, [address]; [address], [place] [address] [facility] Instructions Cholelithiasis [facility] Instructions [facility] Encounters Start Date/Time End Date/Time Encounter Type Admission Type [facility] Care Department Encounter ID Source 2020-03-25 00:00:00 2020-03-25 00:00:00 Eugenio reddy MD: [address], [address], [place] [address], Ph. [facility] [place] [facility] [id number] [facility] 2020-03-14 00:00:00 2020-03-14 00:00:00 Eugenio reddy MD: [address], [address], [place] [address], Ph. [facility] Medical - [facility] [id number] [facility] 2020-01-23 04:44:00 2020-01-23 09:35:00 Departed Emergency Room 1 CHRISS GARCIA [facility] [id number] [facility] 2020-01-11 00:00:00 2020-01-11 00:00:00 Eugenio reddy MD: [address], [address], [place] [address], Ph. [facility] - [facility] [id number] [facility] 2020-01-06 00:00:00 2020-01-06 00:00:00 Eugenio reddy MD: [address], [address], [place] [address], Ph. [facility] - [facility] [id number] [facility] 2019-12-24 00:00:00 2019-12-24 00:00:00 Eugenio reddy MD: [address], [address], [place] [address], Ph. [facility] - [facility] [id number] [facility] 2019-11-18 00:00:00 2019-11-18 00:00:00 Eugenio reddy MD: [address], [address], [place] [address], Ph. [facility] - [facility] [id number] [facility] 2019-10-26 00:00:00 2019-10-26 00:00:00 Eugenio reddy MD: [address], [address], [place] [address], Ph. [facility] - [facility] [id number] [facility] 2019-09-29 00:00:00 2019-09-29 00:00:00 Eugenio reddy MD: [address], [place] [address], Ph. [facility] - [facility] [id number] [facility] 2019-09-22 00:00:00 2019-09-22 00:00:00 Eugenio reddy MD: [address], [address], [place] [address], Ph. [facility] - [facility] [id number] [facility] 2019-09-14 00:00:00 2019-09-14 00:00:00 Eugenio reddy MD: [address], [place] [address], Ph. [facility] - [facility] [id number] [facility] 2019-09-11 00:00:00 2019-09-11 00:00:00 Eugenio reddy MD: [address], [address], [place] [address], Ph. [facility] - [facility] [id number] [facility] 2019-08-24 00:00:00 2019-08-24 00:00:00 Eugenio reddy MD: [address], [address], [place] [address], Ph. [facility] - [facility] [id number] [facility] 2019-08-14 00:00:00 2019-08-14 00:00:00 Eugenio reddy MD: [address], [place] [address], Ph. [facility] - [facility] [id number] [facility] 2019-07-22 00:00:00 2019-07-22 00:00:00 Eugenio reddy MD: [address], [place] [address], Ph. [facility] - [facility] [id number] [facility] 2019-06-22 00:00:00 2019-06-22 00:00:00 Eugenio reddy MD: [address], [place] [address], Ph. [facility] - [facility] [id number] [facility] 2019-01-28 00:00:00 2019-01-28 00:00:00 [facility] [place] [address], Ph. [facility] [id number] [facility] 2019-01-09 00:00:00 2019-01-09 00:00:00 Joseph martin MD: [address] [place] [address], Ph. [facility] [id number] [facility] 2018-12-17 00:00:00 2018-12-17 00:00:00 Joseph martin MD: [address] [place] [address], Ph. [facility] [id number] [facility] Results Test Description Test Time Test Comments Results Result Comments Source ERCP TO BE READ 2020-03-24 09:28:00 [place] [address] Patient Name: MARYLU PAIZ MR #: [id number] : 1965 Age/Sex: 54/F Re #: [id number] [facility] Physician: PANCHO PRESLEY MD Ordered by: AMEYA MILES MD Report #: [id number] Location: MED/SURG Room/Bed: [facility] Procedure: [id number] DX/ERCP TO BE READ Exam Date: 03/18/20 Exam Time: 1402 REPORT STATUS: Signed Fluoroscopy, less than 1 hour Indication: [id number] 1402 Comparison: none Findings: Fluoroscopic assistance was provided during endoscopic retrograde cholangiopancreatography. Fluoroscopic images taken were interpreted by the referring clinician. Please see separate procedure note for full details. Endoscope is noted with wire across the common bile duct. Contrast injection is noted within the common bile duct without intraluminal filling defect in the opacified portion. Cholecystectomy changes are noted. Total Fluoroscopy time: 34 seconds Radiation dose: 14.82 mGy Impression: Fluoroscopy assistance as described above. See operative report for further details. Signed by: Reddy Arita MD on 03/24/2020 9:30 AM Dictated By: REDDY ARITA MD 9 Transcribed By: MYAH on 03/24/20929 COPY TO: AMEYA MILES MD Serum or plasma sodium measurement (moles/volume) 2020-03-20 11:00:00 Test Item Sodium Level (test code = 2951-2) 141 136-145 [facility] potassium measurement (moles/volume)2020-03-20 11:00:00* Test Item Value Reference Range Interpretation Comments Potassium Level (test code = 2823-3) 3.9 3.5-5.1 [facility] chloride measurement (moles/volume)2020-03-20 11:00:00* Test Item Value Reference Range Interpretation Comments Chloride Level (test code = 2075-0) 107 98-107 [facility] plasma carbon dioxide, total measurement (moles/volume)2020-03-20 11:00:00* Test Item Value Reference Range Interpretation Comments Carbon Dioxide Level (test code = 2028-9) 27 22-29 [facility] plasma anion [id number] 11:00:00* Test Item Value Reference Range Interpretation Comments Anion Gap (test code = 33584-1) 10.9 8-16 [facility] urea nitrogen measurement (mass/volume)2020-03-20 11:00:00* Test Item Value Reference Range Interpretation Comments Blood Urea Nitrogen (test code = 3094-0) 10 7-26 [facility] plasma creatinine measurement (mass/volume)2020-03-20 11:00:00* Test Item Value Reference Range Interpretation Comments Creatinine (test code = 2160-0) 0.78 0.57-1.11 [facility] plasma urea nitrogen/creatinine mass [id number] 11:00:00* Test Item Value Reference Range Interpretation Comments BUN/Creatinine Ratio (test code = 3097-3) 13 6-25 [facility] glomerular filtration rate (GFR) [id number] 11:00:00* Test Item Value Reference Range Interpretation Comments Estimat Glomerular Filtration Rate (test code = 799515768) > 60 >60 Ranges were taken from the National Kidney Disease Education Program and the [facility] literature.Reference ranges:60 or greater: Djzyuj67-93 ( for 3 consecutive months): Chronic kidney disease 15 or less: Kidney failureHCA [facility] Healthcare [facility]landGlucose [id number] 11:00:00* Test Item Value Reference Range Interpretation Comments Glucose Level (test code = FZR6371) 101 74-118 [facility] plasma calcium measurement (mass/volume)2020-03-20 11:00:00* Test Item Value Reference Range Interpretation Comments Calcium Level (test code = 81011-2) 8.8 8.4-10.2 [facility] plasma total bilirubin measurement (mass/volume)2020-03-20 11:00:00* Test Item Value Reference Range Interpretation Comments Total Bilirubin (test code = 1975-2) 0.3 0.2-1.2 [facility]landFluoroscopic procedure less than one hour [id number] 11:00:00* Test Item Value Reference Range Interpretation Comments Aspartate Amino Transf (AST/SGOT) (test code = Aspartate Amino Transf (AST/SGOT)) 57 5-34 [facility] or plasma alanine aminotransferase measurement (enzymatic activity/volume)2020-03-20 11:00:00* Test Item Value Reference Range Interpretation Comments Alanine Aminotransferase (ALT/SGPT) (test code = 1742-6) 279 0-55 [facility] plasma protein measurement (mass/volume)2020-03-20 11:00:00* Test Item Value Reference Range Interpretation Comments Total Protein (test code = 2885-2) 6.4 6.5-8.1 [facility] or plasma albumin measurement (mass/volume)2020-03-20 11:00:00* Test Item Value Reference Range Interpretation Comments Albumin (test code = 1751-7) 3.2 3.5-5.0 [facility] globulin measurement (mass/volume) 2020-03-20 11:00:00* Test Item Value Reference Range Interpretation Comments Globulin (test code = 91347-9) 3.2 2.3-3.5 [facility] or plasma albumin/globulin mass [id number] 11:00:00* Test Item Value Reference Range Interpretation Comments Albumin/Globulin Ratio (test code = 1759-0) 1.0 0.8-2.0 [facility] or plasma alkaline phosphatase measurement (enzymatic activity/volume)2020-03-20 11:00:00* Test Item Value Reference Range Interpretation Comments Alkaline Phosphatase (test code = 6768-6) 149 40-150 [facility]land[facility] leukocytes automated count (number/volume)2020-03-19 05:15:00* Test Item Value Reference Range Interpretation Comments White Blood Count (test code = 6690-2) 6.04 4.8-10.8 [facility] erythrocytes automated count (number/volume)2020-03-19 05:15:00* Test Item Value Reference Range Interpretation Comments Red Blood Count (test code = 789-8) 3.74 3.6-5.1 [facility] hemoglobin measurement (moles/volume)2020-03-19 05:15:00* Test Item Value Reference Range Interpretation Comments Hemoglobin (test code = 90473-3) 12.2 12.0-16.0 [facility]land[facility]ated blood hematocrit (volume fraction)2020-03-19 05:15:00* Test Item Value Reference Range Interpretation Comments Hematocrit (test code = 4544-3) 37.8 34.2-44.1 [facility]land[facility]ated erythrocyte mean corpuscular [id number] 05:15:00* Test Item Value Reference Range Interpretation Comments Mean Corpuscular Volume (test code = 787-2) 101.1 81-99 [facility]landAutomated erythrocyte mean corpuscular hemoglobin (mass per erythrocyte)2020-03-19 05:15:00* Test Item Value Reference Range Interpretation Comments Mean Corpuscular Hemoglobin (test code = 785-6) 32.6 28-32 [facility]landAutomated erythrocyte mean corpuscular hemoglobin concentration measurement (mass/volume)2020-03-19 05:15:00* Test Item Value Reference Range Interpretation Comments Mean Corpuscular Hemoglobin Concent (test code = 786-4) 32.3 31-35 [facility]landRDW [id number]-[id number] 05:15:00* Test Item Value Reference Range Interpretation Comments Red Cell Distribution Width (test code = 77364-3) 12.7 11.7 -14.4 [facility]landAutomated blood platelet count (count/volume)2020-03-19 05:15:00* Test Item Value Reference Range Interpretation Comments Platelet Count (test code = 777-3) 167 140-360 [facility]landAutomated blood segmented neutrophil count as percentage of total deyexdotnz6732-13-09 05:15:00* Test Item Value Reference Range Interpretation Comments Neutrophils (%) (Auto) (test code = 21869-3) 50.9 38.7-80.0 [facility]landAutomated blood lymphocyte count as percentage ot total ssxzlyqzni0184-99-92 05:15:00* Test Item Value Reference Range Interpretation Comments Lymphocytes (%) (Auto) (test code = 736-9) 35.3 18.0-39.1 [facility]landAutomated blood monocyte count as percentage of total ahjcbleuza1750-50-55 05:15:00* Test Item Value Reference Range Interpretation Comments Monocytes (%) (Auto) (test code = 5905-5) 6.8 4.4-11.3 [facility]landAutomated blood eosinophil count as percentage of total lzticoqctv3533-44-44 05:15:00* Test Item Value Reference Range Interpretation Comments Eosinophils (%) (Auto) (test code = 713-8) 5.5 0.0-6.0 [facility]landAutomated blood basophil count as percentage of total pbphhsopup5059-63-00 05:15:00* Test Item Value Reference Range Interpretation Comments Basophils (%) (Auto) (test code = 706-2) 1.2 0.0-1.0 [facility] PearlandFluoroscopic procedure less than one hour zzozqufj8828-41-60 05:15:00* Test Item Value Reference Range Interpretation Comments IM GRANULOCYTES % (test code = IM GRANULOCYTES %) 0.3 0.0- 1.0 [facility]landAutomated blood neutrophil count 2020-03-19 05:15:00* Test Item Value Reference Range Interpretation Comments Neutrophils # (Auto) (test code = 751-8) 3.1 2.1-6.9 [facility]landBlood lymphocytes count (number/volume) 2020-03-19 05:15:00* Test Item Value Reference Range Interpretation Comments Lymphocytes # (Auto) (test code = 60059-7) 2.1 1.0-3.2 [facility]landBlood monocytes automated count (number/volume)2020-03-19 05:15:00* Test Item Value Reference Range Interpretation Comments Monocytes # (Auto) (test code = 742-7) 0.4 0.2-0.8 [facility]landAutomated blood eosinophil count 2020-03-19 05:15:00* Test Item Value Reference Range Interpretation Comments Eosinophils # (Auto) (test code = 711-2) 0.3 0.0-0.4 [facility] PearlandAutomated blood basophil count (count/volume)2020-03-19 05:15:00* Test Item Value Reference Range Interpretation Comments Basophils # (Auto) (test code = 704-7) 0.1 0.0-0.1 [facility]landFluoroscopic procedure less than one hour vhxchhwa0562-93-35 05:15:00* Test Item Value Reference Range Interpretation Comments Absolute Immature Granulocyte (auto (zack t code = Absolute Immature Granulocyte (auto) 0.02 0-0.1 [facility] Centererum or plasma conjugated bilirubin measurement (mass/volume)2020-03-19 05:15:00* Test Item Value Reference Range Interpretation Comments Direct Bilirubin (test code = 56347-0) 0.3 0.0-0.5 [facility] Centererum or plasma amylase measurement (enzymatic activity/volume)2020-03-16 05:15:00* Test Item Value Reference Range Interpretation Comments Amylase Level (test code = 1798-8) 100 25-125 [facility] Centererum or plasma lipase measurement (enzymatic activity/volume)2020-03-16 05:15:00* Test Item Value Reference Range Interpretation Comments Lipase (test code = 3040-3) 16 8-78 [facility]landMRI MRCP [id number] 11:06:00 [place] [address] Patient Name: MARYLU PAIZ MR #: [id number] : 1965 Age/Sex: 54/F Req #: [id number] Adm Physician: PANCHO PRESLEY MD Ordered by: DIEGO VARELA MD Report #: [id number] Location: [facility] Room/Bed: [place] [address] Procedure: [id number] MRI/M RI MRCP WO Exam Date: Exam Time: REPORT STATUS: Signed TECHNIQUE: MRI of the abdom en and MRCP WITHOUT intravenous contrast. 3-D volume reconstructions were obta ined to evaluate the biliary ductal system. INDICATION: Abdominal pain. COMPARISON: CT from 01/23/2020. Ultrasound from 03/15/2020. FINDINGS: ABSENCE OF INTRAVENOUS CONTRAST DECREASES SENSITIVITY FOR DETECTION OF FOCAL LESIONS AND VASCULAR PATHOLOGY. LOWER THORAX: Unremarkable. LIVER: No hepatic signal abnormality. No focal hepatic lesions. BILIARY: Stones layeri ng the gallbladder and measure up to 0.5 cm. No gallbladder distention or wall thickening. No biliary ductal dilation. No choledocholithiasis. SPLEEN: No splenomegaly. PANCREAS: No focal masses or ductal dilatation. ADRENALS : No adrenal nodules. KIDNEYS/URETERS: No hydronephrosis or solid mass lesions . Simple left renal cysts measure up to 0.3 cm and the left upper pole. No rou anju follow-up imaging is recommended. PERITONEUM/RETROPERITONEUM: No sharifa e fluid. LYMPH NODES: No lymphadenopathy. VESSELS: Unremarkable. GI TRA CT: No distention or wall thickening. BONES AND SOFT TISSUES: Unremarkable. IMPRESSION: 1. No choledocholithiasis. 2. Cholelithiasis wi thout acute cholecystitis. Signed by: Chidi Wallace JR, MD on 03/15/2020 11:17 AM Dictated By: CHIDI WALLACE MD 16 Transcribed By: MYAH on 03/15/201116 COPY TO: DIEGO GUSTAFSON MD Fluoroscopic procedure less than one hour duration 2020-03-15 03:42:00* Test Item Value Reference Range Interpretation Comments Coronavirus (PCR) (test code = Coronavirus (PCR)) NOT DETECTED NOTD ETECTED SARS-CoV-2 PCRHologic Aptima SARS-CoV-2 assay is a nucleic amplification test in tended for the qualitative detection of RNA from SARS-CoV-2 from nasopharyngeal (MEDICAL STENOGRAPHER) specimens. It is used under Emergency Use Authorization (EUA) by FDA.A posi tive result is indicative of the presence of SARS-CoV-2 RNA. Clinical correlatio n with patient history and other diagnostic information is necessary to determin e patient infection status.A negative (Not Detected) result does not preclude SA RS-CoV-2 infection. Clinical Correlation with patient history and other diagnost ic information should be used in patient management decisions.Invalid: Unable to generate a valid result on this specimen. Please submit a new specimen for repr at testing oc clinically indicated.Tesing performed by:[facility] Services[address] [place] [id number], Diego alvarez MD, PhDHCA [facility] PearlandUS SHMXSMWQUNB8080-29-65 03:13:00 [facility] [address] [place] [address] Patient Name: MARYLU PAIZ MR #: [id number] : 1965 Age/Sex: 54/F Req #: [id number] Adm Physician: PANCHO PRESLEY MD Ordered by: DIEGO VARELA MD Report #: [id number] Location: [facility] Room/Bed: [place] [address] Procedure: US/US GALLBLADDER Exam Date: 03/15/20 Exam Time: 0111 REPORT STATUS: Signed EXAM: Right U pper Quadrant Ultrasound with Doppler INDICATION: RUQ PAIN Y COMP ARISON: Abdominal CT 01/23/2020. TECHNIQUE: Transverse and longitudinal images of the right upper abdomen were obtained. FINDINGS: Liver: Size: 13.3 cm in the right midclavicular line, normal Appearance: Aisha l echogenicity, smooth contour Mass: No focal masses Gallbladder: Stones/Sludge: Gallstone at the gallbladder neck. Wall: Less than 3 mm. Appearance: No pericholecystic fluid or hydrops. Distended. S onographic Mccormick's Sign: Negative Bile Ducts: Intrahepatic Ducts: No dilatation Extrahepatic Ducts: Common bile duct measures 0.49 cm, no d ilatation Pancreas: Visualized portions of the pancreatic head, neck and proximal body are normal. Right Kidney: Size: 8.7 cm E chogenicity: Normal Parenchymal thickness: Normal Collecting s ystem: No hydronephrosis Stones: None Cyst/Mass: None Vessels : Main Portal Vein: Diameter: 0.6 cm, normal. Normal flow direction. Aorta: Visualized portions are normal Inferior Vena Cava: Visualized p ortions are normal Free Fluid: No ascites or pleural effusion IMPRESSION: Gallstone at the gallbladder neck, but without wall changes t o suggest acute cholecystitis. Signed by: Dominick Ruano DO on 03/15/2020 3:17 AM Dictated By: DOMINICK RUANO DO 6 Transcribed By: MYAH on 03/15/20316 COPY TO: DIEGO VARELA MD Urine color wghxjwjubhqyu4117-09-15 00:38:00* Test Item Value Reference Range Interpretation Comments Urine Color (test code = 5778-6) STRAW YELLOW [facility]landUrine pgzdkgp9120-12-11 00:38:00* Test Item Value Reference Range Interpretation Comments Urine Clarity (test code = 53368-4) CLEAR CLEAR [facility] Centerpecific gravity of Urine by Test strip 2020-03-15 00:38:00* Test Item Value Reference Range Interpretation Comments Urine Specific Sam[place] (test code = 5811-5) 1.010 1.010-1.02 5 [facility]landUrine pH measurement by automated test kmaim0425-76-37 00:38:00* Test Item Value Reference Range Interpretation Comments Urine pH (test code = 07313-6) 5 5-7 [facility]landUrine leukocyte esterase detection by nlvdqycg0263-85-30 00:38:00* Test Item Value Reference Range Interpretation Comments Urine Leukocyte Esterase (test code = 5799-2) SMALL NEGATIVE [facility]landUrine nitrite fxyqodchl2491-24-19 00:38:00* Test Item Value Reference Range Interpretation Comments Urine Nitrite (test code = 62693-9) NEGATIVE NEGATIVE [facility]landUrine protein measurement by test strip (mass/volume)2020-03-15 00:38:00* Test Item Value Reference Range Interpretation Comments Urine Protein (test code = 5804-0) NEGATIVE NEGATIVE [facility]landUrine glucose kkyejehht4831-15-46 00:38:00* Test Item Value Reference Range Interpretation Comments Urine Glucose (UA) (test code = 2349-9) NEGATIVE NEGATIVE [facility]landUrine ketones detection by automated test aqpvz0349-89-63 00:38:00* Test Item Value Reference Range Interpretation Comments Urine Ketones (test code = 47807-9) NEGATIVE NEGATIVE [facility]landUrine urobilinogen measurement by test strip (mass/volume)2020-03-15 00:38:00* Test Item Value Reference Range Interpretation Comments Urine Urobilinogen (test code = 37077-5) 0.2 0.2-1 [facility]landUrine total bilirubin measurement (mass/volume)2020-03-15 00:38:00* Test Item Value Reference Range Interpretation Comments Urine Bilirubin (test code = 1978-6) NEGATIVE NEGATIVE [facility]landUrine erythrocytes denulrptn5744-04-79 00:38:00* Test Item Value Reference Range Interpretation Comments Urine Blood (test code = 71990-4) NEGATIVE NEGATIVE [facility]landAutomated urine sediment leukocyte count by microscopy (number/high power field)2020-03-15 00:38:00* Test Item Value Reference Range Interpretation Comments Urine WBC (test code = 5821-4) 11-20 0-5 [facility]landErythrocytes detection in urine sediment by light axcvktjzbl4039-84-31 00:38:00* Test Item Value Reference Range Interpretation Comments Urine RBC (test code = 88306-5) 0-5 0-5 [facility] PearlandBacteria detection in urine sediment by light sdtviopluw8072-14-90 00:38:00* Test Item Value Reference Range Interpretation Comments Urine Bacteria (test code = 42196-0) FEW NONE [facility] PearlandEpithelial cells detection in urine sediment by light ivtcnfnevi7450-10-15 00:38:00* Test Item Value Reference Range Interpretation Comments Urine Epithelial Cells (test code = 53767-6) MODERATE NONE [facility] PearlandUrinalysis macro (dipstick) panel - Urine 2020-03-14 13:38:00* Test Item Value Reference Range Interpretation Comments Color Color (test code = Color Color) yellow Color Appearance (test code = Color Appearance) clear Color Glucose (test code = Color Glucose) negative Color Bilirubin (test code = Color Bilirubin) negative Color Ketones (test code = Color Ketones) negative Color Specific Samaria (test code = Color Specific Samaria) 1.025 Color Blood (test code = Color Blood) negative Color PH (test code = Color PH) 7.0 Color Protein (test code = Color Protein) negative Color Urobilinogen (test code = Color Urobilinogen) 0.2 Color Nitrites (test code = Color Nitrites) negative Color Leukocytes (test code = Color Leukocytes) negative [facility] W Auto Differential panel - Ymyyo8214-41-03 00:00:00 * Test Item Value Reference Range Interpretation Comments WBC (test code = WBC) 5.89 x10*3/?L 3.98-10.04 RBC (test code = RBC) 4.51 10*12/L 3.93-5.22 hemoglobin (test code = hemoglobin) 14.40 g/dL 11.20-15.70 hematocrit (test code = hematocrit) 45.0 % 34.1-44.9 H MCV (test code = MCV) 99.8 fL 80.0-100.0 MCH (test code = MCH) 31.9 pg 25.6-32.2 MCHC (test code = MCHC) 32.0 g/dL 32.2-35.5 L RDW-SD (test code = RDW-SD) 46.9 fL 36.4-46.3 H platelet count (test code = platelet count) 192.0 k/uL 182.0-369. 0 MPV (test code = MPV) 12.8 fL 7.5-11.5 H neut% (test code = neut%) 41.5 % 34.0-71.1 lymph% (test code = lymph%) 43.3 % 19.3-51.7 mon% (test code = mon%) 7.1 % 4.7-12.5 eos% (test code = eos%) 7.3 % 0.7-5.8 H baso% (test code = baso%) 0.8 % 0.1-1.2 neut# (test code = neut#) 2.4 x10*3/?L 1.6-6.1 lymph# (test code = lymph#) 2.6 x10*3/?L 1.2-3.7 mon# (test code = mon#) 0.4 x10*3/?L 0.2-0.9 eos# (test code = eos#) 0.43 x10*3/?L 0.04-0.36 H baso# (test code = baso#) 0.05 x10*3/?L 0.01-0.08 [facility] 2000 [facility] - Serum or Plasma 2020-03-14 00:00:00* Test Item Value Reference Range Interpretation Comments ALT (test code = ALT) 230 U/L 0-55 H AST (test code = AST) 116 U/L 5-34 H BUN (test code = BUN) 18.4 mg/dL 9.8-25.0 alk phos (test code = alk phos) 104 unit/L 40-150 glucose (test code = glucose) 85 mg/dL 70-99 albumin (test code = albumin) 3.8 g/dL 3.4-5.1 creatinine (test code = creatinine) 0.75 mg/dL 0.57-1.11 eGFR non- (test code = eGFR non-) > 60 total bilirubin (test code = total bilirubin) 0.2 mg/dL 0.2-1.2 eGFR - (test code = eGFR - ) >60 sodium (test code = sodium) 140 mEq/L 135-145 potassium (test code = potassium) 4.7 mEq/L 3.5-5.3 chloride (test code = chloride) 104 mmol/L 98-110 total protein (test code = total protein) 7.0 g/dL 6.1-8.2 calcium (test code = calcium) 9.7 mg/dL 8.6-10.4 CO2 (test code = CO2) 26.9 mmol/L 20.0-32.0 anion gap (test code = anion gap) [address] [facility] HospitalLip[facility] 1996 panel - Serum or Beshkd7750-61-96 00:00:00* Test Item Value Reference Range Interpretation Comments HDL (test code = HDL) 52 mg/dL triglyceride (test code = triglyceride) 94 mg/dL <150 VLDL (calculated) (test code = VLDL (calculated)) 19 mg/dL cholesterol/HDL ratio (test code = cholesterol/HDL ratio) 3.4 mg/dL non-HDL cholesterol (calculated) (test code = non-HDL cholesterol (calculated)) 125 mg/dL <160 cholesterol (test code = cholesterol) 177 mg/dL <200 Cholesterol in LDL [Mass/volume] in Serum or Plasma (t est code = 2089-1) 106 mg/dL <130 [facility] HospitalThyrotropin [Units/volume] in Serum or Zraqjc4182-18-75 00:00:00* Test Item Value Reference Range Interpretation Comments TSH (test code = TSH) 5.203 uIU/mL 0.350-4.[address] [facility] HospitalYggwherf87-Roacvmjydslzzy D2+25-Hydroxyvitamin D3 [Mass/volume] in Serum or Uffczv4659-01-87 00:00:00* Test Item Value Reference Range Interpretation Comments vitamin D 25OH (test code = vitamin D 25OH) 28.9 NG/mL 30.0-96.[address] [facility] HospitalHemoglobin A1c/Hemoglobin.total in Zqrfh6059-94-34 00:00:00* Test Item Value Reference Range Interpretation Comments Hemoglobin A1c/Hemoglobin.total in Blood (test code = 4548-4) 5.8 % 1.0-5.7 H average blood glucose (calculated) (test code = average blood glucose (calculated)) 120 mg/dL [facility]IS [id number] 08:27:00 [place] [id number] [place] [address] Patient Name: MARYLU PAIZ MR #: [id number] : 1965 Age/Sex: 54/F Req #: [id number] Adm Physician: Ordered by: DIEGO VARELA MD Report #: [id number] Location: ER Room/Bed: Procedure: [id number] CT/CT ABDOMEN/PELVIS W Exam Date: 01/23/20 Exam Time: 063 7 REPORT STATUS: Signed EXAM: CT Abdomen and Pelvis WITH contrast INDICATION: ABD PAIN COMPARISON: None. TECHNIQUE: Abdomen and pelvis were scanned utilizing a multidetector helical scanner from the lung base to the pubic symphysis after administration of IV c ontrast. Coronal and sagittal reformations were obtained. Routine protocol was performed. Scan was performed when during portal venous phase. IV CO NTRAST: 100 mL of Isovue 370 ORAL CONTRAST: None COMPLIC ATIONS: None RADIATION DOSE: Total DLP: 251.06 mGy*cm Estimat ed effective dose: (DLP x 0.015 x size factor) mSv CTDIvol has been revie wed. It is below the limits set by the Radiation Protocol Committee (RPC). Dose modulation, iterative reconstruction, and/or weight based adjustment of the mA/kV was utilized to reduce the radiation dose to as low as reasonably achievable. FINDINGS: LINES and TUBES: None. LOWER THORAX: Mil d dependent atelectasis. Calcific granuloma in the right lower lobe. HEPA TOBILIARY: No focal hepatic lesions. No biliary ductal dilation. GALL BLADDER: No radio-opaque stones or sludge. No wall thickening. SPLEEN: No splenomegaly. PANCREAS: No focal masses or ductal dilatation. ADREN ALS: No adrenal nodules KIDNEYS/URETERS: Kidneys enhance symmetrically. No hydronephrosis. No cystic or solid mass lesions. No stones. GI TRAC T: No abnormal distention, wall thickening, or evidence of bowel obstruction. Appendix is normal. PELVIC ORGANS/BLADDER: Unremarkable. LYMPH N ODES: No lymphadenopathy. VESSELS: Unremarkable. PERITONEUM / RETROPER ITONEUM: No free air or fluid. BONES: Unremarkable. SOFT TISSUES: Unre markable. IMPRESSION: No acute abdominopelvic process. Signed by: Flakito Hernandez MD on 01/23/2020 8:34 AM Dictated By: FLAKITO GAMEZ OR 3 Transcribed By: MAYH on 01/23/20833 COPY TO: DIEGO VARELA MD Urine color iupczpdmfghbt8692-97-98 05:25:00* Test Item Value Reference Range Interpretation Comments Urine Color (test code = 5778-6) YELLOW YELLOW [facility]landUrine lhkodsr0002-71-66 05:25:00* Test Item Value Reference Range Interpretation Comments Urine Clarity (test code = 19540-8) HAZY CLEAR [facility] Centerpecific gravity of Urine by Test strip 2020-01-23 05:25:00* Test Item Value Reference Range Interpretation Comments Urine Specific [place] (test code = 5811-5) >=1.030 1.010-1.02 5 [facility]landUrine pH measurement by automated test mtykk1093-69-81 05:25:00* Test Item Value Reference Range Interpretation Comments Urine pH (test code = 54959-1) 5.5 5-7 [facility]landUrine leukocyte esterase detection by lsdckwqa8815-71-43 05:25:00* Test Item Value Reference Range Interpretation Comments Urine Leukocyte Esterase (test code = 5799-2) MODERATE NEGATIVE [facility]landUrine nitrite nqdbvgvsk2233-07-09 05:25:00* Test Item Value Reference Range Interpretation Comments Urine Nitrite (test code = 19742-9) NEGATIVE NEGATIVE [facility]landUrine protein measurement by test strip (mass/volume)2020-01-23 05:25:00* Test Item Value Reference Range Interpretation Comments Urine Protein (test code = 5804-0) NEGATIVE NEGATIVE [facility]landUrine glucose ahxrbanel6099-62-44 05:25:00* Test Item Value Reference Range Interpretation Comments Urine Glucose (UA) (test code = 2349-9) NEGATIVE NEGATIVE [facility]landUrine ketones detection by automated test abpct2961-30-37 05:25:00* Test Item Value Reference Range Interpretation Comments Urine Ketones (test code = 34104-1) NEGATIVE NEGATIVE [facility]landUrine urobilinogen measurement by test strip (mass/volume)2020-01-23 05:25:00* Test Item Value Reference Range Interpretation Comments Urine Urobilinogen (test code = 66790-5) 0.2 0.2-1 [facility]landU[facility] total bilirubin measurement (mass/volume)2020-01-23 05:25:00* Test Item Value Reference Range Interpretation Comments Urine Bilirubin (test code = 1978-6) NEGATIVE NEGATIVE [facility]landUrine erythrocytes rprulyctc7209-74-08 05:25:00* Test Item Value Reference Range Interpretation Comments Urine Blood (test code = 35163-8) NEGATIVE NEGATIVE [facility]landAutomated urine sediment leukocyte count by microscopy (number/high power field)2020-01-23 05:25:00* Test Item Value Reference Range Interpretation Comments Urine WBC (test code = 5821-4) 11-20 0-5 [facility]landErythrocytes detection in urine sediment by light ovmbpbvxij6482-08-96 05:25:00* Test Item Value Reference Range Interpretation Comments Urine RBC (test code = 89461-5) 0-5 0-5 [facility]landBacteria detection in urine sediment by light owtmlzvgfg4732-04-05 05:25:00* Test Item Value Reference Range Interpretation Comments Urine Bacteria (test code = 40194-6) MANY NONE [facility] PearlandEpithelial cells detection in urine sediment by light rrvhznqtjr7359-47-30 05:25:00* Test Item Value Reference Range Interpretation Comments Urine Epithelial Cells (test code = 73185-0) MODERATE NONE [facility]landBlood leukocytes automated count (number/volume)2020-01-23 04:45:00* Test Item Value Reference Range Interpretation Comments White Blood Count (test code = 6690-2) 6.40 4.8-10.8 [facility]landBlood erythrocytes automated count (number/volume)2020-01-23 04:45:00* Test Item Value Reference Range Interpretation Comments Red Blood Count (test code = 789-8) 4.18 3.6-5.1 [facility]landBlood hemoglobin measurement (moles/volume)2020-01-23 04:45:00* Test Item Value Reference Range Interpretation Comments Hemoglobin (test code = 32298-3) 12.9 12.0-16.0 [facility]landAutomated blood hematocrit (volume fraction)2020-01-23 04:45:00* Test Item Value Reference Range Interpretation Comments Hematocrit (test code = 4544-3) 40.6 34.2-44.1 [facility]landAutomated erythrocyte mean corpuscular omehoo4645-71-44 04:45:00* Test Item Value Reference Range Interpretation Comments Mean Corpuscular Volume (test code = 787-2) 97.1 81-99 [facility]landAutomated erythrocyte mean corpuscular hemoglobin (mass per erythrocyte)2020-01-23 04:45:00* Test Item Value Reference Range Interpretation Comments Mean Corpuscular Hemoglobin (test code = 785-6) 30.9 28-32 [facility]landAutomated erythrocyte mean corpuscular hemoglobin concentration measurement (mass/volume)2020-01-23 04:45:00* Test Item Value Reference Range Interpretation Comments Mean Corpuscular Hemoglobin Concent (test code = 786-4) 31.8 31-35 [facility] PearlandRDW QgtVd-Hqq8742-09-08 04:45:00* Test Item Value Reference Range Interpretation Comments Red Cell Distribution Width (test code = 29767-6) 13.3 11.7 -14.4 [facility] PearlandAutomated blood platelet count (count/volume)2020-01-23 04:45:00* Test Item Value Reference Range Interpretation Comments Platelet Count (test code = 777-3) 191 140-360 [facility] PearlandAutomated blood segmented neutrophil count as percentage of total qwdxhhxqqm0803-99-31 04:45:00* Test Item Value Reference Range Interpretation Comments Neutrophils (%) (Auto) (test code = 44804-2) 39.3 38.7-80.0 [facility] PearlandAutomated blood lymphocyte count as percentage ot total beqmdmatcs1116-19-00 04:45:00* Test Item Value Reference Range Interpretation Comments Lymphocytes (%) (Auto) (test code = 736-9) 48.1 18.0-39.1 [facility] PearlandAutomated blood monocyte count as percentage of total xvmttogaej0360-48-83 04:45:00* Test Item Value Reference Range Interpretation Comments Monocytes (%) (Auto) (test code = 5905-5) 5.0 4.4-11.3 [facility] PearlandAutomated blood eosinophil count as percentage of total mfqfkpeqiy4061-64-75 04:45:00* Test Item Value Reference Range Interpretation Comments Eosinophils (%) (Auto) (test code = 713-8) 6.3 0.0-6.0 [facility] PearlandAutomated blood basophil count as percentage of total envvzyurbr2082-02-12 04:45:00* Test Item Value Reference Range Interpretation Comments Basophils (%) (Auto) (test code = 706-2) 1.1 0.0-1.0 [facility] PearlandFluoroscopic procedure less than one hour qtvgsavy9160-46-62 04:45:00* Test Item Value Reference Range Interpretation Comments IM GRANULOCYTES % (test code = IM GRANULOCYTES %) 0.2 0.0- 1.0 [facility] PearlandAutomated blood neutrophil count 2020-01-23 04:45:00* Test Item Value Reference Range Interpretation Comments Neutrophils # (Auto) (test code = 751-8) 2.5 2.1-6.9 [facility] PearlandBlood lymphocytes count (number/volume) 2020-01-23 04:45:00* Test Item Value Reference Range Interpretation Comments Lymphocytes # (Auto) (test code = 16053-0) 3.1 1.0-3.2 [facility] PearlandBlood monocytes automated count (number/volume)2020-01-23 04:45:00* Test Item Value Reference Range Interpretation Comments Monocytes # (Auto) (test code = 742-7) 0.3 0.2-0.8 [facility] PearlandAutomated blood eosinophil count 2020-01-23 04:45:00* Test Item Value Reference Range Interpretation Comments Eosinophils # (Auto) (test code = 711-2) 0.4 0.0-0.4 [facility] PearlandAutomated blood basophil count (count/volume)2020-01-23 04:45:00* Test Item Value Reference Range Interpretation Comments Basophils # (Auto) (test code = 704-7) 0.1 0.0-0.1 [facility] PearlandFluoroscopic procedure less than one hour tgdmbqjq8860-18-02 04:45:00* Test Item Value Reference Range Interpretation Comments Absolute Immature Granulocyte (auto (zack t code = Absolute Immature Granulocyte (auto) 0.01 0-0.1 [facility] plasma sodium measurement (moles/volume)2020-01-23 04:45:00* Test Item Value Reference Range Interpretation Comments Sodium Level (test code = 2951-2) 140 136-145 [facility] Centererum or plasma potassium measurement (moles/volume)2020-01-23 04:45:00* Test Item Value Reference Range Interpretation Comments Potassium Level (test code = 2823-3) 3.8 3.5-5.1 [facility] Centererum or plasma chloride measurement (moles/volume)2020-01-23 04:45:00* Test Item Value Reference Range Interpretation Comments Chloride Level (test code = 2075-0) 107 98-107 [facility] Centererum or plasma carbon dioxide, total measurement (moles/volume)2020-01-23 04:45:00* Test Item Value Reference Range Interpretation Comments Carbon Dioxide Level (test code = 2028-9) 25 22-29 [facility] Centererum or plasma anion plc9902-57-80 04:45:00* Test Item Value Reference Range Interpretation Comments Anion Gap (test code = 01616-3) 11.8 8-16 [facility]rum or plasma urea nitrogen measurement (mass/volume)2020-01-23 04:45:00* Test Item Value Reference Range Interpretation Comments Blood Urea Nitrogen (test code = 3094-0) 15 7-26 [facility] Centererum or plasma creatinine measurement (mass/volume)2020-01-23 04:45:00* Test Item Value Reference Range Interpretation Comments Creatinine (test code = 2160-0) 0.87 0.57-1.11 [facility]ererum or plasma urea nitrogen/creatinine mass ruazv5466-88-46 04:45:00* Test Item Value Reference Range Interpretation Comments BUN/Creatinine Ratio (test code = 3097-3) 17 6- [facility] PearlandEstimated glomerular filtration rate (GFR) awlkskznsjncr9696-04-83 04:45:00* Test Item Value Reference Range Interpretation Comments Estimat Glomerular Filtration Rate (test code = 088646614) > 60 >60 Ranges were taken from the National Kidney Disease Education Program and the [facility] [employer] literature.Reference ranges:60 or greater: Brxbqd49-52 ( for 3 consecutive months): Chronic kidney disease 15 or less: Kidney failureHCA [facility] Healthcare PearlandGlucose imfpquqhzha2308-57-47 04:45:00* Test Item Value Reference Range Interpretation Comments Glucose Level (test code = WEN9470) 145 74-118 [facility] Centererum or plasma calcium measurement (mass/volume)2020-01-23 04:45:00* Test Item Value Reference Range Interpretation Comments Calcium Level (test code = 33463-2) 9.1 8.4-10.2 [facility] Centererum or plasma total bilirubin measurement (mass/volume)2020-01-23 04:45:00* Test Item Value Reference Range Interpretation Comments Total Bilirubin (test code = 1975-2) 0.4 0.2-1.2 [facility] PearlandFluoroscopic procedure less than one hour zxabnnvv2462-88-56 04:45:00* Test Item Value Reference Range Interpretation Comments Aspartate Amino Transf (AST/SGOT) (test code = Aspartate Amino Transf (AST/SGOT)) 126 5-34 [facility] Centererum or plasma alanine aminotransferase measurement (enzymatic activity/volume)2020-01-23 04:45:00* Test Item Value Reference Range Interpretation Comments Alanine Aminotransferase (ALT/SGPT) (test code = 1742-6) 119 0-55 [facility] Centererum or plasma protein measurement (mass/volume)2020-01-23 04:45:00* Test Item Value Reference Range Interpretation Comments Total Protein (test code = 2885-2) 6.9 6.5-8.1 [facility] Centererum or plasma albumin measurement (mass/volume)2020-01-23 04:45:00* Test Item Value Reference Range Interpretation Comments Albumin (test code = 1751-7) 3.7 3.5-5.0 [facility] PearlandPlasma globulin measurement (mass/volume) 2020-01-23 04:45:00* Test Item Value Reference Range Interpretation Comments Globulin (test code = 94859-3) 3.2 2.3-3.5 [facility] Centererum or plasma albumin/globulin mass frmuh5816-13-42 04:45:00* Test Item Value Reference Range Interpretation Comments Albumin/Globulin Ratio (test code = 1759-0) 1.2 0.8-2.0 [facility] Centererum or plasma alkaline phosphatase measurement (enzymatic activity/volume)2020-01-23 04:45:00* Test Item Value Reference Range Interpretation Comments Alkaline Phosphatase (test code = 6768-6) 79 40-150 [facility] Centererum or plasma creatine kinase measurement (enzymatic activity/volume)2020-01-23 04:45:00* Test Item Value Reference Range Interpretation Comments Creatine Kinase (test code = 2157-6) 47 29-168 [facility] Centererum or plasma creatine kinase MB measurement (mass/volume)2020-01-23 04:45:00* Test Item Value Reference Range Interpretation Comments Creatine Kinase MB (test code = 38855-6) 0.20 0-5.0 [facility] PearlandTroponin I measurement by highly sensitive enzyme qtoiuvzqfcy7531-49-17 04:45:00* Test Item Value Reference Range Interpretation Comments Troponin I (test code = 54377-9) < 0.001 0-0.300 [facility] Centererum or plasma amylase measurement (enzymatic activity/volume)2020-01-23 04:45:00* Test Item Value Reference Range Interpretation Comments Amylase Level (test code = 1798-8) 104 25-125 [facility] Centererum or plasma lipase measurement (enzymatic activity/volume)2020-01-23 04:45:00* Test Item Value Reference Range Interpretation Comments Lipase (test code = 3040-3) 88 8-78 [facility] Centererum or plasma creatine kinase measurement (enzymatic activity/volume)2020-01-23 04:45:00* Test Item Value Reference Range Interpretation Comments Creatine Kinase (test code = 2157-6) 47 29-168 [facility] Centererum or plasma creatine kinase MB measurement (mass/volume)2020-01-23 04:45:00* Test Item Value Reference Range Interpretation Comments Creatine Kinase MB (test code = 89558-4) 0.20 0-5.0 [facility] PearlandTroponin I measurement by highly sensitive enzyme byarktollpn8484-91-15 04:45:00* Test Item Value Reference Range Interpretation Comments Troponin I (test code = 82934-5) < 0.001 0-0.300 [facility] PearlandBASIC METABOLIC CDBEB8336-69-06 23:16:00 * Test Item Value Reference Range [...] code = CA) 9.3 mg/dL 8.5-10.1 N MGOJFKCE-N6312-07-19 23:16:00* Test Item Value Reference Range Interpretation Comments TROPONIN-I (test code = TROPI) <0.015 ng/mL 0-0.045 N BASIC METABOLIC EMYMA5829-34-58 23:09:00* Test Item Value Reference Range Interpretation [...] code = CA) 9.3 mg/dL 8.5-10.1 N FJSMBVOB-I2886-07-19 23:09:00* Test Item Value Reference Range Interpretation Comments TROPONIN-I (test code = TROPI) ng/mL 0-0.045 BASIC METABOLIC RYTZY8382-64-08 23:06:00* Test Item Value Reference Range Interpretation [...] CALCIUM (test code = CA) mg/dL 8.5-10.1 PQSBFAHZ-D0124-19-19 23:06:00* Test Item Value Reference Range Interpretation Comments TROPONIN-I (test code = TROPI) ng/mL 0-0.045 CBC W/O NYYN4150-69-65 22:59:00* Test Item Value Reference Range Interpretation [...] code = MPV) fL 6.7-11.0 CBC W/O AUQY6149-83-17 22:59:00* Test Item Value Reference Range Interpretation [...] fL 6.7-11.0 H - XR CHEST 1 [id number] 21:28:00 FAX: Skip Hidalgo MD [phone] [place]: St: REG Name: MARYLU GOMES [facility] : [birth year] 62 Age/S: 54/F [address] [facility] Unit #: [id number] Loc: [place] [address] Phys: Skip Hidalgo MD Acct: [id number] Dis Date: Status: REG ER PHONE #: [phone] Exam Date: 12/04/20192111 FAX #: [phone] Reason: CHEST PAIN EXAMS: CPT CODE: [id number] XR CHEST 1 V 35669 EXAM: Chest x-ray, one view; INFORMATION: Chest [...] Urinalysis complete W Reflex Culture panel - Ffccn9189-39-35 00:00:00* Test Item Value Reference Range Interpretation [...] ulture) culture indicated - results to [facility] identified in Urine by Otmbtuk4517-34-51 00:00:00* Test Item Value Reference Range Interpretation Comments culture, urine, routine (test code = culture, urine, routine) see katie schaeffer [facility] HospitalUrinalysis complete W Reflex Culture panel - [...] ulture) culture indicated - results to [facility] HospitalBacteria identified in Urine by Sblczep3471-28-75 00:00:00* Test Item Value Reference Range Interpretation Comments culture, urine, routine (test code = culture, urine, routine) see n ote [facility] HospitalUrinalysis complete W Reflex Culture panel - [...] ulture) culture indicated - results to follow [facility] HospitalBacteria identified in Urine by Equkueo0399-30-34 00:00:00* Test Item Value Reference Range Interpretation Comments culture, urine, routine (test code = culture, urine, routine) see n e [facility] HospitalThyrotropin [Units/volume] in Serum or Wktpqw9236-30-59 00:00:00* Test Item Value Reference Range Interpretation Comments TSH (test code = TSH) 4.379 uIU/mL 0.350-4.940 [facility] HospitalThyrotropin [Units/volume] in Serum or Dzwhqc9923-46-27 00:00:00* Test Item Value Reference Range Interpretation Comments TSH (test code = TSH) 4.379 uIU/mL 0.350-4.940 [facility] HospitalThyrotropin [Units/volume] in Serum or Ylslee8907-49-15 00:00:00* Test Item Value Reference Range Interpretation Comments TSH (test code = TSH) 4.379 uIU/mL 0.350-4.940 [facility] HospitalCBC W Auto Differential panel - Mzfyg3318-67-41 00:00:00 * Test Item Value Reference Range [...] (test code = baso#) 0.05 x10*3/?L 0.01-0.08 [facility] HospitalComprehensive metabolic 1999 panel - Serum or [...] (test code = anion gap) [address] [facility] HospitalLipid 1995 panel - Serum or Rptquy0449-59-90 00:00:00* Test Item Value Reference Range Interpretation [...] code = 2089-1) 144 mg/dL <[address] [facility] HospitalHemoglobin A1c/Hemoglobin.total in Fufqm7097-48-90 00:00:00* Test Item Value Reference Range Interpretation Comments Hemoglobin A1c/Hemoglobin.total in Blood (test code = 4548-4) 6.1 % 1.0-5.7 H average blood glucose (calculated) (test code = average blood glucose (calculated)) 128 mg/dL [facility] HospitalCBC W Auto Differential panel - Bqkku4432-73-30 00:00:00 * Test Item Value Reference Range [...] (test code = baso#) 0.05 x10*3/?L 0.01-0.08 [facility] HospitalComprehensive metabolic 2000 panel - Serum or [...] (test code = anion gap) [address] [facility] HospitalLipid 1996 panel - Serum or Vjppfx4002-20-51 00:00:00* Test Item Value Reference Range Interpretation [...] code = 2089-1) 144 mg/dL <[address] [facility] HospitalHemoglobin A1c/Hemoglobin.total in Qktub6306-93-52 00:00:00* Test Item Value Reference Range Interpretation Comments Hemoglobin A1c/Hemoglobin.total in Blood (test code = 4548-4) 6.1 % 1.0-5.7 H average blood glucose (calculated) (test code = average blood glucose (calculated)) 128 mg/dL [facility] HospitalCBC W Auto Differential panel - Knobs3962-63-65 00:00:00 * Test Item Value Reference Range [...] (test code = baso#) 0.05 x10*3/?L 0.01-0.08 [facility] HospitalComprehensive metabolic 2000 panel - Serum or [...] (test code = anion gap) [address] [facility] HospitalLipid 1996 panel - Serum or Pkwcuc4408-73-07 00:00:00* Test Item Value Reference Range Interpretation [...] code = 2089-1) 144 mg/dL <[address] [facility] HospitalHemoglobin A1c/Hemoglobin.total in Vkqok3876-92-21 00:00:00* Test Item Value Reference Range Interpretation Comments Hemoglobin A1c/Hemoglobin.total in Blood (test code = 4548-4) 6.1 % 1.0-5.7 H average blood glucose (calculated) (test code = average blood glucose (calculated)) 128 mg/dL [facility] [id number] 00:55:00* Test Item Value Reference Range Interpretation Comments STREPTOCOCCUS DYSGALACTIAE (test code = STREPGC) NEGATIVE FOR G/C N EGATIVE STREPA MOLECULAR (test code = STREPAMOL) NEGATIVE FOR GRP A NEGATIV E K-[id number] 18:17:00* Test Item Value Reference Range Interpretation [...] BNP) 2.37 pgram/mL 0-100 N BASIC METABOLIC QKVSC3091-39-75 16:58:00* Test Item Value Reference Range Interpretation [...] code = CA) 8.8 mg/dL 8.5-10.1 N ENRWHYQY-E5008-93-02 16:58:00* Test Item Value Reference Range Interpretation Comments TROPONIN-I (test code = TROPI) <0.015 ng/mL 0-0.045 N BASIC METABOLIC GWGUF1768-94-30 16:49:00* Test Item Value Reference Range Interpretation [...] CALCIUM (test code = CA) mg/dL 8.5-10.1 RATINTJP-E8170-46-02 16:49:00* Test Item Value Reference Range Interpretation Comments TROPONIN-I (test code = TROPI) ng/mL 0-0.045 CBC W/O YUUL9081-09-61 16:44:00* Test Item Value Reference Range Interpretation [...] fL 6.7-11.0 H - XR CHEST 1 [id number] 16:01:00 FAX: Rogelio Mckeon MD [phone] [place]: [address]: PRE Name: MARYLU GOMES [facility] : [birth year] 62 Age/S: 54/F [place] Unit #: [id number] Loc: [place] [address] Phys: Rogelio Mckeon MD Acct: [id number] Dis Date: Status: PRE ER PHONE #: [phone] Exam Date: 09/17/2019 1545 FAX #: [phone] Reason: Shortness of Breath EXAMS: CPT CODE: [id number] XR CHEST 1 V 86791 REASON FOR EXAM: Shortness of Breath Exam [...] limits. IMPRESSION: No acute cardiopulmonary process. Location: [facility] at 1601 Reported and signed by: Julius Blas MD CC: Rogelio Mckeon MD Technologist: SOTERO FERNANDO, RT(R); DUARTE FARIAS Trnndrd Date/Time/By: 09/17/2019 (1912) : By: Bri.RR 31 Orig Print D/T: S: 09/17/2019 (1406) PAGE 1 Signed Report EKG study 2019-09-11 22:34:00Rate & RhythmQrsPR IntervalQRS DurationQT IntervalVillage Family PracticeEKG sobhv1501-88-73 22:34:00Rate & RhythmQrsPR IntervalQRS DurationQT IntervalVillage Family PracticeEKG mejiz5459-83-82 22:34:00Rate & RhythmQrsPR IntervalQRS DurationQT IntervalVillage Family PracticeThyrotropin [Units/volume] in Serum or Wmtcbu8349-65-76 00:00:00* Test Item Value Reference Range Interpretation Comments TSH (test code = TSH) 3.95 mIU/L [facility] HospitalQhnfnvct33-Ljvunrewkufkqr D [Mass/volume] in Serum or Plasma 2019-08-18 00:00:00* Test Item Value Reference Range Interpretation Comments vitamin D,25-oh,total,ia (test code = vitamin D,25-oh,total,ia) 16 NG/mL 30-[address] [facility] HospitalThyrotropin [Units/volume] in Serum or Dyclym0079-63-13 00:00:00* Test Item Value Reference Range Interpretation Comments TSH (test code = TSH) 3.95 mIU/L [facility] HospitalVtcwqqbt55-Dgayravryxsnwm D [Mass/volume] in Serum or Plasma 2019-08-18 00:00:00* Test Item Value Reference Range Interpretation Comments vitamin D,25-oh,total,ia (test code = vitamin D,25-oh,total,ia) 16 NG/mL 30-[address] [facility] HospitalComprehensive metabolic 2000 panel - Serum or [...] (test code = anion gap) [address] [facility] HospitalLipid 1995 panel - Serum or Wzfjfz7904-02-08 00:00:00* Test Item Value Reference Range Interpretation [...] code = 2089-1) 134 mg/dL <[address] [facility] HospitalHemoglobin A1c/Hemoglobin.total in Qxxsz4113-18-75 00:00:00* Test Item Value Reference Range Interpretation Comments Hemoglobin A1c/Hemoglobin.total in Blood (test code = 4548-4) 6.2 % 1.0-5.7 H average blood glucose (calculated) (test code = average blood glucose (calculated)) 131 mg/dL [facility] HospitalComprehensive metabolic 2000 panel - Serum or [...] (test code = anion gap) [address] [facility] HospitalLipid 1996 panel - Serum or Tnbvzv7741-28-91 00:00:00* Test Item Value Reference Range Interpretation [...] code = 2089-1) 134 mg/dL <[address] [facility] HospitalHemoglobin A1c/Hemoglobin.total in Svwoj2046-90-41 00:00:00* Test Item Value Reference Range Interpretation Comments Hemoglobin A1c/Hemoglobin.total in Blood (test code = 4548-4) 6.2 % 1.0-5.7 H average blood glucose (calculated) (test code = average blood glucose (calculated)) 131 mg/dL [facility] HospitalHepatitis C virus RNA [Units/volume] (viral load) in Serum or Plasma by Probe and target amplification buildj0937-07-77 00:00:00* Test Item Value Reference Range Interpretation Comments hepatitis C antibody (test code = hepatitis C antibody) non- reactive non-reactive signal to cut-off (test code = signal to cut-off) 0.01 <1.0 0 [facility] W Auto Differential panel - Laqsz9108-55-10 00:00:00 * Test Item Value Reference Range [...] code = absolute neutrophils) 3665 kimber ls/uL 9121-6845 absolute lymphocytes (test code = absolute lymphocytes) [...] basophils (test code = basophils) 1.3 % [facility] HospitalHepatitis C virus RNA [Units/volume] (viral load) in Serum or Plasma by Probe and target amplification nfrvig6751-94-38 00:00:00* Test Item Value Reference Range Interpretation Comments hepatitis C antibody (test code = hepatitis C antibody) non- reactive non-reactive signal to cut-off (test code = signal to cut-off) 0.01 <1.0 0 [facility] W Auto Differential panel - Ioomo4165-99-43 00:00:00 * Test Item Value Reference Range [...] code = absolute neutrophils) 3665 kimber ls/uL 8636-2824 absolute lymphocytes (test code = absolute lymphocytes) [...] basophils (test code = basophils) 1.3 % [facility] HospitalBacteria identified in Urine by Vhaqpsr1059-17-09 04:21:00* Test Item Value Reference Range Interpretation Comments culture, urine, routine (test code = culture, urine, routine) see n luis miguele A [facility] HospitalB-TYPE NATRIURETIC MFVVRTI4968-89-43 19:18:00* Test Item Value Reference Range Interpretation Comments B-TYPE NATRIURETIC PEPTIDE (test code = BNP) 12.64 pgram/mL 0-100 N BASIC METABOLIC [id number] 18:26:00* Test Item Value Reference Range Interpretation [...] code = CA) 8.4 mg/dL 8.5-10.1 L [id number]-M5097-54-08 18:26:00* Test Item Value Reference Range Interpretation Comments TROPONIN-I (test code = TROPI) <0.015 ng/mL 0-0.045 N BASIC METABOLIC [id number] 18:13:00* Test Item Value Reference Range Interpretation [...] CALCIUM (test code = CA) mg/dL 8.5-10.1 MAZWHMMW-O4226-04-08 18:13:00* Test Item Value Reference Range Interpretation Comments TROPONIN-I (test code = TROPI) ng/mL 0-0.045 TROPONIN I [id number] 18:05:00* Test Item Value Reference Range Interpretation [...] only if similarmethodology is used. CBC W/O [id number] 18:03:00* Test Item Value Reference Range Interpretation [...] MPV) 10.8 fL 6.7-11.0 N CBC W/O [id number] 17:58:00* Test Item Value Reference Range Interpretation [...] MPV) fL 6.7-11.0 - XR CHEST 1 [id number] 17:18:00 FAX: Rogelio Mckeon MD [phone] [place]: St: REG Name: MARYLU GOMES [facility] : [birth year] 62 Age/S: 53/F [address] [facility] Unit #: [id number] Loc: [place] [address] Phys: Rogelio Mckeon MD Acct: [id number] Dis Date: Status: REG ER PHONE #: [phone] Exam Date: 10/22/2018 1713 FAX #: [phone] Reason: CHEST PAIN EXAMS: CPT CODE: [id number] XR CHEST 1 V 51962 REASON FOR EXAM: CHEST NATHEN N EXAM [...] Electronically Signed by Nino Head 10/22/2018 at 6972 Reported and signed by: Tiff Howell CC: Rogelio Mckeon MD Technologist: Phillip DUKES(R) Trnkipr sammie Date/Time/By: 10/22/2018 (9714) : By: NiloL Orig Print D/T: S: 0 10/22/2018 (1496) PAGE 1 Signed Re port FEMUR [address] [facility] [address] [place] [address] Patient Name: MARYLU PAIZ MR #: [id number] : 1965 Age/Sex: 51/F Req #: [id number] [facility] Physician: Ordered by: EFREN SMITH Report #: [id number] Location: ER Room/Bed: Procedure: [id number] DX/FEMUR 2 VIEWS MINIMUM LE FT Exam [...]
[2020-04-02 13:33] LABS: ALANINE AMINOTRANSFERASE 42 IU/L (0-55); ALBUMIN 3.7 g/dL (3.5-5.0); ALBUMIN/GLOBULIN RATIO 1.3 (0.8-2.0); ALKALINE PHOSPHATASE 64 IU/L (40-150); ANION GAP 12.7 mmol/L (8-16); BLOOD UREA NITROGEN 16 mg/dL (7-26); BUN/CREATININE RATIO 20 (6-25); CARBON DIOXIDE 25 mmol/L (22-29); CHLORIDE 105 mmol/L (98-107); CREATINE KINASE 34 IU/L (29-168); EST GLOMERULAR FILTRATION RATE > 60 ML/MIN (60-); GLUCOSE 169 mg/dL (74-118); LIPASE 47 U/L (8-78); POTASSIUM 3.7 mmol/L (3.5-5.1); SODIUM 139 mmol/L (136-145)
[2020-04-02 13:39] LABS: INR 0.97; PROTHROMBIN TIME 13.4 seconds (11.9-14.5)
[2020-04-02 13:40] LABS: PARTIAL THROMBOPLASTIN TIME 23.9 seconds (23.8-35.5)
--- NOTE | 2020-04-02 13:53 | Diagnostic Imaging Report ---
EXAMINATION: CHEST SINGLE (PORTABLE) INDICATION: ABD PAIN COMPARISON: None FINDINGS: TUBES and LINES: None. LUNGS: Lungs are well inflated. There is no evidence of pneumonia or pulmonary edema. Calcified granuloma in the right lower lung. PLEURA: No pleural effusion or pneumothorax. HEART AND MEDIASTINUM: The cardiomediastinal silhouette is unremarkable. BONES AND SOFT TISSUES: No acute osseous abnormality. UPPER ABDOMEN: No free air under the diaphragm. There are cholecystectomy clips. IMPRESSION: No acute thoracic abnormality. Signed by: Dr. Sumit Zee MD on 04/02/2020 1:49 PM
[2020-04-02] MEDS ORDERED: IOPAMIDOL 370 MG/ML 200 ML INFUS..BTL INJ ONE (14:22)
[2020-04-02] MEDS ORDERED: SODIUM CHLORIDE 0.9% 50ML 50 ML ONE (14:22)
--- NOTE | 2020-04-02 14:57 | Diagnostic Imaging Report ---
EXAM: CT Abdomen and Pelvis WITH contrast INDICATION: Right-sided abdominal pain. COMPARISON: ERCP 03-18-2020. MRCP 03-15-2020. CT abdomen/pelvis 01-23-2020. TECHNIQUE: Abdomen and pelvis were scanned utilizing a multidetector helical scanner from the lung base to the pubic symphysis after administration of IV contrast. Coronal and sagittal reformations were obtained. Routine protocol was performed. Scan was performed when during portal venous phase. IV CONTRAST: 150 mL of Omnipaque 300 ORAL CONTRAST: Water COMPLICATIONS: None RADIATION DOSE: Total DLP: (DLP x 0.015 x size factor) mGy*cm Estimated effective dose: (DLP x 0.015 x size factor) mSv CTDIvol has been reviewed. It is below the limits set by the Radiation Protocol Committee (RPC). FINDINGS: LINES and TUBES: None. LOWER THORAX: Calcified right lower lobe granuloma. Mild dependent patchy atelectasis. HEPATOBILIARY: No evidence of focal lesion. No biliary ductal dilation. Central and left-sided pneumobilia, compatible with recent intervention. GALLBLADDER: Status post interval cholecystectomy. SPLEEN: No splenomegaly. PANCREAS: No focal masses or ductal dilatation. ADRENALS: No adrenal nodules KIDNEYS/URETERS: Kidneys enhance symmetrically. No evidence of hydronephrosis, solid mass, or stone. GI TRACT: No evidence of wall thickening or distension. Appendix is normal. PELVIC ORGANS/BLADDER: Unremarkable. LYMPH NODES: No lymphadenopathy. VESSELS: Unremarkable. PERITONEUM / RETROPERITONEUM: No free air or fluid. BONES AND SOFT TISSUES: No acute osseous abnormality. Fat-containing umbilical hernia with minimal inflammatory changes, likely postsurgical. CONCLUSION: Status post interval cholecystectomy. No evidence of abscess. Signed by: Dr. Sumit Zee MD on 04/02/2020 2:54 PM
--- NOTE | 2020-04-02 15:28 | Emergency Department Note ---
History of Present Illnes History of Present Illness Chief Complaint: Abdominal Complaints History of Present Illness This is a 54 year old female WOKE UP THE MORNING WITH DIFFUSE ABDOMINAL PAIN DESCRIBED "HOT". C/O OF NAUSEA, NO VOMITING, DIARRHEA. 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 Any updates have been documented here. Past Medical History Recent Fever: No Clinical Suspicion of Infectio: No New/Unexplained Change in Ment: No Past Medical History: Hyperlipedemia Other Medical History: HIATAL HERNIA HEPATITIS B CIRRHOSIS Past Surgical History: Cholecysctectomy Other Surgery: C SECTION Social History Smoking Cessation: Never Smoker Counseling Performed: No Alcohol Use: None Any Illegal Drug Use: No TB Exposure/Symptoms: No Physically hurt or threatened: No Family History Family history of heart diseas: No Other Any Pre-Existing Lines (PICC,: No Review of Systems Review of Systems Constitutional: Reports no symptoms EENTM: Reports no symptoms Cardiovascular: Reports no symptoms Respiratory: Reports no symptoms Gastrointestinal: Reports as per HPI, Reports abdominal pain, Reports nausea Genitourinary: Reports no symptoms Musculoskeletal: Reports no symptoms Integumentary: Reports no symptoms Neurological: Reports no symptoms Psychological: Reports no symptoms Endocrine: Reports no symptoms Hematological/Lymphatic: Reports no symptoms Physical Exam Related Data Allergies: Coded Allergies: No Known Allergies (Unverified , 04/02/20) Triage Vital Signs Vital Signs Date Time Temp Pulse Resp B/P (MAP) Pulse Ox O2 Delivery O2 Flow Rate FiO2 04/02/20 12:35 97.4 80 18 124/78 100 Room Air Vital signs reviewed: Yes Physical Exam CONSTITUTIONAL Constitutional: Present well-developed, Present well-nourished HENT HENT: Present normocephalic, Present atraumatic, Present oropharynx clear/moist, Present nose normal HENT L/R: Present left ext ear normal, Present right ext ear normal EYES Eyes: Reports PERRL, Reports conjunctivae normal NECK Neck: Present ROM normal PULMONARY Pulmonary: Present effort normal, Present breath sounds normal CARDIOVASCULAR Cardiovascular: Present regular rhythm, Present heart sounds normal, Present capillary refill normal, Present normal rate GASTROINTESTINAL Abdominal: Present soft, Present bowel sounds normal, Present tender (MOD TTP RLQ WITHOUT R/G); Absent guarding, Absent rebound, Absent left CVA tenderness, Absent right CVA tenderness GENITOURINARY Genitourinary: Present exam deferred SKIN Skin: Present warm, Present dry MUSCULOSKELETAL Musculoskeletal: Present ROM normal NEUROLOGICAL Neurological: Present alert, Present oriented x 3, Present no gross motor or sensory deficits PSYCHOLOGICAL Psychological: Present mood/affect normal, Present judgement normal Results Laboratory Result Diagram: 04/02/20 1254 04/02/20 1254 Laboratory Laboratory Tests Test 04/02/20 12:54 04/02/20 12:35 White Blood Count 4.75 x10e3/uL (4.8-10.8) Red Blood Count 4.18 x10e6/uL (3.6-5.1) Hemoglobin 13.4 g/dL (12.0-16.0) Hematocrit 40.3 % (34.2-44.1) Mean Corpuscular Volume 96.4 fL (81-99) Mean Corpuscular Hemoglobin 32.1 pg (28-32) Mean Corpuscular Hemoglobin Concent 33.3 g/dL (31-35) Red Cell Distribution Width 12.7 % (11.7-14.4) Platelet Count 214 x10e3/uL (140-360) Neutrophils (%) (Auto) 56.1 % (38.7-80.0) Lymphocytes (%) (Auto) 31.4 % (18.0-39.1) Monocytes (%) (Auto) 5.7 % (4.4-11.3) Eosinophils (%) (Auto) 5.7 % (0.0-6.0) Basophils (%) (Auto) 1.1 % (0.0-1.0) Neutrophils # (Auto) 2.7 (2.1-6.9) Lymphocytes # (Auto) 1.5 (1.0-3.2) Monocytes # (Auto) 0.3 (0.2-0.8) Eosinophils # (Auto) 0.3 (0.0-0.4) Basophils # (Auto) 0.1 (0.0-0.1) Absolute Immature Granulocyte (auto 0 x10e3/uL (0-0.1) Prothrombin Time 13.4 seconds (11.9-14.5) Prothromb Time International Ratio 0.97 Activated Partial Thromboplast Time 23.9 seconds (23.8-35.5) Sodium Level 139 mmol/L (136-145) Potassium Level 3.7 mmol/L (3.5-5.1) Chloride Level 105 mmol/L (98-107) Carbon Dioxide Level 25 mmol/L (22-29) Anion Gap 12.7 mmol/L (8-16) Blood Urea Nitrogen 16 mg/dL (7-26) Creatinine 0.80 mg/dL (0.57-1.11) Estimat Glomerular Filtration Rate > 60 ML/MIN (60-) BUN/Creatinine Ratio 20 (6-25) Glucose Level 169 mg/dL (74-118) Calcium Level 9.0 mg/dL (8.4-10.2) Total Bilirubin 0.2 mg/dL (0.2-1.2) Aspartate Amino Transf (AST/SGOT) 21 IU/L (5-34) Alanine Aminotransferase (ALT/SGPT) 42 IU/L (0-55) Alkaline Phosphatase 64 IU/L (40-150) Creatine Kinase 34 IU/L (29-168) Creatine Kinase MB 0.20 ng/mL (0-5.0) Troponin I < 0.001 ng/mL (0-0.300) Total Protein 6.6 g/dL (6.5-8.1) Albumin 3.7 g/dL (3.5-5.0) Globulin 2.9 g/dL (2.3-3.5) Albumin/Globulin Ratio 1.3 (0.8-2.0) Lipase 47 U/L (8-78) Urine Color Yellow (YELLOW) Urine Clarity Hazy (CLEAR) Urine pH 5 (5 - 7) Urine Specific [employer] [place] >=1.030 (1.010-1.025) Urine Protein Negative (NEGATIVE) Urine Glucose (UA) Negative (NEGATIVE) Urine Ketones Negative (NEGATIVE) Urine Blood Negative (NEGATIVE) Urine Nitrite Negative (NEGATIVE) Urine Bilirubin Negative (NEGATIVE) Urine Urobilinogen 0.2 mg/dL (0.2 - 1) Urine Leukocyte Esterase Trace (NEGATIVE) Urine RBC 0-5 /HPF (0-5) Urine WBC 0-5 /HPF (0-5) Urine Epithelial Cells Few /LPF (NONE) Urine Bacteria Moderate /HPF (NONE) Urine Mucus Few (RARE) Lab results reviewed: Yes Imaging Imaging results reviewed: Yes Impressions EXAMINATION: CHEST SINGLE (PORTABLE) INDICATION: ABD PAIN COMPARISON: None FINDINGS: TUBES and LINES: None. LUNGS: Lungs are well inflated. There is no evidence of pneumonia or pulmonary edema. Calcified granuloma in the right lower lung. PLEURA: No pleural effusion or pneumothorax. HEART AND MEDIASTINUM: The cardiomediastinal silhouette is unremarkable. BONES AND SOFT TISSUES: No acute osseous abnormality. UPPER ABDOMEN: No free air under the diaphragm. There are cholecystectomy clips. IMPRESSION: No acute thoracic abnormality. Signed by: Dr. Sumit Zee MD on 04/02/2020 1:49 PM EXAM: CT Abdomen and Pelvis WITH contrast INDICATION: Right-sided abdominal pain. COMPARISON: ERCP 03-18-2020. MRCP 03-15-2020. CT abdomen/pelvis 01-23-2020. TECHNIQUE: Abdomen and pelvis were scanned utilizing a multidetector helical scanner from the lung base to the pubic symphysis after administration of IV contrast. Coronal and sagittal reformations were obtained. Routine protocol was performed. Scan was performed when during portal venous phase. IV CONTRAST: 150 mL of Omnipaque 300 ORAL CONTRAST: Water COMPLICATIONS: None RADIATION DOSE: Total DLP: (DLP x 0.015 x size factor) mGy*cm Estimated effective dose: (DLP x 0.015 x size factor) mSv CTDIvol has been reviewed. It is below the limits set by the Radiation Protocol Committee (RPC). FINDINGS: LINES and TUBES: None. LOWER THORAX: Calcified right lower lobe granuloma. Mild dependent patchy atelectasis. HEPATOBILIARY: No evidence of focal lesion. No biliary ductal dilation. Central and left-sided pneumobilia, compatible with recent intervention. GALLBLADDER: Status post interval cholecystectomy. SPLEEN: No splenomegaly. PANCREAS: No focal masses or ductal dilatation. ADRENALS: No adrenal nodules KIDNEYS/URETERS: Kidneys enhance symmetrically. No evidence of hydronephrosis, solid mass, or stone. GI TRACT: No evidence of wall thickening or distension. Appendix is normal. PELVIC ORGANS/BLADDER: Unremarkable. LYMPH NODES: No lymphadenopathy. VESSELS: Unremarkable. PERITONEUM / RETROPERITONEUM: No free air or fluid. BONES AND SOFT TISSUES: No acute osseous abnormality. Fat-containing umbilical hernia with minimal inflammatory changes, likely postsurgical. CONCLUSION: Status post interval cholecystectomy. No evidence of abscess. Signed by: Dr. Sumit Zee MD on 04/02/2020 2:54 PM Assessment & Plan Medical Decision Making [facility] RLQ ABD PAIN - CBC, CHEM, UA/CX, CT ABD/PELVIS - EVAL APPENDICITIS, COLITIS, ELECTROLYTE ABNL, RENAL INSUFF Reassessment Reassessment DC HOME, BENTYL, ZOFRAN, F/U PCP Assessment & Plan Final Impression: (1) Abdominal pain Depart Disposition: HOME, SELF-CARE Last Vital Signs Date Time Temp Pulse Resp B/P (MAP) Pulse Ox O2 Delivery O2 Flow Rate FiO2 04/02/20 12:35 97.4 80 18 124/78 100 Room Air Home Meds Reported Medications Tramadol Hcl* (ULTRAM 50MG*) 50 Mg Tab, 50 MG PO Q6H PRN for ABDOMINAL PAIN, TAB 03/20/20 Metronidazole (FLAGYL) 250 Mg Tablet, 500 PO TID 03/20/20 Ciprofloxacin Hcl (CIPRO) 500 Mg Tablet, 500 MG PO Q12H for 5 Days, #30 TAB 03/20/20 Medications in the ED Pantoprazole Sodium 40 mg ONCE ONCE IV Last administered on 04/02/20at 12:59; Admin Dose 40 MG; Start 04/02/20 at 12:42; Stop 04/02/20 at 12:48; Status DC Ondansetron HCl 4 mg ONCE ONCE IV Last administered on 04/02/20at 13:00; Admin Dose 4 MG; Start 04/02/20 at 12:42; Stop 04/02/20 at 12:48; Status DC Sodium Chloride 1,000 ml @ 0 mls/hr Q0M STAT IV Last administered on 04/02/20at 13:00; Admin Dose 999 MLS/HR; Start 04/02/20 at 12:42; Stop 04/02/20 at 12:46; Status DC Sodium Chloride 50 ml @ ud STK-MED ONCE .ROUTE ; Start 04/02/20 at 14:22; Stop 04/02/20 at 14:15; Status DC Iopamidol 74,000 mg STK-MED ONCE INJ ; Start 04/02/20 at 14:22; Stop 04/02/20 at 14:16; Status DC CHRISS GARCIA MD Apr 02, 2020 15:28
[2020-04-02 15:33] VITALS: BP 119/68
== END 2020-04-02 15:53 | disposition home or self-care (01) ==
LOC: ER 12:55
DX: R10.31 Right lower quadrant pain (principal); R11.0 Nausea; E78.5 Hyperlipidemia, unspecified; B19.10 Unspecified viral hepatitis B without hepatic coma
CPT/HCPCS: 36415; 71045; 74177; 80053; 81001; 82550; 82553; 83690; 84484; 85025; 85610; 85730; 87086; 99284; C9113; J2405; J7030; Q9967

== ENCOUNTER 2020-06-11 11:58 | Emergency (ER) | payer OTHER ==
[~2020-06-11] VITALS: Ht 152.4 cm; Wt 67.6 kg
[2020-06-11] MEDS ORDERED: PANTOPRAZOLE SO40 MG PO (12:19)
[2020-06-11] MEDS ORDERED: MI-ACID80 MG PO (12:19)
[2020-06-11] MEDS ORDERED: MONTELUKAST SOD10 MG PO (12:19)
[2020-06-11] MEDS ORDERED: LIPITOR20 MG PO (12:19)
[2020-06-11] MEDS ORDERED: SERTRALINE HCL50 MG PO (12:19)
[2020-06-11] MEDS ORDERED: METRONIDAZOLE500 MG PO (12:19)
[2020-06-11] MEDS ORDERED: CIMETIDINE400 MG PO (12:19)
[2020-06-11] MEDS ORDERED: LORATADINE10 MG PO (12:19)
[2020-06-11] MEDS ORDERED: METHOCARBAMOL750 MG PO (12:19)
[2020-06-11] MEDS ORDERED: MOBIC15 MG PO (12:19)
[2020-06-11] MEDS ORDERED: DICYCLOMINE HCL20 MG PO (12:19)
[2020-06-11] MEDS ORDERED: MAGNESIUM/ALUMINUM/SIMETHICONE 30 ML UDC PO NR (12:45)
[2020-06-11 12:48] LABS: BASOPHILS # (AUTO) 0.1 (0.0-0.1); BASOPHILS % 1.3 % (0.0-1.0); EOSINOPHILS # (AUTO) 0.4 (0.0-0.4); EOSINOPHILS % 6.7 % (0.0-6.0); HEMATOCRIT 46.9 % (34.2-44.1); HEMOGLOBIN 15.6 g/dL (12.0-16.0); LYMPHOCYTES # (AUTO) 1.9 (1.0-3.2); MEAN CORPUSCULAR HEMOGLOBIN 32.1 pg (28-32); MEAN CORPUSCULAR HGB CONC 33.3 g/dL (31-35); MEAN CORPUSCULAR VOLUME 96.5 fL (81-99); MONOCYTES # (AUTO) 0.3 (0.2-0.8); MONOCYTES % 5.4 % (4.4-11.3); NEUTROPHILS # (AUTO) 2.9 (2.1-6.9); NEUTROPHILS % 51.4 % (38.7-80.0); PLATELET COUNT 183 x10e3/uL (140-360); RED BLOOD COUNT 4.86 x10e6/uL (3.6-5.1); RED CELL DISTRIBUTION WIDTH 12.8 % (11.7-14.4)
[2020-06-11 12:57] LABS: INR 0.81; PROTHROMBIN TIME 11.6 seconds (11.9-14.5)
[2020-06-11 12:58] LABS: PARTIAL THROMBOPLASTIN TIME 19.1 seconds (23.8-35.5)
[2020-06-11] MEDS ORDERED: SODIUM CHLORIDE 0.9% 1000ML 1,000 ML IV NR (13:00)
[2020-06-11] MEDS ORDERED: ONDANSETRON HCL INJ 2MG/ML 2ML 2 MG/ML VIAL IV NR (13:00)
[2020-06-11] MEDS ORDERED: DICYCLOMINE HCL 20 MG/2 ML VIAL IM NR (13:00)
[2020-06-11] MEDS ORDERED: LIDOCAINE VISC 2% SOLN 15 ML UDC PO NR (13:00)
[2020-06-11] MEDS ORDERED: PANTOPRAZOLE 40 MG 10ML VIAL IV NR (13:00)
[2020-06-11] MEDS ORDERED: BELLADONNA ALK/PHENOBARBITAL 5 ML UDC PO NR (13:00)
[2020-06-11 13:08] LABS: ALANINE AMINOTRANSFERASE 135 IU/L (0-55); ALBUMIN 3.9 g/dL (3.5-5.0); ALBUMIN/GLOBULIN RATIO 1.1 (0.8-2.0); ALKALINE PHOSPHATASE 101 IU/L (40-150); ANION GAP 15.2 mmol/L (8-16); BLOOD UREA NITROGEN 16 mg/dL (7-26); BUN/CREATININE RATIO 21 (6-25); CALCIUM 9.5 mg/dL (8.4-10.2); CARBON DIOXIDE 26 mmol/L (22-29); CHLORIDE 104 mmol/L (98-107); CREATINE KINASE 69 IU/L (29-168); CREATININE, SERUM 0.77 mg/dL (0.57-1.11); EST GLOMERULAR FILTRATION RATE > 60 ML/MIN (60-); GLUCOSE 120 mg/dL (74-118); LIPASE 47 U/L (8-78); POTASSIUM 4.2 mmol/L (3.5-5.1); SODIUM 141 mmol/L (136-145)
[2020-06-11] MEDS ORDERED: SODIUM CHLORIDE 0.9% 50ML 50 ML ONE (13:50)
[2020-06-11] MEDS ORDERED: IOPAMIDOL 370 MG/ML 200 ML INFUS..BTL INJ ONE (13:51)
[2020-06-11 14:44] LABS: CLARITY,URINE CLEAR (CLEAR); COLOR,URINE YELLOW (YELLOW); KETONES,URINE NEGATIVE (NEGATIVE); LEUKOCYTE ESTERASE ,URINE NEGATIVE (NEGATIVE); NITRITE,URINE NEGATIVE (NEGATIVE); PROTEIN,URINE DIPSTICK NEGATIVE (NEGATIVE); URINE UROBILINOGEN 0.2 mg/dL (0.2 - 1)
[2020-06-11 15:03] LABS: BACTERIA,URINE RARE /HPF; EPITHELIAL CELLS,URINE RARE /LPF; RBC,URINE 0-5 /HPF (0-5); WBC,URINE (MAN) 0-5 /HPF (0-5)
[2020-06-11 16:09] VITALS: BP 117/84
== END 2020-06-11 16:12 | disposition home or self-care (01) ==
LOC: ER 12:13
DX: R10.13 Epigastric pain (principal); R11.0 Nausea; R19.7 Diarrhea, unspecified; I10 Essential (primary) hypertension; E78.5 Hyperlipidemia, unspecified; B19.10 Unspecified viral hepatitis B without hepatic coma
CPT/HCPCS: 36415; 74177; 80053; 81001; 82550; 82553; 83690; 83735; 84484; 85025; 85610; 85730; 87086; 93005; 99284; C9113; J0500; J2405; J7030; Q9967

== ENCOUNTER → 2020-07-18 | Outpatient (CLI) | payer OTHER ==
[~2020-07-18] MED LIST changes: +CIMETIDINE400 MG PO; +DICYCLOMINE HCL20 MG PO; +LIPITOR20 MG PO; +LORATADINE10 MG PO; +METHOCARBAMOL750 MG PO; +METRONIDAZOLE500 MG PO; +MI-ACID80 MG PO; +MOBIC15 MG PO; +MONTELUKAST SOD10 MG PO; +PANTOPRAZOLE SO40 MG PO; +SERTRALINE HCL50 MG PO
== END ==
LOC: MRI 07-13 09:44
PROVIDERS: ATTEND Internal Medicine Gastroenterology
DX: R10.13 Epigastric pain (principal); R74.8 Abnormal levels of other serum enzymes; K80.71 Calculus of gallbladder and bile duct without cholecystitis with obstruction; Z68.23 Body mass index [BMI] 23.0-23.9, adult
CPT/HCPCS: 74181

== ENCOUNTER 2022-12-22 21:05 | Emergency (ER) | payer OTHER ==
[~2022-12-22] VITALS: Ht 152.4 cm; Wt 67.6 kg
[2022-12-22] MEDS ORDERED: KETOROLAC TROMETHAMINE 60 MG/2 ML VIAL IM STA (21:13)
[2022-12-22] MEDS ORDERED: KETOROLAC TROMETHAMINE 60 MG/2 ML VIAL ONE (21:20)
[2022-12-22 21:47] LABS: BACTERIA,URINE FEW /HPF; CLARITY,URINE CLEAR (CLEAR); COLOR,URINE YELLOW (YELLOW); EPITHELIAL CELLS,URINE FEW /LPF; KETONES,URINE NEGATIVE (NEGATIVE); LEUKOCYTE ESTERASE ,URINE NEGATIVE (NEGATIVE); NITRITE,URINE NEGATIVE (NEGATIVE); PROTEIN,URINE DIPSTICK NEGATIVE (NEGATIVE); RBC,URINE 0-5 /HPF (0-5); URINE UROBILINOGEN 0.2 mg/dL (0.2 - 1); WBC,URINE (MAN) 0-5 /HPF (0-5)
[2022-12-22] MEDS ORDERED: ULTRAM 50MG50 MG PO (22:50)
[2022-12-22 22:53] VITALS: BP 117/72; PULSE 56; RESP 17; TEMP 98.2; O2SAT 100
== END 2022-12-22 22:54 | disposition home or self-care (01) ==
LOC: ER 21:10
DX: M54.50 Low back pain, unspecified (principal); I10 Essential (primary) hypertension; E78.5 Hyperlipidemia, unspecified; Z79.899 Other long term (current) drug therapy
CPT/HCPCS: 74176; 81001; 99283; J1885